=== PATIENT | female | born 1955 | race Caucasian/White ===

== ENCOUNTER 2018-07-04 05:27 | Inpatient (IN) | payer OTHER, SELFPAY ==
[2018-07-04] VITALS (9 sets, daily range): BP systolic 105–140; BP diastolic 58–87; PULSE 62–74; RESP 10–19; TEMP 36.6–37; O2SAT 96–100; BMI 26.4
--- NOTE | 2018-07-04 05:52 | ED.ABDPAIN ---
HPI - Abdominal Pain General Chief Complaint: Abdominal Pain Stated Complaint: pain in back and abdomen for 24 hrs Time Seen by Provider: 07/04/18 05:45 Source: patient Mode of arrival: ambulatory Limitations: no limitations History of Present Illness HPI narrative: This is a 63-year-old female comes to the emergency department with complaint of epigastric pain. Patient states it is just right in the middle radiates through to her back. She states that she has had similar symptoms before when she had a gallstone pancreatitis although at that time it was much worse than today. Previous histories pre she has felt nauseated she threw up a couple times today. She has not had fevers but felt a little chilled. She has had some mild constipation but had bowel movements. No urinary symptoms. Patient has not felt short of breath, she denies any pain up into the chest. Patient states she has had her gallbladder removed but denies any other surgeries she takes sertraline daily and accidentally took 2 tablets on Wednesday. Patient has two glasses of wine tonight. States she has a drink most nights. Related Data Home Medications Medication Instructions Recorded Confirmed sertraline [Zoloft] 20 mg PO DAILY 07/04/18 07/04/18 Allergies Allergy/AdvReac Type Severity Reaction Status Date / Time No Known Drug Allergies Allergy Verified 07/04/18 05:46 Review of Systems Review of Systems All systems reviewed & are unremarkable except as noted in HPI and below Constitutional Reports chills and Denies fever(s) Cardiovascular Denies chest pain and Denies dyspnea Respiratory Denies dyspnea Gastrointestinal Gastrointestinal: Reports abdominal pain ( Epigastric), Denies change in bowel habits, Reports constipation, Reports heartburn, Denies diarrhea, Reports nausea and Reports vomiting Genitourinary Denies urinary frequency, Denies dysuria, Denies flank pain and Denies urinary urgency Musculoskeletal Reports back pain [facility] Medical History Gallstone pancreatitis (Acute) Surgical History S/P cholecystectomy (Acute) Family History Father Bladder cancer Mother Lung cancer Social History household members: spouse Smoking Status: Never smoker alcohol intake: current substance use type: does not use Exam Narrative Exam Narrative: GENERAL: Alert and oriented x three, well-nourished, well-appearing female in mild distress. HEENT: Head normocephalic, atraumatic, EOMI, pupils reactive, face symmetric, moist mucous membranes NECK: Supple, full range of motion CARDIOVASCULAR: Regular rate and rhythm without murmurs, rubs or gallops. RESPIRATORY: Breath sounds equal bilaterally, no wheezes rales or rhonchi. ABDOMEN: Soft, Mild epigastric tenderness. No other tenderness appreciated. No bruit or pulsatile mass. Normoactive bowel sounds all 4 quadrants. No guarding or rebound, rigidity, no mass : No CVA tenderness EXTREMITIES: Normal range of motion, no clubbing or edema. Neurovascularly intact NEUROLOGICAL: Cranial nerves II through XII grossly intact. Moving all extremities SKIN: Warm, dry, no petechiae, no rashes or lesions. Initial Vital Signs Initial Vital Signs: Vital Signs Temperature 97.8 F 07/04/18 05:40 Pulse Rate 74 07/04/18 05:40 Respiratory Rate 14 07/04/18 05:40 Blood Pressure 140/87 07/04/18 05:40 Pulse Oximetry 97 07/04/18 05:40 Course Orders Ordered: ED Orders 07/05/18 04:39 Complete Blood Count AUTO DIFF Routine Comprehensive Metabolic Panel Routine Lipase Routine Enoxaparin Sodium (Lovenox) 40 mg SUBCUT DAILY [facility] Last Admin: 07/05/18 09:14 Dose: 40 mg Hydromorphone HCl (Dilaudid) 0.5 mg IV Q4HRWA PRN PRN Reason: Pain, Moderate (4-6) Last Admin: 07/04/18 17:50 Dose: 0.5 mg Lactated Ringer's (Lactated Ringers) 1,000 mls @ 150 mls/hr IV CONT ALE Last Admin: 07/05/18 05:12 Dose: 150 mls/hr Infusion: 07/05/18 05:12 Dose: 150 mls/hr Admin: 07/04/18 22:49 Dose: 150 mls/hr Infusion: 07/04/18 22:49 Dose: 150 mls/hr Admin: 07/04/18 16:17 Dose: 150 mls/hr Ondansetron HCl (Zofran) 4 mg IV Q8HR PRN PRN Reason: Nausea And Vomiting Last Admin: 07/04/18 17:59 Dose: 4 mg Discontinued Medications Hydromorphone HCl (Dilaudid) 0.5 mg IV NOW ONE Stop: 07/04/18 09:10 Last Admin: 07/04/18 09:11 Dose: 0.5 mg Hydromorphone HCl (Dilaudid) 0.5 mg IV Q4HRWA ALE Sodium Chloride (Normal Saline 0.9%) 1,000 mls @ 1,000 mls/hr IV BOLUS ONE Stop: 07/04/18 06:50 Last Infusion: 07/04/18 07:40 Dose: 0 mls/hr Admin: 07/04/18 06:34 Dose: 1,000 mls/hr Sodium Chloride (Normal Saline 0.9%) 1,000 mls @ 1,000 mls/hr IV BOLUS ONE Stop: 07/04/18 11:37 Last Infusion: 07/04/18 12:39 Dose: 0 mls/hr Admin: 07/04/18 10:51 Dose: 1,000 mls/hr Ketorolac Tromethamine (Toradol) 30 mg IV NOW ONE Stop: 07/04/18 05:52 Last Admin: 07/04/18 06:33 Dose: 30 mg Pantoprazole Sodium (Protonix) 40 mg IV NOW ONE Stop: 07/04/18 05:52 Last Admin: 07/04/18 06:34 Dose: 40 mg Vital Signs - 8 hr 07/05/18 04:45 07/05/18 07:58 07/05/18 08:08 Temperature 98.8 F 97.5 F L Pulse Rate 66 65 Respiratory Rate 20 20 Blood Pressure 124/73 119/70 Pulse Oximetry 96 96 96 MDM - Abdominal Pain Lab Data Result diagrams: 07/05/18 04:39 07/05/18 04:39 Lab Results 07/04/18 07/04/18 07/04/18 Range/Units 06:21 06:25 06:25 WBC 8.9 (4.5-11.0) X10^3/uL RBC 4.32 (4.0-5.2) X10^6/uL Hgb 13.5 (12.0-16.0) g/dL Hct 39.7 (36-46) % MCV 91.8 (80-100) fL MCH 31.3 (26-34) PG MCHC 34.1 (30-36) % RDW 13.5 (11.6-14.8) % Plt Count 241 (150-400) X10^3/uL Neut % (Auto) 87.7 H (50-75) % Lymph % (Auto) 6.5 L (25-40) % [place] % (Auto) 5.2 (3-14) % Eos % (Auto) 0.1 L (2-4) % Baso % (Auto) 0.5 (0-2) % Neut # (Auto) 7800 H (2161-0125) /uL Sodium 143 (137-145) mmol/L Potassium 4.2 (3.4-5.1) mmol/L Chloride 105 (98-107) mmol/L Carbon Dioxide 26 (22-32) mmol/L BUN 14 (7-17) mg/dL Creatinine 0.60 (0.52-1.04) mg/dL Estimated GFR > 60.0 (>60) mL/min BUN/Creatinine Ratio 23.3 H (6-22) Glucose 144 H (80-110) mg/dL Calcium 10.1 (8.4-10.2) mg/dL Total Bilirubin 1.4 H (0.2-1.3) mg/dL AST 1066 H (14-36) IU/L ALT 991 H (9-52) IU/L Alkaline Phosphatase 217 H (38-126) U/L Total Creatine Kinase 30 (30-135) U/L CK-MB (CK-2) TNP CK-MB (CK-2) Rel Index TNP Troponin I < 0.012 (0.01-0.034) ng/mL Total Protein 7.5 (6.3-8.2) g/dL Albumin 4.7 (3.5-5.0) g/dL Globulin 2.8 (1.7-4.1) g/dL Albumin/Globulin Ratio 1.7 (1.0-2.8) Amylase 4949 H (30-110) U/L Lipase 44473 H (23-300) U/L Urine RBC (0-5/HPF) Urine WBC (0-5/HPF) Urine Bacteria (None) Ur Culture Indicated? Micro UA Comment Nasal Screen MRSA (PCR) (Negative) 07/04/18 07/04/1818 Range/Units 07:28 Unknown 04:39 WBC 5.8 (4.5-11.0) X10^3/uL RBC 3.66 L (4.0-5.2) X10^6/uL Hgb 11.5 L (12.0-16.0) g/dL Hct 34.1 L (36-46) % MCV 92.9 (80-100) fL MCH 31.4 (26-34) PG MCHC 33.8 (30-36) % RDW 13.3 (11.6-14.8) % Plt Count 180 (150-400) X10^3/uL Neut % (Auto) 63.7 D (50-75) % Lymph % (Auto) 26.4 (25-40) % [place] % (Auto) 7.5 (3-14) % Eos % (Auto) 2.0 (2-4) % Baso % (Auto) 0.4 (0-2) % Neut # (Auto) 3700 (5445-4605) /uL Sodium (137-145) mmol/L Potassium (3.4-5.1) mmol/L Chloride (98-107) mmol/L Carbon Dioxide (22-32) mmol/L BUN (7-17) mg/dL Creatinine (0.52-1.04) mg/dL Estimated GFR (>60) mL/min BUN/Creatinine Ratio (6-22) Glucose (80-110) mg/dL Calcium (8.4-10.2) mg/dL Total Bilirubin (0.2-1.3) mg/dL AST (14-36) IU/L ALT (9-52) IU/L Alkaline Phosphatase (38-126) U/L Total Creatine Kinase (30-135) U/L CK-MB (CK-2) CK-MB (CK-2) Rel Index Troponin I (0.01-0.034) ng/mL Total Protein (6.3-8.2) g/dL Albumin (3.5-5.0) g/dL Globulin (1.7-4.1) g/dL Albumin/Globulin Ratio (1.0-2.8) Amylase (30-110) U/L Lipase (23-300) U/L Urine RBC 5-10/hpf H (0-5/HPF) Urine WBC None seen (0-5/HPF) Urine Bacteria None seen (None) Ur Culture Indicated? Cult not indicated Micro UA Comment Not Reportable Nasal Screen MRSA (PCR) Negative for mrsa (Negative) 07/05/18 Range/Units 04:39 WBC (4.5-11.0) X10^3/uL RBC (4.0-5.2) X10^6/uL Hgb (12.0-16.0) g/dL Hct (36-46) % MCV (80-100) fL MCH (26-34) PG MCHC (30-36) % RDW (11.6-14.8) % Plt Count (150-400) X10^3/uL Neut % (Auto) (50-75) % Lymph % (Auto) (25-40) % [place] % (Auto) (3-14) % Eos % (Auto) (2-4) % Baso % (Auto) (0-2) % Neut # (Auto) (7771-6375) /uL Sodium 143 (137-145) mmol/L Potassium 4.0 (3.4-5.1) mmol/L Chloride 108 H (98-107) mmol/L Carbon Dioxide 26 (22-32) mmol/L BUN 11 (7-17) mg/dL Creatinine 0.60 (0.52-1.04) mg/dL Estimated GFR > 60.0 (>60) mL/min BUN/Creatinine Ratio 18.3 (6-22) Glucose 79 L (80-110) mg/dL Calcium 8.8 (8.4-10.2) mg/dL Total Bilirubin 0.7 (0.2-1.3) mg/dL AST 327 H (14-36) IU/L ALT 580 H (9-52) IU/L Alkaline Phosphatase 164 H (38-126) U/L Total Creatine Kinase (30-135) U/L CK-MB (CK-2) CK-MB (CK-2) Rel Index Troponin I (0.01-0.034) ng/mL Total Protein 5.9 L (6.3-8.2) g/dL Albumin 3.8 (3.5-5.0) g/dL Globulin 2.1 (1.7-4.1) g/dL Albumin/Globulin Ratio 1.8 (1.0-2.8) Amylase (30-110) U/L Lipase 6098 H D (23-300) U/L Urine RBC (0-5/HPF) Urine WBC (0-5/HPF) Urine Bacteria (None) Ur Culture Indicated? Micro UA Comment Nasal Screen MRSA (PCR) (Negative) Point of care testing: Urine Dip Bedside Urine Glucose Negative Bedside Urine Bilirubin - Negative Bedside Urine Ketone - Negative Urine Specific [place] 1.025 Bedside Urine Occult Blood +++ Bedside Urine pH 5.5 Bedside Urine Protein - Negative Bedside Urine Urobilinogen - Negative Bedside Urine Nitrite - Negative Bedside Urine Leukocytes - Negative Esterase ECG Data Attestation: I personally reviewed and interpreted this ECG as follows: Prior ECG tracings: not available for review Interpretation: sinus rhythm, rate of 65, pr of 140, qrs of 89, qtc of 432. Nonspecifci changes. MDM Narrative Medical decision making narrative: Lab work is pending, EKG is negative. Patient pain controlled. Patient signed out to Dr. Whittington for final disposition. Discharge Plan Departure Patient Disposition: Admitted As Inpatient Clinical Impression: Acute epigastric pain Discharge Date/Time: 07/04/18 14:05 Interventions: ED Discharge Assessment Last Done: 07/04/18 14:04 Admit Date/Time: 07/04/18 13:48 Admit Provider: Munira Marin
--- NOTE | 2018-07-04 05:55 | ED_ITS ---
HPI - Abdominal Pain General Chief Complaint: Abdominal Pain Stated Complaint: pain in back and abdomen for 24 hrs Time Seen by Provider: 07/04/18 05:45 Source: patient Mode of arrival: ambulatory Limitations: no limitations History of Present Illness HPI narrative: This is a 63-year-old female comes to the emergency department with complaint of epigastric pain. Patient states it is just right in the middle radiates through to her back. She states that she has had similar symptoms before when she had a gallstone pancreatitis although at that time it was much worse than today. Previous histories pre she has felt nauseated she threw up a couple times today. She has not had fevers but felt a little chilled. She has had some mild constipation but had bowel movements. No urinary symptoms. Patient has not felt short of breath, she denies any pain up into the chest. Patient states she has had her gallbladder removed but denies any other surgeries she takes sertraline daily and accidentally took 2 tablets on Wednesday. Patient has two glasses of wine tonight. States she has a drink most nights. Related Data Home Medications Medication Instructions Recorded Confirmed sertraline [Zoloft] 20 mg PO DAILY 07/04/18 07/04/18 Allergies Allergy/AdvReac Type Severity Reaction Status Date / Time No Known Drug Allergies Allergy Verified 07/04/18 05:46 Review of Systems Review of Systems All systems reviewed & are unremarkable except as noted in HPI and below Constitutional Reports chills and Denies fever(s) Cardiovascular Denies chest pain and Denies dyspnea Respiratory Denies dyspnea Gastrointestinal Gastrointestinal: Reports abdominal pain ( Epigastric), Denies change in bowel habits, Reports constipation, Reports heartburn, Denies diarrhea, Reports nausea and Reports vomiting Genitourinary Denies urinary frequency, Denies dysuria, Denies flank pain and Denies urinary urgency Musculoskeletal Reports back pain [facility] Medical History Gallstone pancreatitis (Acute) Surgical History S/P cholecystectomy (Acute) Family History Father Bladder cancer Mother Lung cancer Social History household members: spouse Smoking Status: Never smoker alcohol intake: current substance use type: does not use Exam Narrative Exam Narrative: GENERAL: Alert and oriented x three, well-nourished, well- appearing female in mild distress. HEENT: Head normocephalic, atraumatic, EOMI, pupils reactive, face symmetric, moist mucous membranes NECK: Supple, full range of motion CARDIOVASCULAR: Regular rate and rhythm without murmurs, rubs or gallops. RESPIRATORY: Breath sounds equal bilaterally, no wheezes rales or rhonchi. ABDOMEN: Soft, Mild epigastric tenderness. No other tenderness appreciated. No bruit or pulsatile mass. Normoactive bowel sounds all 4 quadrants. No guarding or rebound, rigidity, no mass : No CVA tenderness EXTREMITIES: Normal range of motion, no clubbing or edema. Neurovascularly intact NEUROLOGICAL: Cranial nerves II through XII grossly intact. Moving all extremities SKIN: Warm, dry, no petechiae, no rashes or lesions. Initial Vital Signs Initial Vital Signs: Vital Signs Temperature 97.8 F 07/04/18 05:40 Pulse Rate 74 07/04/18 05:40 Respiratory Rate 14 07/04/18 05:40 Blood Pressure 140/87 07/04/18 05:40 Pulse Oximetry 97 07/04/18 05:40 Course Orders Ordered: ED Orders 07/05/18 04:39 Complete Blood Count AUTO DIFF Routine Comprehensive Metabolic Panel Routine Lipase Routine Enoxaparin Sodium (Lovenox) 40 mg SUBCUT DAILY [facility] Last Admin: 07/05/18 09:14 Dose: 40 mg Hydromorphone HCl (Dilaudid) 0.5 mg IV Q4HRWA PRN PRN Reason: Pain, Moderate (4-6) Last Admin: 07/04/18 17:50 Dose: 0.5 mg Lactated Ringer's (Lactated Ringers) 1,000 mls @ 150 mls/hr IV CONT ALE Last Admin: 07/05/18 05:12 Dose: 150 mls/hr Infusion: 07/05/18 05:12 Dose: 150 mls/hr Admin: 07/04/18 22:49 Dose: 150 mls/hr Infusion: 07/04/18 22:49 Dose: 150 mls/hr Admin: 07/04/18 16:17 Dose: 150 mls/hr Ondansetron HCl (Zofran) 4 mg IV Q8HR PRN PRN Reason: Nausea And Vomiting Last Admin: 07/04/18 17:59 Dose: 4 mg Discontinued Medications Hydromorphone HCl (Dilaudid) 0.5 mg IV NOW ONE Stop: 07/04/18 09:10 Last Admin: 07/04/18 09:11 Dose: 0.5 mg Hydromorphone HCl (Dilaudid) 0.5 mg IV Q4HRWA ALE Sodium Chloride (Normal Saline 0.9%) 1,000 mls @ 1,000 mls/hr IV BOLUS ONE Stop: 07/04/18 06:50 Last Infusion: 07/04/18 07:40 Dose: 0 mls/hr Admin: 07/04/18 06:34 Dose: 1,000 mls/hr Sodium Chloride (Normal Saline 0.9%) 1,000 mls @ 1,000 mls/hr IV BOLUS ONE Stop: 07/04/18 11:37 Last Infusion: 07/04/18 12:39 Dose: 0 mls/hr Admin: 07/04/18 10:51 Dose: 1,000 mls/hr Ketorolac Tromethamine (Toradol) 30 mg IV NOW ONE Stop: 07/04/18 05:52 Last Admin: 07/04/18 06:33 Dose: 30 mg Pantoprazole Sodium (Protonix) 40 mg IV NOW ONE Stop: 07/04/18 05:52 Last Admin: 07/04/18 06:34 Dose: 40 mg Vital Signs - 8 hr 07/05/18 04:45 07/05/18 07:58 07/05/18 08:08 Temperature 98.8 F 97.5 F L Pulse Rate 66 65 Respiratory Rate 20 20 Blood Pressure 124/73 119/70 Pulse Oximetry 96 96 96 MDM - Abdominal Pain Lab Data Result diagrams: 07/05/18 04:39 07/05/18 04:39 Lab Results 07/04/18 07/04/18 07/04/18 Range/Units 06:21 06:25 06:25 WBC 8.9 (4.5-11.0) X10^3/uL RBC 4.32 (4.0-5.2) X10^6/uL Hgb 13.5 (12.0-16.0) g/dL Hct 39.7 (36-46) % MCV 91.8 (80-100) fL MCH 31.3 (26-34) PG MCHC 34.1 (30-36) % RDW 13.5 (11.6-14.8) % Plt Count 241 (150-400) X10^3/uL Neut % (Auto) 87.7 H (50-75) % Lymph % (Auto) 6.5 L (25-40) % [place] % (Auto) 5.2 (3-14) % Eos % (Auto) 0.1 L (2-4) % Baso % (Auto) 0.5 (0-2) % Neut # (Auto) 7800 H (2921-5549) /uL Sodium 143 (137-145) mmol/L Potassium 4.2 (3.4-5.1) mmol/L Chloride 105 (98-107) mmol/L Carbon Dioxide 26 (22-32) mmol/L BUN 14 (7-17) mg/dL Creatinine 0.60 (0.52-1.04) mg/dL Estimated GFR > 60.0 (>60) mL/min BUN/Creatinine Ratio 23.3 H (6-22) Glucose 144 H (80-110) mg/dL Calcium 10.1 (8.4-10.2) mg/dL Total Bilirubin 1.4 H (0.2-1.3) mg/dL AST 1066 H (14-36) IU/L ALT 991 H (9-52) IU/L Alkaline Phosphatase 217 H (38-126) U/L Total Creatine Kinase 30 (30-135) U/L CK-MB (CK-2) TNP CK-MB (CK-2) Rel Index TNP Troponin I < 0.012 (0.01-0.034) ng/mL Total Protein 7.5 (6.3-8.2) g/dL Albumin 4.7 (3.5-5.0) g/dL Globulin 2.8 (1.7-4.1) g/dL Albumin/Globulin Ratio 1.7 (1.0-2.8) Amylase 4949 H (30-110) U/L Lipase 68040 H (23-300) U/L Urine RBC (0-5/HPF) Urine WBC (0-5/HPF) Urine Bacteria (None) Ur Culture Indicated? Micro UA Comment Nasal Screen MRSA (PCR) (Negative) 07/04/18 07/04/1818 Range/Units 07:28 Unknown 04:39 WBC 5.8 (4.5-11.0) X10^3/uL RBC 3.66 L (4.0-5.2) X10^6/uL Hgb 11.5 L (12.0-16.0) g/dL Hct 34.1 L (36-46) % MCV 92.9 (80-100) fL MCH 31.4 (26-34) PG MCHC 33.8 (30-36) % RDW 13.3 (11.6-14.8) % Plt Count 180 (150-400) X10^3/uL Neut % (Auto) 63.7 D (50-75) % Lymph % (Auto) 26.4 (25-40) % [place] % (Auto) 7.5 (3-14) % Eos % (Auto) 2.0 (2-4) % Baso % (Auto) 0.4 (0-2) % Neut # (Auto) 3700 (6933-6383) /uL Sodium (137-145) mmol/L Potassium (3.4-5.1) mmol/L Chloride (98-107) mmol/L Carbon Dioxide (22-32) mmol/L BUN (7-17) mg/dL Creatinine (0.52-1.04) mg/dL Estimated GFR (>60) mL/min BUN/Creatinine Ratio (6-22) Glucose (80-110) mg/dL Calcium (8.4-10.2) mg/dL Total Bilirubin (0.2-1.3) mg/dL AST (14-36) IU/L ALT (9-52) IU/L Alkaline Phosphatase (38-126) U/L Total Creatine Kinase (30-135) U/L CK-MB (CK-2) CK-MB (CK-2) Rel Index Troponin I (0.01-0.034) ng/mL Total Protein (6.3-8.2) g/dL Albumin (3.5-5.0) g/dL Globulin (1.7-4.1) g/dL Albumin/Globulin Ratio (1.0-2.8) Amylase (30-110) U/L Lipase (23-300) U/L Urine RBC 5-10/hpf H (0-5/HPF) Urine WBC None seen (0-5/HPF) Urine Bacteria None seen (None) Ur Culture Indicated? Cult not indicated Micro UA Comment Not Reportable Nasal Screen MRSA (PCR) Negative for mrsa (Negative) 07/05/18 Range/Units 04:39 WBC (4.5-11.0) X10^3/uL RBC (4.0-5.2) X10^6/uL Hgb (12.0-16.0) g/dL Hct (36-46) % MCV (80-100) fL MCH (26-34) PG MCHC (30-36) % RDW (11.6-14.8) % Plt Count (150-400) X10^3/uL Neut % (Auto) (50-75) % Lymph % (Auto) (25-40) % [place] % (Auto) (3-14) % Eos % (Auto) (2-4) % Baso % (Auto) (0-2) % Neut # (Auto) (6975-8080) /uL Sodium 143 (137-145) mmol/L Potassium 4.0 (3.4-5.1) mmol/L Chloride 108 H (98-107) mmol/L Carbon Dioxide 26 (22-32) mmol/L BUN 11 (7-17) mg/dL Creatinine 0.60 (0.52-1.04) mg/dL Estimated GFR > 60.0 (>60) mL/min BUN/Creatinine Ratio 18.3 (6-22) Glucose 79 L (80-110) mg/dL Calcium 8.8 (8.4-10.2) mg/dL Total Bilirubin 0.7 (0.2-1.3) mg/dL AST 327 H (14-36) IU/L ALT 580 H (9-52) IU/L Alkaline Phosphatase 164 H (38-126) U/L Total Creatine Kinase (30-135) U/L CK-MB (CK-2) CK-MB (CK-2) Rel Index Troponin I (0.01-0.034) ng/mL Total Protein 5.9 L (6.3-8.2) g/dL Albumin 3.8 (3.5-5.0) g/dL Globulin 2.1 (1.7-4.1) g/dL Albumin/Globulin Ratio 1.8 (1.0-2.8) Amylase (30-110) U/L Lipase 6098 H D (23-300) U/L Urine RBC (0-5/HPF) Urine WBC (0-5/HPF) Urine Bacteria (None) Ur Culture Indicated? Micro UA Comment Nasal Screen MRSA (PCR) (Negative) Point of care testing: Urine Dip Bedside Urine Glucose Negative Bedside Urine Bilirubin - Negative Bedside Urine Ketone - Negative Urine Specific [place] 1.025 Bedside Urine Occult Blood +++ Bedside Urine pH 5.5 Bedside Urine Protein - Negative Bedside Urine Urobilinogen - Negative Bedside Urine Nitrite - Negative Bedside Urine Leukocytes - Negative Esterase ECG Data Attestation: I personally reviewed and interpreted this ECG as follows: Prior ECG tracings: not available for review Interpretation: sinus rhythm, rate of 65, pr of 140, qrs of 89, qtc of 432. Nonspecifci changes. MDM Narrative Medical decision making narrative: Lab work is pending, EKG is negative. Patient pain controlled. Patient signed out to Dr. Whittington for final disposition. Discharge Plan Departure Patient Disposition: Admitted As Inpatient Clinical Impression: Acute epigastric pain Discharge Date/Time: 07/04/18 14:05 Interventions: ED Discharge Assessment Last Done: 07/04/18 14:04 Admit Date/Time: 07/04/18 13:48 Admit Provider: Munira Marin
[2018-07-04] MEDS: KETOROLAC 60 MG/2 ML VIAL 30 MG IV (06:33)
[2018-07-04] MEDS: SODIUM CHLORIDE 0.9% 1,000 ML 1000 ML IV ×2 (06:34→10:51)
[2018-07-04] MEDS: PANTOPRAZOLE 40 MG VIAL IV (06:34)
[2018-07-04 06:55] LABS: Add Manual Diff / Slide Review NO; Basophils Percent Auto 0.5 % (0-2); Eosinophils Percent Auto 0.1 % (2-4); Hematocrit 39.7 % (36-46); Hemoglobin 13.5 g/dL (12.0-16.0); Lymphocytes Percent Auto 6.5 % (25-40); Mean Corpuscular HGB Conc 34.1 % (30-36); Mean Corpuscular Hemoglobin 31.3 PG (26-34); Mean Corpuscular Volume 91.8 fL (80-100); Monocytes Percent Auto 5.2 % (3-14); Neutrophils Absolute Auto 7800 /uL (3000-5900); Neutrophils Percent Auto 87.7 % (50-75); Platelet Count 241 X10^3/uL (150-400); Red Blood Cell Count 4.32 X10^6/uL (4.0-5.2); Red Cell Distribution Width 13.5 % (11.6-14.8); White Blood Cell Count 8.9 X10^3/uL (4.5-11.0)
[2018-07-04 07:04] LABS: Alanine Aminotransferase 991 IU/L (9-52); Albumin 4.7 g/dL (3.5-5.0); Albumin Globulin Ratio 1.7 (1.0-2.8); Alkaline Phosphatase 217 U/L (38-126); BUN Creatinine Ratio 23.3 (6-22); Bilirubin Total 1.4 mg/dL (0.2-1.3); Blood Urea Nitrogen 14 mg/dL (7-17); Calcium 10.1 mg/dL (8.4-10.2); Carbon Dioxide 26 mmol/L (22-32); Creatine Kinase 30 U/L (30-135); Estimated Glomerular Filt Rate > 60.0 mL/min (>60); Globulin 2.8 g/dL (1.7-4.1); Glucose 144 mg/dL (80-110); HEMOLYSIS < 15 (0-50); Total Protein 7.5 g/dL (6.3-8.2)
--- NOTE | 2018-07-04 07:11 | DI.US.S_ITS ---
PROCEDURE: US ABDOMEN COMPLETE INDICATIONS: EPIGASTRIC PAIN; ABNORMAL LFTS TECHNIQUE: Real-time scanning was performed of the abdominal and retroperitoneal organs, with image documentation. COMPARISON: None. FINDINGS: Liver: Liver is normal in size and homogeneous in echotexture. 2.3 x 1.6 x 2.2 cm simple cyst in the anterior right hepatic lobe. Gallbladder: Gallbladder is surgically absent. Biliary ducts: Intrahepatic bile ducts are non-dilated. Extrahepatic bile duct caliber measures 6.3 mm. Normal is 6-7 mm or less in diameter, or 10 mm or less post-cholecystectomy. Pancreas: Visualized portions of the pancreas are sonographically normal. Spleen: Spleen is normal in size and homogeneous in echotexture. Kidneys: Kidneys are normal in size and echotexture. Right kidney measures 11.3 cm long; left kidney measures 10.3 cm long. No hydronephrosis or nephrolithiasis. No solid masses. Aorta: Visualized aorta is normal in caliber at less than 3 cm. Iliacs: Proximal common iliac arteries are normal in caliber at less than 2.5 cm. IVC: Intrahepatic inferior vena cava is patent. Miscellaneous: No free abdominal fluid. IMPRESSION: 1. A 2.3 x 1.6 x 2.2 cm simple cyst in the right hepatic lobe. 2. No ultrasound finding to explain epigastric pain. 3. Cholecystectomy. Dictated by: Lissette Garnica M.D. on 07/04/2018 at 8:07 Approved by: Lissette Garnica M.D. on 07/04/2018 at 8:09
[2018-07-04 07:13] LABS: Chloride 105 mmol/L (98-107); Potassium 4.2 mmol/L (3.4-5.1); Sodium 143 mmol/L (137-145)
[2018-07-04 07:15] LABS: Troponin I < 0.012 ng/mL (0.01-0.034)
[2018-07-04 07:19] LABS: Aspartate Aminotransferase 1066 IU/L (14-36)
[2018-07-04 07:44] LABS: Bacteria Urine None Seen; WBC Urine None Seen (0-5/HPF)
[2018-07-04 07:50] LABS: Culture Indicated Urine Cult Not Indicated; RBC Urine 5-10/HPF (0-5/HPF)
[2018-07-04 07:55] LABS: Lipase 68879 U/L (23-300)
--- NOTE | 2018-07-04 08:37 | DI.CT.S_ITS ---
PROCEDURE: CT ABDOMEN PELVIS W CON INDICATIONS: abdominal pain TECHNIQUE: After the administration of intravenous contrast, 5 mm thick sections acquired from the diaphragm to the symphysis. 5 mm coronal and sagittal reformats were acquired. For radiation dose reduction, the following was used: automated exposure control, adjustment of mA and/or kV according to patient size. COMPARISON: None. FINDINGS: Image quality: Excellent. ABDOMEN: Lung bases: Lung bases are clear. Heart size is normal. Solid organs: Liver is normal in size. Well-circumscribed 1.9 cm round hypodensity is seen involving lateral periphery of right hepatic lobe and measures 21 Hounsfield units in density. Gallbladder is surgically absent. Biliary system is non dilated. Pancreas enhances normally. Focal 2 x 1.2 cm calcification near tail of pancreas is seen, which may be related to patient's prior history of pancreatitis. No significant peripancreatic fat stranding or fluid is noted on the current study. Spleen is normal in size and enhancement. No adrenal nodules. Kidneys demonstrate normal size and enhancement, without hydronephrosis. Peritoneum and bowel: Bowel loops demonstrate normal wall thickness and caliber. No free fluid or air. Appendix is visualized and is within normal limits. Nodes and vessels: No retroperitoneal or mesenteric adenopathy by size criteria. Aorta and inferior vena cava are normal in size. Miscellaneous: No ventral hernias. PELVIS: Genitourinary: Bladder wall thickness is normal. Miscellaneous: No inguinal hernias or adenopathy. Uterus and bilateral adnexa shows no gross abnormality. Bones: No suspicious bony lesions. No vertebral body compression fractures. IMPRESSION: 1. Focal 2 x 1.2 cm calcification involving tail of pancreas, which may be related to patient's known history of pancreatitis. No discrete pancreatic lesion is noted on the current study. No peripancreatic fat stranding or fluid collection. 2. Gallbladder is surgically absent. 1.9 cm round hypodensity involving lateral periphery of right hepatic lobe inferior aspect, and may represent benign process such as hepatic cyst. 3. No bowel obstruction. Normal appendix. No free fluid or free air. 4. No renal stone hydronephrosis. Dictated by: Moises Cheung M.D. on 07/04/2018 at 9:00 Approved by: Moises Cheung M.D. on 07/04/2018 at 9:07
[2018-07-04] MEDS: HYDROMORPHONE 1 MG INJ 0.5 MG IV ×2 (09:11→17:50)
--- NOTE | 2018-07-04 09:48 | ED.ABDPAIN ---
HPI - Abdominal Pain General Chief Complaint: Abdominal Pain Stated Complaint: pain in back and abdomen for 24 hrs Time Seen by Provider: 07/04/18 05:45 Source: patient Mode of arrival: ambulatory Limitations: no limitations History of Present Illness HPI narrative: Patient complains of epigastric abdominal pain that started several days ago. She states that initially, and she felt as though she was having indigestion and was bloated. However, after eating a meal yesterday morning, she began to have quite a bit of pain in her epigastric area and began vomiting. Patient states the pain has not let up and she has continued to be nauseated. She states she has a history of gallstone pancreatitis and cholecystectomy about 4 years ago. She states that other than a brief episode of pancreatitis about a month later, she has not had any problems until now. Patient has no history of any liver issues that she knows of. She states she does not drink alcohol, other than the occasional glass of wine, and that she does not really take Tylenol. She does not have any known history of hepatitis exposure. She states the only exotic international travel and she has done was to live in [place] for a couple of years as a child. However, she was never sick with any thing affecting her liver and, as far she knows. Patient states that she is otherwise healthy. She has not had any sick contacts. No fevers. Patient denies any dysuria. No other complaints at this time. Severity scale (1-10): 7 Quality: stabbing Radiation: epigastric Migration to: no migration Relieving factors: nothing Exacerbating factors: eating Related Data Home Medications Medication Instructions Recorded Confirmed sertraline [Zoloft] 20 mg PO DAILY 07/04/18 07/04/18 Allergies Allergy/AdvReac Type Severity Reaction Status Date / Time No Known Drug Allergies Allergy Verified 07/04/18 05:46 Review of Systems Review of Systems All systems reviewed & are unremarkable except as noted in HPI and below Constitutional Denies chills, Denies fever(s), Denies lethargy and Denies weakness Eyes Denies change in vision, Denies eye discharge, Denies irritation and Denies loss of vision ENT Ears, Nose, Mouth, and Throat: Denies change in voice, Denies neck pain and Denies sore throat Cardiovascular Denies chest pain, Denies irregular heart rhythm, Denies lightheadedness, Denies palpitations, Denies dyspnea, Denies dyspnea on exertion and Denies orthopnea Respiratory Denies cough, Denies dyspnea, Denies dyspnea on exertion and Denies wheezing Gastrointestinal Gastrointestinal: Reports abdominal pain, Denies change in bowel habits, Denies diarrhea, Reports nausea and Reports vomiting Genitourinary Denies hematuria, Denies flank pain, Denies urinary incontinence and Denies urinary urgency Musculoskeletal Denies neck pain Integumentary/Breasts Denies pruritus, Denies erythema, Denies rash and Denies wounds Neurologic Denies confusion, Denies loss of vision and Denies weakness Psychiatric Denies anxiety, Denies confusion, Denies depression, Denies homicidal ideation and Denies suicidal ideation Endocrine Denies palpitations Hematologic/Lymphatic Denies easy bruising Allergic/Immunologic Denies wheezing [facility] Medical History Gallstone pancreatitis (Acute) Surgical History S/P cholecystectomy (Acute) Family History Father Bladder cancer Mother Lung cancer Social History household members: spouse Smoking Status: Never smoker alcohol intake: current substance use type: does not use Exam Initial Vital Signs Initial Vital Signs: Vital Signs Temperature 97.8 F 07/04/18 05:40 Pulse Rate 74 07/04/18 05:40 Respiratory Rate 14 07/04/18 05:40 Blood Pressure 140/87 07/04/18 05:40 Pulse Oximetry 97 07/04/18 05:40 Const General: cooperative and well developed Nutritional Appearance: well nourished Orientation: alert, awake, oriented x3 and not confused [facility] Head: normocephalic and atraumatic Ears: external ears normal and TM's normal bilaterally Nose: external nose normal and No nasal discharge Face and sinus: sinuses nontender, face symmetric, no sinus tenderness and No dry mucous membranes Mouth: oral mucosae normal and moist mucous membranes Teeth and gingiva: dentition normal Throat: tonsils normal and uvula midline Eyes General: appearance normal, both eyes and all related structures Eyelids: eyelids normal Conjunctivae: conjunctivae normal Sclera: sclerae normal Pupils: PERRL EOM: EOM intact bilaterally Neck Neck: normal visual inspection, trachea midline, No lymphadenopathy, No midline deformity and No JVD Lymphatic: No lymphedema Chest Chest: normal inspection of the chest Resp Effort & Inspection: normal respiratory effort, able to speak in complete sentences, no respiratory distress and no use of accessory muscles Auscultation: clear to auscultation bilaterally, no rales, no rhonchi and no wheezes Cardio Rate: regular rate Rhythm: regular rhythm Heart Sounds: no click, no gallops, no murmurs and no rubs Pulses: normal peripheral pulses GI Inspection: non-distended Palpation: soft, no hepatosplenomegaly, No guarding, No pulsatile mass and tender ( Moderate, epigastric area.) Auscultation: normal bowel sounds Back/Spine/Pelvis Back: No CVA tenderness Cervical Spine: cervical ROM normal and No pain with cervical ROM Thoracic/Lumbar Spine: thoracic and lumbar spine normal to inspection Skin General: no rashes or lesions noted, No jaundice and No petechiae Neuro General: alert, oriented x3, gait normal and no focal motor deficits Speech: speech normal Extrem General: full ROM, no clubbing, cyanosis or edema, no pedal edema and no calf tenderness Psych Appearance: well kempt Mental Status: mental status grossly normal Attitude: cooperative Thought Content: normal and suicidality Judgment: judgment good Course Course Narrative: Patient was worked up for her symptoms, and found to have elevated AST and ALT, as well as a lipase of 68,000. I ordered an ultrasound, which was unremarkable for gallbladder or pancreatic pathology. CT scan of the abdomen and pelvis was also unremarkable. I spoke with Dr. Marin, who is on-call as the hospitalist, and she stated she was concerned the patient may need an ERCP, and would prefer that the patient has case be discussed with [facility]. Because the patient was a [facility] patient, we did ask to discuss the case with [facility] before considering transfer this patient to any other facility. After 2 hr, I was finally able to speak with a [facility] physician, who stated he would run the case by his GI specialist. However, after another hour, he called back and stated he had not been able to reach his GI specialist. At this point however he did state that the patient was cleared to be admitted or transferred to any other facility that we deemed necessary. I spoke with Dr. Bennett vinson of GI at [facility], and he stated that at this point in time, he would not emergently do an ERCP on this patient. The patient stated that was preferable to let her pancreatitis calm down, and stated that she could even have an ERCP done as an outpatient after her admission. He did recommend an MRCP which we did perform and was found the patient had choledocholithiasis with no current obstruction but evidence of a recently passed stone. At this point I spoke with Dr. Marin again who did agree to admit the patient to her service. Orders Ordered: ED Orders 07/06/18 05:00 Complete Blood Count AUTO DIFF Routine Lipase DAILY Enoxaparin Sodium (Lovenox) 40 mg SUBCUT DAILY [facility] Last Admin: 07/05/18 09:14 Dose: 40 mg Hydromorphone HCl (Dilaudid) 0.5 mg IV Q4HRWA PRN PRN Reason: Pain, Moderate (4-6) Last Admin: 07/04/18 17:50 Dose: 0.5 mg Dextrose/Lactated Ringer's (Dextrose 5%-Lactated Ringers) 1,000 mls @ 125 mls/hr IV CONT [facility] Last Admin: 07/05/18 18:12 Dose: 125 mls/hr Ondansetron HCl (Zofran) 4 mg IV Q8HR PRN PRN Reason: Nausea And Vomiting Last Admin: 07/04/18 17:59 Dose: 4 mg Pantoprazole Sodium (Protonix) 40 mg PO 0700 [facility] Discontinued Medications Hydromorphone HCl (Dilaudid) 0.5 mg IV NOW ONE Stop: 07/04/18 09:10 Last Admin: 07/04/18 09:11 Dose: 0.5 mg Hydromorphone HCl (Dilaudid) 0.5 mg IV Q4HRWA [facility] Sodium Chloride (Normal Saline 0.9%) 1,000 mls @ 1,000 mls/hr IV BOLUS ONE Stop: 07/04/18 06:50 Last Infusion: 07/04/18 07:40 Dose: 0 mls/hr Admin: 07/04/18 06:34 Dose: 1,000 mls/hr Sodium Chloride (Normal Saline 0.9%) 1,000 mls @ 1,000 mls/hr IV BOLUS ONE Stop: 07/04/18 11:37 Last Infusion: 07/04/18 12:39 Dose: 0 mls/hr Admin: 07/04/18 10:51 Dose: 1,000 mls/hr Lactated Ringer's (Lactated Ringers) 1,000 mls @ 150 mls/hr IV CONT ALE Last Infusion: 07/05/18 18:17 Dose: 0 mls/hr Admin: 07/05/18 11:39 Dose: 150 mls/hr Infusion: 07/05/18 11:39 Dose: 150 mls/hr Admin: 07/05/18 05:12 Dose: 150 mls/hr Infusion: 07/05/18 05:12 Dose: 150 mls/hr Admin: 07/04/18 22:49 Dose: 150 mls/hr Infusion: 07/04/18 22:49 Dose: 150 mls/hr Admin: 07/04/18 16:17 Dose: 150 mls/hr Lactated Ringer's (Lactated Ringers) 1,000 mls @ 100 mls/hr IV CONT ALE Ketorolac Tromethamine (Toradol) 30 mg IV NOW ONE Stop: 07/04/18 05:52 Last Admin: 07/04/18 06:33 Dose: 30 mg Pantoprazole Sodium (Protonix) 40 mg IV NOW ONE Stop: 07/04/18 05:52 Last Admin: 07/04/18 06:34 Dose: 40 mg Vital Signs - 8 hr 07/05/18 16:00 Temperature 97.2 F L Pulse Rate 60 Respiratory Rate 20 Blood Pressure 125/70 Pulse Oximetry 98 MDM - Abdominal Pain Medical Records Attestation: I reviewed the patient's medical records. Lab Data Attestation: I reviewed the patient's lab results. Result diagrams: 07/05/18 04:39 07/05/18 04:39 Lab Results 07/04/18 07/04/18 07/04/18 Range/Units 06:21 06:25 06:25 WBC 8.9 (4.5-11.0) X10^3/uL RBC 4.32 (4.0-5.2) X10^6/uL Hgb 13.5 (12.0-16.0) g/dL Hct 39.7 (36-46) % MCV 91.8 (80-100) fL MCH 31.3 (26-34) PG MCHC 34.1 (30-36) % RDW 13.5 (11.6-14.8) % Plt Count 241 (150-400) X10^3/uL Neut % (Auto) 87.7 H (50-75) % Lymph % (Auto) 6.5 L (25-40) % Desha % (Auto) 5.2 (3-14) % Eos % (Auto) 0.1 L (2-4) % Baso % (Auto) 0.5 (0-2) % Neut # (Auto) 7800 H (3035-3187) /uL Sodium 143 (137-145) mmol/L Potassium 4.2 (3.4-5.1) mmol/L Chloride 105 (98-107) mmol/L Carbon Dioxide 26 (22-32) mmol/L BUN 14 (7-17) mg/dL Creatinine 0.60 (0.52-1.04) mg/dL Estimated GFR > 60.0 (>60) mL/min BUN/Creatinine Ratio 23.3 H (6-22) Glucose 144 H (80-110) mg/dL Calcium 10.1 (8.4-10.2) mg/dL Total Bilirubin 1.4 H (0.2-1.3) mg/dL AST 1066 H (14-36) IU/L ALT 991 H (9-52) IU/L Alkaline Phosphatase 217 H (38-126) U/L Total Creatine Kinase 30 (30-135) U/L CK-MB (CK-2) TNP CK-MB (CK-2) Rel Index TNP Troponin I < 0.012 (0.01-0.034) ng/mL Total Protein 7.5 (6.3-8.2) g/dL Albumin 4.7 (3.5-5.0) g/dL Globulin 2.8 (1.7-4.1) g/dL Albumin/Globulin Ratio 1.7 (1.0-2.8) Amylase 4949 H (30-110) U/L Lipase 67500 H (23-300) U/L Urine RBC (0-5/HPF) Urine WBC (0-5/HPF) Urine Bacteria (None) Ur Culture Indicated? Micro UA Comment Nasal Screen MRSA (PCR) (Negative) 07/04/18 07/04/18 07/05/18 Range/Units 07:28 Unknown 04:39 WBC 5.8 (4.5-11.0) X10^3/uL RBC 3.66 L (4.0-5.2) X10^6/uL Hgb 11.5 L (12.0-16.0) g/dL Hct 34.1 L (36-46) % MCV 92.9 (80-100) fL MCH 31.4 (26-34) PG MCHC 33.8 (30-36) % RDW 13.3 (11.6-14.8) % Plt Count 180 (150-400) X10^3/uL Neut % (Auto) 63.7 D (50-75) % Lymph % (Auto) 26.4 (25-40) % Desha % (Auto) 7.5 (3-14) % Eos % (Auto) 2.0 (2-4) % Baso % (Auto) 0.4 (0-2) % Neut # (Auto) 3700 (8740-4896) /uL Sodium (137-145) mmol/L Potassium (3.4-5.1) mmol/L Chloride (98-107) mmol/L Carbon Dioxide (22-32) mmol/L BUN (7-17) mg/dL Creatinine (0.52-1.04) mg/dL Estimated GFR (>60) mL/min BUN/Creatinine Ratio (6-22) Glucose (80-110) mg/dL Calcium (8.4-10.2) mg/dL Total Bilirubin (0.2-1.3) mg/dL AST (14-36) IU/L ALT (9-52) IU/L Alkaline Phosphatase (38-126) U/L Total Creatine Kinase (30-135) U/L CK-MB (CK-2) CK-MB (CK-2) Rel Index Troponin I (0.01-0.034) ng/mL Total Protein (6.3-8.2) g/dL Albumin (3.5-5.0) g/dL Globulin (1.7-4.1) g/dL Albumin/Globulin Ratio (1.0-2.8) Amylase (30-110) U/L Lipase (23-300) U/L Urine RBC 5-10/hpf H (0-5/HPF) Urine WBC None seen (0-5/HPF) Urine Bacteria None seen (None) Ur Culture Indicated? Cult not indicated Micro UA Comment Not Reportable Nasal Screen MRSA (PCR) Negative for mrsa (Negative) 07/05/18 Range/Units 04:39 WBC (4.5-11.0) X10^3/uL RBC (4.0-5.2) X10^6/uL Hgb (12.0-16.0) g/dL Hct (36-46) % MCV (80-100) fL MCH (26-34) PG MCHC (30-36) % RDW (11.6-14.8) % Plt Count (150-400) X10^3/uL Neut % (Auto) (50-75) % Lymph % (Auto) (25-40) % Desha % (Auto) (3-14) % Eos % (Auto) (2-4) % Baso % (Auto) (0-2) % Neut # (Auto) (3404-4158) /uL Sodium 143 (137-145) mmol/L Potassium 4.0 (3.4-5.1) mmol/L Chloride 108 H (98-107) mmol/L Carbon Dioxide 26 (22-32) mmol/L BUN 11 (7-17) mg/dL Creatinine 0.60 (0.52-1.04) mg/dL Estimated GFR > 60.0 (>60) mL/min BUN/Creatinine Ratio 18.3 (6-22) Glucose 79 L (80-110) mg/dL Calcium 8.8 (8.4-10.2) mg/dL Total Bilirubin 0.7 (0.2-1.3) mg/dL AST 327 H (14-36) IU/L ALT 580 H (9-52) IU/L Alkaline Phosphatase 164 H (38-126) U/L Total Creatine Kinase (30-135) U/L CK-MB (CK-2) CK-MB (CK-2) Rel Index Troponin I (0.01-0.034) ng/mL Total Protein 5.9 L (6.3-8.2) g/dL Albumin 3.8 (3.5-5.0) g/dL Globulin 2.1 (1.7-4.1) g/dL Albumin/Globulin Ratio 1.8 (1.0-2.8) Amylase (30-110) U/L Lipase 6098 H D (23-300) U/L Urine RBC (0-5/HPF) Urine WBC (0-5/HPF) Urine Bacteria (None) Ur Culture Indicated? Micro UA Comment Nasal Screen MRSA (PCR) (Negative) Point of care testing: Urine Dip Bedside Urine Glucose Negative Bedside Urine Bilirubin - Negative Bedside Urine Ketone - Negative Urine Specific [place] 1.025 Bedside Urine Occult Blood +++ Bedside Urine pH 5.5 Bedside Urine Protein - Negative Bedside Urine Urobilinogen - Negative Bedside Urine Nitrite - Negative Bedside Urine Leukocytes - Negative Esterase Imaging Data US - abdomen: Radiologist's impression: PROCEDURE: US ABDOMEN COMPLETE INDICATIONS: EPIGASTRIC PAIN; ABNORMAL LFTS TECHNIQUE: Real-time scanning was performed of the abdominal and retroperitoneal organs, with image documentation. COMPARISON: None. FINDINGS: Liver: Liver is normal in size and homogeneous in echotexture. 2.3 x 1.6 x 2.2 cm simple cyst in the anterior right hepatic lobe. Gallbladder: Gallbladder is surgically absent. Biliary ducts: Intrahepatic bile ducts are non-dilated. Extrahepatic bile duct caliber measures 6.3 mm. Normal is 6-7 mm or less in diameter, or 10 mm or less post-cholecystectomy. Pancreas: Visualized portions of the pancreas are sonographically normal. Spleen: Spleen is normal in size and homogeneous in echotexture. Kidneys: Kidneys are normal in size and echotexture. Right kidney measures 11.3 cm long; left kidney measures 10.3 cm long. No hydronephrosis or nephrolithiasis. No solid masses. Aorta: Visualized aorta is normal in caliber at less than 3 cm. Iliacs: Proximal common iliac arteries are normal in caliber at less than 2.5 cm. IVC: Intrahepatic inferior vena cava is patent. Miscellaneous: No free abdominal fluid. IMPRESSION: 1. A 2.3 x 1.6 x 2.2 cm simple cyst in the right hepatic lobe. 2. No ultrasound finding to explain epigastric pain. 3. Cholecystectomy. Dictated by: Lissette Garnica M.D. on 07/04/2018 at 8:07 Approved by: Lissette Garnica M.D. on 07/04/2018 at 8:09 CT scan - abdomen: Radiologist's impression: PROCEDURE: CT ABDOMEN PELVIS W CON INDICATIONS: abdominal pain TECHNIQUE: After the administration of intravenous contrast, 5 mm thick sections acquired from the diaphragm to the symphysis. 5 mm coronal and sagittal reformats were acquired. For radiation dose reduction, the following was used: automated exposure control, adjustment of mA and/or kV according to patient size. COMPARISON: None. FINDINGS: Image quality: Excellent. ABDOMEN: Lung bases: Lung bases are clear. Heart size is normal. Solid organs: Liver is normal in size. Well-circumscribed 1.9 cm round hypodensity is seen involving lateral periphery of right hepatic lobe and measures 21 Hounsfield units in density. Gallbladder is surgically absent. Biliary system is non dilated. Pancreas enhances normally. Focal 2 x 1.2 cm calcification near tail of pancreas is seen, which may be related to patient's prior history of pancreatitis. No significant peripancreatic fat stranding or fluid is noted on the current study. Spleen is normal in size and enhancement. No adrenal nodules. Kidneys demonstrate normal size and enhancement, without hydronephrosis. Peritoneum and bowel: Bowel loops demonstrate normal wall thickness and caliber. No free fluid or air. Appendix is visualized and is within normal limits. Nodes and vessels: No retroperitoneal or mesenteric adenopathy by size criteria. Aorta and inferior vena cava are normal in size. Miscellaneous: No ventral hernias. PELVIS: Genitourinary: Bladder wall thickness is normal. Miscellaneous: No inguinal hernias or adenopathy. Uterus and bilateral adnexa shows no gross abnormality. Bones: No suspicious bony lesions. No vertebral body compression fractures. IMPRESSION: 1. Focal 2 x 1.2 cm calcification involving tail of pancreas, which may be related to patient's known history of pancreatitis. No discrete pancreatic lesion is noted on the current study. No peripancreatic fat stranding or fluid collection. 2. Gallbladder is surgically absent. 1.9 cm round hypodensity involving lateral periphery of right hepatic lobe inferior aspect, and may represent benign process such as hepatic cyst. 3. No bowel obstruction. Normal appendix. No free fluid or free air. 4. No renal stone hydronephrosis. Dictated by: Moises Cheung M.D. on 07/04/2018 at 9:00 Approved by: Moises Cheung M.D. on 07/04/2018 at 9:07 MRI - abdomen: Radiologist's impression: PROCEDURE: MR ABDOMEN WO CON INDICATIONS: Severely elevated lipase and LFT's, eval for stone in duct TECHNIQUE: Coronal HASTE through the abdomen, axial 2-D FLASH in- and [id number], and breath-hold T2 FSE with fat saturation through the biliary system and pancreas. Oblique coronal and axial thin-slice HASTE, radial thick-slab HASTE centered on the extrahepatic bile ducts. COMPARISON: [facility], US, US ABDOMEN COMPLETE, 07/04/2018, 7:43. [facility], CT, CT ABDOMEN PELVIS W CON, 07/04/2018, 8:04. FINDINGS: Image quality: Excellent. Pancreas and biliary system: The gallbladder is surgically absent. There is mild intrahepatic and extrahepatic biliary ductal dilatation. The common bile duct measures up to approximately 8 mm. There is at least one filling defect within the common bile duct consistent with a common duct stone measuring up to approximately 4 mm approximately 20 mm from the ampulla with possible additional smaller filling defects more distally. No discrete obstructing stone visualized in the region of the ampulla. The pancreatic duct is normal in caliber. There is mild peripancreatic edema compatible with pancreatitis. No discrete peripancreatic fluid collections to suggest a pseudocyst. No evidence of pancreatic divisum. Other solid organs: There is a cyst within the right hepatic lobe measuring up to 1.9 cm. Spleen is normal in size. No adrenal nodules. Kidneys demonstrate no hydronephrosis. There are bilateral parapelvic renal cysts. Nodes and vessels: No retroperitoneal or mesenteric adenopathy by size criteria. Aorta and inferior vena cava are normal in size. Bowel and peritoneum: Visualized bowel loops are normal in caliber. No free fluid. Lung bases: No basal pleural effusions. Heart size is normal. Bones and soft tissues: No ventral hernias. Bone marrow is of normal overall signal. IMPRESSION: 1. Choledocholithiasis with mild biliary ductal dilatation. Although no discrete obstructing stone is visualized at the ampulla, the findings may reflect sequelae of a recently passed stone. 2. Peripancreatic edema compatible with pancreatitis. Given presence of choledocholithiasis, findings likely reflect gallstone pancreatitis. No evidence of a pseudocyst. Dictated by: Papo Murry M.D. on 07/04/2018 at 14:46 Approved by: Papo Murry M.D. on 07/04/2018 at 14:55 Discharge Plan Departure Patient Disposition: Admitted As Inpatient Clinical Impression: Acute epigastric pain Discharge Date/Time: 07/04/18 14:05 Interventions: ED Discharge Assessment Last Done: 07/04/18 14:04 Admit Date/Time: 07/04/18 13:48 Admit Provider: Munira Marin
--- NOTE | 2018-07-04 09:52 | ED_ITS ---
HPI - Abdominal Pain General Chief Complaint: Abdominal Pain Stated Complaint: pain in back and abdomen for 24 hrs Time Seen by Provider: 07/04/18 05:45 Source: patient Mode of arrival: ambulatory Limitations: no limitations History of Present Illness HPI narrative: Patient complains of epigastric abdominal pain that started several days ago. She states that initially, and she felt as though she was having indigestion and was bloated. However, after eating a meal yesterday morning, she began to have quite a bit of pain in her epigastric area and began vomiting. Patient states the pain has not let up and she has continued to be nauseated. She states she has a history of gallstone pancreatitis and cholecystectomy about 4 years ago. She states that other than a brief episode of pancreatitis about a month later, she has not had any problems until now. Patient has no history of any liver issues that she knows of. She states she does not drink alcohol, other than the occasional glass of wine, and that she does not really take Tylenol. She does not have any known history of hepatitis exposure. She states the only exotic international travel and she has done was to live in [place] for a couple of years as a child. However, she was never sick with any thing affecting her liver and, as far she knows. Patient states that she is otherwise healthy. She has not had any sick contacts. No fevers. Patient denies any dysuria. No other complaints at this time. Severity scale (1-10): 7 Quality: stabbing Radiation: epigastric Migration to: no migration Relieving factors: nothing Exacerbating factors: eating Related Data Home Medications Medication Instructions Recorded Confirmed sertraline [Zoloft] 20 mg PO DAILY 07/04/18 07/04/18 Allergies Allergy/AdvReac Type Severity Reaction Status Date / Time No Known Drug Allergies Allergy Verified 07/04/18 05:46 Review of Systems Review of Systems All systems reviewed & are unremarkable except as noted in HPI and below Constitutional Denies chills, Denies fever(s), Denies lethargy and Denies weakness Eyes Denies change in vision, Denies eye discharge, Denies irritation and Denies loss of vision ENT Ears, Nose, Mouth, and Throat: Denies change in voice, Denies neck pain and Denies sore throat Cardiovascular Denies chest pain, Denies irregular heart rhythm, Denies lightheadedness, Denies palpitations, Denies dyspnea, Denies dyspnea on exertion and Denies orthopnea Respiratory Denies cough, Denies dyspnea, Denies dyspnea on exertion and Denies wheezing Gastrointestinal Gastrointestinal: Reports abdominal pain, Denies change in bowel habits, Denies diarrhea, Reports nausea and Reports vomiting Genitourinary Denies hematuria, Denies flank pain, Denies urinary incontinence and Denies urinary urgency Musculoskeletal Denies neck pain Integumentary/Breasts Denies pruritus, Denies erythema, Denies rash and Denies wounds Neurologic Denies confusion, Denies loss of vision and Denies weakness Psychiatric Denies anxiety, Denies confusion, Denies depression, Denies homicidal ideation and Denies suicidal ideation Endocrine Denies palpitations Hematologic/Lymphatic Denies easy bruising Allergic/Immunologic Denies wheezing [facility] Medical History Gallstone pancreatitis (Acute) Surgical History S/P cholecystectomy (Acute) Family History Father Bladder cancer Mother Lung cancer Social History household members: spouse Smoking Status: Never smoker alcohol intake: current substance use type: does not use Exam Initial Vital Signs Initial Vital Signs: Vital Signs Temperature 97.8 F 07/04/18 05:40 Pulse Rate 74 07/04/18 05:40 Respiratory Rate 14 07/04/18 05:40 Blood Pressure 140/87 07/04/18 05:40 Pulse Oximetry 97 07/04/18 05:40 Const General: cooperative and well developed Nutritional Appearance: well nourished Orientation: alert, awake, oriented x3 and not confused [facility] Head: normocephalic and atraumatic Ears: external ears normal and TM's normal bilaterally Nose: external nose normal and No nasal discharge Face and sinus: sinuses nontender, face symmetric, no sinus tenderness and No dry mucous membranes Mouth: oral mucosae normal and moist mucous membranes Teeth and gingiva: dentition normal Throat: tonsils normal and uvula midline Eyes General: appearance normal, both eyes and all related structures Eyelids: eyelids normal Conjunctivae: conjunctivae normal Sclera: sclerae normal Pupils: PERRL EOM: EOM intact bilaterally Neck Neck: normal visual inspection, trachea midline, No lymphadenopathy, No midline deformity and No JVD Lymphatic: No lymphedema Chest Chest: normal inspection of the chest Resp Effort & Inspection: normal respiratory effort, able to speak in complete sentences, no respiratory distress and no use of accessory muscles Auscultation: clear to auscultation bilaterally, no rales, no rhonchi and no wheezes Cardio Rate: regular rate Rhythm: regular rhythm Heart Sounds: no click, no gallops, no murmurs and no rubs Pulses: normal peripheral pulses GI Inspection: non-distended Palpation: soft, no hepatosplenomegaly, No guarding, No pulsatile mass and tender ( Moderate, epigastric area.) Auscultation: normal bowel sounds Back/Spine/Pelvis Back: No CVA tenderness Cervical Spine: cervical ROM normal and No pain with cervical ROM Thoracic/Lumbar Spine: thoracic and lumbar spine normal to inspection Skin General: no rashes or lesions noted, No jaundice and No petechiae Neuro General: alert, oriented x3, gait normal and no focal motor deficits Speech: speech normal Extrem General: full ROM, no clubbing, cyanosis or edema, no pedal edema and no calf tenderness Psych Appearance: well kempt Mental Status: mental status grossly normal Attitude: cooperative Thought Content: normal and suicidality Judgment: judgment good Course Course Narrative: Patient was worked up for her symptoms, and found to have elevated AST and ALT, as well as a lipase of 68,000. I ordered an ultrasound, which was unremarkable for gallbladder or pancreatic pathology. CT scan of the abdomen and pelvis was also unremarkable. I spoke with Dr. Marin, who is on- call as the hospitalist, and she stated she was concerned the patient may need an ERCP, and would prefer that the patient has case be discussed with [facility]. Because the patient was a [facility] patient, we did ask to discuss the case with [facility] before considering transfer this patient to any other facility. After 2 hr, I was finally able to speak with a [facility] physician, who stated he would run the case by his GI specialist. However, after another hour, he called back and stated he had not been able to reach his GI specialist. At this point however he did state that the patient was cleared to be admitted or transferred to any other facility that we deemed necessary. I spoke with Dr. Bennett vinson of GI at [facility], and he stated that at this point in time, he would not emergently do an ERCP on this patient. The patient stated that was preferable to let her pancreatitis calm down, and stated that she could even have an ERCP done as an outpatient after her admission. He did recommend an MRCP which we did perform and was found the patient had choledocholithiasis with no current obstruction but evidence of a recently passed stone. At this point I spoke with Dr. Marin again who did agree to admit the patient to her service. Orders Ordered: ED Orders 07/06/18 05:00 Complete Blood Count AUTO DIFF Routine Lipase DAILY Enoxaparin Sodium (Lovenox) 40 mg SUBCUT DAILY [facility] Last Admin: 07/05/18 09:14 Dose: 40 mg Hydromorphone HCl (Dilaudid) 0.5 mg IV Q4HRWA PRN PRN Reason: Pain, Moderate (4-6) Last Admin: 07/04/18 17:50 Dose: 0.5 mg Dextrose/Lactated Ringer's (Dextrose 5%-Lactated Ringers) 1,000 mls @ 125 mls/ hr IV CONT [facility] Last Admin: 07/05/18 18:12 Dose: 125 mls/hr Ondansetron HCl (Zofran) 4 mg IV Q8HR PRN PRN Reason: Nausea And Vomiting Last Admin: 07/04/18 17:59 Dose: 4 mg Pantoprazole Sodium (Protonix) 40 mg PO 0700 [facility] Discontinued Medications Hydromorphone HCl (Dilaudid) 0.5 mg IV NOW ONE Stop: 07/04/18 09:10 Last Admin: 07/04/18 09:11 Dose: 0.5 mg Hydromorphone HCl (Dilaudid) 0.5 mg IV Q4HRWA [facility] Sodium Chloride (Normal Saline 0.9%) 1,000 mls @ 1,000 mls/hr IV BOLUS ONE Stop: 07/04/18 06:50 Last Infusion: 07/04/18 07:40 Dose: 0 mls/hr Admin: 07/04/18 06:34 Dose: 1,000 mls/hr Sodium Chloride (Normal Saline 0.9%) 1,000 mls @ 1,000 mls/hr IV BOLUS ONE Stop: 07/04/18 11:37 Last Infusion: 07/04/18 12:39 Dose: 0 mls/hr Admin: 07/04/18 10:51 Dose: 1,000 mls/hr Lactated Ringer's (Lactated Ringers) 1,000 mls @ 150 mls/hr IV CONT ALE Last Infusion: 07/05/18 18:17 Dose: 0 mls/hr Admin: 07/05/18 11:39 Dose: 150 mls/hr Infusion: 07/05/18 11:39 Dose: 150 mls/hr Admin: 07/05/18 05:12 Dose: 150 mls/hr Infusion: 07/05/18 05:12 Dose: 150 mls/hr Admin: 07/04/18 22:49 Dose: 150 mls/hr Infusion: 07/04/18 22:49 Dose: 150 mls/hr Admin: 07/04/18 16:17 Dose: 150 mls/hr Lactated Ringer's (Lactated Ringers) 1,000 mls @ 100 mls/hr IV CONT ALE Ketorolac Tromethamine (Toradol) 30 mg IV NOW ONE Stop: 07/04/18 05:52 Last Admin: 07/04/18 06:33 Dose: 30 mg Pantoprazole Sodium (Protonix) 40 mg IV NOW ONE Stop: 07/04/18 05:52 Last Admin: 07/04/18 06:34 Dose: 40 mg Vital Signs - 8 hr 07/05/18 16:00 Temperature 97.2 F L Pulse Rate 60 Respiratory Rate 20 Blood Pressure 125/70 Pulse Oximetry 98 MDM - Abdominal Pain Medical Records Attestation: I reviewed the patient's medical records. Lab Data Attestation: I reviewed the patient's lab results. Result diagrams: 07/05/18 04:39 07/05/18 04:39 Lab Results 07/04/18 07/04/18 07/04/18 Range/Units 06:21 06:25 06:25 WBC 8.9 (4.5-11.0) X10^3/uL RBC 4.32 (4.0-5.2) X10^6/uL Hgb 13.5 (12.0-16.0) g/dL Hct 39.7 (36-46) % MCV 91.8 (80-100) fL MCH 31.3 (26-34) PG MCHC 34.1 (30-36) % RDW 13.5 (11.6-14.8) % Plt Count 241 (150-400) X10^3/uL Neut % (Auto) 87.7 H (50-75) % Lymph % (Auto) 6.5 L (25-40) % [place] % (Auto) 5.2 (3-14) % Eos % (Auto) 0.1 L (2-4) % Baso % (Auto) 0.5 (0-2) % Neut # (Auto) 7800 H (9386-7306) /uL Sodium 143 (137-145) mmol/L Potassium 4.2 (3.4-5.1) mmol/L Chloride 105 (98-107) mmol/L Carbon Dioxide 26 (22-32) mmol/L BUN 14 (7-17) mg/dL Creatinine 0.60 (0.52-1.04) mg/dL Estimated GFR > 60.0 (>60) mL/min BUN/Creatinine Ratio 23.3 H (6-22) Glucose 144 H (80-110) mg/dL Calcium 10.1 (8.4-10.2) mg/dL Total Bilirubin 1.4 H (0.2-1.3) mg/dL AST 1066 H (14-36) IU/L ALT 991 H (9-52) IU/L Alkaline Phosphatase 217 H (38-126) U/L Total Creatine Kinase 30 (30-135) U/L CK-MB (CK-2) TNP CK-MB (CK-2) Rel Index TNP Troponin I < 0.012 (0.01-0.034) ng/mL Total Protein 7.5 (6.3-8.2) g/dL Albumin 4.7 (3.5-5.0) g/dL Globulin 2.8 (1.7-4.1) g/dL Albumin/Globulin Ratio 1.7 (1.0-2.8) Amylase 4949 H (30-110) U/L Lipase 01929 H (23-300) U/L Urine RBC (0-5/HPF) Urine WBC (0-5/HPF) Urine Bacteria (None) Ur Culture Indicated? Micro UA Comment Nasal Screen MRSA (PCR) (Negative) 07/04/18 07/04/18 07/05/18 Range/Units 07:28 Unknown 04:39 WBC 5.8 (4.5-11.0) X10^3/uL RBC 3.66 L (4.0-5.2) X10^6/uL Hgb 11.5 L (12.0-16.0) g/dL Hct 34.1 L (36-46) % MCV 92.9 (80-100) fL MCH 31.4 (26-34) PG MCHC 33.8 (30-36) % RDW 13.3 (11.6-14.8) % Plt Count 180 (150-400) X10^3/uL Neut % (Auto) 63.7 D (50-75) % Lymph % (Auto) 26.4 (25-40) % [place] % (Auto) 7.5 (3-14) % Eos % (Auto) 2.0 (2-4) % Baso % (Auto) 0.4 (0-2) % Neut # (Auto) 3700 (4295-3653) /uL Sodium (137-145) mmol/L Potassium (3.4-5.1) mmol/L Chloride (98-107) mmol/L Carbon Dioxide (22-32) mmol/L BUN (7-17) mg/dL Creatinine (0.52-1.04) mg/dL Estimated GFR (>60) mL/min BUN/Creatinine Ratio (6-22) Glucose (80-110) mg/dL Calcium (8.4-10.2) mg/dL Total Bilirubin (0.2-1.3) mg/dL AST (14-36) IU/L ALT (9-52) IU/L Alkaline Phosphatase (38-126) U/L Total Creatine Kinase (30-135) U/L CK-MB (CK-2) CK-MB (CK-2) Rel Index Troponin I (0.01-0.034) ng/mL Total Protein (6.3-8.2) g/dL Albumin (3.5-5.0) g/dL Globulin (1.7-4.1) g/dL Albumin/Globulin Ratio (1.0-2.8) Amylase (30-110) U/L Lipase (23-300) U/L Urine RBC 5-10/hpf H (0-5/HPF) Urine WBC None seen (0-5/HPF) Urine Bacteria None seen (None) Ur Culture Indicated? Cult not indicated Micro UA Comment Not Reportable Nasal Screen MRSA (PCR) Negative for mrsa (Negative) 07/05/18 Range/Units 04:39 WBC (4.5-11.0) X10^3/uL RBC (4.0-5.2) X10^6/uL Hgb (12.0-16.0) g/dL Hct (36-46) % MCV (80-100) fL MCH (26-34) PG MCHC (30-36) % RDW (11.6-14.8) % Plt Count (150-400) X10^3/uL Neut % (Auto) (50-75) % Lymph % (Auto) (25-40) % [place] % (Auto) (3-14) % Eos % (Auto) (2-4) % Baso % (Auto) (0-2) % Neut # (Auto) (6404-0440) /uL Sodium 143 (137-145) mmol/L Potassium 4.0 (3.4-5.1) mmol/L Chloride 108 H (98-107) mmol/L Carbon Dioxide 26 (22-32) mmol/L BUN 11 (7-17) mg/dL Creatinine 0.60 (0.52-1.04) mg/dL Estimated GFR > 60.0 (>60) mL/min BUN/Creatinine Ratio 18.3 (6-22) Glucose 79 L (80-110) mg/dL Calcium 8.8 (8.4-10.2) mg/dL Total Bilirubin 0.7 (0.2-1.3) mg/dL AST 327 H (14-36) IU/L ALT 580 H (9-52) IU/L Alkaline Phosphatase 164 H (38-126) U/L Total Creatine Kinase (30-135) U/L CK-MB (CK-2) CK-MB (CK-2) Rel Index Troponin I (0.01-0.034) ng/mL Total Protein 5.9 L (6.3-8.2) g/dL Albumin 3.8 (3.5-5.0) g/dL Globulin 2.1 (1.7-4.1) g/dL Albumin/Globulin Ratio 1.8 (1.0-2.8) Amylase (30-110) U/L Lipase 6098 H D (23-300) U/L Urine RBC (0-5/HPF) Urine WBC (0-5/HPF) Urine Bacteria (None) Ur Culture Indicated? Micro UA Comment Nasal Screen MRSA (PCR) (Negative) Point of care testing: Urine Dip Bedside Urine Glucose Negative Bedside Urine Bilirubin - Negative Bedside Urine Ketone - Negative Urine Specific [place] 1.025 Bedside Urine Occult Blood +++ Bedside Urine pH 5.5 Bedside Urine Protein - Negative Bedside Urine Urobilinogen - Negative Bedside Urine Nitrite - Negative Bedside Urine Leukocytes - Negative Esterase Imaging Data US - abdomen: Radiologist's impression: PROCEDURE: US ABDOMEN COMPLETE INDICATIONS: EPIGASTRIC PAIN; ABNORMAL LFTS TECHNIQUE: Real-time scanning was performed of the abdominal and retroperitoneal organs, with image documentation. COMPARISON: None. FINDINGS: Liver: Liver is normal in size and homogeneous in echotexture. 2.3 x 1.6 x 2.2 cm simple cyst in the anterior right hepatic lobe. Gallbladder: Gallbladder is surgically absent. Biliary ducts: Intrahepatic bile ducts are non-dilated. Extrahepatic bile duct caliber measures 6.3 mm. Normal is 6-7 mm or less in diameter, or 10 mm or less post-cholecystectomy. Pancreas: Visualized portions of the pancreas are sonographically normal. Spleen: Spleen is normal in size and homogeneous in echotexture. Kidneys: Kidneys are normal in size and echotexture. Right kidney measures 11.3 cm long; left kidney measures 10.3 cm long. No hydronephrosis or nephrolithiasis. No solid masses. Aorta: Visualized aorta is normal in caliber at less than 3 cm. Iliacs: Proximal common iliac arteries are normal in caliber at less than 2.5 cm. IVC: Intrahepatic inferior vena cava is patent. Miscellaneous: No free abdominal fluid. IMPRESSION: 1. A 2.3 x 1.6 x 2.2 cm simple cyst in the right hepatic lobe. 2. No ultrasound finding to explain epigastric pain. 3. Cholecystectomy. Dictated by: Lissette Garnica M.D. on 07/04/2018 at 8:07 Approved by: Lissette Garnica M.D. on 07/04/2018 at 8:09 CT scan - abdomen: Radiologist's impression: PROCEDURE: CT ABDOMEN PELVIS W CON INDICATIONS: abdominal pain TECHNIQUE: After the administration of intravenous contrast, 5 mm thick sections acquired from the diaphragm to the symphysis. 5 mm coronal and sagittal reformats were acquired. For radiation dose reduction, the following was used: automated exposure control, adjustment of mA and/or kV according to patient size. COMPARISON: None. FINDINGS: Image quality: Excellent. ABDOMEN: Lung bases: Lung bases are clear. Heart size is normal. Solid organs: Liver is normal in size. Well-circumscribed 1.9 cm round hypodensity is seen involving lateral periphery of right hepatic lobe and measures 21 Hounsfield units in density. Gallbladder is surgically absent. Biliary system is non dilated. Pancreas enhances normally. Focal 2 x 1.2 cm calcification near tail of pancreas is seen , which may be related to patient's prior history of pancreatitis. No significant peripancreatic fat stranding or fluid is noted on the current study. Spleen is normal in size and enhancement. No adrenal nodules. Kidneys demonstrate normal size and enhancement, without hydronephrosis. Peritoneum and bowel: Bowel loops demonstrate normal wall thickness and caliber. No free fluid or air. Appendix is visualized and is within normal limits. Nodes and vessels: No retroperitoneal or mesenteric adenopathy by size criteria. Aorta and inferior vena cava are normal in size. Miscellaneous: No ventral hernias. PELVIS: Genitourinary: Bladder wall thickness is normal. Miscellaneous: No inguinal hernias or adenopathy. Uterus and bilateral adnexa shows no gross abnormality. Bones: No suspicious bony lesions. No vertebral body compression fractures. IMPRESSION: 1. Focal 2 x 1.2 cm calcification involving tail of pancreas, which may be related to patient's known history of pancreatitis. No discrete pancreatic lesion is noted on the current study. No peripancreatic fat stranding or fluid collection. 2. Gallbladder is surgically absent. 1.9 cm round hypodensity involving lateral periphery of right hepatic lobe inferior aspect, and may represent benign process such as hepatic cyst. 3. No bowel obstruction. Normal appendix. No free fluid or free air. 4. No renal stone hydronephrosis. Dictated by: Moises Cheung M.D. on 07/04/2018 at 9:00 Approved by: Moises Cheung M.D. on 07/04/2018 at 9:07 MRI - abdomen: Radiologist's impression: PROCEDURE: MR ABDOMEN WO CON INDICATIONS: Severely elevated lipase and LFT's, eval for stone in duct TECHNIQUE: Coronal HASTE through the abdomen, axial 2-D FLASH in- and [id number], and breath-hold T2 FSE with fat saturation through the biliary system and pancreas. Oblique coronal and axial thin-slice HASTE, radial thick-slab HASTE centered on the extrahepatic bile ducts. COMPARISON: [facility], US, US ABDOMEN COMPLETE, 07/04/2018, 7:43. [facility], CT, CT ABDOMEN PELVIS W CON, 07/04/2018, 8:04. FINDINGS: Image quality: Excellent. Pancreas and biliary system: The gallbladder is surgically absent. There is mild intrahepatic and extrahepatic biliary ductal dilatation. The common bile duct measures up to approximately 8 mm. There is at least one filling defect within the common bile duct consistent with a common duct stone measuring up to approximately 4 mm approximately 20 mm from the ampulla with possible additional smaller filling defects more distally. No discrete obstructing stone visualized in the region of the ampulla. The pancreatic duct is normal in caliber. There is mild peripancreatic edema compatible with pancreatitis. No discrete peripancreatic fluid collections to suggest a pseudocyst. No evidence of pancreatic divisum. Other solid organs: There is a cyst within the right hepatic lobe measuring up to 1.9 cm. Spleen is normal in size. No adrenal nodules. Kidneys demonstrate no hydronephrosis. There are bilateral parapelvic renal cysts. Nodes and vessels: No retroperitoneal or mesenteric adenopathy by size criteria. Aorta and inferior vena cava are normal in size. Bowel and peritoneum: Visualized bowel loops are normal in caliber. No free fluid. Lung bases: No basal pleural effusions. Heart size is normal. Bones and soft tissues: No ventral hernias. Bone marrow is of normal overall signal. IMPRESSION: 1. Choledocholithiasis with mild biliary ductal dilatation. Although no discrete obstructing stone is visualized at the ampulla, the findings may reflect sequelae of a recently passed stone. 2. Peripancreatic edema compatible with pancreatitis. Given presence of choledocholithiasis, findings likely reflect gallstone pancreatitis. No evidence of a pseudocyst. Dictated by: Papo Murry M.D. on 07/04/2018 at 14:46 Approved by: Papo Murry M.D. on 07/04/2018 at 14:55 Discharge Plan Departure Patient Disposition: Admitted As Inpatient Clinical Impression: Acute epigastric pain Discharge Date/Time: 07/04/18 14:05 Interventions: ED Discharge Assessment Last Done: 07/04/18 14:04 Admit Date/Time: 07/04/18 13:48 Admit Provider: Munira Marin
[2018-07-04 11:37] LABS: Amylase 4949 U/L (30-110)
--- NOTE | 2018-07-04 12:12 | DI.MRI.S_ITS ---
PROCEDURE: MR ABDOMEN WO CON INDICATIONS: Severely elevated lipase and LFT's, eval for stone in duct TECHNIQUE: Coronal HASTE through the abdomen, axial 2-D FLASH in- and [id number], and breath-hold T2 FSE with fat saturation through the biliary system and pancreas. Oblique coronal and axial thin-slice HASTE, radial thick-slab HASTE centered on the extrahepatic bile ducts. COMPARISON: [facility], US, US ABDOMEN COMPLETE, 07/04/2018, 7:43. [facility], CT, CT ABDOMEN PELVIS W CON, 07/04/2018, 8:04. FINDINGS: Image quality: Excellent. Pancreas and biliary system: The gallbladder is surgically absent. There is mild intrahepatic and extrahepatic biliary ductal dilatation. The common bile duct measures up to approximately 8 mm. There is at least one filling defect within the common bile duct consistent with a common duct stone measuring up to approximately 4 mm approximately 20 mm from the ampulla with possible additional smaller filling defects more distally. No discrete obstructing stone visualized in the region of the ampulla. The pancreatic duct is normal in caliber. There is mild peripancreatic edema compatible with pancreatitis. No discrete peripancreatic fluid collections to suggest a pseudocyst. No evidence of pancreatic divisum. Other solid organs: There is a cyst within the right hepatic lobe measuring up to 1.9 cm. Spleen is normal in size. No adrenal nodules. Kidneys demonstrate no hydronephrosis. There are bilateral parapelvic renal cysts. Nodes and vessels: No retroperitoneal or mesenteric adenopathy by size criteria. Aorta and inferior vena cava are normal in size. Bowel and peritoneum: Visualized bowel loops are normal in caliber. No free fluid. Lung bases: No basal pleural effusions. Heart size is normal. Bones and soft tissues: No ventral hernias. Bone marrow is of normal overall signal. IMPRESSION: 1. Choledocholithiasis with mild biliary ductal dilatation. Although no discrete obstructing stone is visualized at the ampulla, the findings may reflect sequelae of a recently passed stone. 2. Peripancreatic edema compatible with pancreatitis. Given presence of choledocholithiasis, findings likely reflect gallstone pancreatitis. No evidence of a pseudocyst. Dictated by: Papo Murry M.D. on 07/04/2018 at 14:46 Approved by: Papo Murry M.D. on 07/04/2018 at 14:55
--- NOTE | 2018-07-04 16:00 | P.HP_ITS ---
History of Present Illness Date Patient Seen: 07/04/18 Chief complaint: pain in back and abdomen for 24 hrs Narrative: Patient is a 63-year-old female previously healthy who presents with midepigastric pain. Patient reports she has had a cholecystectomy 4 years ago for gallstone pancreatitis. Sometime afterwards she had another episode of pancreatitis that quickly resolved. She was well until last Wednesday when she developed epigastric pain. She had some nausea and thought she had indigestion. Yesterday the pain became quite severe. She described it as 8/10 radiating to her back. She had associated nausea with 3 episodes of vomiting. She had no hematemesis melena. Red blood per rectum. She denies any fever. As the pain was fairly intense she presented to the emergency department for evaluation. In the emergency department her lipase was over 68,000. An abdominal ultrasound was obtained which was negative. An MRCP was obtained which revealed evidence of cholelithiasis. There was no ductal dilatation but it was suggestive of a possible passed gallstone. Patient reports the hydromorphone given in the ER did help her pain. She reports being thirsty. She denies any shortness of breath or chest pain. All other review of systems is negative. Patient History Medical History Gallstone pancreatitis (Acute) Surgical History S/P cholecystectomy (Acute) Family & Social History Social History: household members spouse Prior Living Arrangements House Safety & Behavioral: Feels Safe in Current Yes Environment Suicidal Ideation Description None Tobacco & Substance use: Smoking Status Never smoker alcohol intake current alcohol intake frequency 0-2 drinks per day Substance Use Type does not use Meds Home Medications Medication Instructions Recorded Confirmed Type sertraline [Zoloft] 20 mg PO DAILY 07/04/18 07/04/18 History Allergies Allergy/AdvReac Type Severity Reaction Status Date / Time No Known Drug Allergies Allergy Verified 07/04/18 05:46 Review of Systems Review of Systems All systems reviewed & are unremarkable except as noted in HPI and below Exam Vital Signs (past 8 hours): - 07/04/18 09:00 07/04/18 10:04 07/04/18 13:35 Temperature Pulse Rate 69 67 65 Respiratory Rate 10 L 14 15 Blood Pressure Blood Pressure [Right Arm] 125/87 116/66 124/79 Pulse Oximetry 100 97 99 07/04/18 14:17 07/04/18 15:19 Temperature 98.1 F 98.6 F Pulse Rate 65 62 Respiratory Rate 16 19 Blood Pressure 119/72 116/69 Blood Pressure [Right Arm] Pulse Oximetry 96 97 Oxygen Delivery Method Room Air Oxygen Flow Rate 0 Narrative Exam Narrative: Pleasant female in no acute distress HEENT: Normocephalic atraumatic, oropharynx is clear, extraocular muscles are intact neck is supple Lungs: Clear to auscultation Cardiac exam: Regular rate and rhythm normal S1 and S2 with a 2/6 systolic ejection murmur Abdomen: Soft mildly tender in the epigastric and right upper quadrant area no rebound tend no board-like rigidity no palpable mass Extremities, no edema Neuro exam: Nonfocal Objective Labs Result Diagrams: 07/04/18 06:25 07/04/18 06:25 Labs: Laboratory Results - last 24 hr 07/04/18 07/04/18 07/04/18 06:21 06:25 06:25 WBC 8.9 RBC 4.32 Hgb 13.5 Hct 39.7 MCV 91.8 MCH 31.3 MCHC 34.1 RDW 13.5 Plt Count 241 Neut % (Auto) 87.7 H Lymph % (Auto) 6.[address] [place] % (Auto) 5.2 Eos % (Auto) 0.1 L Baso % (Auto) 0.5 Neut # (Auto) 7800 H Sodium 143 Potassium 4.2 Chloride 105 Carbon Dioxide 26 BUN 14 Creatinine 0.60 Estimated GFR > 60.0 BUN/Creatinine Ratio 23.3 H Glucose 144 H Calcium 10.1 Total Bilirubin 1.4 H AST 1066 H ALT 991 H Alkaline Phosphatase 217 H Total Creatine Kinase 30 CK-MB (CK-2) TNP CK-MB (CK-2) Rel Index TNP Troponin I < 0.012 Total Protein 7.5 Albumin 4.7 Globulin 2.8 Albumin/Globulin Ratio 1.7 Amylase 4949 H Lipase 55077 H Urine RBC Urine WBC Urine Bacteria Ur Culture Indicated? Micro UA Comment 07/04/18 07:28 WBC RBC Hgb Hct MCV MCH MCHC RDW Plt Count Neut % (Auto) Lymph % (Auto) [place] % (Auto) Eos % (Auto) Baso % (Auto) Neut # (Auto) Sodium Potassium Chloride Carbon Dioxide BUN Creatinine Estimated GFR BUN/Creatinine Ratio Glucose Calcium Total Bilirubin AST ALT Alkaline Phosphatase Total Creatine Kinase CK-MB (CK-2) CK-MB (CK-2) Rel Index Troponin I Total Protein Albumin Globulin Albumin/Globulin Ratio Amylase Lipase Urine RBC 5-10/hpf H Urine WBC None seen Urine Bacteria None seen Ur Culture Indicated? Cult not indicated Micro UA Comment Not Reportable Assessment & Plan (1) Cholelithiasis: Problem details: Will treat the patient for acute pancreatitis at this time. Expect she may benefit from an ERCP as an outpatient once her pancreatitis has resolved Current visit: Yes Status: Acute (2) Acute gallstone pancreatitis: Problem details: Will start her on IV hydration, antiemetics, and pain medication. Will repeat labs in the morning. Advance diet as she tolerates. Current visit: Yes Status: Acute Plan: Assessment/Plan Narrative: Patient will be placed on DVT prophylaxis. She is a full code
[2018-07-04] MEDS: LACTATED RINGERS 1,000 ML 150 ML IV ×2 (16:17→22:49)
[2018-07-04] MEDS: ONDANSETRON 4 MG/2 ML INJ IV (17:59)
[2018-07-05] VITALS (7 sets, daily range): BP systolic 117–154; BP diastolic 63–84; PULSE 60–68; RESP 17–21; TEMP 36.2–37.2; O2SAT 95–99
[2018-07-05] MEDS: LACTATED RINGERS 1,000 ML 150 ML IV ×2 (05:12→11:39)
[2018-07-05 05:36] LABS: Add Manual Diff / Slide Review NO; Basophils Percent Auto 0.4 % (0-2); Hematocrit 34.1 % (36-46); Hemoglobin 11.5 g/dL (12.0-16.0); Lymphocytes Percent Auto 26.4 % (25-40); Mean Corpuscular HGB Conc 33.8 % (30-36); Mean Corpuscular Hemoglobin 31.4 PG (26-34); Mean Corpuscular Volume 92.9 fL (80-100); Monocytes Percent Auto 7.5 % (3-14); Neutrophils Absolute Auto 3700 /uL (3000-5900); Neutrophils Percent Auto 63.7 % (50-75); Platelet Count 180 X10^3/uL (150-400); Red Blood Cell Count 3.66 X10^6/uL (4.0-5.2); Red Cell Distribution Width 13.3 % (11.6-14.8); White Blood Cell Count 5.8 X10^3/uL (4.5-11.0)
[2018-07-05 05:43] LABS: Alanine Aminotransferase 580 IU/L (9-52); Albumin 3.8 g/dL (3.5-5.0); Albumin Globulin Ratio 1.8 (1.0-2.8); Alkaline Phosphatase 164 U/L (38-126); Aspartate Aminotransferase 327 IU/L (14-36); BUN Creatinine Ratio 18.3 (6-22); Bilirubin Total 0.7 mg/dL (0.2-1.3); Blood Urea Nitrogen 11 mg/dL (7-17); Calcium 8.8 mg/dL (8.4-10.2); Carbon Dioxide 26 mmol/L (22-32); Chloride 108 mmol/L (98-107); Estimated Glomerular Filt Rate > 60.0 mL/min (>60); Globulin 2.1 g/dL (1.7-4.1); Glucose 79 mg/dL (80-110); HEMOLYSIS < 15 (0-50); Sodium 143 mmol/L (137-145); Total Protein 5.9 g/dL (6.3-8.2)
[2018-07-05 06:09] LABS: Lipase 6098 U/L (23-300)
--- NOTE | 2018-07-05 06:20 | PC.NURSE ---
Patient slept throughout the night without nausea, vomitting, or abdominal pain. IV fluids LR at 150ml/hr, NPO, VSS. Lipase 6098 this am.
--- NOTE | 2018-07-05 08:36 | CM.DANOTE ---
DCP: Case received, EMR reviewed and met with patient. Introduced self and role. DCP template completed with information currently available. Patient is a 63 year old female who admitted yesterday afternoon to the care of the hospitalist team. PCP: Patient has been going to [facility], no provider in area as of yet. Payer: confirmed: [facility]. Patient came to hospital with midepigastric pain. Patient carries diagnosis of Pancreatitis. Patient alert and oriented, pleasant. Recently moved to this area, and are planning on building a home on their property. Lives with her spouse. P: DCP to continue to follow. Should be able to go home when stable. Cece Godinez RN/[employer]
[2018-07-05] MEDS: ENOXAPARIN 40 MG/0.4 ML SYRINGE SUBCUT (09:14)
--- NOTE | 2018-07-05 10:50 | PM.PN.1 ---
Subjective Date Patient Seen: 07/05/18 Interval history: Patient reports she feels significantly improved today. She is hungry and would like to try to eat. No further nausea or emesis. She does have some minimal right upper quadrant pain. She would like to be discharged home as soon as possible. We agreed to advance her diet to clear, low fat lunch, and low fat dinner. If she tolerates this without an exacerbation of pain anticipate discharge home today or tomorrow Exam Vital Signs (past 8 hours): - 07/05/18 04:45 07/05/18 07:58 07/05/18 08:08 Temperature 98.8 F 97.5 F L Pulse Rate 66 65 Respiratory Rate 20 20 Blood Pressure 124/73 119/70 Pulse Oximetry 96 96 96 Oxygen Delivery Method Room Air Oxygen Flow Rate 0 Narrative Exam Narrative: Pleasant female in No Acute Distress Lungs: clear to auscultation CV: RRR nl Sl S2 ABd: soft/ mildly tender in right upper quadrant, no rebound tenderness, no rigidity, no palpable masses Ext: no edema Objective Labs Result Diagrams: 07/05/18 04:39 07/05/18 04:39 Labs: Laboratory Results - last 24 hr 07/04/18 07/04/18 07/05/18 06:21 Unknown 04:39 WBC 5.8 RBC 3.66 L Hgb 11.5 L Hct 34.1 L MCV 92.9 MCH 31.4 MCHC 33.8 RDW 13.3 Plt Count 180 Neut % (Auto) 63.7 D Lymph % (Auto) 26.4 [place] % (Auto) 7.5 Eos % (Auto) 2.0 Baso % (Auto) 0.4 Neut # (Auto) 3700 Sodium Potassium Chloride Carbon Dioxide BUN Creatinine Estimated GFR BUN/Creatinine Ratio Glucose Calcium Total Bilirubin AST ALT Alkaline Phosphatase Total Protein Albumin Globulin Albumin/Globulin Ratio Amylase 4949 H Lipase Nasal Screen MRSA (PCR) Negative for mrsa 07/05/18 04:39 WBC RBC Hgb Hct MCV MCH MCHC RDW Plt Count Neut % (Auto) Lymph % (Auto) [place] % (Auto) Eos % (Auto) Baso % (Auto) Neut # (Auto) Sodium 143 Potassium 4.0 Chloride 108 H Carbon Dioxide 26 BUN 11 Creatinine 0.60 Estimated GFR > 60.0 BUN/Creatinine Ratio 18.3 Glucose 79 L Calcium 8.8 Total Bilirubin 0.7 AST 327 H ALT 580 H Alkaline Phosphatase 164 H Total Protein 5.9 L Albumin 3.8 Globulin 2.1 Albumin/Globulin Ratio 1.8 Amylase Lipase 6098 H D Nasal Screen MRSA (PCR) Assessment & Plan (1) Acute gallstone pancreatitis: Problem details: Will start her on IV hydration, antiemetics, and pain medication. Will repeat labs in the morning. Advance diet as she tolerates. Her lipase dropped from 68,000 to 6,000 today. If she tolerates eating, will discharge later today or tomorrow Current visit: Yes Status: Acute (2) Cholelithiasis: Problem details: Will treat the patient for acute pancreatitis at this time. Expect she may benefit from an ERCP as an outpatient once her pancreatitis has resolved Current visit: Yes Status: Acute
[2018-07-05] MEDS: DEXTROSE 5%-LACTATED RINGERS 1,000 ML 125 ML IV (18:12)
[2018-07-05] MEDS: HYDROMORPHONE 1 MG INJ 0.5 MG IV (20:51)
[2018-07-05] MEDS: ONDANSETRON 4 MG/2 ML INJ IV (20:51)
--- NOTE | 2018-07-05 21:40 | PC.NURSE ---
tamara poe pt reported feeling a sour stomach after eating pudding and applesauce. Pt also reports feeling some pain in back similar to pain she had on admission. Changed pt back to clear liquid diet. Called Dr. Marin to report findings. New orders received. Medicated once with dilaudid and zofran.
[2018-07-06] VITALS (11 sets, daily range): BP systolic 97–134; BP diastolic 58–88; PULSE 59–71; RESP 16–20; TEMP 35.9–37.2; O2SAT 95–99
[2018-07-06] MEDS: DEXTROSE 5%-LACTATED RINGERS 1,000 ML 125 ML IV ×2 (02:31→11:27)
[2018-07-06 05:48] LABS: Add Manual Diff / Slide Review NO; Basophils Percent Auto 0.5 % (0-2); Hematocrit 33.1 % (36-46); Hemoglobin 11.3 g/dL (12.0-16.0); Lymphocytes Percent Auto 30.5 % (25-40); Mean Corpuscular HGB Conc 34.1 % (30-36); Mean Corpuscular Hemoglobin 31.6 PG (26-34); Mean Corpuscular Volume 92.6 fL (80-100); Monocytes Percent Auto 8.6 % (3-14); Neutrophils Absolute Auto 3100 /uL (3000-5900); Neutrophils Percent Auto 58.4 % (50-75); Platelet Count 190 X10^3/uL (150-400); Red Blood Cell Count 3.57 X10^6/uL (4.0-5.2); Red Cell Distribution Width 13.4 % (11.6-14.8); White Blood Cell Count 5.3 X10^3/uL (4.5-11.0)
[2018-07-06 06:23] LABS: Lipase 5157 U/L (23-300)
[2018-07-06] MEDS: PANTOPRAZOLE 40 MG PACKET PO (07:55)
--- NOTE | 2018-07-06 08:59 | P.PN_ITS ---
Subjective Date Patient Seen: 07/06/18 Time Patient Seen: 08:53 Interval history: Follow up on Acute Gall stone pancreatitis Patient is doing better. Able to tolerate CLD at this time. LIpase levels decreasing. No overnight events. Exam Vital Signs (past 8 hours): - 07/06/18 01:00 07/06/18 05:00 07/06/18 08:00 Temperature 96.7 F L 98.2 F Pulse Rate 62 60 Respiratory Rate 16 18 Blood Pressure 134/77 114/74 Pulse Oximetry 97 95 96 Oxygen Delivery Method Room Air Oxygen Flow Rate 0 Narrative Exam Narrative: Gen: NAD, AAOxs HEENT: PERRLA bl Neck: Supple CV: RRR, no murmurs Resp: CTA BL, no wheezing GI: +tender to palpation in epigastric and LUQ region. +BS, no organomegally MSK: Normal ROM Skin: No lesions. Objective Labs Result Diagrams: 07/06/18 05:08 07/05/18 04:39 Labs: Laboratory Results - last 24 hr 07/06/18 07/06/18 05:08 05:08 WBC 5.3 RBC 3.57 L Hgb 11.3 L Hct 33.1 L MCV 92.6 MCH 31.6 MCHC 34.1 RDW 13.4 Plt Count 190 Neut % (Auto) 58.4 Lymph % (Auto) 30.5 [place] % (Auto) 8.6 Eos % (Auto) 2.0 Baso % (Auto) 0.5 Neut # (Auto) 3100 Lipase 5157 H Assessment & Plan Plan: Assessment/Plan Narrative: 1. Acute gallstone pancreatitis - Tolerating CLD well, continue to advance - Lipase down to 5100 today. Will stop trending - Possible DC tomorrow morning if continues to improve 2. Cholelithiasis - Abd MRI revealed Choledocholithiasis with mild biliary ductal dilatation. Although no discrete obstructing stone is visualized at the ampulla, the findings may reflect sequelae of a recently passed stone. - Will need ERCP on OP basis
--- NOTE | 2018-07-06 13:45 | PC.NURSE ---
PT TOLERATED ADVANCEMENT OF DIET TO FULL LIQUIDS AND WILL HAVE GENERAL DIET THIS PM FOR DINNER, SHE DENIES ANY N/V AND GI UPSET- VOIDING ADEQUATE AMOUNTS AND ABLE TO TAKE HER OWN ZOLOFT RX
--- NOTE | 2018-07-06 21:30 | PC.NURSE ---
1800 - Pt able to eat all of her evening meal. Reports feeling full, however denies nausea and pain. Asking about possibility of discharge. Call placed to Dr. Reese, who request pt to stay one more night for monitoring. Pt notified and agreeable. 9130 - Pt resting in bed. Pt denies pain, denies nausea. Tea provided. Denies further need. Call light in reach.
[2018-07-07 05:08] LABS: Add Manual Diff / Slide Review NO; Basophils Percent Auto 0.6 % (0-2); Eosinophils Percent Auto 4.1 % (2-4); Hematocrit 34.4 % (36-46); Hemoglobin 11.8 g/dL (12.0-16.0); Lymphocytes Percent Auto 32.3 % (25-40); Mean Corpuscular HGB Conc 34.2 % (30-36); Mean Corpuscular Hemoglobin 31.4 PG (26-34); Mean Corpuscular Volume 91.7 fL (80-100); Monocytes Percent Auto 9.2 % (3-14); Neutrophils Absolute Auto 2800 /uL (3000-5900); Neutrophils Percent Auto 53.8 % (50-75); Platelet Count 193 X10^3/uL (150-400); Red Blood Cell Count 3.75 X10^6/uL (4.0-5.2); Red Cell Distribution Width 13.1 % (11.6-14.8); White Blood Cell Count 5.3 X10^3/uL (4.5-11.0)
[2018-07-07 05:12] LABS: BUN Creatinine Ratio 8.3 (6-22); Blood Urea Nitrogen 5 mg/dL (7-17); Calcium 9.3 mg/dL (8.4-10.2); Carbon Dioxide 30 mmol/L (22-32); Chloride 107 mmol/L (98-107); Estimated Glomerular Filt Rate > 60.0 mL/min (>60); Glucose 100 mg/dL (80-110); HEMOLYSIS < 15 (0-50); Potassium 3.9 mmol/L (3.4-5.1); Sodium 146 mmol/L (137-145)
[2018-07-07 05:56] LABS: Lipase 2848 U/L (23-300)
[2018-07-07 06:00] VITALS: BP 125/78; PULSE 63; RESP 16; TEMP 36; O2SAT 96
[2018-07-07] MEDS: PANTOPRAZOLE 40 MG PACKET PO (06:51)
[2018-07-07 07:00] VITALS: O2SAT 98
--- NOTE | 2018-07-07 07:35 | PC.NURSE ---
Addendum entered by Misty Shepard R.N. 07/07/18 08:28: Pt wheeled out @ 0848 Original Note: AM shift& d/c Pt denies nausea or pain this AM. Dr Campos into see Pt @ 7560, and d/c orders written. Pt and spouse pleased with this, and changing into own clothing. IV removed. Paperwork completed with all questions and concerns addressed.
--- NOTE | 2018-07-07 07:38 | PM.DS.1 ---
History of Present Illness Date Patient Seen: 07/07/18 Time Patient Seen: 07:40 Chief complaint: pain in back and abdomen for 24 hrs Narrative: 63-year-old female previously healthy who presents with midepigastric pain. Patient reports she has had a cholecystectomy 4 years ago for gallstone pancreatitis. Sometime afterwards she had another episode of pancreatitis that quickly resolved. She was well until last Wednesday when she developed epigastric pain. She had some nausea and thought she had indigestion. Yesterday the pain became quite severe. She described it as 8/10 radiating to her back. She had associated nausea with 3 episodes of vomiting. She had no hematemesis melena. Red blood per rectum. She denies any fever. As the pain was fairly intense she presented to the emergency department for evaluation. Patient reports the hydromorphone given in the ER did help her pain. She reports being thirsty. She denies any shortness of breath or chest pain. All other review of systems is negative. Discharge Providers Date of admission: 07/04/18 13:48 Discharge provider: Sonja Reese MD Discharge Date: 07/07/18 Summary Hospital Course: In the emergency department patient's lipase was found to be over 68,000. An abdominal ultrasound was obtained which showed A 2.3 x 1.6 x 2.2 cm simple cyst in the right hepatic lobe, No ultrasound finding to explain epigastric pain, and Cholecystectomy. An MRCP was obtained which revealed evidence of cholelithiasis. There was no ductal dilatation but it was suggestive of a possible passed gallstone. Patient was admitted for management of gallstone pancreatitis. Once in ICU patient was initially NPO status, and gradually went to CLD. By evening of 07/06, patient was able to tolerate PO diet. Her lipase went from 00177->6100->2800. She continued to clinically improve and was stable for discharge 07/07/18. She was told to follow up with GI on outpatient basis for possibility of ERCP, as there was evidence of gall stones on MRCP. Exam Vital Signs (past 8 hours): - 07/06/18 23:51 07/07/18 06:00 Temperature 97.5 F L 96.8 F L Pulse Rate 59 L 63 Respiratory Rate 16 16 Blood Pressure 103/59 L 125/78 Pulse Oximetry 99 96 Oxygen Delivery Method Room Air Oxygen Flow Rate 0 Narrative Exam Narrative: Gen: NAD, AAOx3 HEENT: PERRLA bl, EOMI bl. Moist mucous membranes Neck: Supple, no LAD or JVD CV: RRR, no murmurs or gallops Resp: CTA BL, no wheezing or crackles GI: tenderness to palpation in epigastric and LUQ region now resolved. +BS, no organomegally MSK: Normal ROM Skin: No lesions or bruising Neuro: NFD, CN II-XII intact Psych: Appropriate mood, eager to go home Objective Labs Result Diagrams: 07/07/18 04:39 07/07/18 04:39 Labs: Laboratory Results - last 24 hr 07/07/18 07/07/18 04:39 04:39 WBC 5.3 RBC 3.75 L Hgb 11.8 L Hct 34.4 L MCV 91.7 MCH 31.4 MCHC 34.2 RDW 13.1 Plt Count 193 Neut % (Auto) 53.8 Lymph % (Auto) 32.3 [place] % (Auto) 9.2 Eos % (Auto) 4.1 H Baso % (Auto) 0.6 Neut # (Auto) 2800 L Sodium 146 H Potassium 3.9 Chloride 107 Carbon Dioxide 30 BUN 5 L Creatinine 0.60 Estimated GFR > 60.0 BUN/Creatinine Ratio 8.3 Glucose 100 Calcium 9.3 Lipase 2848 H Discharge Plan Discharge Plan Discharge Problem: Acute epigastric pain Patient Disposition: Home Discharge Med Rec/Prescriptions Prescriptions: Continue sertraline [Zoloft] 20 mg/mL Concentrate 20 mg PO DAILY RF: 0 Follow up/Referrals: Luis Shetty MD [Non-Staff] - 2 Weeks (patient needs ERCP due to stones found on MRCP) Provider Discharge Instructions Diet: Diet as Tolerated Visit Report/Discharge Packet Instructions: Endoscopic Retrograde Cholangiopancreatography Discharge Data Attending Provider: Munira Marin Admit Date/Time: 07/04/18 13:48
[2018-07-07 07:55] VITALS: BP 128/73; PULSE 61; RESP 21; TEMP 36.6; O2SAT 97
== END 2018-07-07 08:36 | disposition home or self-care (01) | DRG 439 ==
LOC: ED 07:36 → AC 13:51 → ICU 14:03
PROVIDERS: Emergency Medicine; Internal Medicine; Admitting Provider Internal Medicine; Emergency Provider Emergency Medicine; Visit Provider Internal Medicine
DX: K85.10 Biliary acute pancreatitis without necrosis or infection (principal); K91.86 Retained cholelithiasis following cholecystectomy
CPT/HCPCS: 36415; 36591; 74177; 74181; 76700; 80048; 80053; 81003; 81015; 82150; 82550; 83690; 84484; 85025; 87797; 93005; 96361; 96374; 96375; 99285; C9113; J1170; J1650; J1885; J2405; J7121; Q9967

== ENCOUNTER → 2019-04-25 10:00 | Outpatient (CLI) | payer MEDICARE, OTHER, SELFPAY ==
[2018-07-04 14:04] VITALS: BMI 26.4
--- NOTE | 2019-04-25 | DI.RAD.S_ITS ---
PROCEDURE: XR SHOULDER LT MIN 2V INDICATIONS: CHRONIC L SHOULDER PAIN TECHNIQUE: 3 views of the shoulder were acquired. COMPARISON: None. FINDINGS: Bones: No fractures or dislocations. No suspicious bony lesions. Visualized ribs appear intact. Left shoulder joint degeneration Soft tissues: Calcific tendinitis IMPRESSION: Left shoulder joint degeneration. Calcific tendinitis. Dictated by: Noel Albright M.D. on 04/25/2019 at 13:57 Approved by: Noel Albright M.D. on 04/25/2019 at 13:58
== END ==
PROVIDERS: Visit Provider Internal Medicine
DX: M25.512 Pain in left shoulder (principal); M19.012 Primary osteoarthritis, left shoulder; M75.32 Calcific tendinitis of left shoulder; G89.29 Other chronic pain
CPT/HCPCS: 73030

== ENCOUNTER 2019-07-04 10:07 | Emergency (ER) | payer MEDICARE, OTHER, SELFPAY ==
[2018-07-04 14:04] VITALS: BMI 26.4
[2019-07-04 10:15] VITALS: BP 115/80; PULSE 69; RESP 16; TEMP 36.1; O2SAT 98; BMI 26.5
--- NOTE | 2019-07-04 10:39 | ED_ITS ---
HPI - Syncope General Chief Complaint: Syncope Stated Complaint: fainted, fell on face Time Seen by Provider: 07/04/19 10:16 Source: patient and family Limitations: no limitations History of Present Illness HPI narrative: Patient is a 64-year-old female who presents after syncopal episode. She says last evening she participated in a sleep study test. This morning she came home to the shower she felt a little lightheaded in the shower. He stepped out of the shower and fell quickly to the floor. She does not think she lost consciousness for long she did hit her head. No nausea or vomiting. No weakness numbness or tingling or blurry vision. She denies any chest pain or heart palpitations. She did not yet eat breakfast this morning off MD complaint: felt faint Prodromal symptoms: lightheaded Treatments prior to arrival: none Related Data Home Medications Medication Instructions Recorded Confirmed fluoxetine 40 mg capsule 40 mg PO DAILY 05/25/19 07/04/19 omeprazole 20 mg capsule,delayed 20 mg PO DAILY 05/25/19 07/04/19 release Probiotic 1 cap PO DAILY 07/04/19 07/04/19 amoxicillin-pot clavulanate 1 tab PO BIDX7 07/04/19 07/04/19 [Augmentin] multivitamin 1 tab PO DAILY 07/04/19 07/04/19 Allergies Allergy/AdvReac Type Severity Reaction Status Date / Time No Known Drug Allergies Allergy Verified 05/25/19 09:44 Review of Systems Review of Systems ROS Unobtainable: All systems reviewed & are unremarkable except as noted in HPI and below Constitutional Constitutional: Denies chills, Denies fever(s), Denies lethargy and Denies weakness Eyes Eyes: Denies change in vision, Denies eye discharge, Denies irritation and Denies loss of vision ENT Ears, Nose, Mouth, and Throat: Denies change in voice, Denies neck pain and Denies sore throat Cardiovascular Cardiovascular: Reports as per HPI, Denies chest pain, Reports syncope, Denies rapid heart rate, Denies irregular heart rhythm, Reports lightheadedness and Denies orthopnea Gastrointestinal Gastrointestinal: Denies abdominal pain, Denies change in bowel habits, Denies diarrhea, Denies nausea and Denies vomiting Genitourinary Genitourinary: Denies hematuria, Denies flank pain, Denies urinary incontinence and Denies urinary urgency Musculoskeletal Musculoskeletal: Denies neck pain Integumentary/Breasts Skin/Breast: Denies pruritus, Denies erythema, Denies rash and Denies wounds Neurologic Neurologic: Denies confusion, Reports syncope, Denies loss of vision and Denies weakness Psychiatric Psychiatric: Denies anxiety, Denies confusion, Denies depression, Denies homicidal ideation and Denies suicidal ideation Patient History Medical History Gallstone pancreatitis (Acute) Surgical History S/P cholecystectomy (Acute) Family History Father Bladder cancer Mother Lung cancer Social History household members: spouse Smoking Status: Never smoker alcohol intake: current substance use type: does not use alcohol intake frequency: 0-2 drinks per day Substance Use Type: does not use Exam Initial Vital Signs Initial Vital Signs: Vital Signs Temperature 97.0 F L 07/04/19 10:15 Pulse Rate 69 07/04/19 10:15 Respiratory Rate 16 07/04/19 10:15 Blood Pressure 115/80 07/04/19 10:15 Pulse Oximetry 98 07/04/19 10:15 GENERAL: Well-appearing, well-nourished and in no acute distress. HEENT: Head atraumatic,EOMI, pupils reactive, face symmetric, moist mucous membranes CARDIOVASCULAR: Regular rate and rhythm without murmurs, rubs or gallops. RESPIRATORY: Breath sounds equal bilaterally, no wheezes rales or rhonchi. ABDOMEN: Soft, nontender. Normoactive bowel sounds all 4 quadrants. No guarding or rebound. EXTREMITIES: Normal range of motion, no clubbing or edema. Neurovascularly intact NEUROLOGICAL: Alert and oriented x4.Normal gait and speech. Cranial nerves II through XII grossly intact. Activities Officer strength equal bilaterally lower leg extremity strength equal SKIN: Warm, dry, no laceration, no petechiae, no rashes or lesions. Scores NIH Stroke Scale Level of Conciousness: Alert, keenly responsive Ask month/age: Answers both questions correctly. Open/close eyes, close hand: Performs both tasks correctly Best gaze horizontal: Normal Visual suero: No visual loss Facial palsy: Normal symetrical movement Left arm drift: No drift for full 10 sec Right arm drift: No drift for full 10 sec Left leg drift: No drift for full 10 sec Right leg drift: No drift for full 10 sec Limb ataxia: Absent Sensory on face/arms/legs: Normal, no sensory loss Best language: No aphasia, normal Dysarthria: Normal Extinction or inattention: No abnormality Total NIH Stroke scale score: 0 Course Orders Ordered: ED Orders 07/04/19 10:38 EKG-12 Lead Stat 07/04/19 10:46 CT head/brain wo con Stat 07/04/19 10:50 Complete Blood Count AUTO DIFF Stat Comprehensive Metabolic Panel Stat Troponin I Stat Discontinued Medications Sodium Chloride (Normal Saline 0.9%) 1,000 mls @ 1,000 mls/hr IV CONT ALE Last Infusion: 07/04/19 12:00 Dose: 0 mls/hr Documented by: Admin: 07/04/19 11:13 Dose: 1,000 mls/hr Documented by: BRIAN Vital Signs Vital signs: Vital Signs - 8 hr 07/04/19 10:15 07/04/19 11:00 07/04/19 11:30 Temperature 97.0 F L Pulse Rate 69 62 62 Respiratory Rate 16 14 15 Blood Pressure 115/80 Blood Pressure [Right Arm] 111/63 107/64 Pulse Oximetry 98 98 98 MDM - Syncope Lab Data Attestation: I reviewed the patient's lab results. Result diagrams: 07/04/19 10:50 07/04/19 10:50 Labs: Lab Results 07/04/19 07/04/19 Range/Units 10:50 10:50 WBC 6.3 (4.5-11.0) X10^3/uL RBC 4.30 (4.0-5.2) X10^6/uL Hgb 13.5 (12.0-16.0) g/dL Hct 38.6 (36-46) % MCV 89.9 (80-100) fL MCH 31.3 (26-34) PG MCHC 34.8 (30-36) % RDW 13.6 (11.6-14.8) % Plt Count 310 (150-400) X10^3/uL Neut % (Auto) 63.5 (50-75) % Lymph % (Auto) 26.1 (25-40) % [place] % (Auto) 7.4 (3-14) % Eos % (Auto) 2.2 (2-4) % Baso % (Auto) 0.8 (0-2) % Neut # (Auto) 4000 (9072-4167) /uL Lymph # (Auto) 1600 (2099-8705) /uL [place] # (Auto) 500 (0-900) /uL Eos # (Auto) 100 (0-450) /uL Baso # (Auto) 100 (0-100) /uL Sodium 142 (137-145) mmol/L Potassium 4.3 (3.4-5.1) mmol/L Chloride 105 (98-107) mmol/L Carbon Dioxide 29 (22-32) mmol/L BUN 14 (7-17) mg/dL Creatinine 0.70 (0.52-1.04) mg/dL Estimated GFR > 60.0 (>60) mL/min BUN/Creatinine Ratio 20.0 (6-22) Glucose 96 (80-110) mg/dL Calcium 9.5 (8.4-10.2) mg/dL Total Bilirubin 0.6 (0.2-1.3) mg/dL AST 33 (14-36) IU/L ALT 35 H (<35) IU/L Alkaline Phosphatase 74 (38-126) U/L Troponin I < 0.012 (0.01-0.034) ng/mL Total Protein 7.4 (6.3-8.2) g/dL Albumin 4.6 (3.5-5.0) g/dL Globulin 2.8 (1.7-4.1) g/dL Albumin/Globulin Ratio 1.6 (1.0-2.8) Imaging Data CT scan - head: Radiologist's impression: PROCEDURE: CT HEAD/BRAIN WO CON INDICATIONS: fall onto face TECHNIQUE: Noncontrast 4.5 mm thick angled axial sections acquired from the foramen magnum to the vertex, with coronal and sagittal reformats. For radiation dose reduction, the following was used: automated exposure control, adjustment of mA and/or kV according to patient size. COMPARISON: None. FINDINGS: Image quality: Excellent. CSF spaces: Basal cisterns are patent. No extra-axial fluid collections. Vent ricles are normal in size and shape. Brain: No midline shift. No intracranial masses or hemorrhage. Zavala-white matter interface is normal. Skull and face: Calvarium and visualized facial bones are intact, without suspicious lesions. Sinuses: Visualized sinuses and mastoids are clear. IMPRESSION: Negative for acute stroke, hemorrhage, or mass. No evidence of significant intr acranial sequelae of acute trauma. Dictated by: Josh Oates M.D. on 07/04/2019 at 10:57 ECG Data Attestation: I personally reviewed and interpreted this ECG as follows: Prior ECG tracings: not available for review Interpretation: Normal sinus rhythm rate 65 p.r. interval 140 QRS [address] elevations or depressions or T-wave inversions no priors to compare MDM Narrative Medical decision making narrative: The patient has no focal deficits head CT negative. Likely syncopal episode after combination of no sleep, decreased oral intake. Seems the reaction she overall is feeling better. Discharge Plan Departure Patient Disposition: Home Clinical Impression: Vasovagal syncope Discharge Date/Time: 07/04/19 12:02 Instructions: Fainting Activity Restrictions/Additional Instructions: *You have been diagnosed with vasovagal syncope *What to do: Passing out today is likely combination of factors including dehydration not eating and not sleeping. Your overall workup today is negative. *Continue to take medications as directed *Follow up with your primary care provider in 2-3 days *Return to ER if you should have recurrent episodes, chest pain or palpitations dizziness weakness lightheadedness or any new, worsening or concerning symptoms Prescriptions: No Action multivitamin Tablet 1 tab PO DAILY RF: 0 amoxicillin-pot clavulanate [Augmentin] 875-125 mg Tablet 1 tab PO BIDX7 RF: 0 Probiotic 1 cap PO DAILY RF: 0 fluoxetine 40 mg capsule 40 mg PO DAILY RF: 0 omeprazole 20 mg capsule,delayed release(DR/EC) 20 mg PO DAILY RF: 0 Referrals: Luis Scanlon MD [Primary Care Provider] -
--- NOTE | 2019-07-04 10:46 | DI.CT.S_ITS ---
PROCEDURE: CT HEAD/BRAIN WO CON INDICATIONS: fall onto face TECHNIQUE: Noncontrast 4.5 mm thick angled axial sections acquired from the foramen magnum to the vertex, with coronal and sagittal reformats. For radiation dose reduction, the following was used: automated exposure control, adjustment of mA and/or kV according to patient size. COMPARISON: None. FINDINGS: Image quality: Excellent. CSF spaces: Basal cisterns are patent. No extra-axial fluid collections. Ventricles are normal in size and shape. Brain: No midline shift. No intracranial masses or hemorrhage. Zavala-white matter interface is normal. Skull and face: Calvarium and visualized facial bones are intact, without suspicious lesions. Sinuses: Visualized sinuses and mastoids are clear. IMPRESSION: Negative for acute stroke, hemorrhage, or mass. No evidence of significant intracranial sequelae of acute trauma. Dictated by: Josh Oates M.D. on 07/04/2019 at 10:57 Approved by: Josh Oates M.D. on 07/04/2019 at 10:58
[2019-07-04 11:00] VITALS: BP 111/63; PULSE 62; RESP 14; O2SAT 98
--- NOTE | 2019-07-04 11:00 | PC.NURSE ---
s/p sleep study, pt states, removing glue from her hair, hot shower, after luna, walking in her bedroom, felt dizzy and passed out, hitting face on the door, denies neck or back pain. pt was treated for sinusitis on antibiotic for 7 days with diarrhea. now pt alert and oriented, cooperative with care, skin pale, warm dry . moving all ext. neuro fast exam negative. spouse at bs.
[2019-07-04 11:03] LABS: Add Manual Diff / Slide Review NO; Basophils Absolute Auto 100 /uL (0-100); Basophils Percent Auto 0.8 % (0-2); Eosinophils Absolute Auto 100 /uL (0-450); Eosinophils Percent Auto 2.2 % (2-4); Hematocrit 38.6 % (36-46); Hemoglobin 13.5 g/dL (12.0-16.0); Lymphocytes Absolute Auto 1600 /uL (1100-4500); Lymphocytes Percent Auto 26.1 % (25-40); Mean Corpuscular HGB Conc 34.8 % (30-36); Mean Corpuscular Hemoglobin 31.3 PG (26-34); Mean Corpuscular Volume 89.9 fL (80-100); Monocytes Absolute Auto 500 /uL (0-900); Monocytes Percent Auto 7.4 % (3-14); Neutrophils Absolute Auto 4000 /uL (1500-7000); Neutrophils Percent Auto 63.5 % (50-75); Platelet Count 310 X10^3/uL (150-400); Red Cell Distribution Width 13.6 % (11.6-14.8); White Blood Cell Count 6.3 X10^3/uL (4.5-11.0)
[2019-07-04] MEDS: SODIUM CHLORIDE 0.9% 1,000 ML 1000 ML IV (11:13)
[2019-07-04 11:15] LABS: Alanine Aminotransferase 35 IU/L (<35); Albumin 4.6 g/dL (3.5-5.0); Albumin Globulin Ratio 1.6 (1.0-2.8); Alkaline Phosphatase 74 U/L (38-126); Aspartate Aminotransferase 33 IU/L (14-36); Bilirubin Total 0.6 mg/dL (0.2-1.3); Blood Urea Nitrogen 14 mg/dL (7-17); Calcium 9.5 mg/dL (8.4-10.2); Carbon Dioxide 29 mmol/L (22-32); Chloride 105 mmol/L (98-107); Estimated Glomerular Filt Rate > 60.0 mL/min (>60); Globulin 2.8 g/dL (1.7-4.1); Glucose 96 mg/dL (80-110); HEMOLYSIS < 15 (0-50); Potassium 4.3 mmol/L (3.4-5.1); Sodium 142 mmol/L (137-145); Total Protein 7.4 g/dL (6.3-8.2)
[2019-07-04 11:27] LABS: Troponin I < 0.012 ng/mL (0.01-0.034)
[2019-07-04 11:30] VITALS: BP 107/64; PULSE 62; RESP 15; O2SAT 98
== END 2019-07-04 12:02 | disposition home or self-care (01) ==
PROVIDERS: Emergency Provider Emergency Medicine; PCP Internal Medicine
DX: R55 Syncope and collapse (principal); S09.90XA Unspecified injury of head, initial encounter; W19.XXXA Unspecified fall, initial encounter
CPT/HCPCS: 36415; 70450; 80053; 84484; 85025; 93005; 99283; 99285; Q9967

== ENCOUNTER → 2019-08-17 09:00 | Outpatient (CLI) | payer MEDICARE, OTHER, SELFPAY ==
[2018-07-04 14:04] VITALS: BMI 26.4
--- NOTE | 2019-08-17 | DI.MRI.S_ITS ---
PROCEDURE: MR SHOULDER LT WO CON INDICATIONS: Pain in left shoulder TECHNIQUE: Noncontrast oblique coronal T2 fast spin echo with fat saturation, oblique sagittal T1 spin echo and T2 fast spin echo with fat saturation, axial T1 spin echo and T2 fast spin echo with fat saturation through the shoulder. COMPARISON: None. FINDINGS: Image quality: Excellent. Rotator cuff: The there is full-thickness rupture involving the mid to posterior fibers of the distal supraspinatus at its insertion on humeral head with 1.2 cm medial retraction of torn tendon fibers and a fluid filled gap measures up to 1.4 cm in AP dimension. Tendinosis and low-grade articular bursal surface partial-thickness involving anterior fibers of distal supraspinatus and distal infraspinatus is seen. Distal subscapularis tendinosis and low-grade intrasubstance partial thickness tear is noted. Sagittal images demonstrate mild to moderate supraspinatus muscle atrophy. Bones and bursae: No bone marrow contusions or fractures. Moderate acromioclavicular joint and glenohumeral joint osteoarthritic changes are seen. Small amount of subacromial-subdeltoid and glenohumeral joint fluid is seen, no gross intra-articular loose body. Capsule and soft tissues: In the absence of intra-articular contrast, there is subtle signal abnormality and contour irregularity involving the inferior labrum at 5 to 6:00 position concerning for inferior labral tear. The glenohumeral ligaments appear intact. Tendinosis and partial-thickness tear involving proximal intra-articular portion of long head biceps tendon is seen. The rotator interval appears normal, without fibrosis. The coracohumeral ligament is normal in thickness. IMPRESSION: 1. Full-thickness rupture involving the mid to posterior fibers of distal supraspinatus at its insertion on humeral head with 1.2 cm medial retraction of torn tendon fibers and a fluid filled gap measures 1.4 cm in AP dimension. Tendinosis and low to moderate grade articular and bursal surface partial-thickness tear involving rest of the distal supraspinatus tendon and infraspinatus tendon. Distal subscapularis tendinosis and low-grade intrasubstance partial-thickness tear. Mild to moderate supraspinatus muscle atrophy. 2. Moderate acromioclavicular joint and glenohumeral joint osteoarthritis. No fracture or dislocation. 3. Finding is concerning for inferior labral tear at 5 to 6:00 position. Tendinosis and low-grade partial-thickness tear involving possible intra-articular portion of long head biceps. Dictated by: Moises Cheung M.D. on 08/17/2019 at 12:10 Approved by: Moises Cheung M.D. on 08/17/2019 at 12:27
== END ==
PROVIDERS: PCP Internal Medicine; Visit Provider Orthopaedic Surgery
DX: M25.512 Pain in left shoulder (principal); M19.012 Primary osteoarthritis, left shoulder; M75.122 Complete rotator cuff tear or rupture of left shoulder, not specified as traumatic
CPT/HCPCS: 73221

== ENCOUNTER → 2019-10-16 09:11 | Outpatient (CLI) | payer MEDICARE, OTHER, SELFPAY ==
[2018-07-04 14:04] VITALS: BMI 26.4
[2019-10-16 10:00] LABS: Alanine Aminotransferase 21 IU/L (<35); Albumin 4.6 g/dL (3.5-5.0); Albumin Globulin Ratio 1.5 (1.0-2.8); Alkaline Phosphatase 63 U/L (38-126); Aspartate Aminotransferase 24 IU/L (14-36); Bilirubin Total 0.4 mg/dL (0.2-1.3); Blood Urea Nitrogen 15 mg/dL (7-17); Calcium 9.6 mg/dL (8.4-10.2); Carbon Dioxide 28 mmol/L (22-32); Chloride 106 mmol/L (98-107); Estimated Glomerular Filt Rate > 60.0 mL/min (>60); Glucose 91 mg/dL (80-110); HEMOLYSIS < 15 (0-50); Potassium 4.5 mmol/L (3.4-5.1); Sodium 140 mmol/L (137-145); Total Protein 7.6 g/dL (6.3-8.2)
[2019-10-16 10:42] LABS: TSH w/ Reflex to FT4 3.84 uIU/mL (0.47-4.68)
== END ==
PROVIDERS: PCP Internal Medicine; Referring Provider Internal Medicine; Visit Provider Internal Medicine
DX: R53.83 Other fatigue (principal); R55 Syncope and collapse
CPT/HCPCS: 36415; 80053; 84443

== ENCOUNTER 2019-10-26 08:15 | Outpatient (RCR) | payer MEDICARE, OTHER, SELFPAY ==
[2018-07-04 14:04] VITALS: BMI 26.4
--- NOTE | 2019-06-19 15:37 | PT.OIE ---
Current Diagnoses Pain in left shoulder (06/19/19) Impingement syndrome of left shoulder (06/19/19) Past Medical History (Last Reviewed 05/25/19 @ 10:32 by Girish Gabriel MD) Gallstone pancreatitis (Acute) Past Surgical History (Last Reviewed 05/25/19 @ 10:32 by Girish Gabriel MD) S/P cholecystectomy (Acute) Visit Care Team Role Provider Type Luis Scanlon MD Primary Care Provider Physician Specialty: Wound Care Address: [address] [place] [address], [id number] Email: [email or web address] Pilo Anthony MD Attending Provider Physician Specialty: Orthopedic Surgery Address: [address] [place] [address], [id number] Email: [email or web address] [facility] Initial Evaluation PT-OP-A Visit Information Start: 06/19/19 10:12 Freq: Status: Active Protocol: Document 06/19/19 10:30 AMB (Rec: 06/19/19 13:41 AMB [email or web address]) Out-Patient Physical Therapy Visit Information Visit Information Visit Type Initial Evaluation Visit Start Time 10:30 Visit Stop Time 11:15 Total Visit Minutes 45 Visit Number 1 PT-OP-B Current Condition Start: 06/19/19 10:12 Freq: Status: Active Protocol: Document 06/19/19 10:30 AMB (Rec: 06/19/19 13:41 AMB [email or web address]) Current Condition History of Current Condition Onset Date 1 year ago Current Complaints L shoulder pain with end range movement History of Current Condition Radha describes left arm pain that at times can radiate down from her shoulder down her arm. Worst with reaching and sleeping. Denies specific incident that started the pain. Did try a cortisone shot but did not feel that it helped much. She does have some history of neck stiffness, and describes numbnes intermittently, especially if she sleeps on that side. Treatment Goals Patient/Caregiver Goals Reduce pain in the arm so she can sleep on it and reach with it Prior Functional Status Baseline Function- ADL's Independent Baseline Function- Mobility Independent Current Functional Impairments (Reported) Functional Limitations- ADL's Difficulty sleeping on left side, difficulty reaching Personal Factors Other Personal Factors That May Effect Recent of her father may Therapy/Recovery necessitate traveling PT-OP-C Subjective Start: 06/19/19 10:12 Freq: Status: Active Protocol: Document 06/19/19 10:30 AMB (Rec: 06/19/19 13:41 AMB [email or web address]) OP-PT Subjective Patient Comments Patient Reported Progress Same Patient Questionnaires Quick Dash- Upper Extremity Quick Dash UE Score 25 Quick Dash UE Impairment 20 to 39% Impaired (Score 20- 39) PT-OP-J Posture/Palpation/Skin Start: 06/19/19 10:12 Freq: Status: Active Protocol: Document 06/19/19 10:30 AMB (Rec: 06/19/19 13:41 AMB [email or web address]) Posture Evaluation Comments Posture Comments no winging bilaterally, slightly forward head Palpation Assessment Location One Palpation Location L shoulder Palpation Details Tenderness equal R and L at biceps tendons, more tenderness L>R at supraspinatus insertion PT-OP-K Range of Motion Start: 06/19/19 10:12 Freq: Status: Active Protocol: Document 06/19/19 10:30 AMB (Rec: 06/19/19 13:41 AMB [email or web address]) Shoulder Goniometric Range of Motion Shoulder Left Passive Flexion 150 Abduction 115 Right Active Testing Position Sitting Flexion 165 Abduction 70 External Rotation at 0 degrees Abduction 80 Left Active Testing Position Sitting Flexion 150 Abduction 135 External Rotation at 0 degrees Abduction 75 Shoulder ROM Limitations Comments pain with abduction, especially with passive when not allowed to compensate PT-OP-L Special Tests Start: 06/19/19 10:12 Freq: Status: Active Protocol: Document 06/19/19 10:30 AMB (Rec: 06/19/19 13:41 AMB [email or web address]) Special Tests Shoulder Special Tests Lift-Off Rotator Cuff Test Results positive for pain Watt [place] Impingement Test Results negative Neer Impingement Test Results positive Drop Arm Rotator Cuff Test Results negative PT-OP-M Strength Start: 06/19/19 10:12 Freq: Status: Active Protocol: Document 06/19/19 10:30 AMB (Rec: 06/19/19 13:41 AMB [email or web address]) Shoulder Strength Shoulder Manual Muscle Testing Right Flexion 5 Normal Extension 5 Normal Abduction (C5) 4+ Good+ External Rotation 4+ Good+ Internal Rotation 4+ Good+ Left Flexion 4 Good Extension 4+ Good+ Abduction (C5) 4 Good External Rotation 4 Good Internal Rotation 4+ Good+ PT-OP-Q Treatments Start: 06/19/19 10:12 Freq: Status: Active Protocol: Document 06/19/19 10:30 AMB (Rec: 06/19/19 15:37 AMB [email or web address]) Therapeutic Exercises Standing Exercises 2 Standing Exercise Name towel slide into flexion Reps/Minutes 20x2 Comments standing at wall 1 Standing Exercise Name isometrics: abduction Reps/Minutes 5x5 PT-OP-T Assessment and Plan Start: 06/19/19 10:12 Freq: Status: Active Protocol: Document 06/19/19 10:30 AMB (Rec: 06/19/19 15:37 AMB [email or web address]) Physical Therapy Assessment Rehab Potential Rehabilitation Potential Good Evaluation Complexity Number of Personal Factors/Comorbidities 1-2 Number of Body Systems Impaired 4 or More Clinical Presentation at Evaluation Stable Impairments Impairments Activity Tolerance,Functional Activities,Pain,ROM,Strength Goals Two Impairment pain Short Term Goal (STG) Radha will reach above shoulder height to put dishes away in a tall cabinet without an increase in shoulder pain. STG Duration 4 weeks Care Home Goal (LTG) Radha will sleep on her left side with pillow props without waking due to pain. LTG Duration 8 weeks One Impairment ROM Short Term Goal (STG) Radha will increase her passive shoulder abduction to 140 degrees. STG Duration 4 weeks Care Home Goal (LTG) Radha will increase her active shoulder ROM to 160 degrees into flexion and abduction. LTG Duration 8 weeks Assessment Summary Assessment Radha attends physical therapy with a 1 year history of insidious onset left shoulder pain, worst at end range. Positive for rotator cuff weakness and impingement. The pain has been staying the same, and she does have weakness and significantly reduced passive range into abduction. She will benefit from manual therapy and strengthening to improve her range and decrease her impingement symptoms. Physical Therapy Plan Frequency and Duration Frequency of Treatment 2x/Week Duration of Treatment 8 weeks Plan of Care Start Date 06/19/19 Plan of Care End Date 08/14/19 Therapeutic Interventions Therapeutic Interventions Home Exercise Program,Joint Mobilizations,Manual Therapy, Neuromuscular Re-education, Taping,Therapeutic Activities, Therapeutic Exercises Modalities Cold Pack/Ice Massage,Electric Stimulation,Hot Packs, Ultrasound Next Visit Focus/Plan Next Note Type Treatment Note Next Visit Plan Reassess HEP, progress as tolerated, joint mobilization to improve abduction
--- NOTE | 2019-06-22 11:47 | PT.OTN ---
Current Diagnoses Pain in left shoulder (06/21/19) Impingement syndrome of left shoulder (06/21/19) Physical Therapy Treatment Note PT-OP-A Visit Information Start: 06/19/19 10:12 Freq: Status: Active Protocol: Document 06/21/19 09:00 AMB (Rec: 06/22/19 11:47 AMB [email or web address]) Out-Patient Physical Therapy Visit Information Visit Information Visit Type Treatment Note Visit Start Time 09:00 Visit Stop Time 09:15 Total Visit Minutes 45 Visit Number 2 PT-OP-B Current Condition Start: 06/19/19 10:12 Freq: Status: Active Protocol: Document 06/19/19 10:30 AMB (Rec: 06/19/19 13:41 AMB [email or web address]) Current Condition History of Current Condition Onset Date 1 year ago Current Complaints L shoulder pain with end range movement History of Current Condition Radha describes left arm pain that at times can radiate down from her shoulder down her arm. Worst with reaching and sleeping. Denies specific incident that started the pain. Did try a cortisone shot but did not feel that it helped much. She does have some history of neck stiffness, and describes numbnes intermittently, especially if she sleeps on that side. Treatment Goals Patient/Caregiver Goals Reduce pain in the arm so she can sleep on it and reach with it Prior Functional Status Baseline Function- ADL's Independent Baseline Function- Mobility Independent Current Functional Impairments (Reported) Functional Limitations- ADL's Difficulty sleeping on left side, difficulty reaching Personal Factors Other Personal Factors That May Effect Recent of her father may Therapy/Recovery necessitate traveling PT-OP-C Subjective Start: 06/19/19 10:12 Freq: Status: Active Protocol: Document 06/21/19 09:00 AMB (Rec: 06/22/19 11:47 AMB [email or web address]) OP-PT Subjective Patient Comments Patient Comments Pt reports she is doing about the same. PT-OP-J Posture/Palpation/Skin Start: 06/19/19 10:12 Freq: Status: Active Protocol: Document 06/19/19 10:30 AMB (Rec: 06/19/19 13:41 AMB [email or web address]) Posture Evaluation Comments Posture Comments no winging bilaterally, slightly forward head Palpation Assessment Location One Palpation Location L shoulder Palpation Details Tenderness equal R and L at biceps tendons, more tenderness L>R at supraspinatus insertion PT-OP-K Range of Motion Start: 06/19/19 10:12 Freq: Status: Active Protocol: Document 06/19/19 10:30 AMB (Rec: 06/19/19 13:41 AMB [email or web address]) Shoulder Goniometric Range of Motion Shoulder Left Passive Flexion 150 Abduction 115 Right Active Testing Position Sitting Flexion 165 Abduction 70 External Rotation at 0 degrees Abduction 80 Left Active Testing Position Sitting Flexion 150 Abduction 135 External Rotation at 0 degrees Abduction 75 Shoulder ROM Limitations Comments pain with abduction, especially with passive when not allowed to compensate PT-OP-L Special Tests Start: 06/19/19 10:12 Freq: Status: Active Protocol: Document 06/19/19 10:30 AMB (Rec: 06/19/19 13:41 AMB [email or web address]) Special Tests Shoulder Special Tests Lift-Off Rotator Cuff Test Results positive for pain Watt Eugene Impingement Test Results negative Neer Impingement Test Results positive Drop Arm Rotator Cuff Test Results negative PT-OP-M Strength Start: 06/19/19 10:12 Freq: Status: Active Protocol: Document 06/19/19 10:30 AMB (Rec: 06/19/19 13:41 AMB [email or web address]) Shoulder Strength Shoulder Manual Muscle Testing Right Flexion 5 Normal Extension 5 Normal Abduction (C5) 4+ Good+ External Rotation 4+ Good+ Internal Rotation 4+ Good+ Left Flexion 4 Good Extension 4+ Good+ Abduction (C5) 4 Good External Rotation 4 Good Internal Rotation 4+ Good+ PT-OP-Q Treatments Start: 06/19/19 10:12 Freq: Status: Active Protocol: Document 06/21/19 09:00 AMB (Rec: 06/22/19 11:47 AMB [email or web address]) Therapeutic Exercises Sitting Exercises 1 Sitting Exercise Name pulleys Reps/Minutes 3' ea Comments flexion and scaption Standing Exercises 4 Standing Exercise Name t band ER/ IR Resistance #2 Reps/Minutes 2x10 3 Standing Exercise Name t band rows Resistance #3 Reps/Minutes 2x10 2 Standing Exercise Name towel slide into flexion Reps/Minutes 20x2 Comments standing at wall Manual Therapy Treatment Soft Tissue Mobilization 1 Body Location lateral and anterior shoulder Mobilization Type Myofascial Release Intensity/Depth Moderate Body Position Supine Joint Mobilizations 1 Joint GH joint Direction AP and inferior Grade III Body Position Supine PT-OP-T Assessment and Plan Start: 06/19/19 10:12 Freq: Status: Active Protocol: Document 06/21/19 09:00 AMB (Rec: 06/22/19 11:47 AMB [email or web address]) Physical Therapy Assessment Assessment Summary Assessment Radha tolerated strengthening well, does have pain at end range, but tolerated joint mobs into the edge of pain. Physical Therapy Plan Next Visit Focus/Plan Next Note Type Treatment Note Next Visit Plan Reassess HEP, progress as tolerated, joint mobilization to improve abduction
--- NOTE | 2019-06-28 16:03 | PT.OTN ---
Current Diagnoses Pain in left shoulder (06/28/19) Impingement syndrome of left shoulder (06/28/19) Physical Therapy Treatment Note PT-OP-A Visit Information Start: 06/19/19 10:12 Freq: Status: Active Protocol: Document 06/28/19 11:15 AMB (Rec: 06/28/19 13:06 AMB [email or web address]) Out-Patient Physical Therapy Visit Information Visit Information Visit Type Treatment Note Visit Start Time 11:15 Visit Stop Time 12:00 Total Visit Minutes 45 Visit Number 3 PT-OP-B Current Condition Start: 06/19/19 10:12 Freq: Status: Active Protocol: Document 06/19/19 10:30 AMB (Rec: 06/19/19 13:41 AMB [email or web address]) Current Condition History of Current Condition Onset Date 1 year ago Current Complaints L shoulder pain with end range movement History of Current Condition Radha describes left arm pain that at times can radiate down from her shoulder down her arm. Worst with reaching and sleeping. Denies specific incident that started the pain. Did try a cortisone shot but did not feel that it helped much. She does have some history of neck stiffness, and describes numbnes intermittently, especially if she sleeps on that side. Treatment Goals Patient/Caregiver Goals Reduce pain in the arm so she can sleep on it and reach with it Prior Functional Status Baseline Function- ADL's Independent Baseline Function- Mobility Independent Current Functional Impairments (Reported) Functional Limitations- ADL's Difficulty sleeping on left side, difficulty reaching Personal Factors Other Personal Factors That May Effect Recent of her father may Therapy/Recovery necessitate traveling PT-OP-C Subjective Start: 06/19/19 10:12 Freq: Status: Active Protocol: Document 06/28/19 11:15 AMB (Rec: 06/28/19 13:06 AMB [email or web address]) OP-PT Subjective Patient Comments Patient Comments Pt has been sick with a sinus infection so hasn't been doing her exercises as much as she should. Patient Reported Progress Same PT-OP-J Posture/Palpation/Skin Start: 06/19/19 10:12 Freq: Status: Active Protocol: Document 06/19/19 10:30 AMB (Rec: 06/19/19 13:41 AMB [email or web address]) Posture Evaluation Comments Posture Comments no winging bilaterally, slightly forward head Palpation Assessment Location One Palpation Location L shoulder Palpation Details Tenderness equal R and L at biceps tendons, more tenderness L>R at supraspinatus insertion PT-OP-K Range of Motion Start: 06/19/19 10:12 Freq: Status: Active Protocol: Document 06/19/19 10:30 AMB (Rec: 06/19/19 13:41 AMB [email or web address]) Shoulder Goniometric Range of Motion Shoulder Left Passive Flexion 150 Abduction 115 Right Active Testing Position Sitting Flexion 165 Abduction 70 External Rotation at 0 degrees Abduction 80 Left Active Testing Position Sitting Flexion 150 Abduction 135 External Rotation at 0 degrees Abduction 75 Shoulder ROM Limitations Comments pain with abduction, especially with passive when not allowed to compensate PT-OP-L Special Tests Start: 06/19/19 10:12 Freq: Status: Active Protocol: Document 06/19/19 10:30 AMB (Rec: 06/19/19 13:41 AMB [email or web address]) Special Tests Shoulder Special Tests Lift-Off Rotator Cuff Test Results positive for pain Watt Eugene Impingement Test Results negative Neer Impingement Test Results positive Drop Arm Rotator Cuff Test Results negative PT-OP-M Strength Start: 06/19/19 10:12 Freq: Status: Active Protocol: Document 06/19/19 10:30 AMB (Rec: 06/19/19 13:41 AMB [email or web address]) Shoulder Strength Shoulder Manual Muscle Testing Right Flexion 5 Normal Extension 5 Normal Abduction (C5) 4+ Good+ External Rotation 4+ Good+ Internal Rotation 4+ Good+ Left Flexion 4 Good Extension 4+ Good+ Abduction (C5) 4 Good External Rotation 4 Good Internal Rotation 4+ Good+ PT-OP-Q Treatments Start: 06/19/19 10:12 Freq: Status: Active Protocol: Document 06/28/19 11:15 AMB (Rec: 06/28/19 16:03 AMB [email or web address]) Cardio Equipment Upper Body Ergometer (UBE) Duration (Minutes) 6 RPM 60 Other fwd/bkwd Therapeutic Exercises Prone Exercises 1 Prone Exercise Name I, Y, T Resistance AROM only Reps/Minutes 2x10 Sitting Exercises 1 Sitting Exercise Name pulleys Reps/Minutes 3' ea Comments flexion and scaption Standing Exercises 4 Standing Exercise Name t band ER/ IR Resistance #2 Reps/Minutes 2x10 3 Standing Exercise Name t band rows Resistance #3 Reps/Minutes 2x10 Manual Therapy Treatment Soft Tissue Mobilization 1 Body Location lateral and anterior shoulder Mobilization Type Myofascial Release Intensity/Depth Moderate Body Position Supine Joint Mobilizations 1 Joint GH joint Direction AP and inferior Grade III Body Position Supine PT-OP-T Assessment and Plan Start: 06/19/19 10:12 Freq: Status: Active Protocol: Document 06/28/19 11:15 AMB (Rec: 06/28/19 16:03 AMB [email or web address]) Physical Therapy Assessment Assessment Summary Assessment Radha continues to have pain with sleeping and end range abduction and external rotation, did well with I,Y,T Physical Therapy Plan Next Visit Focus/Plan Next Note Type Treatment Note Next Visit Plan Reassess HEP, progress as tolerated, joint mobilization to improve abduction
--- NOTE | 2019-07-06 13:26 | PT.OTN ---
Current Diagnoses Pain in left shoulder (07/06/19) Impingement syndrome of left shoulder (07/06/19) Physical Therapy Treatment Note PT-OP-A Visit Information Start: 06/19/19 10:12 Freq: Status: Active Protocol: Document 07/06/19 07:30 AMB (Rec: 07/06/19 08:15 AMB [id number]) Out-Patient Physical Therapy Visit Information Visit Information Visit Type Treatment Note Visit Start Time 07:30 Visit Stop Time 08:15 Total Visit Minutes 45 Visit Number 4 PT-OP-B Current Condition Start: 06/19/19 10:12 Freq: Status: Active Protocol: Document 06/19/19 10:30 AMB (Rec: 06/19/19 13:41 AMB [email or web address]) Current Condition History of Current Condition Onset Date 1 year ago Current Complaints L shoulder pain with end range movement History of Current Condition Radha describes left arm pain that at times can radiate down from her shoulder down her arm. Worst with reaching and sleeping. Denies specific incident that started the pain. Did try a cortisone shot but did not feel that it helped much. She does have some history of neck stiffness, and describes numbnes intermittently, especially if she sleeps on that side. Treatment Goals Patient/Caregiver Goals Reduce pain in the arm so she can sleep on it and reach with it Prior Functional Status Baseline Function- ADL's Independent Baseline Function- Mobility Independent Current Functional Impairments (Reported) Functional Limitations- ADL's Difficulty sleeping on left side, difficulty reaching Personal Factors Other Personal Factors That May Effect Recent of her father may Therapy/Recovery necessitate traveling PT-OP-C Subjective Start: 06/19/19 10:12 Freq: Status: Active Protocol: Document 07/06/19 07:30 AMB (Rec: 07/06/19 13:26 AMB [email or web address]) OP-PT Subjective Patient Comments Patient Comments Pt is noticing a bit more overall fatigue in the shoulder with her exercises, she did not like the I, Y,T but is doing the band exercises. PT-OP-J Posture/Palpation/Skin Start: 06/19/19 10:12 Freq: Status: Active Protocol: Document 06/19/19 10:30 AMB (Rec: 06/19/19 13:41 AMB [email or web address]) Posture Evaluation Comments Posture Comments no winging bilaterally, slightly forward head Palpation Assessment Location One Palpation Location L shoulder Palpation Details Tenderness equal R and L at biceps tendons, more tenderness L>R at supraspinatus insertion PT-OP-K Range of Motion Start: 06/19/19 10:12 Freq: Status: Active Protocol: Document 06/19/19 10:30 AMB (Rec: 06/19/19 13:41 AMB [email or web address]) Shoulder Goniometric Range of Motion Shoulder Left Passive Flexion 150 Abduction 115 Right Active Testing Position Sitting Flexion 165 Abduction 70 External Rotation at 0 degrees Abduction 80 Left Active Testing Position Sitting Flexion 150 Abduction 135 External Rotation at 0 degrees Abduction 75 Shoulder ROM Limitations Comments pain with abduction, especially with passive when not allowed to compensate PT-OP-L Special Tests Start: 06/19/19 10:12 Freq: Status: Active Protocol: Document 06/19/19 10:30 AMB (Rec: 06/19/19 13:41 AMB [email or web address]) Special Tests Shoulder Special Tests Lift-Off Rotator Cuff Test Results positive for pain Watt [place] Impingement Test Results negative Neer Impingement Test Results positive Drop Arm Rotator Cuff Test Results negative PT-OP-M Strength Start: 06/19/19 10:12 Freq: Status: Active Protocol: Document 06/19/19 10:30 AMB (Rec: 06/19/19 13:41 AMB [email or web address]) Shoulder Strength Shoulder Manual Muscle Testing Right Flexion 5 Normal Extension 5 Normal Abduction (C5) 4+ Good+ External Rotation 4+ Good+ Internal Rotation 4+ Good+ Left Flexion 4 Good Extension 4+ Good+ Abduction (C5) 4 Good External Rotation 4 Good Internal Rotation 4+ Good+ PT-OP-Q Treatments Start: 06/19/19 10:12 Freq: Status: Active Protocol: Document 07/06/19 07:30 AMB (Rec: 07/06/19 13:26 AMB [email or web address]) Therapeutic Exercises Sitting Exercises 1 Sitting Exercise Name pulleys Reps/Minutes 3' ea Comments flexion and scaption Standing Exercises 5 Standing Exercise Name t band shoulder extension Reps/Minutes 2x15 4 Standing Exercise Name t band ER/ IR Resistance #2 Reps/Minutes 2x10 3 Standing Exercise Name t band rows Resistance #3 Reps/Minutes 2x10 1 Standing Exercise Name D2 flexion Resistance #3 t band Reps/Minutes 2x10 Manual Therapy Treatment Soft Tissue Mobilization 1 Body Location lateral and anterior shoulder Mobilization Type Myofascial Release Intensity/Depth Moderate Body Position Supine Joint Mobilizations 1 Joint GH joint Direction AP and inferior Grade III Body Position Supine PT-OP-T Assessment and Plan Start: 06/19/19 10:12 Freq: Status: Active Protocol: Document 07/06/19 07:30 AMB (Rec: 07/06/19 13:26 AMB [email or web address]) Physical Therapy Assessment Assessment Summary Assessment Radha did well with band exercises, but above shoulder height was more challenging. Physical Therapy Plan Next Visit Focus/Plan Next Note Type Treatment Note Next Visit Plan Progress HEP, joint mobilization to improve abduction
--- NOTE | 2019-07-11 08:13 | PT.OTN ---
Current Diagnoses Pain in left shoulder (07/11/19) Impingement syndrome of left shoulder (07/11/19) Physical Therapy Treatment Note PT-OP-A Visit Information Start: 06/19/19 10:12 Freq: Status: Active Protocol: Document 07/11/19 07:30 AMB (Rec: 07/11/19 08:13 AMB [id number]) Out-Patient Physical Therapy Visit Information Visit Information Visit Type Treatment Note Visit Start Time 07:30 Visit Stop Time 08:15 Total Visit Minutes 45 Visit Number 5 PT-OP-B Current Condition Start: 06/19/19 10:12 Freq: Status: Active Protocol: Document 06/19/19 10:30 AMB (Rec: 06/19/19 13:41 AMB [email or web address]) Current Condition History of Current Condition Onset Date 1 year ago Current Complaints L shoulder pain with end range movement History of Current Condition Radha describes left arm pain that at times can radiate down from her shoulder down her arm. Worst with reaching and sleeping. Denies specific incident that started the pain. Did try a cortisone shot but did not feel that it helped much. She does have some history of neck stiffness, and describes numbnes intermittently, especially if she sleeps on that side. Treatment Goals Patient/Caregiver Goals Reduce pain in the arm so she can sleep on it and reach with it Prior Functional Status Baseline Function- ADL's Independent Baseline Function- Mobility Independent Current Functional Impairments (Reported) Functional Limitations- ADL's Difficulty sleeping on left side, difficulty reaching Personal Factors Other Personal Factors That May Effect Recent of her father may Therapy/Recovery necessitate traveling PT-OP-C Subjective Start: 06/19/19 10:12 Freq: Status: Active Protocol: Document 07/11/19 07:30 AMB (Rec: 07/11/19 08:13 AMB [id number]) OP-PT Subjective Patient Comments Patient Comments Pt is feeling better this week . Can still feel the shoulder with sleep, but not as much throughout the day. PT-OP-J Posture/Palpation/Skin Start: 06/19/19 10:12 Freq: Status: Active Protocol: Document 06/19/19 10:30 AMB (Rec: 06/19/19 13:41 AMB [email or web address]) Posture Evaluation Comments Posture Comments no winging bilaterally, slightly forward head Palpation Assessment Location One Palpation Location L shoulder Palpation Details Tenderness equal R and L at biceps tendons, more tenderness L>R at supraspinatus insertion PT-OP-K Range of Motion Start: 06/19/19 10:12 Freq: Status: Active Protocol: Document 06/19/19 10:30 AMB (Rec: 06/19/19 13:41 AMB [email or web address]) Shoulder Goniometric Range of Motion Shoulder Left Passive Flexion 150 Abduction 115 Right Active Testing Position Sitting Flexion 165 Abduction 70 External Rotation at 0 degrees Abduction 80 Left Active Testing Position Sitting Flexion 150 Abduction 135 External Rotation at 0 degrees Abduction 75 Shoulder ROM Limitations Comments pain with abduction, especially with passive when not allowed to compensate PT-OP-L Special Tests Start: 06/19/19 10:12 Freq: Status: Active Protocol: Document 06/19/19 10:30 AMB (Rec: 06/19/19 13:41 AMB [email or web address]) Special Tests Shoulder Special Tests Lift-Off Rotator Cuff Test Results positive for pain Watt [place] Impingement Test Results negative Neer Impingement Test Results positive Drop Arm Rotator Cuff Test Results negative PT-OP-M Strength Start: 06/19/19 10:12 Freq: Status: Active Protocol: Document 06/19/19 10:30 AMB (Rec: 06/19/19 13:41 AMB [email or web address]) Shoulder Strength Shoulder Manual Muscle Testing Right Flexion 5 Normal Extension 5 Normal Abduction (C5) 4+ Good+ External Rotation 4+ Good+ Internal Rotation 4+ Good+ Left Flexion 4 Good Extension 4+ Good+ Abduction (C5) 4 Good External Rotation 4 Good Internal Rotation 4+ Good+ PT-OP-Q Treatments Start: 06/19/19 10:12 Freq: Status: Active Protocol: Document 07/11/19 07:30 AMB (Rec: 07/11/19 08:13 AMB [id number]) Cardio Equipment Upper Body Ergometer (UBE) Duration (Minutes) 6 RPM 60 Other fwd/bkwd Therapeutic Exercises Supine Exercises 2 Supine Exercise Name supine punch ABCs Resistance 5# Reps/Minutes 2 min 1 Supine Exercise Name horizontal abduction Resistance AROM Reps/Minutes 10 Standing Exercises 5 Standing Exercise Name t band shoulder extension Reps/Minutes 2x15 4 Standing Exercise Name t band ER/ IR Resistance #2 Reps/Minutes 2x10 3 Standing Exercise Name t band rows Resistance #3 Reps/Minutes 2x10 2 Standing Exercise Name abduction Reps/Minutes #2 band 2x8 1 Standing Exercise Name D2 flexion Resistance #3 t band Reps/Minutes 2x10 Manual Therapy Treatment Soft Tissue Mobilization 1 Body Location lateral and anterior shoulder Mobilization Type Myofascial Release Intensity/Depth Moderate Body Position Supine Joint Mobilizations 1 Joint GH joint Direction AP and inferior Grade III Body Position Supine PT-OP-T Assessment and Plan Start: 06/19/19 10:12 Freq: Status: Active Protocol: Document 07/11/19 07:30 AMB (Rec: 07/11/19 08:13 AMB [id number]) Physical Therapy Assessment Assessment Summary Assessment Radha continues to be most limited with shoulder abduction. Physical Therapy Plan Next Visit Focus/Plan Next Note Type Treatment Note Next Visit Plan Progress HEP, joint mobilization to improve abduction
--- NOTE | 2019-07-17 13:45 | PT.OTN ---
Current Diagnoses Pain in left shoulder (07/17/19) Impingement syndrome of left shoulder (07/17/19) Physical Therapy Treatment Note PT-OP-A Visit Information Start: 06/19/19 10:12 Freq: Status: Active Protocol: Document 07/17/19 10:30 AMB (Rec: 07/17/19 11:19 AMB [id number]) Out-Patient Physical Therapy Visit Information Visit Information Visit Type Treatment Note Visit Start Time 10:30 Visit Stop Time 11:15 Total Visit Minutes 45 Visit Number 6 PT-OP-B Current Condition Start: 06/19/19 10:12 Freq: Status: Active Protocol: Document 06/19/19 10:30 AMB (Rec: 06/19/19 13:41 AMB [email or web address]) Current Condition History of Current Condition Onset Date 1 year ago Current Complaints L shoulder pain with end range movement History of Current Condition Radha describes left arm pain that at times can radiate down from her shoulder down her arm. Worst with reaching and sleeping. Denies specific incident that started the pain. Did try a cortisone shot but did not feel that it helped much. She does have some history of neck stiffness, and describes numbnes intermittently, especially if she sleeps on that side. Treatment Goals Patient/Caregiver Goals Reduce pain in the arm so she can sleep on it and reach with it Prior Functional Status Baseline Function- ADL's Independent Baseline Function- Mobility Independent Current Functional Impairments (Reported) Functional Limitations- ADL's Difficulty sleeping on left side, difficulty reaching Personal Factors Other Personal Factors That May Effect Recent of her father may Therapy/Recovery necessitate traveling PT-OP-C Subjective Start: 06/19/19 10:12 Freq: Status: Active Protocol: Document 07/17/19 10:30 AMB (Rec: 07/18/19 09:35 AMB [email or web address]) OP-PT Subjective Patient Comments Patient Comments Pt states that sleeping on the shoulder continues to bother her. Her exercises are going well and not increasing her pain. PT-OP-J Posture/Palpation/Skin Start: 06/19/19 10:12 Freq: Status: Active Protocol: Document 06/19/19 10:30 AMB (Rec: 06/19/19 13:41 AMB [email or web address]) Posture Evaluation Comments Posture Comments no winging bilaterally, slightly forward head Palpation Assessment Location One Palpation Location L shoulder Palpation Details Tenderness equal R and L at biceps tendons, more tenderness L>R at supraspinatus insertion PT-OP-K Range of Motion Start: 06/19/19 10:12 Freq: Status: Active Protocol: Document 06/19/19 10:30 AMB (Rec: 06/19/19 13:41 AMB [email or web address]) Shoulder Goniometric Range of Motion Shoulder Left Passive Flexion 150 Abduction 115 Right Active Testing Position Sitting Flexion 165 Abduction 70 External Rotation at 0 degrees Abduction 80 Left Active Testing Position Sitting Flexion 150 Abduction 135 External Rotation at 0 degrees Abduction 75 Shoulder ROM Limitations Comments pain with abduction, especially with passive when not allowed to compensate PT-OP-L Special Tests Start: 06/19/19 10:12 Freq: Status: Active Protocol: Document 06/19/19 10:30 AMB (Rec: 06/19/19 13:41 AMB [email or web address]) Special Tests Shoulder Special Tests Lift-Off Rotator Cuff Test Results positive for pain Watt [place] Impingement Test Results negative Neer Impingement Test Results positive Drop Arm Rotator Cuff Test Results negative PT-OP-M Strength Start: 06/19/19 10:12 Freq: Status: Active Protocol: Document 06/19/19 10:30 AMB (Rec: 06/19/19 13:41 AMB [email or web address]) Shoulder Strength Shoulder Manual Muscle Testing Right Flexion 5 Normal Extension 5 Normal Abduction (C5) 4+ Good+ External Rotation 4+ Good+ Internal Rotation 4+ Good+ Left Flexion 4 Good Extension 4+ Good+ Abduction (C5) 4 Good External Rotation 4 Good Internal Rotation 4+ Good+ PT-OP-Q Treatments Start: 06/19/19 10:12 Freq: Status: Active Protocol: Document 07/17/19 10:30 AMB (Rec: 07/18/19 09:35 AMB [email or web address]) Therapeutic Exercises Supine Exercises 2 Supine Exercise Name supine punch ABCs Resistance 5# Reps/Minutes 2 min Sitting Exercises 1 Sitting Exercise Name pulleys Reps/Minutes 3' ea Comments flexion and scaption Standing Exercises 5 Standing Exercise Name t band shoulder extension Reps/Minutes 2x15 4 Standing Exercise Name t band ER/ IR Resistance #2 Reps/Minutes 2x10 3 Standing Exercise Name t band rows Resistance #3 Reps/Minutes 2x10 2 Standing Exercise Name abduction Reps/Minutes #2 band 2x10 Comments partial range 1 Standing Exercise Name D2 flexion Resistance #3 t band Reps/Minutes 2x10 Manual Therapy Treatment Soft Tissue Mobilization 1 Body Location lateral and anterior shoulder Mobilization Type Myofascial Release Intensity/Depth Moderate Body Position Supine Joint Mobilizations 1 Joint GH joint Direction AP and inferior Grade III Body Position Supine PT-OP-T Assessment and Plan Start: 06/19/19 10:12 Freq: Status: Active Protocol: Document 07/17/19 10:30 AMB (Rec: 07/18/19 09:35 AMB [email or web address]) Physical Therapy Assessment Assessment Summary Assessment Re-measure AROM next visit. After manual therapy Radha does tolerate more abduction and internal rotation, but this is still limited. Physical Therapy Plan Next Visit Focus/Plan Next Note Type Treatment Note Next Visit Plan Progress HEP, joint mobilization to improve abduction
--- NOTE | 2019-07-19 16:07 | PT.OTN ---
Current Diagnoses Pain in left shoulder (07/19/19) Impingement syndrome of left shoulder (07/19/19) Physical Therapy Treatment Note PT-OP-A Visit Information Start: 06/19/19 10:12 Freq: Status: Active Protocol: Document 07/19/19 09:00 AMB (Rec: 07/19/19 09:54 AMB [id number]) Out-Patient Physical Therapy Visit Information Visit Information Visit Type Treatment Note Visit Start Time 09:00 Visit Stop Time 09:45 Total Visit Minutes 45 Visit Number 7 PT-OP-B Current Condition Start: 06/19/19 10:12 Freq: Status: Active Protocol: Document 06/19/19 10:30 AMB (Rec: 06/19/19 13:41 AMB [email or web address]) Current Condition History of Current Condition Onset Date 1 year ago Current Complaints L shoulder pain with end range movement History of Current Condition Radha describes left arm pain that at times can radiate down from her shoulder down her arm. Worst with reaching and sleeping. Denies specific incident that started the pain. Did try a cortisone shot but did not feel that it helped much. She does have some history of neck stiffness, and describes numbnes intermittently, especially if she sleeps on that side. Treatment Goals Patient/Caregiver Goals Reduce pain in the arm so she can sleep on it and reach with it Prior Functional Status Baseline Function- ADL's Independent Baseline Function- Mobility Independent Current Functional Impairments (Reported) Functional Limitations- ADL's Difficulty sleeping on left side, difficulty reaching Personal Factors Other Personal Factors That May Effect Recent of her father may Therapy/Recovery necessitate traveling PT-OP-C Subjective Start: 06/19/19 10:12 Freq: Status: Active Protocol: Document 07/19/19 09:00 AMB (Rec: 07/19/19 09:54 AMB [id number]) OP-PT Subjective Patient Comments Patient Comments Pt really tried to stay off her shoulder last night and she still woke up with a sore shoulder. [place] fine after last apppointment. PT-OP-J Posture/Palpation/Skin Start: 06/19/19 10:12 Freq: Status: Active Protocol: Document 06/19/19 10:30 AMB (Rec: 06/19/19 13:41 AMB [email or web address]) Posture Evaluation Comments Posture Comments no winging bilaterally, slightly forward head Palpation Assessment Location One Palpation Location L shoulder Palpation Details Tenderness equal R and L at biceps tendons, more tenderness L>R at supraspinatus insertion PT-OP-K Range of Motion Start: 06/19/19 10:12 Freq: Status: Active Protocol: Document 07/19/19 09:00 AMB (Rec: 07/19/19 16:04 AMB [email or web address]) Shoulder Goniometric Range of Motion Shoulder Left Passive Flexion 155 Abduction 115 PT-OP-L Special Tests Start: 06/19/19 10:12 Freq: Status: Active Protocol: Document 06/19/19 10:30 AMB (Rec: 06/19/19 13:41 AMB [email or web address]) Special Tests Shoulder Special Tests Lift-Off Rotator Cuff Test Results positive for pain Watt [place] Impingement Test Results negative Neer Impingement Test Results positive Drop Arm Rotator Cuff Test Results negative PT-OP-M Strength Start: 06/19/19 10:12 Freq: Status: Active Protocol: Document 06/19/19 10:30 AMB (Rec: 06/19/19 13:41 AMB [email or web address]) Shoulder Strength Shoulder Manual Muscle Testing Right Flexion 5 Normal Extension 5 Normal Abduction (C5) 4+ Good+ External Rotation 4+ Good+ Internal Rotation 4+ Good+ Left Flexion 4 Good Extension 4+ Good+ Abduction (C5) 4 Good External Rotation 4 Good Internal Rotation 4+ Good+ PT-OP-Q Treatments Start: 06/19/19 10:12 Freq: Status: Active Protocol: Document 07/19/19 09:00 AMB (Rec: 07/19/19 09:54 AMB [id number]) Therapeutic Exercises Sitting Exercises 1 Sitting Exercise Name pulleys Reps/Minutes 3' ea Comments flexion and scaption Standing Exercises 5 Standing Exercise Name t band shoulder extension Reps/Minutes 2x15 4 Standing Exercise Name t band ER/ IR Resistance #2 Reps/Minutes 2x10 3 Standing Exercise Name t band rows Resistance #3 Reps/Minutes 2x10 2 Standing Exercise Name abduction Reps/Minutes #2 band 2x10 Comments partial range 1 Standing Exercise Name D2 flexion Resistance #3 t band Reps/Minutes 2x10 Manual Therapy Treatment Soft Tissue Mobilization 1 Body Location lateral and anterior shoulder Mobilization Type Myofascial Release Intensity/Depth Moderate Body Position Supine Joint Mobilizations 1 Joint GH joint Direction AP and inferior Grade III Body Position Supine PT-OP-T Assessment and Plan Start: 06/19/19 10:12 Freq: Status: Active Protocol: Document 07/19/19 09:00 AMB (Rec: 07/19/19 16:07 AMB [email or web address]) Physical Therapy Assessment Goals Two Impairment pain Short Term Goal (STG) Radha will reach above shoulder height to put dishes away in a tall cabinet without an increase in shoulder pain. STG Duration MET Home Hospice Rn Goal (LTG) Radha will sleep on her left side with pillow props without waking due to pain.-- NOT YET MET LTG Duration 8 weeks One Impairment ROM Short Term Goal (STG) Radha will increase her passive shoulder abduction to 140 degrees. STG Duration 4 weeks Home Hospice Rn Goal (LTG) Radha will increase her active shoulder ROM to 160 degrees into flexion and abduction. LTG Duration 8 weeks Assessment Summary Assessment Radha has improved her range of motion slightly, but continues to be significantly limited in abduction. Her main concern continues to be pain with sleeping on the shoulder, and this has also not improved. She is going to be seeing her orthopedist next week, so we will wait to see what the plan is with that and then discuss further treatment with PT. Overall her stretches and strengthening should help over time but, so far progress has been limited. Physical Therapy Plan Next Visit Focus/Plan Next Visit Plan Follow up on ortho visit.
--- NOTE | 2019-09-18 08:47 | PT.OTN ---
Current Diagnoses Pain in left shoulder (09/18/19) Calcific tendinitis of left shoulder (09/18/19) Impingement syndrome of left shoulder (09/18/19) Physical Therapy Treatment Note PT-OP-A Visit Information Start: 06/19/19 10:12 Freq: Status: Active Protocol: Document 09/18/19 07:28 AMB (Rec: 09/18/19 08:09 AMB [id number]) Out-Patient Physical Therapy Visit Information Visit Information Visit Type Treatment Note Visit Start Time 07:30 Visit Stop Time 08:15 Total Visit Minutes 45 Visit Number 8 PT-OP-B Current Condition Start: 06/19/19 10:12 Freq: Status: Active Protocol: Document 06/19/19 10:30 AMB (Rec: 06/19/19 13:41 AMB [email or web address]) Current Condition History of Current Condition Onset Date 1 year ago Current Complaints L shoulder pain with end range movement History of Current Condition Radha describes left arm pain that at times can radiate down from her shoulder down her arm. Worst with reaching and sleeping. Denies specific incident that started the pain. Did try a cortisone shot but did not feel that it helped much. She does have some history of neck stiffness, and describes numbnes intermittently, especially if she sleeps on that side. Treatment Goals Patient/Caregiver Goals Reduce pain in the arm so she can sleep on it and reach with it Prior Functional Status Baseline Function- ADL's Independent Baseline Function- Mobility Independent Current Functional Impairments (Reported) Functional Limitations- ADL's Difficulty sleeping on left side, difficulty reaching Personal Factors Other Personal Factors That May Effect Recent of her father may Therapy/Recovery necessitate traveling PT-OP-C Subjective Start: 06/19/19 10:12 Freq: Status: Active Protocol: Document 09/18/19 08:15 AMB (Rec: 09/18/19 08:46 AMB [id number]) OP-PT Subjective Patient Comments Patient Comments Radha returns after being on hold and getting MRI which showed tear at supraspinatus and tendinosis at infraspinatus, subscap and biceps. She had another shot, and thinks overall her sx are better, with 1/10 pain current, 5/10 pain at worst when she sleeps on the L side. PT-OP-J Posture/Palpation/Skin Start: 06/19/19 10:12 Freq: Status: Active Protocol: Document 06/19/19 10:30 AMB (Rec: 06/19/19 13:41 AMB [email or web address]) Posture Evaluation Comments Posture Comments no winging bilaterally, slightly forward head Palpation Assessment Location One Palpation Location L shoulder Palpation Details Tenderness equal R and L at biceps tendons, more tenderness L>R at supraspinatus insertion PT-OP-K Range of Motion Start: 06/19/19 10:12 Freq: Status: Active Protocol: Document 09/18/19 07:28 AMB (Rec: 09/18/19 08:09 AMB [id number]) Shoulder Goniometric Range of Motion Shoulder Left Passive Flexion 145 Abduction 125 Left Active Flexion 140 Abduction 155 PT-OP-L Special Tests Start: 06/19/19 10:12 Freq: Status: Active Protocol: Document 06/19/19 10:30 AMB (Rec: 06/19/19 13:41 AMB [email or web address]) Special Tests Shoulder Special Tests Lift-Off Rotator Cuff Test Results positive for pain Watt Eugene Impingement Test Results negative Neer Impingement Test Results positive Drop Arm Rotator Cuff Test Results negative PT-OP-M Strength Start: 06/19/19 10:12 Freq: Status: Active Protocol: Document 06/19/19 10:30 AMB (Rec: 06/19/19 13:41 AMB [email or web address]) Shoulder Strength Shoulder Manual Muscle Testing Right Flexion 5 Normal Extension 5 Normal Abduction (C5) 4+ Good+ External Rotation 4+ Good+ Internal Rotation 4+ Good+ Left Flexion 4 Good Extension 4+ Good+ Abduction (C5) 4 Good External Rotation 4 Good Internal Rotation 4+ Good+ PT-OP-Q Treatments Start: 06/19/19 10:12 Freq: Status: Active Protocol: Document 09/18/19 08:15 AMB (Rec: 09/18/19 08:46 AMB [id number]) Therapeutic Exercises Standing Exercises 4 Standing Exercise Name t band ER/ IR Resistance #2 Reps/Minutes 2x10 3 Standing Exercise Name t band rows Resistance #3 Reps/Minutes 2x10 1 Standing Exercise Name D2 flexion Resistance #1 t band Reps/Minutes 2x10 Comments t neede cues for form Other Exercises 1 Other Exercise Name quadruped shoulder scaption Reps/Minutes 2x10 Comments tried extension and flexion as well, but did not tolerate as well Manual Therapy Treatment Joint Mobilizations 1 Joint GH joint Direction AP and inferior Grade III Body Position Supine PT-OP-T Assessment and Plan Start: 06/19/19 10:12 Freq: Status: Active Protocol: Document 09/18/19 08:15 AMB (Rec: 09/18/19 08:46 AMB [id number]) Physical Therapy Assessment Goals Two Impairment pain Short Term Goal (STG) Radha will reach above shoulder height to put dishes away in a tall cabinet without an increase in shoulder pain. STG Duration MET Nursing Home Goal (LTG) Radha will sleep on her left side with pillow props without waking due to pain.-- NOT YET MET LTG Duration 8 weeks One Impairment ROM Short Term Goal (STG) Radha will increase her passive shoulder abduction to 140 degrees. STG Duration 4 weeks Nursing Home Goal (LTG) Radha will increase her active shoulder ROM to 160 degrees into flexion and abduction. LTG Duration 8 weeks Assessment Summary Assessment Radha's abduction ROM has improved, but she continues to be limited. She continues to have pain with sleeping on the L shoulder. She was able to tolerate scaption in quadruped today. Physical Therapy Plan Frequency and Duration Frequency of Treatment 2x/Week Duration of Treatment 8 weeks Plan of Care Start Date 09/18/19 Plan of Care End Date 11/13/19 Therapeutic Interventions Therapeutic Interventions Home Exercise Program,Joint Mobilizations,Manual Therapy, Neuromuscular Re-education, Taping,Therapeutic Activities, Therapeutic Exercises Modalities Cold Pack/Ice Massage,Electric Stimulation,Hot Packs, Ultrasound Next Visit Focus/Plan Next Note Type Treatment Note Next Visit Plan Continue to educate on form with strengthening. Address scapular strengthening.
--- NOTE | 2019-09-18 08:50 | PT.OPPOC ---
Physical, Occupational & Speech Therapy At [facility] Current Diagnoses Pain in left shoulder (09/18/19) Calcific tendinitis of left shoulder (09/18/19) Impingement syndrome of left shoulder (09/18/19) Visit Care Team Role Provider Type Luis Scanlon MD Primary Care Provider Physician Specialty: Wound Care Address: [address] [place] [address], [id number] Email: [email or web address] Anthony MD Attending Provider Physician Specialty: Orthopedic Surgery Address: [address] [place] [address], [id number] Email: [email or web address] Plan Of Care PT-OP-T Assessment and Plan Start: 06/19/19 10:12 Freq: Status: Active Protocol: Document 09/18/19 08:15 AMB (Rec: 09/18/19 08:46 AMB [id number]) Physical Therapy Assessment Goals Two Impairment pain Short Term Goal (STG) Radha will reach above shoulder height to put dishes away in a tall cabinet without an increase in shoulder pain. STG Duration MET Stem Shaper Goal (LTG) Radha will sleep on her left side with pillow props without waking due to pain.-- NOT YET MET LTG Duration 8 weeks One Impairment ROM Short Term Goal (STG) Radha will increase her passive shoulder abduction to 140 degrees. STG Duration 4 weeks Stem Shaper Goal (LTG) aRdha will increase her active shoulder ROM to 160 degrees into flexion and abduction. LTG Duration 8 weeks Assessment Summary Assessment Radha's abduction ROM has improved, but she continues to be limited. She continues to have pain with sleeping on the L shoulder. She was able to tolerate scaption in quadruped today. She returns from a 2 month break. In that time her ROM has improved somewhat, and she has kept up with her HEP although could be more consistent. She will benefit from continued stabilization training and manual therapy to improve her ROM. Physical Therapy Plan Frequency and Duration Frequency of Treatment 2x/Week Duration of Treatment 8 weeks Plan of Care Start Date 09/18/19 Plan of Care End Date 11/13/19 Therapeutic Interventions Therapeutic Interventions Home Exercise Program,Joint Mobilizations,Manual Therapy, Neuromuscular Re-education, Taping,Therapeutic Activities, Therapeutic Exercises Modalities Cold Pack/Ice Massage,Electric Stimulation,Hot Packs, Ultrasound Next Visit Focus/Plan Next Note Type Treatment Note Next Visit Plan Continue to educate on form with strengthening. Address scapular strengthening. Plan of Care Dates Plan of Care Start Date 09/18/19 Plan of Care End Date 11/13/19 Electronically Signed by: Tatyana Danielson, PT 09/18/19 0850 Please Sign and Return: I have reviewed this Plan of Care and certify that the skilled therapy services above are required to meet the patient?s needs. Physician Signature Date Printed Name and Credentials Clinical Instructor Signature Printed Name and Credentials
--- NOTE | 2019-09-20 16:00 | PT.OTN ---
Current Diagnoses Pain in left shoulder (09/20/19) Calcific tendinitis of left shoulder (09/20/19) Impingement syndrome of left shoulder (09/20/19) Physical Therapy Treatment Note PT-OP-A Visit Information Start: 06/19/19 10:12 Freq: Status: Active Protocol: Document 09/20/19 14:41 EG (Rec: 09/20/19 14:52 EG [email or web address]) Out-Patient Physical Therapy Visit Information Visit Information Visit Type Treatment Note Visit Start Time 08:15 Visit Stop Time 09:00 Total Visit Minutes 45 Visit Number 9 PT-OP-B Current Condition Start: 06/19/19 10:12 Freq: Status: Active Protocol: Document 06/19/19 10:30 AMB (Rec: 06/19/19 13:41 AMB [email or web address]) Current Condition History of Current Condition Onset Date 1 year ago Current Complaints L shoulder pain with end range movement History of Current Condition Radha describes left arm pain that at times can radiate down from her shoulder down her arm. Worst with reaching and sleeping. Denies specific incident that started the pain. Did try a cortisone shot but did not feel that it helped much. She does have some history of neck stiffness, and describes numbnes intermittently, especially if she sleeps on that side. Treatment Goals Patient/Caregiver Goals Reduce pain in the arm so she can sleep on it and reach with it Prior Functional Status Baseline Function- ADL's Independent Baseline Function- Mobility Independent Current Functional Impairments (Reported) Functional Limitations- ADL's Difficulty sleeping on left side, difficulty reaching Personal Factors Other Personal Factors That May Effect Recent of her father may Therapy/Recovery necessitate traveling PT-OP-C Subjective Start: 06/19/19 10:12 Freq: Status: Active Protocol: Document 09/20/19 14:41 EG (Rec: 09/20/19 14:52 EG [email or web address]) OP-PT Subjective Patient Comments Patient Comments Patient reported that she was feeling okay and she thinks that she has a little cold. Her shoulder hurts her the most when she is sleeping but has started to take an Aleve for this and the cold. She hasn't been exercising as much as she should and is going to start getting in to a better routine. PT-OP-J Posture/Palpation/Skin Start: 06/19/19 10:12 Freq: Status: Active Protocol: Document 06/19/19 10:30 AMB (Rec: 06/19/19 13:41 AMB [email or web address]) Posture Evaluation Comments Posture Comments no winging bilaterally, slightly forward head Palpation Assessment Location One Palpation Location L shoulder Palpation Details Tenderness equal R and L at biceps tendons, more tenderness L>R at supraspinatus insertion PT-OP-K Range of Motion Start: 06/19/19 10:12 Freq: Status: Active Protocol: Document 09/18/19 07:28 AMB (Rec: 09/18/19 08:09 AMB [id number]) Shoulder Goniometric Range of Motion Shoulder Left Passive Flexion 145 Abduction 125 Left Active Flexion 140 Abduction 155 PT-OP-L Special Tests Start: 06/19/19 10:12 Freq: Status: Active Protocol: Document 06/19/19 10:30 AMB (Rec: 06/19/19 13:41 AMB [email or web address]) Special Tests Shoulder Special Tests Lift-Off Rotator Cuff Test Results positive for pain Watt Eugene Impingement Test Results negative Neer Impingement Test Results positive Drop Arm Rotator Cuff Test Results negative PT-OP-M Strength Start: 06/19/19 10:12 Freq: Status: Active Protocol: Document 06/19/19 10:30 AMB (Rec: 06/19/19 13:41 AMB [email or web address]) Shoulder Strength Shoulder Manual Muscle Testing Right Flexion 5 Normal Extension 5 Normal Abduction (C5) 4+ Good+ External Rotation 4+ Good+ Internal Rotation 4+ Good+ Left Flexion 4 Good Extension 4+ Good+ Abduction (C5) 4 Good External Rotation 4 Good Internal Rotation 4+ Good+ PT-OP-Q Treatments Start: 06/19/19 10:12 Freq: Status: Active Protocol: Document 09/20/19 14:41 EG (Rec: 09/20/19 14:52 EG [email or web address]) Cardio Equipment Upper Body Ergometer (UBE) Duration (Minutes) 4 Other 2 min fwd, 2 min bkwd Therapeutic Exercises Prone Exercises 1 Prone Exercise Name Quadraped opposite shoulder taps and y's Reps/Minutes 10x each Comments cue to spread fingers with weight shift and keep back straight Sidelying Exercises Open Books Sidelying Exercise Name Open Books Side bilateral Reps/Minutes 10x each side Comments opening to the L was more bothersome for pt Sitting Exercises Lat Pulldown Sitting Exercise Name Lat Pulldown Machine Side bilateral Resistance setting 2 Equipment Used Total Body Machine Reps/Minutes 2x10 Comments superset with rows - cue to pull shoulders down and engage Lats 1 Sitting Exercise Name Rows Side bilateral Resistance setting 2 Equipment Used Total Body Machine Reps/Minutes 2x10 Comments superset with lat pulldown Standing Exercises Standing biceps curls Standing Exercise Name Biceps Curls, supinated Side bilateral Resistance 4#, 5# Equipment Used dumbbells Reps/Minutes 2x10 Comments superset with scaption Standing Scaption Standing Exercise Name Scaption Side bilateral Resistance 2# Equipment Used dumbbell weights Reps/Minutes 2x10 Comments superset with biceps curls 5 Standing Exercise Name t band shoulder extension Resistance L2 Reps/Minutes 2x10 4 Standing Exercise Name t band ER/ IR Resistance #3 Reps/Minutes 2x10 PT-OP-T Assessment and Plan Start: 06/19/19 10:12 Freq: Status: Active Protocol: Document 09/20/19 14:41 EG (Rec: 09/20/19 14:52 EG [email or web address]) Physical Therapy Assessment Assessment Summary Assessment Patient did not have any shoulder pain during therapeutic exercises today that were focused on rotator cuff and scapular strengthening. Continue with this to help stabilize shoulder during overhead movements to prevent increased pain from rotator cuff tear. Patient should also continue AROM exercises with weight. Education on sleeping position is warranted to help decrease pain when sleeping. Physical Therapy Plan Next Visit Focus/Plan Next Visit Plan Assess how muscle soreness was after last visit. Continue with rotator cuff and scapular stabilizer strengthening. Possibly try plank pose bearing weight through bilateral UE. AROM rolling weighted ball up the wall. Practice throwing chest toss to PT with both arms using light weighted ball - progress as tolerated ITatyana, MARIIT, supervised all treatment performed by, and agreed with the plan of care, as performed by Annie Simental, SPT.
--- NOTE | 2019-10-02 09:05 | PT.OTN ---
Current Diagnoses Pain in left shoulder (10/02/19) Calcific tendinitis of left shoulder (10/02/19) Impingement syndrome of left shoulder (10/02/19) Physical Therapy Treatment Note PT-OP-A Visit Information Start: 06/19/19 10:12 Freq: Status: Active Protocol: Document 10/02/19 08:22 SP (Rec: 10/02/19 09:23 SP [id number]) Out-Patient Physical Therapy Visit Information Visit Information Visit Type Treatment Note Visit Start Time 08:22 Visit Stop Time 09:05 Total Visit Minutes 43 Visit Number 10 Number of FLOORS BUFFER Visits 1 PT-OP-B Current Condition Start: 06/19/19 10:12 Freq: Status: Active Protocol: Document 06/19/19 10:30 AMB (Rec: 06/19/19 13:41 AMB [email or web address]) Current Condition History of Current Condition Onset Date 1 year ago Current Complaints L shoulder pain with end range movement History of Current Condition Radha describes left arm pain that at times can radiate down from her shoulder down her arm. Worst with reaching and sleeping. Denies specific incident that started the pain. Did try a cortisone shot but did not feel that it helped much. She does have some history of neck stiffness, and describes numbnes intermittently, especially if she sleeps on that side. Treatment Goals Patient/Caregiver Goals Reduce pain in the arm so she can sleep on it and reach with it Prior Functional Status Baseline Function- ADL's Independent Baseline Function- Mobility Independent Current Functional Impairments (Reported) Functional Limitations- ADL's Difficulty sleeping on left side, difficulty reaching Personal Factors Other Personal Factors That May Effect Recent of her father may Therapy/Recovery necessitate traveling PT-OP-C Subjective Start: 06/19/19 10:12 Freq: Status: Active Protocol: Document 10/02/19 08:22 SP (Rec: 10/02/19 09:23 SP [id number]) OP-PT Subjective Patient Comments Patient Comments Pt reported little sore, compliant with HEP 1-2 x daily . Pt stated sees her orthopedist on Th. PT-OP-J Posture/Palpation/Skin Start: 06/19/19 10:12 Freq: Status: Active Protocol: Document 06/19/19 10:30 AMB (Rec: 06/19/19 13:41 AMB [email or web address]) Posture Evaluation Comments Posture Comments no winging bilaterally, slightly forward head Palpation Assessment Location One Palpation Location L shoulder Palpation Details Tenderness equal R and L at biceps tendons, more tenderness L>R at supraspinatus insertion PT-OP-K Range of Motion Start: 06/19/19 10:12 Freq: Status: Active Protocol: Document 09/18/19 07:28 AMB (Rec: 09/18/19 08:09 AMB [id number]) Shoulder Goniometric Range of Motion Shoulder Left Passive Flexion 145 Abduction 125 Left Active Flexion 140 Abduction 155 PT-OP-L Special Tests Start: 06/19/19 10:12 Freq: Status: Active Protocol: Document 06/19/19 10:30 AMB (Rec: 06/19/19 13:41 AMB [email or web address]) Special Tests Shoulder Special Tests Lift-Off Rotator Cuff Test Results positive for pain Watt Eugene Impingement Test Results negative Neer Impingement Test Results positive Drop Arm Rotator Cuff Test Results negative PT-OP-M Strength Start: 06/19/19 10:12 Freq: Status: Active Protocol: Document 06/19/19 10:30 AMB (Rec: 06/19/19 13:41 AMB [email or web address]) Shoulder Strength Shoulder Manual Muscle Testing Right Flexion 5 Normal Extension 5 Normal Abduction (C5) 4+ Good+ External Rotation 4+ Good+ Internal Rotation 4+ Good+ Left Flexion 4 Good Extension 4+ Good+ Abduction (C5) 4 Good External Rotation 4 Good Internal Rotation 4+ Good+ PT-OP-Q Treatments Start: 06/19/19 10:12 Freq: Status: Active Protocol: Document 10/02/19 08:22 SP (Rec: 10/02/19 09:23 SP [id number]) Cardio Equipment Upper Body Ergometer (UBE) Duration (Minutes) 6 Other 3 min fwd, 3 min bkwd Therapeutic Exercises Supine Exercises 2 Supine Exercise Name FF Side bilateral Equipment Used 3# DB Reps/Minutes x10, 5 sec hold Comments cued slow pace Sidelying Exercises shld abd Side bilateral Resistance 3# DB Reps/Minutes x10, 1 sec hold Comments cued slow pacing assist ROM Sitting Exercises Lat Pulldown Sitting Exercise Name Lat Pulldown Machine Side bilateral Resistance setting 3 Equipment Used Total Body Machine Reps/Minutes [id number] Comments superset with rows - cue to pull shoulders down and engage Lats 1 Sitting Exercise Name Rows Side bilateral Resistance setting 3 Equipment Used Total Body Machine Reps/Minutes [id number] Comments superset with lat pulldown Standing Exercises 4 Standing Exercise Name t band ER/ IR Resistance #3 Reps/Minutes 2x10 Comments cued scap stab 2 Standing Exercise Name FF, ABD at wall Resistance TB #1 Equipment Used wall Reps/Minutes x10 Comments no ball at home trial PT-OP-T Assessment and Plan Start: 06/19/19 10:12 Freq: Status: Active Protocol: Document 10/02/19 08:22 SP (Rec: 10/02/19 09:23 SP [id number]) Physical Therapy Assessment Goals Two Impairment pain Short Term Goal (STG) Radha will reach above shoulder height to put dishes away in a tall cabinet without an increase in shoulder pain. STG Duration MET Outdoor Guide Goal (LTG) Radha will sleep on her left side with pillow props without waking due to pain.-- NOT YET MET LTG Duration 8 weeks One Impairment ROM Short Term Goal (STG) Radha will increase her passive shoulder abduction to 140 degrees. STG Duration 4 weeks Outdoor Guide Goal (LTG) Radha will increase her active shoulder ROM to 160 degrees into flexion and abduction. LTG Duration 8 weeks Assessment Summary Assessment Tx focused on gym HEP and shld IR/ER TB with ability to increase reisistance and reps today with no adverse affects. Added supine FF and ABD DB to assist ROM wiht 3# due to has at home with positive feedback. Educated row and pull down using total gym application with hand out for recall. Physical Therapy Plan Frequency and Duration Frequency of Treatment 2x/Week Duration of Treatment 8 weeks Plan of Care Start Date 09/18/19 Plan of Care End Date 11/13/19 Therapeutic Interventions Therapeutic Interventions Home Exercise Program,Joint Mobilizations,Manual Therapy, Neuromuscular Re-education, Taping,Therapeutic Activities, Therapeutic Exercises Modalities Cold Pack/Ice Massage,Electric Stimulation,Hot Packs, Ultrasound Next Visit Focus/Plan Next Visit Plan Assess how muscle soreness was after last visit. Continue with rotator cuff and scapular stabilizer strengthening. Possibly try plank pose bearing weight through bilateral UE. AROM rolling weighted ball up the wall. Practice throwing chest toss to PT with both arms using light weighted ball - progress as tolerated
--- NOTE | 2019-10-04 09:00 | PT.OTN ---
Current Diagnoses Pain in left shoulder (10/04/19) Calcific tendinitis of left shoulder (10/04/19) Impingement syndrome of left shoulder (10/04/19) Physical Therapy Treatment Note PT-OP-A Visit Information Start: 06/19/19 10:12 Freq: Status: Active Protocol: Document 10/04/19 08:20 SP (Rec: 10/04/19 09:01 SP [id number]) Out-Patient Physical Therapy Visit Information Visit Information Visit Type Treatment Note Visit Start Time 08:20 Visit Stop Time 09:00 Total Visit Minutes 40 Visit Number 11 Number of FACILITY ENGINEER Visits 2 PT-OP-B Current Condition Start: 06/19/19 10:12 Freq: Status: Active Protocol: Document 06/19/19 10:30 AMB (Rec: 06/19/19 13:41 AMB [email or web address]) Current Condition History of Current Condition Onset Date 1 year ago Current Complaints L shoulder pain with end range movement History of Current Condition Radha describes left arm pain that at times can radiate down from her shoulder down her arm. Worst with reaching and sleeping. Denies specific incident that started the pain. Did try a cortisone shot but did not feel that it helped much. She does have some history of neck stiffness, and describes numbnes intermittently, especially if she sleeps on that side. Treatment Goals Patient/Caregiver Goals Reduce pain in the arm so she can sleep on it and reach with it Prior Functional Status Baseline Function- ADL's Independent Baseline Function- Mobility Independent Current Functional Impairments (Reported) Functional Limitations- ADL's Difficulty sleeping on left side, difficulty reaching Personal Factors Other Personal Factors That May Effect Recent of her father may Therapy/Recovery necessitate traveling PT-OP-C Subjective Start: 06/19/19 10:12 Freq: Status: Active Protocol: Document 10/04/19 08:20 SP (Rec: 10/04/19 09:01 SP [id number]) OP-PT Subjective Patient Comments Patient Comments Pt reported didn't get to her exercises yesterday, had to help sick cat. Reported soreness over deltoid area of L shld pre PT. PT-OP-J Posture/Palpation/Skin Start: 06/19/19 10:12 Freq: Status: Active Protocol: Document 06/19/19 10:30 AMB (Rec: 06/19/19 13:41 AMB [email or web address]) Posture Evaluation Comments Posture Comments no winging bilaterally, slightly forward head Palpation Assessment Location One Palpation Location L shoulder Palpation Details Tenderness equal R and L at biceps tendons, more tenderness L>R at supraspinatus insertion PT-OP-K Range of Motion Start: 06/19/19 10:12 Freq: Status: Active Protocol: Document 09/18/19 07:28 AMB (Rec: 09/18/19 08:09 AMB [id number]) Shoulder Goniometric Range of Motion Shoulder Left Passive Flexion 145 Abduction 125 Left Active Flexion 140 Abduction 155 PT-OP-L Special Tests Start: 06/19/19 10:12 Freq: Status: Active Protocol: Document 06/19/19 10:30 AMB (Rec: 06/19/19 13:41 AMB [email or web address]) Special Tests Shoulder Special Tests Lift-Off Rotator Cuff Test Results positive for pain Watt Eugene Impingement Test Results negative Neer Impingement Test Results positive Drop Arm Rotator Cuff Test Results negative PT-OP-M Strength Start: 06/19/19 10:12 Freq: Status: Active Protocol: Document 06/19/19 10:30 AMB (Rec: 06/19/19 13:41 AMB [email or web address]) Shoulder Strength Shoulder Manual Muscle Testing Right Flexion 5 Normal Extension 5 Normal Abduction (C5) 4+ Good+ External Rotation 4+ Good+ Internal Rotation 4+ Good+ Left Flexion 4 Good Extension 4+ Good+ Abduction (C5) 4 Good External Rotation 4 Good Internal Rotation 4+ Good+ PT-OP-Q Treatments Start: 06/19/19 10:12 Freq: Status: Active Protocol: Document 10/04/19 08:20 SP (Rec: 10/04/19 09:01 SP [id number]) Cardio Equipment Upper Body Ergometer (UBE) Duration (Minutes) 6 RPM 100 Seat Position 10 Height 2.5 Other 3 min fwd, 3 min bkwd Therapeutic Exercises Supine Exercises 2 Supine Exercise Name FF Side bilateral Equipment Used 3# DB 2x10, TB #1 x10 Reps/Minutes 2 sec hold end feel Comments good pacing Sidelying Exercises shld abd Side bilateral Resistance 3# DB Reps/Minutes 2x10, 1 sec hold Comments cued slow pacing assist ROM Standing Exercises chest toss wt ball Standing Exercise Name Bilateral 4.5#, Unilateral 2.5 # Side bilateral Resistance wt ball # Reps/Minutes 2x5 each UE Comments cued eccentric catch B and follow through unilateral Standing Scaption Standing Exercise Name Scaption Side bilateral Resistance 3# scaption Equipment Used dumbbell weights Reps/Minutes 2x10 Comments superset with biceps curls (8# , slow pacing with scap stab bicep 4 Standing Exercise Name t band ER/ IR Resistance #3 Reps/Minutes 2x10 Comments Good scap stab 2 Standing Exercise Name FF, ABD at wall Side bilateral Resistance TB #1 Equipment Used wall Reps/Minutes x10 Comments cued scap retraction PT-OP-T Assessment and Plan Start: 06/19/19 10:12 Freq: Status: Active Protocol: Document 10/04/19 08:20 SP (Rec: 10/04/19 09:01 SP [id number]) Physical Therapy Assessment Goals Two Impairment pain Short Term Goal (STG) Radha will reach above shoulder height to put dishes away in a tall cabinet without an increase in shoulder pain. STG Duration MET Group Home Goal (LTG) Radha will sleep on her left side with pillow props without waking due to pain.-- NOT YET MET LTG Duration 8 weeks One Impairment ROM Short Term Goal (STG) Radha will increase her passive shoulder abduction to 140 degrees. STG Duration 4 weeks Group Home Goal (LTG) Radha will increase her active shoulder ROM to 160 degrees into flexion and abduction. LTG Duration 8 weeks Assessment Summary Assessment Tx focused on HEP review and added Tb FF at wall and supine to progress strengthening, as well as bilateral and unilateral wt ball toss. No adverse affects to tx, good workout. Physical Therapy Plan Frequency and Duration Frequency of Treatment 2x/Week Duration of Treatment 8 weeks Plan of Care Start Date 09/18/19 Plan of Care End Date 11/13/19 Therapeutic Interventions Therapeutic Interventions Home Exercise Program,Joint Mobilizations,Manual Therapy, Neuromuscular Re-education, Taping,Therapeutic Activities, Therapeutic Exercises Modalities Cold Pack/Ice Massage,Electric Stimulation,Hot Packs, Ultrasound Next Visit Focus/Plan Next Visit Plan Assess response to added Tb and wt DB supien, TB wall FF, ABD and wt ball toss B and unilateral last tx. Continue PT POC: PRogress RTC strengthening. Possibly try plank pose bearing weight through bilateral UE. - progress as tolerated
--- NOTE | 2019-10-09 09:00 | PT.OTN ---
Current Diagnoses Pain in left shoulder (10/09/19) Calcific tendinitis of left shoulder (10/09/19) Impingement syndrome of left shoulder (10/09/19) Physical Therapy Treatment Note PT-OP-A Visit Information Start: 06/19/19 10:12 Freq: Status: Active Protocol: Document 10/09/19 08:17 SP (Rec: 10/09/19 09:05 SP [id number]) Out-Patient Physical Therapy Visit Information Visit Information Visit Type Treatment Note Visit Start Time 08:17 Visit Stop Time 09:00 Total Visit Minutes 43 Visit Number 12 Number of [employer] SUPERVISOR Visits 3 PT-OP-B Current Condition Start: 06/19/19 10:12 Freq: Status: Active Protocol: Document 06/19/19 10:30 AMB (Rec: 06/19/19 13:41 AMB [email or web address]) Current Condition History of Current Condition Onset Date 1 year ago Current Complaints L shoulder pain with end range movement History of Current Condition Radha describes left arm pain that at times can radiate down from her shoulder down her arm. Worst with reaching and sleeping. Denies specific incident that started the pain. Did try a cortisone shot but did not feel that it helped much. She does have some history of neck stiffness, and describes numbnes intermittently, especially if she sleeps on that side. Treatment Goals Patient/Caregiver Goals Reduce pain in the arm so she can sleep on it and reach with it Prior Functional Status Baseline Function- ADL's Independent Baseline Function- Mobility Independent Current Functional Impairments (Reported) Functional Limitations- ADL's Difficulty sleeping on left side, difficulty reaching Personal Factors Other Personal Factors That May Effect Recent of her father may Therapy/Recovery necessitate traveling PT-OP-C Subjective Start: 06/19/19 10:12 Freq: Status: Active Protocol: Document 10/09/19 08:17 SP (Rec: 10/09/19 09:05 SP [id number]) OP-PT Subjective Patient Comments Patient Comments Pt reported no pain just still when finds sleeps on L shld. No concerns or changes since last tx. PT-OP-J Posture/Palpation/Skin Start: 06/19/19 10:12 Freq: Status: Active Protocol: Document 06/19/19 10:30 AMB (Rec: 06/19/19 13:41 AMB [email or web address]) Posture Evaluation Comments Posture Comments no winging bilaterally, slightly forward head Palpation Assessment Location One Palpation Location L shoulder Palpation Details Tenderness equal R and L at biceps tendons, more tenderness L>R at supraspinatus insertion PT-OP-K Range of Motion Start: 06/19/19 10:12 Freq: Status: Active Protocol: Document 09/18/19 07:28 AMB (Rec: 09/18/19 08:09 AMB [id number]) Shoulder Goniometric Range of Motion Shoulder Left Passive Flexion 145 Abduction 125 Left Active Flexion 140 Abduction 155 PT-OP-L Special Tests Start: 06/19/19 10:12 Freq: Status: Active Protocol: Document 06/19/19 10:30 AMB (Rec: 06/19/19 13:41 AMB [email or web address]) Special Tests Shoulder Special Tests Lift-Off Rotator Cuff Test Results positive for pain Watt Eugene Impingement Test Results negative Neer Impingement Test Results positive Drop Arm Rotator Cuff Test Results negative PT-OP-M Strength Start: 06/19/19 10:12 Freq: Status: Active Protocol: Document 06/19/19 10:30 AMB (Rec: 06/19/19 13:41 AMB [email or web address]) Shoulder Strength Shoulder Manual Muscle Testing Right Flexion 5 Normal Extension 5 Normal Abduction (C5) 4+ Good+ External Rotation 4+ Good+ Internal Rotation 4+ Good+ Left Flexion 4 Good Extension 4+ Good+ Abduction (C5) 4 Good External Rotation 4 Good Internal Rotation 4+ Good+ PT-OP-Q Treatments Start: 06/19/19 10:12 Freq: Status: Active Protocol: Document 10/09/19 08:17 SP (Rec: 10/09/19 09:05 SP [id number]) Cardio Equipment Upper Body Ergometer (UBE) Duration (Minutes) 8 RPM 100 Seat Position 10 Height 2.5 Other 4/4 min each direction Therapeutic Exercises Supine Exercises PROM Supine Exercise Name FF, ABD, ABD 80-90*w/ER Sitting Exercises Lat Pulldown Sitting Exercise Name Lat Pulldown Machine Side bilateral Resistance setting 3 Equipment Used Total Body Machine Reps/Minutes [id number] Comments superset with rows - cue to pull shoulders down and engage Lats 1 Sitting Exercise Name Rows Side bilateral Resistance setting 3 Equipment Used Total Body Machine Reps/Minutes [id number] Comments superset with lat pulldown Standing Exercises D1 ext Side bilateral Equipment Used L 2 Reps/Minutes 3x10 D2 flexion Equipment Used mirror for self feedback scap stab Reps/Minutes #3 x10, TB #1 2x10 Comments cued scap stab Standing Scaption Standing Exercise Name Scaption Side bilateral Resistance 3# scaption Equipment Used dumbbell weights Reps/Minutes 2x10 Comments superset with biceps curls (8# , slow pacing with scap stab bicep Other Exercises 1/2 knee AAROM Shld flexion Other Exercise Name (eccentric) retro facing Resistance TB #2 Reps/Minutes 2x10 Comments cued slow pacing, arm near Lateral head for progress ROM form Manual Therapy Treatment Joint Mobilizations 1 Joint GH joint Direction AP and inferior Grade II Body Position Supine PT-OP-T Assessment and Plan Start: 06/19/19 10:12 Freq: Status: Active Protocol: Document 10/09/19 08:17 SP (Rec: 10/09/19 09:05 SP [id number]) Physical Therapy Assessment Goals Two Impairment pain Short Term Goal (STG) Radha will reach above shoulder height to put dishes away in a tall cabinet without an increase in shoulder pain. STG Duration MET Donor Services Manager Goal (LTG) Radha will sleep on her left side with pillow props without waking due to pain.-- NOT YET MET LTG Duration 8 weeks One Impairment ROM Short Term Goal (STG) Radha will increase her passive shoulder abduction to 140 degrees. STG Duration 4 weeks Donor Services Manager Goal (LTG) Radha will increase her active shoulder ROM to 160 degrees into flexion and abduction. LTG Duration 8 weeks Assessment Summary Assessment Tx focused on HEP review and added PNF TB and eccentric shld flexion to facilitation shld extensors for slow controlled movement to assist AAROM with positive feedback results. Physical Therapy Plan Frequency and Duration Frequency of Treatment 2x/Week Duration of Treatment 8 weeks Plan of Care Start Date 09/18/19 Plan of Care End Date 11/13/19 Therapeutic Interventions Therapeutic Interventions Home Exercise Program,Joint Mobilizations,Manual Therapy, Neuromuscular Re-education, Taping,Therapeutic Activities, Therapeutic Exercises Modalities Cold Pack/Ice Massage,Electric Stimulation,Hot Packs, Ultrasound Next Visit Focus/Plan Next Visit Plan Assess response to added see assessment section. Continue PT POC: PRogress RTC strengthening. Possibly try plank pose bearing weight through bilateral UE. - progress as tolerated
--- NOTE | 2019-10-12 14:25 | PT.OTN ---
Current Diagnoses Pain in left shoulder (10/12/19) Calcific tendinitis of left shoulder (10/12/19) Impingement syndrome of left shoulder (10/12/19) Physical Therapy Treatment Note PT-OP-A Visit Information Start: 06/19/19 10:12 Freq: Status: Active Protocol: Document 10/12/19 08:15 EG (Rec: 10/12/19 12:38 EG [email or web address]) Out-Patient Physical Therapy Visit Information Visit Information Visit Type Treatment Note Visit Start Time 08:15 Visit Stop Time 08:58 Total Visit Minutes 43 Visit Number 13 Number of [employer] ASSEMBLER Visits 0 PT-OP-B Current Condition Start: 06/19/19 10:12 Freq: Status: Active Protocol: Document 06/19/19 10:30 AMB (Rec: 06/19/19 13:41 AMB [email or web address]) Current Condition History of Current Condition Onset Date 1 year ago Current Complaints L shoulder pain with end range movement History of Current Condition Radha describes left arm pain that at times can radiate down from her shoulder down her arm. Worst with reaching and sleeping. Denies specific incident that started the pain. Did try a cortisone shot but did not feel that it helped much. She does have some history of neck stiffness, and describes numbnes intermittently, especially if she sleeps on that side. Treatment Goals Patient/Caregiver Goals Reduce pain in the arm so she can sleep on it and reach with it Prior Functional Status Baseline Function- ADL's Independent Baseline Function- Mobility Independent Current Functional Impairments (Reported) Functional Limitations- ADL's Difficulty sleeping on left side, difficulty reaching Personal Factors Other Personal Factors That May Effect Recent of her father may Therapy/Recovery necessitate traveling PT-OP-C Subjective Start: 06/19/19 10:12 Freq: Status: Active Protocol: Document 10/12/19 08:15 EG (Rec: 10/12/19 12:38 EG [email or web address]) OP-PT Subjective Patient Comments Patient Comments Patient reported that she was not able to do her exercises as much the past few days because she had a few doctor appointments. Patient reported that she is going on a trip this weekend and will do her exercises then. Her shoulder has been feeling okay. PT-OP-J Posture/Palpation/Skin Start: 06/19/19 10:12 Freq: Status: Active Protocol: Document 06/19/19 10:30 AMB (Rec: 06/19/19 13:41 AMB [email or web address]) Posture Evaluation Comments Posture Comments no winging bilaterally, slightly forward head Palpation Assessment Location One Palpation Location L shoulder Palpation Details Tenderness equal R and L at biceps tendons, more tenderness L>R at supraspinatus insertion PT-OP-K Range of Motion Start: 06/19/19 10:12 Freq: Status: Active Protocol: Document 09/18/19 07:28 AMB (Rec: 09/18/19 08:09 AMB [id number]) Shoulder Goniometric Range of Motion Shoulder Left Passive Flexion 145 Abduction 125 Left Active Flexion 140 Abduction 155 PT-OP-L Special Tests Start: 06/19/19 10:12 Freq: Status: Active Protocol: Document 06/19/19 10:30 AMB (Rec: 06/19/19 13:41 AMB [email or web address]) Special Tests Shoulder Special Tests Lift-Off Rotator Cuff Test Results positive for pain Watt Eugene Impingement Test Results negative Neer Impingement Test Results positive Drop Arm Rotator Cuff Test Results negative PT-OP-M Strength Start: 06/19/19 10:12 Freq: Status: Active Protocol: Document 06/19/19 10:30 AMB (Rec: 06/19/19 13:41 AMB [email or web address]) Shoulder Strength Shoulder Manual Muscle Testing Right Flexion 5 Normal Extension 5 Normal Abduction (C5) 4+ Good+ External Rotation 4+ Good+ Internal Rotation 4+ Good+ Left Flexion 4 Good Extension 4+ Good+ Abduction (C5) 4 Good External Rotation 4 Good Internal Rotation 4+ Good+ PT-OP-Q Treatments Start: 06/19/19 10:12 Freq: Status: Active Protocol: Document 10/12/19 08:15 EG (Rec: 10/12/19 12:38 EG [email or web address]) Cardio Equipment Upper Body Ergometer (UBE) Duration (Minutes) 8 RPM 60 Seat Position 10 Height 2.5 Other 4/4 min each direction Gym Equipment Cable Column (Body Solid) Lat Pulldown Details Lat Pulldown Resistance 3, 4 Reps/Time 12x at L3; 2x10 at level 4 Rows Details Seated Row Resistance 3, 4 Reps/Time 12x at L3; 2x10 at level 4 Therapeutic Exercises Supine Exercises 1 Supine Exercise Name Foam Roller Chest stretch/ shoulder abd/add/b flexion Side bilateral Reps/Minutes 10x each way Comments hold pec stretch for 1 min Standing Exercises 5 Standing Exercise Name ER with shoulder abduction Side bilateral Resistance L1 Equipment Used TB Reps/Minutes 2x10 Comments tactile cue to decrease upper trap contraction and keep elbows steady 3 Standing Exercise Name TB lat pulldown/shoulder extensions Side bilateral Resistance L2 Equipment Used TB Reps/Minutes 2x10 Manual Therapy Treatment Joint Mobilizations 1 Joint GH joint Direction AP and inferior Grade II Body Position Supine Manual Techniques PROM shoulder Type Shoulder PROM Body Location GHJ Body Position Supine Comments move in to flexion/abduction PT-OP-T Assessment and Plan Start: 06/19/19 10:12 Freq: Status: Active Protocol: Document 10/12/19 08:15 EG (Rec: 10/12/19 12:38 EG [email or web address]) Physical Therapy Assessment Assessment Summary Assessment Patient tolerated increase shoulder stabilizer strengthening today with increased resistance in both the rows and lat pulldowns. Able to increase challenge of shoulder ER with abduction as well with no increase in symptoms. Patient will benefit from increased perturbation training to work on stabilization when doing complex tasks at home. Physical Therapy Plan Frequency and Duration Frequency of Treatment 2x/Week Duration of Treatment 8 weeks Plan of Care Start Date 09/18/19 Plan of Care End Date 11/13/19 Next Visit Focus/Plan Next Note Type Treatment Note Next Visit Plan Assess HEP at home and how sleeping is going. Begin weight bearing on shoulder such as plank with arm movement. Perturbations while supine Tatyana Castellon DPT, supervised all treatment performed by, and agreed with the plan of care, as performed by Annie Simental, [email or web address].
--- NOTE | 2019-10-16 12:18 | PT.OTN ---
Current Diagnoses Pain in left shoulder (10/16/19) Calcific tendinitis of left shoulder (10/16/19) Impingement syndrome of left shoulder (10/16/19) Physical Therapy Treatment Note PT-OP-A Visit Information Start: 06/19/19 10:12 Freq: Status: Active Protocol: Document 10/16/19 08:25 EG (Rec: 10/16/19 10:24 EG [email or web address]) Out-Patient Physical Therapy Visit Information Visit Information Visit Type Treatment Note Visit Start Time 08:25 Visit Stop Time 09:05 Total Visit Minutes 40 Visit Number 14 Number of BAG SEALER Visits 0 PT-OP-B Current Condition Start: 06/19/19 10:12 Freq: Status: Active Protocol: Document 06/19/19 10:30 AMB (Rec: 06/19/19 13:41 AMB [email or web address]) Current Condition History of Current Condition Onset Date 1 year ago Current Complaints L shoulder pain with end range movement History of Current Condition Radha describes left arm pain that at times can radiate down from her shoulder down her arm. Worst with reaching and sleeping. Denies specific incident that started the pain. Did try a cortisone shot but did not feel that it helped much. She does have some history of neck stiffness, and describes numbnes intermittently, especially if she sleeps on that side. Treatment Goals Patient/Caregiver Goals Reduce pain in the arm so she can sleep on it and reach with it Prior Functional Status Baseline Function- ADL's Independent Baseline Function- Mobility Independent Current Functional Impairments (Reported) Functional Limitations- ADL's Difficulty sleeping on left side, difficulty reaching Personal Factors Other Personal Factors That May Effect Recent of her father may Therapy/Recovery necessitate traveling PT-OP-C Subjective Start: 06/19/19 10:12 Freq: Status: Active Protocol: Document 10/16/19 08:25 EG (Rec: 10/16/19 08:28 EG [id number]) OP-PT Subjective Patient Comments Patient Comments Patient reported that her shoulder was feeling fine but she did feel the shoulder a little more due to sleeping on it and having to worry about sleping with a pulse oximeter last night. She also got woken up frequently by her cats. She rated pain as a 1-2/10. Overall, she is feeling okay and that her ROM has definately increased. She was able to perform HEP while on her trip this weekend. Patient Reported Progress Improving PT-OP-J Posture/Palpation/Skin Start: 06/19/19 10:12 Freq: Status: Active Protocol: Document 06/19/19 10:30 AMB (Rec: 06/19/19 13:41 AMB [email or web address]) Posture Evaluation Comments Posture Comments no winging bilaterally, slightly forward head Palpation Assessment Location One Palpation Location L shoulder Palpation Details Tenderness equal R and L at biceps tendons, more tenderness L>R at supraspinatus insertion PT-OP-K Range of Motion Start: 06/19/19 10:12 Freq: Status: Active Protocol: Document 09/18/19 07:28 AMB (Rec: 09/18/19 08:09 AMB [id number]) Shoulder Goniometric Range of Motion Shoulder Left Passive Flexion 145 Abduction 125 Left Active Flexion 140 Abduction 155 PT-OP-L Special Tests Start: 06/19/19 10:12 Freq: Status: Active Protocol: Document 06/19/19 10:30 AMB (Rec: 06/19/19 13:41 AMB [email or web address]) Special Tests Shoulder Special Tests Lift-Off Rotator Cuff Test Results positive for pain Watt Eugene Impingement Test Results negative Neer Impingement Test Results positive Drop Arm Rotator Cuff Test Results negative PT-OP-M Strength Start: 06/19/19 10:12 Freq: Status: Active Protocol: Document 06/19/19 10:30 AMB (Rec: 06/19/19 13:41 AMB [email or web address]) Shoulder Strength Shoulder Manual Muscle Testing Right Flexion 5 Normal Extension 5 Normal Abduction (C5) 4+ Good+ External Rotation 4+ Good+ Internal Rotation 4+ Good+ Left Flexion 4 Good Extension 4+ Good+ Abduction (C5) 4 Good External Rotation 4 Good Internal Rotation 4+ Good+ PT-OP-Q Treatments Start: 06/19/19 10:12 Freq: Status: Active Protocol: Document 10/16/19 08:25 EG (Rec: 10/16/19 10:51 EG [email or web address]) Gym Equipment Cable Column (Body Solid) Pullies Details Pullies Reps/Time 2 min each F/abd Therapeutic Exercises Supine Exercises Perturbations supine Supine Exercise Name Perturbations L shoulder flexed towards ceiling while supine Side left Reps/Minutes 2 min 1 Supine Exercise Name Foam Roller Chest stretch/ shoulder abd/b flexion Side bilateral Reps/Minutes 10x each way Comments hold pec stretch for 1 min Standing Exercises D1 ext Standing Exercise Name D1 ext Side bilateral Equipment Used L 2 Reps/Minutes 15x Comments Reviewed for HEP D2 flexion Standing Exercise Name D2 Flexion Side bilateral Resistance L2 Equipment Used TB Reps/Minutes 15x Comments cued scap stab 5 Standing Exercise Name ER with shoulder abduction Side bilateral Resistance L1 Equipment Used TB Reps/Minutes 10x Comments increased sensation of pain on L proximal posterior humerus 4 Standing Exercise Name ER Side bilateral Resistance L3 Equipment Used TB Reps/Minutes 15x Comments no pain 3 Standing Exercise Name TB lat pulldown/shoulder extensions Side bilateral Resistance L2 Equipment Used TB Reps/Minutes 15x Other Exercises Forearm plank Other Exercise Name Forearm plank/arm plank on knees Side bilateral Reps/Minutes 30 sec each Comments no pain in shoulder 1/2 knee AAROM Shld flexion Other Exercise Name (eccentric) facing away from band Side bilateral Resistance TB #2 Equipment Used yoga mat for knee support Reps/Minutes 15x Comments cues abdominal engagement 1 Other Exercise Name shoulder taps on hands and knees Side bilateral Equipment Used Use of hand holds for wrists Reps/Minutes 2x5 each side Comments cue wrist under shoulder Manual Therapy Treatment Joint Mobilizations 1 Joint GH joint Direction AP and inferior Grade II Body Position Supine Manual Techniques PROM shoulder Type Shoulder PROM Body Location GHJ Body Position Supine Comments move in to flexion/abduction PT-OP-T Assessment and Plan Start: 06/19/19 10:12 Freq: Status: Active Protocol: Document 10/16/19 08:25 EG (Rec: 10/16/19 10:51 EG [email or web address]) Physical Therapy Assessment Assessment Summary Assessment Patient did well with therapy treatment today. She was a little more sensitive with abduction and ER with the band today. Review of HEP was done to make sure patient is performing this with correct form. Patient has 3 more appointments to continue to work on strengthening/HEP education and then discharge will be considered. Physical Therapy Plan Next Visit Focus/Plan Next Note Type Treatment Note Next Visit Plan Continue to work on strengthening and shoulder stabilization. Continue perturbations with weight - possible ball throws. Tatyana Castellon DPT, supervised all treatment performed by, and agreed with the plan of care, as performed by Annie Simental, SPT.
--- NOTE | 2019-10-19 09:57 | PT.OTN ---
Current Diagnoses Pain in left shoulder (10/19/19) Calcific tendinitis of left shoulder (10/19/19) Impingement syndrome of left shoulder (10/19/19) Physical Therapy Treatment Note PT-OP-A Visit Information Start: 06/19/19 10:12 Freq: Status: Active Protocol: Document 10/19/19 08:20 EG (Rec: 10/19/19 09:08 EG [id number]) Out-Patient Physical Therapy Visit Information Visit Information Visit Type Treatment Note Visit Start Time 08:20 Visit Stop Time 09:00 Total Visit Minutes 40 Visit Number 15 Number of PROGRAM EVALUATION CONSULTANT Visits 0 PT-OP-B Current Condition Start: 06/19/19 10:12 Freq: Status: Active Protocol: Document 06/19/19 10:30 AMB (Rec: 06/19/19 13:41 AMB [email or web address]) Current Condition History of Current Condition Onset Date 1 year ago Current Complaints L shoulder pain with end range movement History of Current Condition Radha describes left arm pain that at times can radiate down from her shoulder down her arm. Worst with reaching and sleeping. Denies specific incident that started the pain. Did try a cortisone shot but did not feel that it helped much. She does have some history of neck stiffness, and describes numbnes intermittently, especially if she sleeps on that side. Treatment Goals Patient/Caregiver Goals Reduce pain in the arm so she can sleep on it and reach with it Prior Functional Status Baseline Function- ADL's Independent Baseline Function- Mobility Independent Current Functional Impairments (Reported) Functional Limitations- ADL's Difficulty sleeping on left side, difficulty reaching Personal Factors Other Personal Factors That May Effect Recent of her father may Therapy/Recovery necessitate traveling PT-OP-C Subjective Start: 06/19/19 10:12 Freq: Status: Active Protocol: Document 10/19/19 08:20 EG (Rec: 10/19/19 09:08 EG [id number]) OP-PT Subjective Patient Comments Patient Comments Patient reported that she was sore after last session and today she is feeling a little more sore after sleeping last night. She has been painting and it doesn't seem to bother her shoulder because she paints with her other shoulder . Patient Reported Progress Improving PT-OP-J Posture/Palpation/Skin Start: 06/19/19 10:12 Freq: Status: Active Protocol: Document 06/19/19 10:30 AMB (Rec: 06/19/19 13:41 AMB [email or web address]) Posture Evaluation Comments Posture Comments no winging bilaterally, slightly forward head Palpation Assessment Location One Palpation Location L shoulder Palpation Details Tenderness equal R and L at biceps tendons, more tenderness L>R at supraspinatus insertion PT-OP-K Range of Motion Start: 06/19/19 10:12 Freq: Status: Active Protocol: Document 09/18/19 07:28 AMB (Rec: 09/18/19 08:09 AMB [id number]) Shoulder Goniometric Range of Motion Shoulder Left Passive Flexion 145 Abduction 125 Left Active Flexion 140 Abduction 155 PT-OP-L Special Tests Start: 06/19/19 10:12 Freq: Status: Active Protocol: Document 06/19/19 10:30 AMB (Rec: 06/19/19 13:41 AMB [email or web address]) Special Tests Shoulder Special Tests Lift-Off Rotator Cuff Test Results positive for pain Watt Eugene Impingement Test Results negative Neer Impingement Test Results positive Drop Arm Rotator Cuff Test Results negative PT-OP-M Strength Start: 06/19/19 10:12 Freq: Status: Active Protocol: Document 06/19/19 10:30 AMB (Rec: 06/19/19 13:41 AMB [email or web address]) Shoulder Strength Shoulder Manual Muscle Testing Right Flexion 5 Normal Extension 5 Normal Abduction (C5) 4+ Good+ External Rotation 4+ Good+ Internal Rotation 4+ Good+ Left Flexion 4 Good Extension 4+ Good+ Abduction (C5) 4 Good External Rotation 4 Good Internal Rotation 4+ Good+ PT-OP-Q Treatments Start: 06/19/19 10:12 Freq: Status: Active Protocol: Document 10/19/19 08:20 EG (Rec: 10/19/19 09:08 EG [id number]) Cardio Equipment Upper Body Ergometer (UBE) Duration (Minutes) 6 RPM 60 Seat Position 11 Height 2.5 Other 3/3 min each direction Gym Equipment Therapeutic Ball I, Y, T Exercise Details I, Y, T Ball Size/Color 65 inch/red Body Position Prone Reps/Duration 2x8 Comments No pain felt during exercise Therapeutic Exercises Supine Exercises 1 Supine Exercise Name Foam Roller Chest stretch/ shoulder abd/serratus punches Side bilateral Reps/Minutes 10x each way, 1 min pec stretch Prone Exercises 1 Prone Exercise Name Forearm and Plank on hands on knees Reps/Minutes 45 second hold each position Standing Exercises 4 Standing Exercise Name bilateral ER Side bilateral Resistance L2 Equipment Used TB Reps/Minutes [id number] Comments increased tension outside of arm 2 Standing Exercise Name Clockwise movement on wall with TB Resistance L2 Equipment Used TB Reps/Minutes 2x5 each side Manual Therapy Treatment Joint Mobilizations 1 Joint GH joint Direction AP and inferior Grade II Body Position Supine Manual Techniques PROM shoulder Type Shoulder PROM Body Location GHJ Body Position Supine Comments move in to flexion/abduction, EROM ER had increased tension PT-OP-T Assessment and Plan Start: 06/19/19 10:12 Freq: Status: Active Protocol: Document 10/19/19 08:20 EG (Rec: 10/19/19 09:08 EG [id number]) Physical Therapy Assessment Assessment Summary Assessment Patient was a little more irritable today with some exercises but was able to do the I,Y, and T with no increase in pain. She was able to place weight through bilateral UE with no increase in pain. Patient is progressing well with these stabilization and strengthening exercises and will be given updated exercises to do at home next session to practice before coming for possible discharge. Physical Therapy Plan Frequency and Duration Frequency of Treatment 2x/Week Duration of Treatment 8 weeks Plan of Care Start Date 09/18/19 Plan of Care End Date 11/13/19 Next Visit Focus/Plan Next Note Type Treatment Note Next Visit Plan Give new HEP exercises to do at home. - IYT on ball, clockwise movement on wall with TB, planks Tatyana Castellon DPT, supervised all treatment performed by, and agreed with the plan of care, as performed by Annie Simental, GUANAKO.
--- NOTE | 2019-10-23 09:45 | PT.OTN ---
Current Diagnoses Pain in left shoulder (10/23/19) Calcific tendinitis of left shoulder (10/23/19) Impingement syndrome of left shoulder (10/23/19) Physical Therapy Treatment Note PT-OP-A Visit Information Start: 06/19/19 10:12 Freq: Status: Active Protocol: Document 10/23/19 08:16 EG (Rec: 10/23/19 09:19 EG [id number]) Out-Patient Physical Therapy Visit Information Visit Information Visit Type Treatment Note Visit Start Time 08:16 Visit Stop Time 09:00 Total Visit Minutes 44 Visit Number 16 Number of HEAVY LIFT RIGGER Visits 0 PT-OP-B Current Condition Start: 06/19/19 10:12 Freq: Status: Active Protocol: Document 06/19/19 10:30 AMB (Rec: 06/19/19 13:41 AMB [email or web address]) Current Condition History of Current Condition Onset Date 1 year ago Current Complaints L shoulder pain with end range movement History of Current Condition Radha describes left arm pain that at times can radiate down from her shoulder down her arm. Worst with reaching and sleeping. Denies specific incident that started the pain. Did try a cortisone shot but did not feel that it helped much. She does have some history of neck stiffness, and describes numbnes intermittently, especially if she sleeps on that side. Treatment Goals Patient/Caregiver Goals Reduce pain in the arm so she can sleep on it and reach with it Prior Functional Status Baseline Function- ADL's Independent Baseline Function- Mobility Independent Current Functional Impairments (Reported) Functional Limitations- ADL's Difficulty sleeping on left side, difficulty reaching Personal Factors Other Personal Factors That May Effect Recent of her father may Therapy/Recovery necessitate traveling PT-OP-C Subjective Start: 06/19/19 10:12 Freq: Status: Active Protocol: Document 10/23/19 08:16 EG (Rec: 10/23/19 09:19 EG [id number]) OP-PT Subjective Patient Comments Patient Comments Patient feels like her shoulder is about the same. She still feels a little sore after doing some exercises and sleeping on it but nothing to complain about. Patient Reported Progress Same PT-OP-J Posture/Palpation/Skin Start: 06/19/19 10:12 Freq: Status: Active Protocol: Document 06/19/19 10:30 AMB (Rec: 06/19/19 13:41 AMB [email or web address]) Posture Evaluation Comments Posture Comments no winging bilaterally, slightly forward head Palpation Assessment Location One Palpation Location L shoulder Palpation Details Tenderness equal R and L at biceps tendons, more tenderness L>R at supraspinatus insertion PT-OP-K Range of Motion Start: 06/19/19 10:12 Freq: Status: Active Protocol: Document 09/18/19 07:28 AMB (Rec: 09/18/19 08:09 AMB [id number]) Shoulder Goniometric Range of Motion Shoulder Left Passive Flexion 145 Abduction 125 Left Active Flexion 140 Abduction 155 PT-OP-L Special Tests Start: 06/19/19 10:12 Freq: Status: Active Protocol: Document 06/19/19 10:30 AMB (Rec: 06/19/19 13:41 AMB [email or web address]) Special Tests Shoulder Special Tests Lift-Off Rotator Cuff Test Results positive for pain Watt Eugene Impingement Test Results negative Neer Impingement Test Results positive Drop Arm Rotator Cuff Test Results negative PT-OP-M Strength Start: 06/19/19 10:12 Freq: Status: Active Protocol: Document 06/19/19 10:30 AMB (Rec: 06/19/19 13:41 AMB [email or web address]) Shoulder Strength Shoulder Manual Muscle Testing Right Flexion 5 Normal Extension 5 Normal Abduction (C5) 4+ Good+ External Rotation 4+ Good+ Internal Rotation 4+ Good+ Left Flexion 4 Good Extension 4+ Good+ Abduction (C5) 4 Good External Rotation 4 Good Internal Rotation 4+ Good+ PT-OP-Q Treatments Start: 06/19/19 10:12 Freq: Status: Active Protocol: Document 10/23/19 08:16 EG (Rec: 10/23/19 09:19 EG [id number]) Cardio Equipment Upper Body Ergometer (UBE) Duration (Minutes) 6 RPM 60 Seat Position 11 Height 2.5 Other 3/3 min each direction Gym Equipment Therapeutic Ball I, Y, T Exercise Details I, Y, T Ball Size/Color 65 inch/red Body Position Prone Reps/Duration 10x each way Comments No pain felt during exercise given as HEP Therapeutic Exercises Supine Exercises Thoracic Mobilization with Foam Roll Supine Exercise Name Thoracic mobilization with foam roll Reps/Minutes 1 minute Comments HEP 1 Supine Exercise Name Foam Roller Chest stretch/ shoulder abd Side bilateral Reps/Minutes 10x each way, 1 min pec stretch Prone Exercises Plank with push plus Prone Exercise Name Plank with elbows extended with serratus push Reps/Minutes 10x Comments given as HEP 1 Prone Exercise Name Forearm plank on both arms and side forearm plank - on knees Reps/Minutes 30 sec hold side plank; 45 sec hold on bilateral forearms Standing Exercises Standing biceps curls Standing Exercise Name Standing Biceps Curl with TB Side bilateral Resistance Level 3 TB Equipment Used TB Reps/Minutes 12x each 5 Standing Exercise Name IR Side bilateral Resistance L3 Equipment Used TB Reps/Minutes 15x each 4 Standing Exercise Name ER Side bilateral Resistance L3 Equipment Used TB Reps/Minutes 15x Comments no pain - increased resistance 2 Standing Exercise Name Clockwise movement on wall with TB Resistance L2 Equipment Used TB Reps/Minutes 5x each side PT-OP-T Assessment and Plan Start: 06/19/19 10:12 Freq: Status: Active Protocol: Document 10/23/19 08:16 EG (Rec: 10/23/19 09:19 EG [id number]) Physical Therapy Assessment Assessment Summary Assessment Today's treatment focused on HEP training and practicing correct form with these exercises. Plan to discharge patient next appointment due to 75% improvement of shoulder . Important for patient to have home exercise routine to continue to work on strengthening and stabilization of the shoulder. Physical Therapy Plan Frequency and Duration Frequency of Treatment 2x/Week Duration of Treatment 8 weeks Plan of Care Start Date 09/18/19 Plan of Care End Date 11/13/19 Next Visit Focus/Plan Next Note Type Discharge Summary Next Visit Plan Answer any questions on HEP. Reassess ROM and strength. J mobilizations. ITatyana DPT, supervised all treatment performed by, and agreed with the plan of care, as performed by Annie Simental, GUANAKO.
--- NOTE | 2019-10-26 14:13 | PT.OTN ---
Current Diagnoses Pain in left shoulder (10/26/19) Calcific tendinitis of left shoulder (10/26/19) Impingement syndrome of left shoulder (10/26/19) Physical Therapy Treatment Note PT-OP-A Visit Information Start: 06/19/19 10:12 Freq: Status: Active Protocol: Document 10/26/19 08:17 EG (Rec: 10/26/19 09:01 EG [id number]) Out-Patient Physical Therapy Visit Information Visit Information Visit Type Discharge Summary Visit Start Time 08:17 Visit Stop Time 09:00 Total Visit Minutes 43 Visit Number 17 Number of HYDRAULIC SPINNER Visits 0 PT-OP-B Current Condition Start: 06/19/19 10:12 Freq: Status: Active Protocol: Document 06/19/19 10:30 AMB (Rec: 06/19/19 13:41 AMB [email or web address]) Current Condition History of Current Condition Onset Date 1 year ago Current Complaints L shoulder pain with end range movement History of Current Condition Radha describes left arm pain that at times can radiate down from her shoulder down her arm. Worst with reaching and sleeping. Denies specific incident that started the pain. Did try a cortisone shot but did not feel that it helped much. She does have some history of neck stiffness, and describes numbnes intermittently, especially if she sleeps on that side. Treatment Goals Patient/Caregiver Goals Reduce pain in the arm so she can sleep on it and reach with it Prior Functional Status Baseline Function- ADL's Independent Baseline Function- Mobility Independent Current Functional Impairments (Reported) Functional Limitations- ADL's Difficulty sleeping on left side, difficulty reaching Personal Factors Other Personal Factors That May Effect Recent of her father may Therapy/Recovery necessitate traveling PT-OP-C Subjective Start: 06/19/19 10:12 Freq: Status: Active Protocol: Document 10/26/19 08:17 EG (Rec: 10/26/19 09:01 EG [id number]) OP-PT Subjective Patient Comments Patient Comments Patient reports that she is feeling okay. She is sore after she sleeps on her shoulder. She tried the exercises over the weekend and feels good about them. She still needs to blow up the ball to do her I,Y,T. Overall, she feels about the same. The other arm seems to feel sore after she does her exercises but she thinks it's just because she is using it more. Patient Reported Progress Same PT-OP-J Posture/Palpation/Skin Start: 06/19/19 10:12 Freq: Status: Active Protocol: Document 06/19/19 10:30 AMB (Rec: 06/19/19 13:41 AMB [email or web address]) Posture Evaluation Comments Posture Comments no winging bilaterally, slightly forward head Palpation Assessment Location One Palpation Location L shoulder Palpation Details Tenderness equal R and L at biceps tendons, more tenderness L>R at supraspinatus insertion PT-OP-K Range of Motion Start: 06/19/19 10:12 Freq: Status: Active Protocol: Document 10/26/19 08:17 EG (Rec: 10/26/19 09:01 EG [id number]) Shoulder Goniometric Range of Motion Shoulder Right Active Testing Position Supine Flexion 170 Abduction 175 Left Active Testing Position Supine Flexion 155 Abduction 157 PT-OP-L Special Tests Start: 06/19/19 10:12 Freq: Status: Active Protocol: Document 06/19/19 10:30 AMB (Rec: 06/19/19 13:41 AMB [email or web address]) Special Tests Shoulder Special Tests Lift-Off Rotator Cuff Test Results positive for pain Watt Eugene Impingement Test Results negative Neer Impingement Test Results positive Drop Arm Rotator Cuff Test Results negative PT-OP-M Strength Start: 06/19/19 10:12 Freq: Status: Active Protocol: Document 10/26/19 08:17 EG (Rec: 10/26/19 09:01 EG [id number]) Shoulder Strength Shoulder Manual Muscle Testing Right Flexion 5 Normal Extension 5 Normal Abduction (C5) 4+ Good+ External Rotation 4+ Good+ Internal Rotation 4+ Good+ Left Flexion 4+ Good+ Extension 5 Normal Abduction (C5) 4 Good External Rotation 4+ Good+ Internal Rotation 5 Normal Comments Patient still exhibits pain with shoulder abduction PT-OP-Q Treatments Start: 06/19/19 10:12 Freq: Status: Active Protocol: Document 10/26/19 08:17 EG (Rec: 10/26/19 09:01 EG [id number]) Cardio Equipment Upper Body Ergometer (UBE) Duration (Minutes) 6 RPM 60 Seat Position 12 Height 2.5 Other 3/3 min each direction Therapeutic Exercises Supine Exercises Perturbations supine Supine Exercise Name Perturbations L shoulder flexed towards ceiling while supine Side left Reps/Minutes 2 min Manual Therapy Treatment Soft Tissue Mobilization 1 Body Location lateral and anterior shoulder Mobilization Type Myofascial Release Intensity/Depth Moderate Body Position Supine Joint Mobilizations 1 Joint GH joint Direction AP and inferior Grade II Body Position Supine Manual Techniques PROM shoulder Type Shoulder PROM Body Location GHJ Body Position Supine Comments move in to flexion/abduction, Experienced painful arch with abduction PT-OP-T Assessment and Plan Start: 06/19/19 10:12 Freq: Status: Active Protocol: Document 10/26/19 08:17 EG (Rec: 10/26/19 09:01 EG [id number]) Physical Therapy Assessment Goals Two Impairment pain Short Term Goal (STG) Radha will reach above shoulder height to put dishes away in a tall cabinet without an increase in shoulder pain. 10/26/2019: Met STG Duration MET Silver Solution Mixer Goal (LTG) Radha will sleep on her left side with pillow props without waking due to pain.-- NOT YET MET 10/26/2019: Still an issue; do a lot of flipping. Better than it was but still a need to sleep on other side LTG Duration 8 weeks One Impairment ROM Short Term Goal (STG) Radha will increase her passive shoulder abduction to 140 degrees. 10/26/19: MET STG Duration 4 weeks Silver Solution Mixer Goal (LTG) Radha will increase her active shoulder ROM to 160 degrees into flexion and abduction. 10/26/2019: Off by 5 degrees in flexion and 3 degrees in abduction L AROM Flexion: 155 deg R AROM Flexion: 170 L AROM Abduction: 157 R AROM Abduction: 175 LTG Duration 8 weeks Progress Towards Goals Progress Towards Goals Goals Met Progress Comments All goals are met besides less pain with sleeping. Patient reports this is better but she still has discomfort when lying on the L side. Assessment Summary Assessment Patient is now discharging from PT services. She was given HEP to continue with rotator cuff strengthening at home as well as shoulder stabilization exercises. She has progressed while in therapy in her ROM and strength but pain is still a limiting factor in her sleeping duration. Patient has improved about 75% and should continue to improve as she continues with her HEP. Physical Therapy Plan Frequency and Duration Frequency of Treatment 2x/Week Duration of Treatment 8 weeks Plan of Care Start Date 09/18/19 Plan of Care End Date 11/13/19 Discharge Physical Therapy Discharge Reasons Goals Met Discharge Comments Most goals have been met and HEP was given and understood. Tatyana Castellon, DPT, supervised all treatment performed by, and agreed with the plan of care, as performed by Annie Simental, GUANAKO.
--- NOTE | 2019-10-26 14:15 | PT.OPDS ---
Current Diagnoses Pain in left shoulder (10/26/19) Calcific tendinitis of left shoulder (10/26/19) Impingement syndrome of left shoulder (10/26/19) Visit Care Team Role Provider Type Luis Scanlon MD Primary Care Provider Physician Specialty: Wound Care Address: [address] [place] [address], [id number] Email: [email or web address] MD Attending Provider Physician Specialty: Orthopedic Surgery Address: [address] [place] [address], [address] Email: [email or web address] Visit Number Visit Number 17 Discharge Summary PT-OP-B Current Condition Start: 06/19/19 10:12 Freq: Status: Active Protocol: Document 06/19/19 10:30 AMB (Rec: 06/19/19 13:41 AMB [email or web address]) Current Condition History of Current Condition Onset Date 1 year ago Current Complaints L shoulder pain with end range movement History of Current Condition Radha describes left arm pain that at times can radiate down from her shoulder down her arm. Worst with reaching and sleeping. Denies specific incident that started the pain. Did try a cortisone shot but did not feel that it helped much. She does have some history of neck stiffness, and describes numbnes intermittently, especially if she sleeps on that side. Treatment Goals Patient/Caregiver Goals Reduce pain in the arm so she can sleep on it and reach with it Prior Functional Status Baseline Function- ADL's Independent Baseline Function- Mobility Independent Current Functional Impairments (Reported) Functional Limitations- ADL's Difficulty sleeping on left side, difficulty reaching Personal Factors Other Personal Factors That May Effect Recent of her father may Therapy/Recovery necessitate traveling PT-OP-C Subjective Start: 06/19/19 10:12 Freq: Status: Active Protocol: Document 10/26/19 08:17 EG (Rec: 10/26/19 09:01 EG [id number]) OP-PT Subjective Patient Comments Patient Comments Patient reports that she is feeling okay. She is sore after she sleeps on her shoulder. She tried the exercises over the weekend and feels good about them. She still needs to blow up the ball to do her I,Y,T. Overall, she feels about the same. The other arm seems to feel sore after she does her exercises but she thinks it's just because she is using it more. Patient Reported Progress Same PT-OP-J Posture/Palpation/Skin Start: 06/19/19 10:12 Freq: Status: Active Protocol: Document 06/19/19 10:30 AMB (Rec: 06/19/19 13:41 AMB [email or web address]) Posture Evaluation Comments Posture Comments no winging bilaterally, slightly forward head Palpation Assessment Location One Palpation Location L shoulder Palpation Details Tenderness equal R and L at biceps tendons, more tenderness L>R at supraspinatus insertion PT-OP-K Range of Motion Start: 06/19/19 10:12 Freq: Status: Active Protocol: Document 10/26/19 08:17 EG (Rec: 10/26/19 09:01 EG [id number]) Shoulder Goniometric Range of Motion Shoulder Right Active Testing Position Supine Flexion 170 Abduction 175 Left Active Testing Position Supine Flexion 155 Abduction 157 PT-OP-L Special Tests Start: 06/19/19 10:12 Freq: Status: Active Protocol: Document 06/19/19 10:30 AMB (Rec: 06/19/19 13:41 AMB [email or web address]) Special Tests Shoulder Special Tests Lift-Off Rotator Cuff Test Results positive for pain Watt Eugene Impingement Test Results negative Neer Impingement Test Results positive Drop Arm Rotator Cuff Test Results negative PT-OP-M Strength Start: 06/19/19 10:12 Freq: Status: Active Protocol: Document 10/26/19 08:17 EG (Rec: 10/26/19 09:01 EG [id number]) Shoulder Strength Shoulder Manual Muscle Testing Right Flexion 5 Normal Extension 5 Normal Abduction (C5) 4+ Good+ External Rotation 4+ Good+ Internal Rotation 4+ Good+ Left Flexion 4+ Good+ Extension 5 Normal Abduction (C5) 4 Good External Rotation 4+ Good+ Internal Rotation 5 Normal Comments Patient still exhibits pain with shoulder abduction PT-OP-T Assessment and Plan Start: 06/19/19 10:12 Freq: Status: Active Protocol: Document 10/26/19 08:17 EG (Rec: 10/26/19 09:01 EG [id number]) Physical Therapy Assessment Goals Two Impairment pain Short Term Goal (STG) Radha will reach above shoulder height to put dishes away in a tall cabinet without an increase in shoulder pain. 10/26/2019: Met STG Duration MET Laboratory Animal Caretaker Goal (LTG) Radha will sleep on her left side with pillow props without waking due to pain.-- NOT YET MET 10/26/2019: Still an issue; do a lot of flipping. Better than it was but still a need to sleep on other side LTG Duration 8 weeks One Impairment ROM Short Term Goal (STG) Radha will increase her passive shoulder abduction to 140 degrees. 10/26/19: MET STG Duration 4 weeks Laboratory Animal Caretaker Goal (LTG) Radha will increase her active shoulder ROM to 160 degrees into flexion and abduction. 10/26/2019: Off by 5 degrees in flexion and 3 degrees in abduction L AROM Flexion: 155 deg R AROM Flexion: 170 L AROM Abduction: 157 R AROM Abduction: 175 LTG Duration 8 weeks Progress Towards Goals Progress Towards Goals Goals Met Progress Comments All goals are met besides less pain with sleeping. Patient reports this is better but she still has discomfort when lying on the L side. Assessment Summary Assessment Patient is now discharging from PT services. She was given HEP to continue with rotator cuff strengthening at home as well as shoulder stabilization exercises. She has progressed while in therapy in her ROM and strength but pain is still a limiting factor in her sleeping duration. Patient has improved about 75% and should continue to improve as she continues with her HEP. Physical Therapy Plan Frequency and Duration Frequency of Treatment 2x/Week Duration of Treatment 8 weeks Plan of Care Start Date 09/18/19 Plan of Care End Date 11/13/19 Discharge Physical Therapy Discharge Reasons Goals Met Discharge Comments Most goals have been met and HEP was given and understood. Tatyana Castellon, RONEL, supervised all treatment performed by, and agreed with the plan of care, as performed by Annie Simental, GUANAKO.
== END 2019-10-27 08:47 ==
LOC: PHYS 08:15
PROVIDERS: PCP Internal Medicine; Visit Provider Orthopaedic Surgery
DX: M25.512 Pain in left shoulder (principal); M75.42 Impingement syndrome of left shoulder; M75.32 Calcific tendinitis of left shoulder
CPT/HCPCS: 97110; 97140; 97161

== ENCOUNTER → 2020-03-20 10:32 | Outpatient (CLI) | payer MEDICARE, OTHER, SELFPAY ==
[2018-07-04 14:04] VITALS: BMI 26.4
[2020-03-20 11:44] LABS: Add Manual Diff / Slide Review NO; Basophils Absolute Auto 100 /uL (0-100); Basophils Percent Auto 0.9 % (0-2); Eosinophils Absolute Auto 100 /uL (0-450); Eosinophils Percent Auto 1.9 % (2-4); Hematocrit 37.9 % (36-46); Hemoglobin 12.9 g/dL (12.0-16.0); Lymphocytes Absolute Auto 1700 /uL (1100-4500); Lymphocytes Percent Auto 30.4 % (25-40); Mean Corpuscular HGB Conc 34.2 % (30-36); Mean Corpuscular Volume 90.8 fL (80-100); Monocytes Absolute Auto 400 /uL (0-900); Monocytes Percent Auto 7.7 % (3-14); Neutrophils Absolute Auto 3300 /uL (1500-7000); Neutrophils Percent Auto 59.1 % (50-75); Platelet Count 301 X10^3/uL (150-400); Red Blood Cell Count 4.17 X10^6/uL (4.0-5.2); Red Cell Distribution Width 13.8 % (11.6-14.8); White Blood Cell Count 5.6 X10^3/uL (4.5-11.0)
[2020-03-20 11:55] LABS: BUN Creatinine Ratio 24.1 (6-22); Blood Urea Nitrogen 14 mg/dL (7-17); Calcium 10.1 mg/dL (8.4-10.2); Carbon Dioxide 29 mmol/L (22-32); Chloride 105 mmol/L (98-107); Cholesterol 273 mg/dL (140-199); Estimated Glomerular Filt Rate > 60.0 mL/min (>60); Glucose 96 mg/dL (80-110); HDL Cholesterol 86 mg/dL (40-60); HEMOLYSIS < 15 (0-50); LDL Cholesterol Calculated 161 mg/dL (<100); Magnesium 2.3 mg/dL (1.6-2.3); Potassium 4.7 mmol/L (3.4-5.1); Sodium 139 mmol/L (137-145); Triglycerides 132 mg/dL (35-150)
== END ==
PROVIDERS: PCP Student in an Organized Health Care Education/Training Program; Referring Provider Internal Medicine Cardiovascular Disease; Visit Provider Internal Medicine Cardiovascular Disease
DX: Z00.00 Encounter for general adult medical examination without abnormal findings (principal); R55 Syncope and collapse
CPT/HCPCS: 36415; 80048; 80061; 83735; 85025

== ENCOUNTER → 2020-04-17 14:02 | Outpatient (CLI) | payer MEDICARE, OTHER, SELFPAY ==
[2018-07-04 14:04] VITALS: BMI 26.4
== END ==
PROVIDERS: PCP Student in an Organized Health Care Education/Training Program; Referring Provider Student in an Organized Health Care Education/Training Program; Visit Provider Student in an Organized Health Care Education/Training Program
DX: Z13.820 Encounter for screening for osteoporosis (principal); M81.0 Age-related osteoporosis without current pathological fracture; Z78.0 Asymptomatic menopausal state; K92.9 Disease of digestive system, unspecified; Z91.89 Other specified personal risk factors, not elsewhere classified
CPT/HCPCS: 77080

== ENCOUNTER → 2020-04-27 09:03 | Outpatient (CLI) | payer MEDICARE, OTHER, SELFPAY ==
[2018-07-04 14:04] VITALS: BMI 26.4
--- NOTE | 2020-04-27 09:20 | DI.MG.S_ITS ---
Patient Name: REMIGIO BROOKE date: 1955 Sex: F Attending Physician: Mariann Indications: Date: 04/27/2020 09:15 At the request of: JUANCARLOS KRISHNA Procedure: MM screening mammo BI BILATERAL DIGITAL SCREENING MAMMOGRAM 3D/2D WITH CAD: 04/27/2020 CLINICAL: Routine screening. Comparison is made to exams dated: 07/26/2017 mammogram and 07/17/2015 mammogram - [facility]. There are scattered fibroglandular elements in both breasts. Current study was also evaluated with a Computer Aided Detection (CAD) system. No significant masses, calcifications, or other findings are seen in either breast. There has been no significant interval change. IMPRESSION: NEGATIVE There is no mammographic evidence of malignancy. A 1 year screening mammogram is recommended. This exam was interpreted at Station ID: [id number]. NOTE: For mammograms, a report in lay terms will be sent to the patient. Approximately 15% of breast malignancies will not be visualized mammographically. In the management of a palpable breast mass, a negative mammogram must not discourage biopsy of a clinically suspicious lesion. Electronically Signed By: Dina morgan/harmeet:04/29/2020 08:21:18 letter sent: Normal Exam ACR BI-RADS Category 1: Negative [id number]
== END ==
PROVIDERS: PCP Student in an Organized Health Care Education/Training Program; Referring Provider Student in an Organized Health Care Education/Training Program; Visit Provider Student in an Organized Health Care Education/Training Program
DX: Z12.31 Encounter for screening mammogram for malignant neoplasm of breast (principal)
CPT/HCPCS: 77063; 77067

== ENCOUNTER → 2020-06-27 16:15 | Outpatient (CLI) | payer MEDICARE, OTHER, SELFPAY ==
[2018-07-04 14:04] VITALS: BMI 26.4
--- NOTE | 2020-06-27 16:18 | DI.RAD.S_ITS ---
PROCEDURE: XR KNEE LT 3V INDICATIONS: left knee pain TECHNIQUE: 3 views of the knee were acquired. COMPARISON: None. FINDINGS: Bones: No fractures or dislocations. No suspicious bony lesions. Suspect tiny osteophyte at the medial femoral tibial compartment. Soft tissues: No joint effusion. No suspicious soft tissue calcifications. IMPRESSION: Minimal degenerative change appreciated. If clinically indicated consider MRI for further evaluation. Dictated by: Ming Lazo M.D. on 06/27/2020 at 16:53 Approved by: Ming Lazo M.D. on 06/27/2020 at 16:54
== END ==
PROVIDERS: PCP Student in an Organized Health Care Education/Training Program; Referring Provider Student in an Organized Health Care Education/Training Program; Visit Provider Student in an Organized Health Care Education/Training Program
DX: M25.562 Pain in left knee (principal)
CPT/HCPCS: 73562

== ENCOUNTER → 2020-08-12 17:30 | Outpatient (CLI) | payer MEDICARE, OTHER, SELFPAY ==
[2018-07-04 14:04] VITALS: BMI 26.4
--- NOTE | 2020-08-12 17:31 | DI.MRI.S_ITS ---
PROCEDURE: MR KNEE LT WO CON INDICATIONS: Left knee pain TECHNIQUE: Noncontrast sagittal PD fast spin echo and T2 fast spin echo with fat saturation, sagittal 3-D FLASH with fat saturation; coronal T1 spin echo and PD fast spin echo with fat saturation, and axial PD fast spin echo with fat saturation through the knee. COMPARISON: [facility], CR, XR KNEE LT 3V, 06/27/2020, 16:20. FINDINGS: Image quality: Excellent. Menisci: Medial extrusion of the medial meniscus is present. Radial tearing of the posterior horn medial meniscus at the meniscal root ligament insertion site is present. There is linear oblique high T2 signal intensity traversing the medial meniscal body, demonstrating inferior articular surface extension. Truncation of the free edge of the medial meniscal body is present. Lateral meniscus is intact. Cruciate ligaments: The anterior and posterior cruciate ligaments appear intact. Medial structures: The medial collateral ligament appears intact. Visualized portions of the pes anserinus tendons appear normal. No abnormal bursal fluid. Lateral structures: The lateral collateral ligament, long and short heads of the biceps femoris tendon appear intact. The popliteus tendon appears normal. Iliotibial band appears normal. Anterior structures: The quadriceps and patellar tendons appear intact. Patellar alignment is normal. No femoral trochlear dysplasia or ventral trochlear prominence. No edema in the infrapatellar fat pad. Bones and cartilage: No bone marrow contusions or fractures. There is moderate ill-defined T2 signal elevation within the anterior, mid, and posterior aspects of the medial femoral condyle, as well as the anterior, mid, and posterior aspects of the medial tibial plateau. There is mild tricompartmental periarticular osteophyte formation. Moderate to severe articular cartilage loss overlies the weight-bearing aspects of the medial femoral condyle and medial tibial plateau. Mild articular cartilage loss overlies the weight-bearing aspects of the lateral femoral condyle and lateral tibial plateau. Moderate articular cartilage loss overlies the medial patellar facet and patellar apex. Joint space: There is a small knee joint effusion and a trace Kyle's cyst. Normal appearing synovial plicae are incidentally noted. IMPRESSION: 1. Tricompartmental osteoarthritis with associated articular cartilage loss. 2. Knee joint effusion and Kyle's cyst. 3. Multifocal complex tearing of the medial meniscus. 4. Degenerative marrow edema within the medial femoral condyle and medial tibial plateau. Dictated by: Parker Richards M.D. on 08/13/2020 at 8:29 Approved by: Parker Richards M.D. on 08/13/2020 at 8:32
== END ==
PROVIDERS: PCP Student in an Organized Health Care Education/Training Program; Referring Provider Student in an Organized Health Care Education/Training Program; Visit Provider Student in an Organized Health Care Education/Training Program
DX: M25.562 Pain in left knee (principal); S83.232A Complex tear of medial meniscus, current injury, left knee, initial encounter; M71.22 Synovial cyst of popliteal space [Baker], left knee; M25.462 Effusion, left knee; M17.12 Unilateral primary osteoarthritis, left knee
CPT/HCPCS: 73721

== ENCOUNTER → 2020-09-02 08:57 | Outpatient (CLI) | payer MEDICARE, OTHER, SELFPAY ==
[2018-07-04 14:04] VITALS: BMI 26.4
[2020-09-02 11:05] LABS: COVID19 -Nasal RAPID Negative (Negative)
== END ==
PROVIDERS: PCP Student in an Organized Health Care Education/Training Program; Visit Provider Family Medicine Sleep Medicine
DX: Z20.822 Contact with and (suspected) exposure to COVID-19 (principal); Z01.812 Encounter for preprocedural laboratory examination
CPT/HCPCS: 87635; C9803

== ENCOUNTER → 2020-09-12 15:30 | Outpatient (CLI) | payer MEDICARE, OTHER, SELFPAY ==
[2018-07-04 14:04] VITALS: BMI 26.4
[2020-09-12] MEDS: COVID-19 VACC #1, MRNA(MOD) 100 MCG/0.5 ML VIAL IM (15:37)
== END ==
PROVIDERS: PCP Student in an Organized Health Care Education/Training Program; Visit Provider Internal Medicine
DX: Z23 Encounter for immunization (principal)
CPT/HCPCS: 0011A; 91301

== ENCOUNTER → 2020-10-10 15:26 | Outpatient (CLI) | payer MEDICARE, OTHER, SELFPAY ==
[2018-07-04 14:04] VITALS: BMI 26.4
[2020-10-10] MEDS: COVID-19 VACC #2, MRNA(MOD) 100 MCG/0.5 ML VIAL IM (15:34)
== END ==
PROVIDERS: PCP Student in an Organized Health Care Education/Training Program; Visit Provider Internal Medicine
DX: Z23 Encounter for immunization (principal)
CPT/HCPCS: 0012A; 91301

== ENCOUNTER → 2020-12-02 10:01 | Outpatient (CLI) | payer MEDICARE, OTHER, SELFPAY ==
[2018-07-04 14:04] VITALS: BMI 26.4
[2020-12-02 11:41] LABS: COVID19 -Nasal RAPID Negative (Negative)
== END ==
PROVIDERS: PCP Student in an Organized Health Care Education/Training Program; Visit Provider Student in an Organized Health Care Education/Training Program
DX: Z20.822 Contact with and (suspected) exposure to COVID-19 (principal)
CPT/HCPCS: 87635; C9803

== ENCOUNTER 2020-12-04 08:27 | Day surgery (SDC) | payer MEDICARE, OTHER, SELFPAY ==
[2018-07-04 14:04] VITALS: BMI 26.4
--- NOTE | 2020-12-03 19:15 | PM.PREOP ---
Pre-operative Note COVID-19 COVID-19 status: Negative Interval Note History & Physical reviewed/Exam performed by Physician: Yes Changes to H&P: No
--- NOTE | 2020-12-04 07:38 | P.OP_ITS ---
Operative Date/Time/Diagnoses Date of procedure: 12/04/20 Time of procedure: 09:45 Procedure & Clinicians Procedure: Preoperative diagnoses: 1. Right nuclear sclerotic and cortical cataract. 2. Desire for a for elective multifocal lens to improve range of vision. 3. Anxiety 4. History of pancreatitis Postoperative diagnoses: 1. Cataract removed by phacoemulsification with placement of Panoptix multifocal posterior chamber intraocular lens. Procedure: Phacoemulsification with posterior chamber intraocular lens implant Surgeon: Leslie Scanlon MD Complications: None Specimen: None Implant: TFAT00+15.5 Blood loss: None Anesthesia: Retrobulbar with monitored standby Description of procedure: Patient presents with a complaint of decreased vision due to cataract which is affecting activities of daily living distance and near The patient wants surgery to improve vision. She understands the extra risk of operating during the COVID-19 pending make and wishes to proceed. She has tested negative for coated by risks prior to the procedure. The patient was taken to the operating room and given IV sedation. A retrobulbar block consisting of 6 cc of 2% xylocaine without epinephrine mixed half and half with 0.5% Marcaine with 1 cc of hyaluronidase added is placed between the medial and lateral 1/3 of the inferior orbital rim. The eye is manually massaged for 30 sec, prepped using Betadine solution, and draped in the usual sterile fashion. Temporal approach was made, a 1 mm side-port incision was made 90? from the proposed clear corneal incision position. Phenylephrine 1.5% mixed with 1% xylocaine 0.2 cc was placed into the anterior chamber. Viscoat followed by Healon was then placed. A 2.6 mm clear incision with a 2.6 mm blade was placed. A 360 degree capsulorrhexis style capsulotomy was then performed with a cystitome needle on a Healon. Hydrodelineation and hydrodissection were performed. The phacoemulsification unit is introduced, and sculpting notice used to groove the central lens. It is then removed in chopping mode. Epi nucleus is removed with epinuclear mode and irrigation aspiration was used to remove the peripheral cortex. The posterior capsule is polished. The intraocular lens is selected, inspected, power confirmed, and placed in the posterior chamber and carefully centered to the visual center. The wound was stromally hydrated and tested for leaks, there was none and it was left sutureless. Vigamox 0.1 cc was placed into the anterior chamber. Kenalog 0.2 cc was placed in the superior subconjunctival space. A drop of antibiotic and was placed and the eye was patched and shielded. The patient was stable and returned to the recovery room in excellent condition. Dictated by: Leslie Scanlon MD Copy to: [facility] Same procedure as scheduled: Yes
[2020-12-04 08:41] VITALS: BP 113/36; PULSE 76; RESP 12; TEMP 36.7; O2SAT 99; BMI 25.4
[2020-12-04] MEDS: PROPARACAINE 0.5% OPHTH SOL 2 DROPS EYE-OP (08:45)
[2020-12-04] MEDS: CATARACT EYE COMPOUND (10 DROPS/SYRINGE) 3 DROPS EYE-OP (08:50)
[2020-12-04] MEDS: LIDOCAINE 2% 4 ML, BUPIVACAINE 0.5% (PF) 4 ML, HYALURONIDASE 150 UNIT INJ (10:26)
[2020-12-04] MEDS: BALANCED SALT IRRIG SOLN NO.2 500 ML, EPINEPHrine 1 MG IRR (10:27)
[2020-12-04] MEDS: MOXIFLOXACIN INJ 4 MG/0.8 ML VIAL 0.5 MG EYE-OP (10:28)
[2020-12-04] MEDS: PHENYLEPHRINE/LIDOCAINE VIAL (OR) 0.2 ML EYE-OP (10:28)
[2020-12-04] MEDS: TRIAMCINOLONE 50 MG/5 ML VIAL INJ (10:28)
[2020-12-04] MEDS: HYALURONATE SODIUM 10 MG/ML SYRINGE INJ (10:29)
[2020-12-04] MEDS: CHONDROIDTIN/SOD HYALURONATE 1.05 ML SYRINGE INTRAOCULA (10:29)
[2020-12-04] MEDS: ERYTHROMYCIN OPHTH 1 GM OINT 1 APPLIC EYE-LEFT (10:29)
[2020-12-04 10:55] VITALS: BP 130/79; PULSE 71; RESP 16; TEMP 36.2; O2SAT 99
== END 2020-12-04 11:03 | disposition home or self-care (01) ==
LOC: OR 08:29
PROVIDERS: PCP Student in an Organized Health Care Education/Training Program; Referring Provider Ophthalmology; Visit Provider Ophthalmology
PROC: (CPT 66984; principal; 2020-12-04 09:45)
DX: H25.811 Combined forms of age-related cataract, right eye (principal); H40.013 Open angle with borderline findings, low risk, bilateral; H35.373 Puckering of macula, bilateral; H43.813 Vitreous degeneration, bilateral; F41.9 Anxiety disorder, unspecified
CPT/HCPCS: 66984; J0171; J2704; J3301; J3470; V2788

== ENCOUNTER → 2020-12-06 10:00 | Outpatient (CLI) | payer MEDICARE, OTHER, SELFPAY ==
[2020-12-05 08:31] VITALS: BMI 26.4
== END ==
PROVIDERS: PCP Student in an Organized Health Care Education/Training Program; Visit Provider Physician Assistant
DX: R30.9 Painful micturition, unspecified (principal)
CPT/HCPCS: 87077; 87086; 87186

== ENCOUNTER → 2020-12-09 14:59 | Outpatient (CLI) | payer MEDICARE, OTHER, SELFPAY ==
[2020-12-05 08:31] VITALS: BMI 26.4
[2020-12-09 16:05] LABS: COVID19 -Nasal RAPID Negative (Negative)
== END ==
PROVIDERS: PCP Student in an Organized Health Care Education/Training Program; Visit Provider Physician Assistant
DX: Z01.812 Encounter for preprocedural laboratory examination (principal); Z20.822 Contact with and (suspected) exposure to COVID-19
CPT/HCPCS: 87635; C9803

== ENCOUNTER 2020-12-11 06:31 | Day surgery (SDC) | payer MEDICARE, OTHER, SELFPAY ==
[2018-07-04 14:04] VITALS: BMI 26.4
[2020-12-05 08:31] VITALS: BMI 26.4
--- NOTE | 2020-12-09 10:51 | PM.PREOP ---
Pre-operative Note COVID-19 COVID-19 status: Negative Interval Note History & Physical reviewed/Exam performed by Physician: Yes Changes to H&P: No
--- NOTE | 2020-12-09 10:52 | P.OP_ITS ---
Operative Date/Time/Diagnoses Date of procedure: 12/11/20 Time of procedure: 07:45 Procedure & Clinicians Procedure: Preoperative diagnoses: 1. Left nuclear sclerotic and cortical cataract. 2. Anxiety. 3. Desire for a multifocal implant Postoperative diagnoses: 1. Cataract removed by phacoemulsification with placement of posterior chamber intraocular lens. Procedure: Phacoemulsification with multifocal posterior chamber intraocular lens implant Surgeon: Leslie Scanlon MD Complications: None Specimen: None Implant: TFAT00+16.0,Panoptix Blood loss: None Anesthesia: Retrobulbar with monitored standby Description of procedure: Patient presents with a complaint of decreased vision due to cataract which is affecting activities of daily living distance and near. The patient wants surgery to improve vision. She has a significant cataract and capsular dye will be used to improve visibility. She has a multifocal implant in her other eye would like the same in this eye to increase her range of vision. She has tested COVID virus negative prior to the procedure. The patient was taken to the operating room and given IV sedation. A retrobulbar block consisting of 6 cc of 2% xylocaine without epinephrine mixed half and half with 0.5% Marcaine with 1 cc of hyaluronidase added is placed between the medial and lateral 1/3 of the inferior orbital rim. The eye is manually massaged for 30 sec, prepped using Betadine solution, and draped in the usual sterile fashion. Temporal approach was made, a 1 mm side-port incision was made 90? from the proposed clear corneal incision position. Phenylephrine 1.5% mixed with 1% xylocaine 0.2 cc was placed into the anterior chamber. An air bubble was placed followed by Visudyne capsular dye. BSS was used to irrigate out the extra air bubble. Viscoat followed by Healon was then placed. A 2.6 mm clear incision with a 2.6 mm blade was placed. A 360 degree capsulorrhexis style capsulotomy was then performed with a cystitome needle on a Healon greatly aided by the capsular dye. Hydrodelineation and hydrodissection were performed. The phacoemulsification unit is introduced, and sculpting notice used to groove the central lens. It is then removed in chopping mode. Epi nucleus is removed with epinuclear mode and irrigation aspiration was used to remove the peripheral cortex. The posterior capsule is polished. The intraocular lens is selected, inspected, power confirmed, and placed in the posterior chamber and centered to the visual axis. The wound was stromally hydrated and tested for leaks, there was none and it was left sutureless. Vigamox 0.1 cc was placed into the anter ior chamber. Kenalog 0.2 cc was placed in the superior subconjunctival space. A drop of antibiotic and was placed and the eye was patched and shielded. The patient was stable and returned to the recovery room in excellent condition. Dictated by: Leslie Scanlon MD Copy to: [facility] Same procedure as scheduled: Yes
[2020-12-11 07:11] VITALS: BMI 25.1
[2020-12-11] MEDS: PROPARACAINE 0.5% OPHTH SOL 2 DROPS EYE-OP (07:18)
[2020-12-11] MEDS: CATARACT EYE COMPOUND (10 DROPS/SYRINGE) 3 DROPS EYE-OP ×3 (07:19→07:29)
[2020-12-11 07:21] VITALS: BP 114/74; PULSE 62; RESP 16; TEMP 36.4; O2SAT 96
[2020-12-11] MEDS: LIDOCAINE 2% 4 ML, BUPIVACAINE 0.5% (PF) 4 ML, HYALURONIDASE 150 UNIT INJ (08:00)
[2020-12-11] MEDS: ERYTHROMYCIN OPHTH 1 GM OINT 1 APPLIC EYE-LEFT (08:01)
[2020-12-11] MEDS: BALANCED SALT IRRIG SOLN NO.2 500 ML, EPINEPHrine 1 MG IRR (08:03)
[2020-12-11] MEDS: PHENYLEPHRINE/LIDOCAINE VIAL (OR) 0.2 ML EYE-OP (08:03)
[2020-12-11] MEDS: HYALURONATE SODIUM 10 MG/ML SYRINGE INJ (08:08)
[2020-12-11] MEDS: CHONDROIDTIN/SOD HYALURONATE 1.05 ML SYRINGE INTRAOCULA (08:09)
[2020-12-11] MEDS: MOXIFLOXACIN INJ 4 MG/0.8 ML VIAL EYE-OP (08:09)
[2020-12-11] MEDS: TRIAMCINOLONE 50 MG/5 ML VIAL INJ (08:11)
[2020-12-11] MEDS: TRYPAN BLUE 0.5 ML SYRINGE INJ (08:11)
[2020-12-11 08:37] VITALS: BP 118/75; PULSE 61; RESP 14; TEMP 36.9; O2SAT 100
[2020-12-11 08:54] VITALS: BP 119/81; PULSE 67; RESP 16; TEMP 36.1; O2SAT 98
== END 2020-12-11 08:55 | disposition home or self-care (01) ==
PROVIDERS: PCP Student in an Organized Health Care Education/Training Program; Referring Provider Ophthalmology; Visit Provider Ophthalmology
PROC: (CPT 66984; principal; 2020-12-11 07:45)
DX: H25.012 Cortical age-related cataract, left eye (principal); H25.12 Age-related nuclear cataract, left eye; F41.9 Anxiety disorder, unspecified; R12 Heartburn; E78.5 Hyperlipidemia, unspecified
CPT/HCPCS: 66984; J0171; J2250; J2704; J3010; J3301; J3470; V2788

== ENCOUNTER 2021-01-13 05:51 | Emergency (ER) | payer MEDICARE, OTHER, SELFPAY ==
[2020-12-05 08:31] VITALS: BMI 26.4
[2021-01-13] VITALS (7 sets, daily range): BP systolic 94–117; BP diastolic 55–77; PULSE 60–80; RESP 9–17; TEMP 36.9; O2SAT 96–99; BMI 25.4
--- NOTE | 2021-01-13 06:14 | ED_ITS ---
HPI - Abdominal Pain <Jerilyn Hankins DO - Last Filed: 01/14/21 01:37> General Chief Complaint: Abdominal Pain Stated Complaint: Diarrhea, vomiting, abdominal pain Time Seen by Provider: 01/13/21 06:00 Source: patient Mode of arrival: Ambulatory Limitations: no limitations History of Present Illness HPI narrative: Patient is a 65-year-old female history of pancreatitis and cholecystectomy presenting with abdominal pain and multiple episodes of diarrhea ongoing for the last 1-2 days. She says it started last evening as he was quite runny she has had 1-2 episodes of vomiting as well. She feels a little dizzy and lightheaded while walking. She had severe chills last night but denies any sweats is. She has been feeling some burning in her chest as well but denies any chest pain shortness of breaths. No one else is sick. She thought this was her pancreatitis but that she has the diarrhea is MD complaint: abdominal pain Onset (ago): day(s) Pain Consistency: intermittent Location: periumbilical Severity: moderate Quality: cramping and stabbing Related Data Home Medications Medication Instructions Recorded Confirmed fluoxetine 40 mg capsule 40 mg PO DAILY 05/25/19 12/18/20 omeprazole 20 mg capsule,delayed 20 mg PO DAILY 05/25/19 12/18/20 release Probiotic 1 cap PO DAILY 07/04/19 12/18/20 multivitamin 1 tab PO DAILY 07/04/19 12/18/20 rosuvastatin 5 mg tablet 2.5 mg PO DAILY tab 06/27/20 12/18/20 Previous Rx's Medication Instructions Recorded alendronate 70 mg tablet 70 mg PO QWEEK #12 tab 07/29/20 Allergies Allergy/AdvReac Type Severity Reaction Status Date / Time No Known Drug Allergies Allergy Verified 12/18/20 10:21 Review of Systems <DO Chayo Hoover Last Filed: 01/14/21 01:37> Review of Systems ROS Unobtainable: All systems reviewed & are unremarkable except as noted in HPI and below Constitutional Constitutional: Reports as per HPI, Denies fever(s) and Reports night sweats Eyes Eyes: Denies change in vision, Denies eye discharge, Denies irritation and Denies loss of vision ENT Ears, Nose, Mouth, and Throat: Denies change in voice, Denies dizziness, Denies neck pain and Denies sore throat Cardiovascular Cardiovascular: Denies chest pain, Denies irregular heart rhythm, Reports lightheadedness, Denies palpitations, Denies dyspnea, Denies dyspnea on exertion and Denies orthopnea Respiratory Respiratory: Denies cough, Denies dyspnea, Denies dyspnea on exertion and Denies wheezing Gastrointestinal Gastrointestinal: Reports as per HPI, Denies abdominal pain, Denies change in bowel habits, Reports cramping, Reports diarrhea, Reports nausea and Denies vo miting Musculoskeletal Musculoskeletal: Denies back pain and Denies neck pain Integumentary/Breasts Skin/Breast: Denies pruritus, Denies erythema, Denies rash and Denies wounds Neurologic Neurologic: Denies confusion, Denies dizziness and Denies loss of vision Psychiatric Psychiatric: Denies confusion Endocrine Endocrine: Denies palpitations Allergic/Immunologic Allergic/Immunologic: Denies wheezing Patient History <Jerilyn Hankins DO - Last Filed: 01/14/21 01:37> Medical History Acute epigastric pain Acute gallstone pancreatitis Cholelithiasis Gallstone pancreatitis Insomnia due to medical condition Obstructive sleep apnea Snoring Surgical History S/P cholecystectomy Family History Father Bladder cancer Mother Lung cancer Social History household members: spouse Smoking Status: Never smoker alcohol intake: current substance use type: does not use Smoking Status: Never smoker alcohol intake frequency: a few times a week Substance Use Type: does not use Exam <Jerilyn Hankins DO - Last Filed: 01/14/21 01:37> Initial Vital Signs Initial Vital Signs: Vital Signs Temperature 98.5 F 01/13/21 06:02 Pulse Rate 80 01/13/21 06:02 Respiratory Rate 14 01/13/21 06:02 Blood Pressure 117/77 01/13/21 06:02 Pulse Oximetry 96 01/13/21 06:02 GENERAL: Alert pleasant well-appearing 65-year-old female and in no acute distress. HEENT: Head atraumatic,EOMI, pupils reactive, face symmetric, moist mucous membranes CARDIOVASCULAR: Regular rate and rhythm without murmurs, rubs or gallops. RESPIRATORY: Breath sounds equal bilaterally, no wheezes rales or rhonchi. ABDOMEN: Soft, be minimal epigastric and periumbilical pain no guarding no rebound no right upper quadrant pain negative Montano sign : No CVA tenderness EXTREMITIES: Normal range of motion, no clubbing or edema. Neurovascularly intact NEUROLOGICAL: Alert and oriented x4.Normal gait and speech. Cranial nerves II through XII grossly intact. SKIN: Warm, dry, no laceration, no petechiae, no rashes or lesions. <Paula Villa DO - Last Filed: 01/13/21 19:19> Initial Vital Signs Initial Vital Signs: Vital Signs Temperature 98.5 F 01/13/21 06:02 Pulse Rate 80 01/13/21 06:02 Respiratory Rate 14 01/13/21 06:02 Blood Pressure 117/77 01/13/21 06:02 Pulse Oximetry 96 01/13/21 06:02 Course <Jerilyn Hankins DO - Last Filed: 01/14/21 01:37> Orders Ordered: Discontinued Medications Sodium Chloride (Normal Saline 0.9%) 1,000 mls @ 1,000 mls/hr IV CONT ALE Last Infusion: 01/13/21 08:08 Dose: 0 mls/hr Documented by: Admin: 01/13/21 06:24 Dose: 1,000 mls/hr Documented by: DAVID Ondansetron HCl (Ondansetron 4 Mg/2 Ml Inj) 4 mg IV NOW ONE Stop: 01/13/21 06:15 Last Admin: 01/13/21 06:24 Dose: 4 mg Documented by: DAVID Vital Signs Vital signs: Vital Signs - 8 hr 01/13/21 06:02 01/13/21 06:33 01/13/21 07:00 Temperature 98.5 F Pulse Rate 80 65 60 Respiratory Rate 14 17 Blood Pressure 117/77 Pulse Oximetry 96 96 99 01/13/21 07:30 01/13/21 07:48 01/13/21 08:00 Temperature Pulse Rate 64 62 63 Respiratory Rate 12 9 L 15 Blood Pressure 101/59 L 112/55 L 94/55 L Pulse Oximetry 99 98 99 <Paula Villa DO - Last Filed: 01/13/21 19:19> Orders Ordered: Discontinued Medications Sodium Chloride (Normal Saline 0.9%) 1,000 mls @ 1,000 mls/hr IV CONT ALE Last Infusion: 01/13/21 08:08 Dose: 0 mls/hr Documented by: Admin: 01/13/21 06:24 Dose: 1,000 mls/hr Documented by: DAVID Ondansetron HCl (Ondansetron 4 Mg/2 Ml Inj) 4 mg IV NOW ONE Stop: 01/13/21 06:15 Last Admin: 01/13/21 06:24 Dose: 4 mg Documented by: DAVID Vital Signs Vital signs: Vital Signs - 8 hr 01/13/21 06:02 01/13/21 06:33 01/13/21 07:00 Temperature 98.5 F Pulse Rate 80 65 60 Respiratory Rate 14 17 Blood Pressure 117/77 Pulse Oximetry 96 96 99 01/13/21 07:30 01/13/21 07:48 01/13/21 08:00 Temperature Pulse Rate 64 62 63 Respiratory Rate 12 9 L 15 Blood Pressure 101/59 L 112/55 L 94/55 L Pulse Oximetry 99 98 99 MDM - Abdominal Pain <Jerilyn Hankins DO - Last Filed: 01/14/21 01:37> Lab Data Attestation: I reviewed the patient's lab results. Result diagrams: 01/13/21 06:15 01/13/21 06:15 Labs: Lab Results 01/13/21 01/13/21 01/13/21 Range/Units 06:15 06:15 08:00 WBC 11.2 H (4.5-11.0) X10^3/uL RBC 4.22 (4.0-5.2) X10^6/uL Hgb 13.0 (12.0-16.0) g/dL Hct 38.2 (36-46) % MCV 90.6 (80-100) fL MCH 30.8 (26-34) PG MCHC 34.0 (30-36) % RDW 12.8 (11.6-14.8) % Plt Count 240 (150-400) X10^3/uL Neut % (Auto) 82.6 H (50-75) % Lymph % (Auto) 10.5 L (25-40) % Sauk % (Auto) 6.2 (3-14) % Eos % (Auto) 0.5 L (2-4) % Baso % (Auto) 0.2 (0-2) % Neut # (Auto) 9300 H (7093-6786) /uL Lymph # (Auto) 1200 (1394-8842) /uL Sauk # (Auto) 700 (0-900) /uL Eos # (Auto) 100 (0-450) /uL Baso # (Auto) 0 (0-100) /uL Sodium 139 (137-145) mmol/L Potassium 4.2 (3.4-5.1) mmol/L Chloride 106 (98-107) mmol/L Carbon Dioxide 26 (22-32) mmol/L BUN 21 H (7-17) mg/dL Creatinine 0.51 L (0.52-1.04) mg/dL Estimated GFR > 60.0 (>60) mL/min BUN/Creatinine Ratio 41.2 H (6-22) Glucose 118 H (80-110) mg/dL Calcium 9.5 (8.4-10.2) mg/dL Total Bilirubin 0.3 (0.2-1.3) mg/dL AST 31 (14-36) IU/L ALT 37 H (<35) IU/L Alkaline Phosphatase 49 (38-126) U/L Total Creatine Kinase 33 (30-135) U/L CK-MB (CK-2) TNP CK-MB (CK-2) Rel Index TNP Troponin I < 0.012 (0.01-0.034) ng/mL Total Protein 7.1 (6.3-8.2) g/dL Albumin 4.5 (3.5-5.0) g/dL Globulin 2.6 (1.7-4.1) g/dL Albumin/Globulin Ratio 1.7 (1.0-2.8) Lipase 80 (23-300) U/L Urine RBC 1-5/hpf (0-5/HPF) Urine WBC None seen (0-5/HPF) Urine Bacteria None seen (None) Ur Culture Indicated? Cult not indicated Point of care testing: Urine Dip Bedside Urine Glucose Negative Bedside Urine Bilirubin - Negative Bedside Urine Ketone - Negative Urine Specific Hancock 1.015 Bedside Urine Occult Blood ++ Bedside Urine pH 6.5 Bedside Urine Protein - Negative Bedside Urine Urobilinogen - Negative Bedside Urine Nitrite - Negative Bedside Urine Leukocytes - Negative Esterase ECG Data Interpretation: Normal sinus rhythm rate 70 p.r. interval 138 QRS [address] changes MDM Narrative Medical decision making narrative: Blood work pending patient signed out to Dr. Villa for further management <Paula Villa, DO - Last Filed: 01/13/21 19:19> Lab Data Attestation: I reviewed the patient's lab results. Labs: Lab Results 01/13/21 01/13/21 01/13/21 Range/Units 06:15 06:15 08:00 WBC 11.2 H (4.5-11.0) X10^3/uL RBC 4.22 (4.0-5.2) X10^6/uL Hgb 13.0 (12.0-16.0) g/dL Hct 38.2 (36-46) % MCV 90.6 (80-100) fL MCH 30.8 (26-34) PG MCHC 34.0 (30-36) % RDW 12.8 (11.6-14.8) % Plt Count 240 (150-400) X10^3/uL Neut % (Auto) 82.6 H (50-75) % Lymph % (Auto) 10.5 L (25-40) % Sauk % (Auto) 6.2 (3-14) % Eos % (Auto) 0.5 L (2-4) % Baso % (Auto) 0.2 (0-2) % Neut # (Auto) 9300 H (0950-4958) /uL Lymph # (Auto) 1200 (7345-8039) /uL Sauk # (Auto) 700 (0-900) /uL Eos # (Auto) 100 (0-450) /uL Baso # (Auto) 0 (0-100) /uL Sodium 139 (137-145) mmol/L Potassium 4.2 (3.4-5.1) mmol/L Chloride 106 (98-107) mmol/L Carbon Dioxide 26 (22-32) mmol/L BUN 21 H (7-17) mg/dL Creatinine 0.51 L (0.52-1.04) mg/dL Estimated GFR > 60.0 (>60) mL/min BUN/Creatinine Ratio 41.2 H (6-22) Glucose 118 H (80-110) mg/dL Calcium 9.5 (8.4-10.2) mg/dL Total Bilirubin 0.3 (0.2-1.3) mg/dL AST 31 (14-36) IU/L ALT 37 H (<35) IU/L Alkaline Phosphatase 49 (38-126) U/L Total Creatine Kinase 33 (30-135) U/L CK-MB (CK-2) TNP CK-MB (CK-2) Rel Index TNP Troponin I < 0.012 (0.01-0.034) ng/mL Total Protein 7.1 (6.3-8.2) g/dL Albumin 4.5 (3.5-5.0) g/dL Globulin 2.6 (1.7-4.1) g/dL Albumin/Globulin Ratio 1.7 (1.0-2.8) Lipase 80 (23-300) U/L Urine RBC 1-5/hpf (0-5/HPF) Urine WBC None seen (0-5/HPF) Urine Bacteria None seen (None) Ur Culture Indicated? Cult not indicated Point of care testing: Urine Dip Bedside Urine Glucose Negative Bedside Urine Bilirubin - Negative Bedside Urine Ketone - Negative Urine Specific Hancock 1.015 Bedside Urine Occult Blood ++ Bedside Urine pH 6.5 Bedside Urine Protein - Negative Bedside Urine Urobilinogen - Negative Bedside Urine Nitrite - Negative Bedside Urine Leukocytes - Negative Esterase ECG Data Attestation: I personally reviewed and interpreted this ECG as follows: Prior ECG tracings: available for review Interpretation: Sinus rhythm rate of 70 P are 138 QRS of 84 QTC [address] No acute ST changes noted. 07/04/2018 prior EKG available for review that is a normal si nus rhythm and appears similar. [facility] Narrative Medical decision making narrative: This is a 65-year-old female signed out to m yself by Dr. Hankins for diarrhea, vomiting abdominal pain. Patient has a history of pancreatitis as well as cholecystectomy and has had symptoms for 1-2 days. She is also describes some dizziness and lightheadedness as well as chills but no sweats and some chest discomfort with no shortness of breath. Patient thought this was her pancreatitis although her labs do not reflect any elevation in her lipase today. She does have of ALT 237 which is significantly improved from priors. Patient's labs have a show a BUN of 21, no concerning changes to renal function, electrolytes with only slight elevation in her white count 11 with 82% neutrophils. EKG does not show any acute changes comparison to priors. Patient was seen by myself and re-evaluated. Patient's micro shows 1-5 rbc's but no other changes. Here in the department. On repeat evaluation patient has some mild generalized abdominal discomfort slightly worsened at the epigastric region with palpation. She denies any flank pain or back. Discussed with patient between watchful waiting versus further evaluation. Her urine sh ows hematuria but her symptoms do not seem consistent with kidney stone. Discussed with patient she is comfortable with watchful waiting. She deferred prescription for Zofran her antiemetic and we discussed return precautions. Discharge Plan Departure Patient Disposition: Home Clinical Impression: Hematuria, Abdominal pain Instructions: DI for Abdominal Pain-Adult, DI for Hematuria Activity Restrictions/Additional Instructions: Follow up with your physician for recheck in the next 2-3 days unless your symptoms have resolved. Call tomorrow for an appointment. Your labs today do show some hematuria, this should be rechecked in the next week to make sure it is resolved if this is continuing to be present you should discuss with her physician about referral to Urology for cystoscopy and further evaluation. Please return for fevers, persistent vomiting, new or worsening abdominal pain, back or flank pain, black or bloody stools, if you are unable have a bowel movement and or passing gas, lightheadedness or passing out, new or worsening chest pain or shortness of breath or other new or concerning symptoms. Prescriptions: No Action alendronate 70 mg tablet 70 mg PO QWEEK Qty: 12 RF: 3 rosuvastatin 5 mg tablet 2.5 mg PO DAILY RF: 0 multivitamin Tablet 1 tab PO DAILY RF: 0 Probiotic 1 cap PO DAILY RF: 0 fluoxetine 40 mg capsule 40 mg PO DAILY RF: 0 omeprazole 20 mg capsule,delayed release(DR/EC) 20 mg PO DAILY RF: 0 Referrals: Amos Waite MD [Primary Care Provider] -
[2021-01-13 06:20] LABS: Add Manual Diff / Slide Review NO; Basophils Absolute Auto 0 /uL (0-100); Basophils Percent Auto 0.2 % (0-2); Eosinophils Absolute Auto 100 /uL (0-450); Eosinophils Percent Auto 0.5 % (2-4); Hematocrit 38.2 % (36-46); Lymphocytes Absolute Auto 1200 /uL (1100-4500); Lymphocytes Percent Auto 10.5 % (25-40); Mean Corpuscular Hemoglobin 30.8 PG (26-34); Mean Corpuscular Volume 90.6 fL (80-100); Monocytes Absolute Auto 700 /uL (0-900); Monocytes Percent Auto 6.2 % (3-14); Neutrophils Absolute Auto 9300 /uL (1500-7000); Neutrophils Percent Auto 82.6 % (50-75); Platelet Count 240 X10^3/uL (150-400); Red Blood Cell Count 4.22 X10^6/uL (4.0-5.2); Red Cell Distribution Width 12.8 % (11.6-14.8); White Blood Cell Count 11.2 X10^3/uL (4.5-11.0)
[2021-01-13] MEDS: ONDANSETRON 4 MG/2 ML INJ IV (06:24)
[2021-01-13] MEDS: SODIUM CHLORIDE 0.9% 1,000 ML 1000 ML IV (06:24)
[2021-01-13 06:32] LABS: Alanine Aminotransferase 37 IU/L (<35); Albumin 4.5 g/dL (3.5-5.0); Albumin Globulin Ratio 1.7 (1.0-2.8); Alkaline Phosphatase 49 U/L (38-126); Aspartate Aminotransferase 31 IU/L (14-36); BUN Creatinine Ratio 41.2 (6-22); Bilirubin Total 0.3 mg/dL (0.2-1.3); Blood Urea Nitrogen 21 mg/dL (7-17); Calcium 9.5 mg/dL (8.4-10.2); Carbon Dioxide 26 mmol/L (22-32); Chloride 106 mmol/L (98-107); Creatine Kinase 33 U/L (30-135); Estimated Glomerular Filt Rate > 60.0 mL/min (>60); Globulin 2.6 g/dL (1.7-4.1); Glucose 118 mg/dL (80-110); HEMOLYSIS < 15 (0-50); Lipase 80 U/L (23-300); Potassium 4.2 mmol/L (3.4-5.1); Sodium 139 mmol/L (137-145); Total Protein 7.1 g/dL (6.3-8.2)
[2021-01-13 06:44] LABS: Troponin I < 0.012 ng/mL (0.01-0.034)
--- NOTE | 2021-01-13 08:06 | PC.NURSE ---
Patient also reports diarrhea, cold sweats, and dizziness.
[2021-01-13 08:08] LABS: Bacteria Urine None Seen; WBC Urine None Seen (0-5/HPF)
[2021-01-13 08:16] LABS: Culture Indicated Urine Cult Not Indicated; RBC Urine 1-5/HPF (0-5/HPF)
== END 2021-01-13 08:55 | disposition home or self-care (01) ==
PROVIDERS: Emergency Medicine; Emergency Provider Emergency Medicine; PCP Student in an Organized Health Care Education/Training Program
DX: R31.9 Hematuria, unspecified (principal); R10.9 Unspecified abdominal pain; R19.7 Diarrhea, unspecified; R11.0 Nausea
CPT/HCPCS: 36415; 80053; 81003; 81015; 82550; 83690; 84484; 85025; 93005; 96361; 96374; 99284; J2405

== ENCOUNTER → 2021-07-16 08:31 | Outpatient (CLI) | payer MEDICARE, OTHER, SELFPAY ==
[2020-12-05 08:31] VITALS: BMI 26.4
[2021-07-16 10:31] LABS: Cholesterol 181 mg/dL (140-199); HDL Cholesterol 89 mg/dL (40-60); LDL Cholesterol Calculated 77 mg/dL (<100); Triglycerides 74 mg/dL (35-150)
== END ==
PROVIDERS: PCP Student in an Organized Health Care Education/Training Program; Referring Provider Internal Medicine Cardiovascular Disease; Visit Provider Internal Medicine Cardiovascular Disease
DX: E78.5 Hyperlipidemia, unspecified (principal)
CPT/HCPCS: 36415; 80061

== ENCOUNTER → 2022-02-20 09:37 | Outpatient (CLI) | payer MEDICARE, OTHER, SELFPAY ==
[2020-12-05 08:31] VITALS: BMI 26.4
== END ==
PROVIDERS: PCP Student in an Organized Health Care Education/Training Program; Visit Provider Nurse Practitioner Family
DX: R30.0 Dysuria (principal)
CPT/HCPCS: 87077; 87086; 87186

== ENCOUNTER → 2022-06-15 16:38 | Outpatient (CLI) | payer MEDICARE, OTHER, SELFPAY ==
[2020-12-05 08:31] VITALS: BMI 26.4
[2022-06-15 18:09] LABS: BUN Creatinine Ratio 22.4 (6-22); Blood Urea Nitrogen 19 mg/dL (7-17); Calcium 9.8 mg/dL (8.4-10.2); Carbon Dioxide 27 mmol/L (22-32); Chloride 103 mmol/L (98-107); Estimated Glomerular Filt Rate > 60 mL/min (>60); Glucose 100 mg/dL (80-110); HEMOLYSIS < 15 (0-50); Potassium 3.7 mmol/L (3.4-5.1); Sodium 141 mmol/L (137-145)
== END ==
PROVIDERS: PCP Student in an Organized Health Care Education/Training Program; Referring Provider Student in an Organized Health Care Education/Training Program; Visit Provider Student in an Organized Health Care Education/Training Program
DX: M85.80 Other specified disorders of bone density and structure, unspecified site (principal); Z79.899 Other long term (current) drug therapy
CPT/HCPCS: 36415; 80048

== ENCOUNTER → 2022-06-17 14:12 | Outpatient (CLI) | payer MEDICARE, OTHER, SELFPAY ==
[2020-12-05 08:31] VITALS: BMI 26.4
== END ==
PROVIDERS: PCP Student in an Organized Health Care Education/Training Program; Referring Provider Student in an Organized Health Care Education/Training Program; Visit Provider Student in an Organized Health Care Education/Training Program
DX: Z78.0 Asymptomatic menopausal state (principal); M81.0 Age-related osteoporosis without current pathological fracture; Z79.83 Long term (current) use of bisphosphonates
CPT/HCPCS: 77080

== ENCOUNTER → 2022-06-18 14:36 | Outpatient (CLI) | payer MEDICARE, OTHER, SELFPAY ==
[2020-12-05 08:31] VITALS: BMI 26.4
--- NOTE | 2022-06-18 | DI.MG.S_ITS ---
BILATERAL DIGITAL SCREENING MAMMOGRAM 3D/2D WITH CAD: 06/18/2022 CLINICAL: Routine screening. Comparison is made to exams dated: 04/27/2020 mammogram - [facility], 07/26/2017 mammogram, and 07/17/2015 mammogram - [facility]. There are scattered areas of fibroglandular density in both breasts (category b / 25%-50% glandular tissue). Current study was also evaluated with a Computer Aided Detection (CAD) system. No significant masses, calcifications, or other findings are seen in either breast. There has been no significant interval change. IMPRESSION: NEGATIVE There is no mammographic evidence of malignancy. A 1 year screening mammogram is recommended. Based on the Tyrer Cuzick model (a risk assessment model) the patient's lifetime risk is 5.4% and her 10 year risk is 3.0%. According to the ACR, ACS, and NCCN guidelines, an annual breast MRI exam along with mammogram is recommended if the patient's lifetime risk is 20% or greater. This exam was interpreted at Station ID: [id number]. NOTE: For mammograms, a report in lay terms will be sent to the patient. Approximately 15% of breast malignancies will not be visualized mammographically. In the management of a palpable breast mass, a negative mammogram must not discourage biopsy of a clinically suspicious lesion. Electronically Signed By: Ernst Go M.D., jr/harmeet:06/23/2022 09:07:45 letter sent: Normal Exam ACR BI-RADS Category 1: Negative 3341F
== END ==
PROVIDERS: PCP Student in an Organized Health Care Education/Training Program; Referring Provider Student in an Organized Health Care Education/Training Program; Visit Provider Student in an Organized Health Care Education/Training Program
DX: Z12.31 Encounter for screening mammogram for malignant neoplasm of breast (principal)
CPT/HCPCS: 77063; 77067

== ENCOUNTER → 2022-06-30 10:25 | Outpatient (CLI) | payer MEDICARE, OTHER, SELFPAY ==
[2020-12-05 08:31] VITALS: BMI 26.4
== END ==
PROVIDERS: PCP Student in an Organized Health Care Education/Training Program; Visit Provider Physician Assistant Medical
DX: R30.0 Dysuria (principal)
CPT/HCPCS: 87077; 87086; 87186

== ENCOUNTER → 2022-08-11 11:21 | Outpatient (CLI) | payer MEDICARE, OTHER, SELFPAY ==
[2020-12-05 08:31] VITALS: BMI 26.4
[2022-08-11 12:14] LABS: COVID19 -Nasal RAPID Negative (Negative)
== END ==
PROVIDERS: PCP Student in an Organized Health Care Education/Training Program; Visit Provider Surgery
DX: Z20.822 Contact with and (suspected) exposure to COVID-19 (principal); Z01.812 Encounter for preprocedural laboratory examination
CPT/HCPCS: 87635; C9803

== ENCOUNTER 2022-08-12 06:42 | Day surgery (SDC) | payer MEDICARE, OTHER, SELFPAY ==
[2020-12-05 08:31] VITALS: BMI 26.4
[2022-08-12 07:28] VITALS: BP 132/89; PULSE 75; RESP 20; TEMP 36.7; O2SAT 97; BMI 27.3
[2022-08-12] MEDS: LACTATED RINGERS 1,000 ML 150 ML IV (07:35)
--- NOTE | 2022-08-12 07:36 | PM.HP.1 ---
History of Present Illness History of Present Illness Date Patient Seen: 08/12/22 Time Patient Seen: 07:36 Chief complaint: SCREENING COLONOSCOPY W/POSS BX Narrative: colon cancer screening, no family history or current symptoms of concern Patient History Medical History Cholelithiasis Gallstone pancreatitis Insomnia due to medical condition Obstructive sleep apnea Snoring Surgical History S/P cholecystectomy Family & Social History Family History Father Bladder cancer Mother Lung cancer Social History: household members spouse Tobacco & Substance use: Smoking Status Never smoker alcohol intake current alcohol intake frequency a few times a week Substance Use Type does not use Meds Home Medications and Allergies Home Medications Medication Instructions Recorded Confirmed Type multivitamin 1 tab PO DAILY 07/04/19 08/12/22 History rosuvastatin 5 mg tablet 2.5 mg PO DAILY 06/27/20 06/30/22 History fluoxetine 20 mg capsule 20 mg PO DAILY #90 caps 03/01/21 08/12/22 Rx omeprazole 20 mg capsule,delayed 20 mg PO DAILY 08/19/21 08/12/22 History release alendronate 70 mg tablet 70 mg PO QWEEK #12 tabs 06/29/22 08/12/22 Rx Allergies Allergy/AdvReac Type Severity Reaction Status Date / Time No Known Drug Allergies Allergy Verified 08/12/22 07:23 Review of Systems Review of Systems ROS: Yes All systems reviewed with the patient and are negative except as otherwise documented Exam Vital Signs (past 8 hours): - 08/12/22 07:28 Temperature 98.1 F Pulse Rate 75 Respiratory Rate 20 Blood Pressure 132/89 Pulse Oximetry 97 Oxygen Delivery Method Room Air Oxygen Delivery Method Room Air Const General: cooperative and healthy appearing [facility] Head: normocephalic and atraumatic Eyes General: appearance normal, both eyes and all related structures Sclera: sclerae normal Neck Neck: trachea midline Chest Chest: normal inspection of the chest Resp Effort & Inspection: normal respiratory effort and able to speak in complete sentences Cardio Rate: regular rate Rhythm: regular rhythm GI Palpation: soft Skin General: no rashes or lesions noted Neuro General: patient alert and patient awake Extrem General: normal to inspection Psych Appearance: grossly normal Mental Status: mental status grossly normal Affect: normal affect Assessment & Plan Assessment & Plan narrative: colon cancer screening using colonoscopy under MAC COVID-19 COVID-19 status: Negative Time Spent With Patient Time with patient: less than 30 minutes Critical Care time: I spent a total of [] minutes of critical care time on this patient's care today; this time is exclusive of procedural time.
--- NOTE | 2022-08-12 08:04 | PM.OP.COLON ---
Operative Date/Time/Diagnoses Date of procedure: 08/12/22 Time of procedure: 08:04 Pre-op diagnosis: Colon cancer screening Post-op diagnosis: same Procedure & Clinicians Study performed: Colonoscopy with MAC Same procedure as scheduled: Yes Indications: Colon cancer screening Surgeon: Sarah Peterson Procedure Notes Procedure in detail: Preop diagnosis: Colon cancer screening Postop diagnosis: Same Operative procedure: Colonoscopy under MAC Surgeon: Carmen Peterson MD Findings: Scant small diverticula in the descending colon otherwise normal exam Procedure: Patient placed in lateral position. Rectal exam performed showing normal tone no masses. Colonoscope inserted into the rectum and advanced to ileocecal valve with minimal difficulty. Insufflation and extraction of the scope and the above findings including a retroflex in the rectum. Impression: Scant small diverticuli of the descending colon, no polyps Plan: Repeat colonoscopy in 10 years unless otherwise indicated by change in clinical condition Findings: divertiulosis Specimen(s): none sent Complications: none Post-procedure Recommendations: Colonoscopy in 10 years Follow up: as needed Disposition: PACU
[2022-08-12 08:08] VITALS: BP 98/47; PULSE 68; RESP 18; TEMP 36.7; O2SAT 96
[2022-08-12 08:11] VITALS: BP 102/70; PULSE 68; RESP 17; O2SAT 96
[2022-08-12 08:12] VITALS: BP 95/67; PULSE 67; RESP 21; O2SAT 97
[2022-08-12 08:18] VITALS: BP 122/73; PULSE 67; RESP 14; O2SAT 95
[2022-08-12 08:25] VITALS: BP 129/83; PULSE 68; RESP 16; TEMP 36.6; O2SAT 98
== END 2022-08-12 08:26 | disposition home or self-care (01) ==
PROVIDERS: PCP Student in an Organized Health Care Education/Training Program; Referring Provider Surgery; Visit Provider Surgery
PROC: 0DJD8ZZ Inspection of Lower Intestinal Tract, Via Natural or Artificial Opening Endoscopic (ICD-10-PCS; CPT 45378; principal; 2022-08-12 07:45)
DX: Z12.11 Encounter for screening for malignant neoplasm of colon (principal); K57.30 Diverticulosis of large intestine without perforation or abscess without bleeding
CPT/HCPCS: G0121; J2704

== ENCOUNTER → 2022-11-02 15:24 | Outpatient (CLI) | payer MEDICARE, OTHER, SELFPAY ==
[2020-12-05 08:31] VITALS: BMI 26.4
== END ==
PROVIDERS: PCP Student in an Organized Health Care Education/Training Program; Visit Provider Student in an Organized Health Care Education/Training Program
DX: R30.0 Dysuria (principal)
CPT/HCPCS: 87086

== ENCOUNTER → 2022-11-10 07:08 | Outpatient (CLI) | payer MEDICARE, OTHER, SELFPAY ==
[2020-12-05 08:31] VITALS: BMI 26.4
[2022-11-10 07:38] LABS: Appearance Urine UA CLEAR; Bilirubin Urine UA NEGATIVE (NEGATIVE); Color Urine UA YELLOW; Glucose Urine UA NEGATIVE (Negative); Ketones Urine UA NEGATIVE (NEGATIVE); Leukocyte Esterase Urine UA 1+ (NEGATIVE); Nitrite Urine UA NEGATIVE (Negative); Occult Blood Urine UA 2+ (Negative); Protein Urine UA 1+ (Negative); Urobilinogen Urine UA 0.2 E.U./dL (0.2); pH Urine UA 6.5 (4.5-8.0)
[2022-11-10 07:44] LABS: Amorphous Sediment Urine 2+; Bacteria Urine Moderate (10-30); Culture Indicated Urine Specimen Cultured; Mucus Urine 1+ (Negative); RBC Urine 1-5/HPF (0-5/HPF); Squamous Epithelial Cell Urine 1-5 /HPF (0-5/HPF); WBC Urine 10-30/HPF (0-5/HPF)
== END ==
PROVIDERS: PCP Student in an Organized Health Care Education/Training Program; Referring Provider Student in an Organized Health Care Education/Training Program; Visit Provider Student in an Organized Health Care Education/Training Program
DX: R39.9 Unspecified symptoms and signs involving the genitourinary system (principal)
CPT/HCPCS: 81001; 87077; 87086; 87186

== ENCOUNTER → 2022-12-29 11:06 | Outpatient (CLI) | payer MEDICARE, OTHER, SELFPAY ==
[2020-12-05 08:31] VITALS: BMI 26.4
== END ==
PROVIDERS: PCP Student in an Organized Health Care Education/Training Program; Visit Provider Nurse Practitioner Family
DX: R30.0 Dysuria (principal)
CPT/HCPCS: 87086

== ENCOUNTER → 2023-04-08 13:48 | Outpatient (CLI) | payer MEDICARE, OTHER, SELFPAY ==
[2020-12-05 08:31] VITALS: BMI 26.4
--- NOTE | 2023-04-08 13:50 | DI.RAD.S_ITS ---
PROCEDURE: XR SHOULDER RT MIN 2V INDICATIONS: anterior pain x 6 mos, worse over time TECHNIQUE: 3 views of the shoulder were acquired. COMPARISON: [facility], CR, XR SHOULDER LT MIN 2V, 04/25/2019, 10:05. FINDINGS: Bones: No fractures or dislocations. No suspicious bony lesions. Visualized ribs appear intact. Moderate acromioclavicular and mild glenohumeral joint space narrowing with periarticular osteophyte formation. Soft tissues: No suspicious soft tissue calcifications. IMPRESSION: Moderate acromioclavicular mild glenohumeral joint degeneration. If pain persist with conservative management, consider cross-sectional imaging such as CT or MRI. Dictated by: Gopal Carroll [facility] Interpreted: Moises Cheung MD on 04/08/2023 at 14:49 Approved by: Moises Cheung M.D. on 04/08/2023 at 17:39
== END ==
PROVIDERS: PCP Student in an Organized Health Care Education/Training Program; Referring Provider Physician Assistant; Visit Provider Physician Assistant
DX: M19.011 Primary osteoarthritis, right shoulder (principal); M25.511 Pain in right shoulder
CPT/HCPCS: 73030

== ENCOUNTER → 2023-05-31 10:20 | Outpatient (CLI) | payer MEDICARE, OTHER, SELFPAY ==
[2020-12-05 08:31] VITALS: BMI 26.4
[2023-05-31 11:06] LABS: Hematocrit 34.6 % (36-46); Hemoglobin 11.8 g/dL (12.0-16.0); Mean Corpuscular Hemoglobin 27.6 PG (26-34); Mean Corpuscular Volume 81.3 fL (80-100); Platelet Count 251 X10^3/uL (150-400); Red Blood Cell Count 4.26 X10^6/uL (4.0-5.2); Red Cell Distribution Width 16.4 % (11.6-14.8); White Blood Cell Count 4.5 X10^3/uL (4.5-11.0)
[2023-05-31 11:24] LABS: Alanine Aminotransferase 19 IU/L (<35); Albumin 4.4 g/dL (3.5-5.0); Albumin Globulin Ratio 1.6 (1.0-2.8); Alkaline Phosphatase 43 U/L (38-126); Aspartate Aminotransferase 24 IU/L (14-36); BUN Creatinine Ratio 30.4 (6-22); Bilirubin Total 0.3 mg/dL (0.2-1.3); Blood Urea Nitrogen 17 mg/dL (7-17); Calcium 9.7 mg/dL (8.4-10.2); Carbon Dioxide 26 mmol/L (22-32); Chloride 107 mmol/L (98-107); Cholesterol 185 mg/dL (140-199); Estimated Glomerular Filt Rate > 60 mL/min (>60); Globulin 2.8 g/dL (1.7-4.1); Glucose 98 mg/dL (80-110); HDL Cholesterol 95 mg/dL (40-60); HEMOLYSIS < 15 (0-50); LDL Cholesterol Calculated 69 mg/dL (<100); Potassium 4.5 mmol/L (3.4-5.1); Sodium 139 mmol/L (137-145); Total Protein 7.2 g/dL (6.3-8.2); Triglycerides 106 mg/dL (35-150)
[2023-05-31 11:28] LABS: HEMOLYSIS < 15 (0-50); Iron 53 ug/dL (37-170)
[2023-05-31 11:40] LABS: Percent Iron Saturation 11 % (15-50); Total Iron Binding Capacity 478 ug/dL (265-497); Transferrin 377 mg/dL (206-381)
[2023-05-31 11:57] LABS: Ferritin 7 ng/mL (11-264)
[2023-05-31 12:00] LABS: TSH w/ Reflex to FT4 2.77 uIU/mL (0.47-4.68)
== END ==
PROVIDERS: Family Provider Internal Medicine; PCP Internal Medicine; Referring Provider Internal Medicine; Visit Provider Internal Medicine
DX: D50.9 Iron deficiency anemia, unspecified (principal); E78.2 Mixed hyperlipidemia; M81.0 Age-related osteoporosis without current pathological fracture
CPT/HCPCS: 36415; 80053; 80061; 82728; 83540; 83550; 84443; 85027

== ENCOUNTER → 2023-07-19 09:50 | Outpatient (CLI) | payer MEDICARE, OTHER, SELFPAY ==
[2020-12-05 08:31] VITALS: BMI 26.4
[2023-07-19 11:07] LABS: BUN Creatinine Ratio 37.5 (6-22); Blood Urea Nitrogen 21 mg/dL (7-17); Calcium 9.7 mg/dL (8.4-10.2); Carbon Dioxide 29 mmol/L (22-32); Chloride 103 mmol/L (98-107); Estimated Glomerular Filt Rate > 60 mL/min (>60); Glucose 91 mg/dL (80-110); HEMOLYSIS < 15 (0-50); Potassium 4.6 mmol/L (3.4-5.1); Sodium 137 mmol/L (137-145)
== END ==
PROVIDERS: Family Provider Internal Medicine; PCP Internal Medicine; Referring Provider Specialist; Visit Provider Specialist
DX: R31.9 Hematuria, unspecified (principal)
CPT/HCPCS: 36415; 80048

== ENCOUNTER → 2023-07-21 08:10 | Outpatient (CLI) | payer MEDICARE, OTHER, SELFPAY ==
[2020-12-05 08:31] VITALS: BMI 26.4
--- NOTE | 2023-07-21 08:11 | DI.CT.S_ITS ---
PROCEDURE: CT IVP A/P W/WO INDICATIONS: hematuria TECHNIQUE: Optional 5 mm thick noncontrast images acquired from the diaphragm to the symphysis pubis. After the administration of intravenous contrast, 5 mm thick images acquired from the diaphragm to the symphysis pubis after a 10-minute delay. 2 mm thick coronal and sagittal reformats were then performed of the kidneys and ureters. For radiation dose reduction, the following was used: automated exposure control, adjustment of mA and/or kV according to patient size. COMPARISON: [facility], CT, CT ABDOMEN PELVIS W CON, 07/04/2018, 8:04. FINDINGS: Image quality: Excellent. Lung bases: Lung bases are clear. Heart size is normal. Urinary system: Both kidneys are normal in size, without hydronephrosis or nephrolithiasis on pre-contrast images. Small peripelvic cysts bilaterally. No perinephric fat stranding. There is normal bilateral renal enhancement. Renal calyces appear normal in morphology when filled with contrast. Opacified portions of both ureters demonstrate normal caliber. Bladder wall thickness is normal. No calcified bladder stones. Other solid organs: Liver is normal in size and enhancement. Small benign cyst Gallbladder is absent. Biliary system is non dilated. Pancreas enhances normally. Calcification near the tail the pancreas is unchanged since 2018. Spleen is normal in size and enhancement. No adrenal nodules. Peritoneum and bowel: Bowel loops demonstrate normal wall thickness and caliber. A few diverticuli. Normal appendix. No free fluid or air. Nodes and vessels: No retroperitoneal or mesenteric adenopathy by size criteria. Aorta and inferior vena cava are normal in size. Abdominal wall: No ventral hernias. Pelvis: No pathologic free pelvic fluid. Anteverted uterus. No inguinal hernias or adenopathy. Bones: No suspicious bony lesions. No vertebral body compression fractures. IMPRESSION: 1. No kidney stones. No hydronephrosis. 2. No solid renal mass. 3. No upper urinary tract filling defect. Dictated by: Ming Lazo M.D. on 07/21/2023 at 9:48 Approved by: Ming Lazo M.D. on 07/21/2023 at 9:59
== END ==
PROVIDERS: Family Provider Internal Medicine; PCP Internal Medicine; Referring Provider Specialist; Visit Provider Specialist
DX: R31.9 Hematuria, unspecified (principal)
CPT/HCPCS: 74178; Q9967

== ENCOUNTER → 2023-08-18 17:15 | Outpatient (CLI) | payer MEDICARE, OTHER, SELFPAY ==
[2020-12-05 08:31] VITALS: BMI 26.4
--- NOTE | 2023-08-18 | DI.MG.S_ITS ---
BILATERAL DIGITAL SCREENING MAMMOGRAM 3D/2D WITH CAD: 08/18/2023 CLINICAL: Routine screening. Comparison is made to exams dated: 06/18/2022 mammogram, 04/27/2020 mammogram - [facility], and 07/26/2017 mammogram - [facility]. There are scattered areas of fibroglandular density in both breasts (category b / 25%-50% glandular tissue). Current study was also evaluated with a Computer Aided Detection (CAD) system. No significant masses, calcifications, or other findings are seen in either breast. IMPRESSION: NEGATIVE There is no mammographic evidence of malignancy. A 1 year screening mammogram is recommended. Based on the Tyrer Cuzick model (a risk assessment model) the patient's lifetime risk is 5.1% and her 10 year risk is 3.0%. According to the ACR, ACS, and NCCN guidelines, an annual breast MRI exam along with mammogram is recommended if the patient's lifetime risk is 20% or greater. This exam was interpreted at Station ID: [id number]. NOTE: For mammograms, a report in lay terms will be sent to the patient. Approximately 15% of breast malignancies will not be visualized mammographically. In the management of a palpable breast mass, a negative mammogram must not discourage biopsy of a clinically suspicious lesion. Electronically Signed By: Sharon Reynolds M.D., PH.D ruby/harmeet:08/19/2023 14:30:06 letter sent: Normal Exam ACR BI-RADS Category 1: Negative [id number]
== END ==
PROVIDERS: Family Provider Internal Medicine; PCP Internal Medicine; Referring Provider Internal Medicine; Visit Provider Internal Medicine
DX: Z12.31 Encounter for screening mammogram for malignant neoplasm of breast (principal)
CPT/HCPCS: 77063; 77067

== ENCOUNTER → 2023-09-13 10:49 | Outpatient (CLI) | payer MEDICARE, OTHER, SELFPAY ==
[2020-12-05 08:31] VITALS: BMI 26.4
[2023-09-13 11:15] LABS: Hematocrit 39.1 % (36-46); Hemoglobin 13.5 g/dL (12.0-16.0); Mean Corpuscular HGB Conc 34.6 % (30-36); Mean Corpuscular Hemoglobin 31.4 PG (26-34); Mean Corpuscular Volume 90.8 fL (80-100); Platelet Count 262 X10^3/uL (150-400); Red Blood Cell Count 4.31 X10^6/uL (4.0-5.2); Red Cell Distribution Width 14.3 % (11.6-14.8); White Blood Cell Count 6.6 X10^3/uL (4.5-11.0)
[2023-09-13 11:54] LABS: HEMOLYSIS < 15 (0-50); Iron 111 ug/dL (37-170)
[2023-09-13 12:06] LABS: Percent Iron Saturation 31 % (15-50); Total Iron Binding Capacity 363 ug/dL (265-497); Transferrin 326 mg/dL (206-381)
[2023-09-13 12:31] LABS: Ferritin 23 ng/mL (11-264)
== END ==
PROVIDERS: Family Provider Internal Medicine; PCP Internal Medicine; Referring Provider Internal Medicine; Visit Provider Internal Medicine
DX: D50.9 Iron deficiency anemia, unspecified (principal)
CPT/HCPCS: 36415; 82728; 83540; 83550; 85027

== ENCOUNTER 2023-09-15 11:15 | Outpatient (RCR) | payer MEDICARE, OTHER, SELFPAY ==
[2020-12-05 08:31] VITALS: BMI 26.4
--- NOTE | 2023-06-09 10:55 | PT.OIE ---
Current Diagnoses Pain in right shoulder (06/09/23) Impingement syndrome of right shoulder (06/09/23) Other enthesopathies, not elsewhere classified (06/09/23) Abnormal posture (06/09/23) Past Medical History (Last Updated 05/31/23 @ 09:56 by Joce Wu MD) Age-related osteoporosis without current pathological fracture Allergic rhinitis Depression, major, recurrent GERD without esophagitis Iron deficiency anemia Menopausal syndrome Mixed hyperlipidemia Obstructive sleep apnea Postmenopausal atrophic vaginitis Recurrent UTI Snoring Past Surgical History (Last Reviewed 05/31/23 @ 05:59 by oJce Wu MD) S/P cholecystectomy Visit Care Team Role Provider Type Joce Wu MD Family Provider Physician Primary Care Provider Specialty: Internal Medicine Address: [address] [place] [address], [facility] Email: [email or web address] Sara Mendoza PA-C Attending Provider Advanced Hose Handler Referring Provider Specialty: Medical Wound Care Address: [address] [place] [address], [id number] Email: [email or web address] Physical Therapy Initial Evaluation PT-OP-A Visit Information Start: 06/09/23 08:57 Freq: Status: Active Protocol: Document 06/09/23 09:30 SAK (Rec: 06/09/23 10:52 [facility] [id number]) Out-Patient Physical Therapy Visit Information Visit Information Visit Type Initial Evaluation Visit Start Time 09:30 Visit Stop Time 10:20 Total Visit Minutes 50 Visit Number 1 Evaluation Information Evaluation Date 06/09/23 PT-OP-B Current Condition Start: 06/09/23 08:57 Freq: Status: Active Protocol: Document 06/09/23 09:30 SAK (Rec: 06/09/23 10:52 [facility] [id number]) Current Condition History of Current Condition Onset Date 3+ months Current Complaints right shoulder pain History of Current Condition Gradual onset right shoulder pain, no known reason. Bothers her with reaching out to side and overhead and behind her back. Difficulty sleeping due to pain. Occasional pins and needles. History torn rotator cuff 2020 left with injection, min pain at this time. Yesterday 30 min on elliptical plus rowing machine. Doing prior rotator cuff ex: bands, counter stretch. Right handed. Occasional use of ice or heat. Prior Treatments and Tests x-ray Apr 07: moderate AC arthritis, mild GH arthritis Future Testing and Treatments Planned CT or MRI if PT not helpful Treatment Goals Patient/Caregiver Goals regain pain-free use right shoulder PT-OP-C Subjective Start: 06/09/23 08:57 Freq: Status: Active Protocol: Document 06/09/23 09:30 SAK (Rec: 06/09/23 10:52 [facility] [id number]) OP-PT Pain Assessment Location right shoulder Pain Location Details right shoulder (see pain chart ) Intensity 8 Description Aching,Pinching,Tender,With Movement Frequency Frequent Pain Aggravating Factors Position,Activity Pain Alleviating Factors Inactivity Home Pain Medication Use Pain Medications Used No PT-OP-F Manual Assessment Start: 06/09/23 08:57 Freq: Status: Active Protocol: Document 06/09/23 09:30 SAK (Rec: 06/09/23 10:52 [facility] [id number]) Manual Assessments Joint Mobility Assessment Joint Mobility Assessment WNL except right shoulder distraction and right AC sup> inf PT-OP-H Neuro Start: 06/09/23 08:57 Freq: Status: Active Protocol: Document 06/09/23 09:30 SAK (Rec: 06/09/23 10:52 [facility] [id number]) Sensation Evaluation Gross Sensation Gross Sensation Right UE Impaired Sensation Description [employer] [place] PT-OP-J Posture/Palpation/Skin Start: 06/09/23 08:57 Freq: Status: Active Protocol: Document 06/09/23 09:30 SAK (Rec: 06/09/23 10:52 [facility] [id number]) Posture Evaluation Position Sitting Head/C-Spine Posture Forward Head Shoulder Posture (L) Rounded,(R) Rounded,(R) Forward Scapula Posture (R) Protracted Arm Posture (L) Internally Rotated,(R) Internally Rotated Palpation Assessment Location right RC Palpation Location insertion Palpation Findings Tenderness PT-OP-K Range of Motion Start: 06/09/23 08:57 Freq: Status: Active Protocol: Document 06/09/23 09:30 SAK (Rec: 06/09/23 10:52 [facility] [id number]) Cervical Spine Range of Motion Cervical Spine Active Testing Position Sitting Rotation Left 25 Rotation Right 35 Lateral Flexion Left 30 Lateral Flexion Right 35 ROM Limitations Soft Tissue Tightness Shoulder Goniometric Range of Motion Shoulder Right Testing Position Sitting Flexion 155 Extension 15 Abduction 160 External Rotation at 45 degrees 80 Abduction Internal Rotation 65 Left Shoulder ROM WFL Yes Shoulder ROM Limitations Shoulder ROM Limitations Soft Tissue Tightness,Pain Elbow/Forearm Range of Motion Elbow/Forearm dylon Elbow/Forearm ROM WFL Yes PT-OP-L Special Tests Start: 06/09/23 08:57 Freq: Status: Active Protocol: Document 06/09/23 09:30 [facility] (Rec: 06/09/23 10:52 [facility] [id number]) Special Tests Shoulder Special Tests Watt Eugene Impingement Test Results positive Neer Impingement Test Results positive Drop Arm Rotator Cuff Test Results negative PT-OP-M Strength Start: 06/09/23 08:57 Freq: Status: Active Protocol: Document 06/09/23 09:30 SAK (Rec: 06/09/23 10:52 [facility] [id number]) Shoulder Strength Shoulder Manual Muscle Testing Right Flexion 4+ Good+ Extension 5 Normal Abduction (C5) 4+ Good+ Adduction 4+ Good+ External Rotation 4 Good Internal Rotation 4+ Good+ Comments ER limited by pain Left Flexion 5 Normal Extension 5 Normal Abduction (C5) 5 Normal Adduction 5 Normal External Rotation 5 Normal Internal Rotation 5 Normal Horizontal Abduction 5 Normal Horizontal Adduction 5 Normal Elbow/Forearm Strength Elbow and Forearm Manual Muscle Testing dylon Flexion (C6) 5 Normal Extension (C7) 5 Normal PT-OP-Q Treatments Start: 06/09/23 08:57 Freq: Status: Active Protocol: Document 06/09/23 09:30 [facility] (Rec: 06/09/23 10:52 [facility] [id number]) Self-Care/Home Management Treatment Education Patient Education Home Exercise Program,Pain Management,Posture Other Education issued written HO PT-OP-R Modalities Start: 06/09/23 08:57 Freq: Status: Active Protocol: Document 06/09/23 09:30 SAK (Rec: 06/09/23 10:52 [facility] [id number]) Hot Pack/Cold Pack Treatment Cold Pack Location right shoulder Patient Position Hooklying Treatment Duration (minutes) 10 Patient Tolerance Good PT-OP-T Assessment and Plan Start: 06/09/23 08:57 Freq: Status: Active Protocol: Document 06/09/23 09:30 SAK (Rec: 06/09/23 10:52 [facility] [id number]) Physical Therapy Assessment Goals Three Impairment postural impairment Impairment habitual activities and postures impacting right shoulder health Short Term Goal (STG) Patient to be instructed in postural correction activities and exercises STG Duration 06/30/23 Platform Inspector Goal (LTG) Patient will be able to self- identify activities and postioning which contribute to her shoulder dysfunction and demonstrate independent ability to self-correct and will be independent and compliant with HEP. LTG Duration 07/24/23 Two Impairment activity tolerance Impairment Quickdash UE disability index score 27% Short Term Goal (STG) Decrease score to no greater than 17% STG Duration 06/30/23 Platform Inspector Goal (LTG) Decrease Quickdash score to no greater than 10% as measure of improved right shoulder activity tolerance LTG Duration 07/24/23 One Impairment R shoulder pain as high as 8/ 10 Impairment increases with reaching overhead and behind her back. Interrupts her sleep Short Term Goal (STG) Patient to report 50% reduction in pain with all activities STG Duration 06/30/23 [facility] Goal (LTG) Patient to sleep without being woken due to right shoulder pain and will be able to reach overhead and behind her back without pain LTG Duration 07/24/23 Assessment Summary Assessment Patient presents to PT with function-limiting right shoulder pain of gradual onset . THe pain increases with reaching overhead, behind her back and interrupts her sleep. X-ray shows moderate AC joint arthritis and mild GH joint tightness; signs and symptoms consistent with this. Rotator cuff testing negative. Positive impingement signs. Decreased mobility right AC and GH distraction. I feel habitual posture and activities with right UE are highly contributory and patient educated in postural correction with exercises to support this as well as instruction in modification of activities and frequent change in position with postural correction. Patient demonstrated good understanding . We discussed POC and she was in agreement. Physical Therapy Plan Frequency and Duration Frequency of Treatment 2x/Week Duration of treatment (weeks) 6 Plan of Care Start Date 06/09/23 Plan of Care End Date 07/24/23 Therapeutic Interventions Therapeutic Interventions Home Exercise Program,Joint Mobilizations,Manual Therapy, Patient/Caregiver Education, Self-Care/Home Management,Soft Tissue Mobilization,Taping, Therapeutic Activities, Therapeutic Exercises Modalities Cold Pack/Ice Massage,Electric Stimulation,Hot Packs, Infrared Therapy,Iontophoresis ,Ultrasound Next Visit Focus/Plan Next Note Type Treatment Note Next Visit Plan Review HEP, gentle AC and GH joint mobs. Consider modalites and KT tape as indicated.
--- NOTE | 2023-06-09 10:55 | PT.OPPOC ---
Physical, Occupational & Speech Therapy At [facility] Current Diagnoses Pain in right shoulder (06/09/23) Impingement syndrome of right shoulder (06/09/23) Other enthesopathies, not elsewhere classified (06/09/23) Abnormal posture (06/09/23) Visit Care Team Role Provider Type Joce Wu MD Family Provider Physician Primary Care Provider Specialty: Internal Medicine Address: [address] [place] [address], [phone] Email: [email or web address] Sara Mendoza PA-C Attending Provider Advanced Stator Connector Referring Provider Specialty: Medical Wound Care Address: [address] [place] [address], [address] Email: [email or web address] Plan Of Care PT-OP-T Assessment and Plan Start: 06/09/23 08:57 Freq: Status: Active Protocol: Document 06/09/23 09:30 SAK (Rec: 06/09/23 10:52 [facility] [id number]) Physical Therapy Assessment Goals Three Impairment postural impairment Impairment habitual activities and postures impacting right shoulder health Short Term Goal (STG) Patient to be instructed in postural correction activities and exercises STG Duration 06/30/23 Half-Way Goal (LTG) Patient will be able to self- identify activities and postioning which contribute to her shoulder dysfunction and demonstrate independent ability to self-correct and will be independent and compliant with HEP. LTG Duration 07/24/23 Two Impairment activity tolerance Impairment Quickdash UE disability index score 27% Short Term Goal (STG) Decrease score to no greater than 17% STG Duration 06/30/23 Electrical Construction Project Manager Goal (LTG) Decrease Quickdash score to no greater than 10% as measure of improved right shoulder activity tolerance LTG Duration 07/24/23 One Impairment R shoulder pain as high as 8/ 10 Impairment increases with reaching overhead and behind her back. Interrupts her sleep Short Term Goal (STG) Patient to report 50% reduction in pain with all activities STG Duration 06/30/23 Electrical Construction Project Manager Goal (LTG) Patient to sleep without being woken due to right shoulder pain and will be able to reach overhead and behind her back without pain LTG Duration 07/24/23 Assessment Summary Assessment Patient presents to PT with function-limiting right shoulder pain of gradual onset . THe pain increases with reaching overhead, behind her back and interrupts her sleep. X-ray shows moderate AC joint arthritis and mild GH joint tightness; signs and symptoms consistent with this. Rotator cuff testing negative. Positive impingement signs. Decreased mobility right AC and GH distraction. I feel habitual posture and activities with right UE are highly contributory and patient educated in postural correction with exercises to support this as well as instruction in modification of activities and frequent change in position with postural correction. Patient demonstrated good understanding . We discussed POC and she was in agreement. Physical Therapy Plan Frequency and Duration Frequency of Treatment 2x/Week Duration of treatment (weeks) 6 Plan of Care Start Date 06/09/23 Plan of Care End Date 07/24/23 Therapeutic Interventions Therapeutic Interventions Home Exercise Program,Joint Mobilizations,Manual Therapy, Patient/Caregiver Education, Self-Care/Home Management,Soft Tissue Mobilization,Taping, Therapeutic Activities, Therapeutic Exercises Modalities Cold Pack/Ice Massage,Electric Stimulation,Hot Packs, Infrared Therapy,Iontophoresis ,Ultrasound Next Visit Focus/Plan Next Note Type Treatment Note Next Visit Plan Review HEP, gentle AC and GH joint mobs. Consider modalites and KT tape as indicated. Plan of Care Dates Plan of Care Start Date 06/09/23 Plan of Care End Date 07/24/23 Electronically Signed by: Brisa Monsivais, PT 06/09/23 2591 If you are in agreement with this Plan of Care, please return a signed and dated copy. I have reviewed this Plan of Care and certify that the skilled therapy services above are required to meet the patient?s needs. Physician Signature Date Printed Name and Credentials Clinical Instructor Signature Printed Name and Credentials
--- NOTE | 2023-06-15 11:47 | PT.OTN ---
Current Diagnoses Pain in right shoulder (06/15/23) Impingement syndrome of right shoulder (06/15/23) Other enthesopathies, not elsewhere classified (06/15/23) Abnormal posture (06/15/23) Physical Therapy Treatment Note PT-OP-A Visit Information Start: 06/09/23 08:57 Freq: Status: Active Protocol: Document 06/15/23 09:32 SAK (Rec: 06/15/23 10:22 [facility] [id number]) Out-Patient Physical Therapy Visit Information Visit Information Visit Type Treatment Note Visit Start Time 09:32 Visit Stop Time 10:27 Total Visit Minutes 55 Visit Number 2 Evaluation Information Evaluation Date 06/09/23 PT-OP-B Current Condition Start: 06/09/23 08:57 Freq: Status: Active Protocol: Document 06/15/23 09:32 SAK (Rec: 06/15/23 10:22 [facility] [id number]) Current Condition History of Current Condition Onset Date 3+ months Current Complaints right shoulder pain History of Current Condition Gradual onset right shoulder pain, no known reason. Bothers her with reaching out to side and overhead and behind her back. Difficulty sleeping due to pain. Occasional pins and needles. History torn rotator cuff 2020 left with injection, min pain at this time. Yesterday 30 min on elliptical plus rowing machine. Doing prior rotator cuff ex: bands, counter stretch. Right handed. Occasional use of ice or heat. Prior Treatments and Tests x-ray Apr 07: moderate AC arthritis, mild GH arthritis Future Testing and Treatments Planned CT or MRI if PT not helpful Treatment Goals Patient/Caregiver Goals regain pain-free use right shoulder PT-OP-C Subjective Start: 06/09/23 08:57 Freq: Status: Active Protocol: Document 06/15/23 09:32 SAK (Rec: 06/15/23 10:22 [facility]AK [id number]) OP-PT Subjective Patient Comments Patient Comments Pain off and on, inc today after sleeping on her shoulder . Has ordered pulleys PT-OP-F Manual Assessment Start: 06/09/23 08:57 Freq: Status: Active Protocol: Document 06/09/23 09:30 SAK (Rec: 06/09/23 10:52 [facility] [id number]) Manual Assessments Joint Mobility Assessment Joint Mobility Assessment WNL except right shoulder distraction and right AC sup> inf PT-OP-H Neuro Start: 06/09/23 08:57 Freq: Status: Active Protocol: Document 06/09/23 09:30 [facility] (Rec: 06/09/23 10:52 [facility] [id number]) Sensation Evaluation Gross Sensation Gross Sensation Right UE Impaired Sensation Description [employer] [place] PT-OP-J Posture/Palpation/Skin Start: 06/09/23 08:57 Freq: Status: Active Protocol: Document 06/09/23 09:30 [facility] (Rec: 06/09/23 10:52 [facility] [id number]) Posture Evaluation Position Sitting Head/C-Spine Posture Forward Head Shoulder Posture (L) Rounded,(R) Rounded,(R) Forward Scapula Posture (R) Protracted Arm Posture (L) Internally Rotated,(R) Internally Rotated Palpation Assessment Location right RC Palpation Location insertion Palpation Findings Tenderness PT-OP-K Range of Motion Start: 06/09/23 08:57 Freq: Status: Active Protocol: Document 06/09/23 09:30 [facility] (Rec: 06/09/23 10:52 [facility] [id number]) Cervical Spine Range of Motion Cervical Spine Active Testing Position Sitting Rotation Left 25 Rotation Right 35 Lateral Flexion Left 30 Lateral Flexion Right 35 ROM Limitations Soft Tissue Tightness Shoulder Goniometric Range of Motion Shoulder Right Testing Position Sitting Flexion 155 Extension 15 Abduction 160 External Rotation at 45 degrees 80 Abduction Internal Rotation 65 Left Shoulder ROM WFL Yes Shoulder ROM Limitations Shoulder ROM Limitations Soft Tissue Tightness,Pain Elbow/Forearm Range of Motion Elbow/Forearm dylon Elbow/Forearm ROM WFL Yes PT-OP-L Special Tests Start: 06/09/23 08:57 Freq: Status: Active Protocol: Document 06/09/23 09:30 [facility] (Rec: 06/09/23 10:52 [facility] [id number]) Special Tests Shoulder Special Tests Watt Eugene Impingement Test Results positive Neer Impingement Test Results positive Drop Arm Rotator Cuff Test Results negative PT-OP-M Strength Start: 06/09/23 08:57 Freq: Status: Active Protocol: Document 06/09/23 09:30 [facility] (Rec: 06/09/23 10:52 [facility] [id number]) Shoulder Strength Shoulder Manual Muscle Testing Right Flexion 4+ Good+ Extension 5 Normal Abduction (C5) 4+ Good+ Adduction 4+ Good+ External Rotation 4 Good Internal Rotation 4+ Good+ Comments ER limited by pain Left Flexion 5 Normal Extension 5 Normal Abduction (C5) 5 Normal Adduction 5 Normal External Rotation 5 Normal Internal Rotation 5 Normal Horizontal Abduction 5 Normal Horizontal Adduction 5 Normal Elbow/Forearm Strength Elbow and Forearm Manual Muscle Testing dylon Flexion (C6) 5 Normal Extension (C7) 5 Normal PT-OP-Q Treatments Start: 06/09/23 08:57 Freq: Status: Active Protocol: Document 06/15/23 09:32 [facility] (Rec: 06/15/23 10:22 [facility] [id number]) Therapeutic Exercises Supine Exercises IR stretch Supine Exercise Name PROM Equipment Used towel roll Comments stab of GH joint Prone Exercises Y Prone Exercise Name over side of plinth Side right Reps/Minutes 5x Comments manual guidance of scapula I, T Prone Exercise Name over side of plinth Reps/Minutes 10x Comments verbal and tactile cues for scapular stab Sidelying Exercises shoulder ER Comments next session open book Reps/Minutes 5x Comments verbal and tactile cues for rotation throughout c/s and t/ s with UE reacha Sitting Exercises seated cat/cow Reps/Minutes 5x UT and LS stretches Reps/Minutes 2 min shoulder rolls Sitting Exercise Name dylon and unil Reps/Minutes 10x pulleys Sitting Exercise Name flex, scap Reps/Minutes 10x Comments cues for pain-free ROM, some impingments signs Standing Exercises pec stretch Reps/Minutes 2x10 Manual Therapy Treatment Soft Tissue Mobilization right shoulder Body Location biceps, deltoid, UT, rhomboids , scalenes Mobilization Type Myofascial Release,Strumming Intensity/Depth mod Comments hooklying and sidelying Joint Mobilizations GH Direction inf, long axis dist Grade III Body Position Hooklying scapula Direction prot, retra, caud,ceph Grade III Body Position Sidelying Self-Care/Home Management Treatment Education Patient Education Home Exercise Program,Pain Management,Posture PT-OP-R Modalities Start: 06/09/23 08:57 Freq: Status: Active Protocol: Document 06/15/23 09:32 [facility] (Rec: 06/15/23 11:47 [facility] [id number]) Electric Stimulation Electric Stimulation Interferential Current (IFC) Body Location right shoulder Duration (Minutes) 10 Intensity 8 Target/Sweep Sweep Patient Position Hooklying Combined With Heat/Cold Cold Pack PT-OP-T Assessment and Plan Start: 06/09/23 08:57 Freq: Status: Active Protocol: Document 06/15/23 09:32 [facility] (Rec: 06/15/23 10:22 [facility] [id number]) Physical Therapy Assessment Goals Three Impairment postural impairment Impairment habitual activities and postures impacting right shoulder health Short Term Goal (STG) Patient to be instructed in postural correction activities and exercises STG Duration 06/30/23 Linux Network Administrator Goal (LTG) Patient will be able to self- identify activities and postioning which contribute to her shoulder dysfunction and demonstrate independent ability to self-correct and will be independent and compliant with HEP. LTG Duration 07/24/23 Two Impairment activity tolerance Impairment Quickdash UE disability index score 27% Short Term Goal (STG) Decrease score to no greater than 17% STG Duration 06/30/23 Linux Network Administrator Goal (LTG) Decrease Quickdash score to no greater than 10% as measure of improved right shoulder activity tolerance LTG Duration 07/24/23 One Impairment R shoulder pain as high as 8/ 10 Impairment increases with reaching overhead and behind her back. Interrupts her sleep Short Term Goal (STG) Patient to report 50% reduction in pain with all activities STG Duration 06/30/23 Linux Network Administrator Goal (LTG) Patient to sleep without being woken due to right shoulder pain and will be able to reach overhead and behind her back without pain LTG Duration 07/24/23 Assessment Summary Assessment Patient shoulder easily exacerbated with elevation with signs and symptoms of impingement. Good sherita for other ex, all with cues for pain-free ROM, relaxed UT. Decreased soft tissue tightness and pain with manual work. Physical Therapy Plan Frequency and Duration Frequency of Treatment 2x/Week Duration of treatment (weeks) 6 Plan of Care Start Date 06/09/23 Plan of Care End Date 07/24/23 Therapeutic Interventions Therapeutic Interventions Home Exercise Program,Joint Mobilizations,Manual Therapy, Patient/Caregiver Education, Self-Care/Home Management,Soft Tissue Mobilization,Taping, Therapeutic Activities, Therapeutic Exercises Modalities Cold Pack/Ice Massage,Electric Stimulation,Hot Packs, Infrared Therapy,Iontophoresis ,Ultrasound Next Visit Focus/Plan Next Note Type Treatment Note Next Visit Plan Gentle AC mobs, cont GH mobs, progress ther ex as tolerated. Consider KT tape.
--- NOTE | 2023-06-17 11:42 | PT.OTN ---
Current Diagnoses Pain in right shoulder (06/17/23) Impingement syndrome of right shoulder (06/17/23) Other enthesopathies, not elsewhere classified (06/17/23) Abnormal posture (06/17/23) Physical Therapy Treatment Note PT-OP-A Visit Information Start: 06/09/23 08:57 Freq: Status: Active Protocol: Document 06/17/23 09:46 SAK (Rec: 06/17/23 10:29 [facility] [id number]) Out-Patient Physical Therapy Visit Information Visit Information Visit Type Treatment Note Visit Start Time 09:45 Visit Stop Time 10:40 Total Visit Minutes 55 Visit Number 3 Evaluation Information Evaluation Date 06/09/23 PT-OP-B Current Condition Start: 06/09/23 08:57 Freq: Status: Active Protocol: Document 06/17/23 09:46 SAK (Rec: 06/17/23 10:29 [facility] [id number]) Current Condition History of Current Condition Onset Date 3+ months Current Complaints right shoulder pain History of Current Condition Gradual onset right shoulder pain, no known reason. Bothers her with reaching out to side and overhead and behind her back. Difficulty sleeping due to pain. Occasional pins and needles. History torn rotator cuff 2020 left with injection, min pain at this time. Yesterday 30 min on elliptical plus rowing machine. Doing prior rotator cuff ex: bands, counter stretch. Right handed. Occasional use of ice or heat. Prior Treatments and Tests x-ray Apr 07: moderate AC arthritis, mild GH arthritis Future Testing and Treatments Planned CT or MRI if PT not helpful Treatment Goals Patient/Caregiver Goals regain pain-free use right shoulder PT-OP-C Subjective Start: 06/09/23 08:57 Freq: Status: Active Protocol: Document 06/17/23 09:46 SAK (Rec: 06/17/23 10:29 [facility] [id number]) OP-PT Subjective Patient Comments Patient Comments Has used pulleys. Was sore after last session, but not inc pain. Liked IFES and ice. PT-OP-F Manual Assessment Start: 06/09/23 08:57 Freq: Status: Active Protocol: Document 06/09/23 09:30 SAK (Rec: 06/09/23 10:52 SAK [id number]) Manual Assessments Joint Mobility Assessment Joint Mobility Assessment WNL except right shoulder distraction and right AC sup> inf PT-OP-H Neuro Start: 06/09/23 08:57 Freq: Status: Active Protocol: Document 06/09/23 09:30 SAK (Rec: 06/09/23 10:52 [facility] [id number]) Sensation Evaluation Gross Sensation Gross Sensation Right UE Impaired Sensation Description [place] PT-OP-J Posture/Palpation/Skin Start: 06/09/23 08:57 Freq: Status: Active Protocol: Document 06/09/23 09:30 SAK (Rec: 06/09/23 10:52 [facility] [id number]) Posture Evaluation Position Sitting Head/C-Spine Posture Forward Head Shoulder Posture (L) Rounded,(R) Rounded,(R) Forward Scapula Posture (R) Protracted Arm Posture (L) Internally Rotated,(R) Internally Rotated Palpation Assessment Location right RC Palpation Location insertion Palpation Findings Tenderness PT-OP-K Range of Motion Start: 06/09/23 08:57 Freq: Status: Active Protocol: Document 06/09/23 09:30 SAK (Rec: 06/09/23 10:52 [facility] [id number]) Cervical Spine Range of Motion Cervical Spine Active Testing Position Sitting Rotation Left 25 Rotation Right 35 Lateral Flexion Left 30 Lateral Flexion Right 35 ROM Limitations Soft Tissue Tightness Shoulder Goniometric Range of Motion Shoulder Right Testing Position Sitting Flexion 155 Extension 15 Abduction 160 External Rotation at 45 degrees 80 Abduction Internal Rotation 65 Left Shoulder ROM WFL Yes Shoulder ROM Limitations Shoulder ROM Limitations Soft Tissue Tightness,Pain Elbow/Forearm Range of Motion Elbow/Forearm dylon Elbow/Forearm ROM WFL Yes PT-OP-L Special Tests Start: 06/09/23 08:57 Freq: Status: Active Protocol: Document 06/09/23 09:30 [facility] (Rec: 06/09/23 10:52 [facility] [id number]) Special Tests Shoulder Special Tests Watt [place] Impingement Test Results positive Neer Impingement Test Results positive Drop Arm Rotator Cuff Test Results negative PT-OP-M Strength Start: 06/09/23 08:57 Freq: Status: Active Protocol: Document 06/09/23 09:30 SAK (Rec: 06/09/23 10:52 [facility] [id number]) Shoulder Strength Shoulder Manual Muscle Testing Right Flexion 4+ Good+ Extension 5 Normal Abduction (C5) 4+ Good+ Adduction 4+ Good+ External Rotation 4 Good Internal Rotation 4+ Good+ Comments ER limited by pain Left Flexion 5 Normal Extension 5 Normal Abduction (C5) 5 Normal Adduction 5 Normal External Rotation 5 Normal Internal Rotation 5 Normal Horizontal Abduction 5 Normal Horizontal Adduction 5 Normal Elbow/Forearm Strength Elbow and Forearm Manual Muscle Testing dylon Flexion (C6) 5 Normal Extension (C7) 5 Normal PT-OP-Q Treatments Start: 06/09/23 08:57 Freq: Status: Active Protocol: Document 06/17/23 09:46 [facility] (Rec: 06/17/23 10:29 [facility] [id number]) Therapeutic Exercises Supine Exercises shoulder flex Equipment Used foam roll Reps/Minutes 10x pec stretch Equipment Used foam roll Reps/Minutes 2x30 Comments pillows under UE serratus punch Equipment Used foam roller Reps/Minutes 10x2 Comments 2nd set with 1 lb dylon IR stretch Supine Exercise Name PROM Equipment Used towel roll Comments stab of GH joint Prone Exercises Y Prone Exercise Name over side of plinth Side right Reps/Minutes 5x Comments manual guidance of scapula I, T Prone Exercise Name over side of plinth Reps/Minutes 10x Comments verbal and tactile cues for scapular stab Sidelying Exercises shoulder ab Comments next session shoulder ER Resistance 1# Reps/Minutes 10x2 open book Reps/Minutes 5x Comments verbal and tactile cues for rotation throughout c/s and t/ s with UE reacha Sitting Exercises shoulder rolls Sitting Exercise Name dylon and unil Reps/Minutes 10x pulleys Sitting Exercise Name flex, scap Reps/Minutes 10x Comments improved ROM Other Exercises cat/cow Reps/Minutes 5x Manual Therapy Treatment Soft Tissue Mobilization right shoulder Body Location biceps, deltoid, UT, rhomboids , scalenes Mobilization Type Myofascial Release,Strumming Intensity/Depth mod Comments hooklying and sidelying Joint Mobilizations GH Direction inf, long axis dist Grade III Body Position Hooklying scapula Direction prot, retra, caud,ceph Grade III Body Position Sidelying Self-Care/Home Management Treatment Education Other Education updated HEP; added serratus punch and sidelying ER PT-OP-R Modalities Start: 06/09/23 08:57 Freq: Status: Active Protocol: Document 06/17/23 11:41 [facility] (Rec: 06/17/23 11:42 [facility] [id number]) Electric Stimulation Electric Stimulation Interferential Current (IFC) Body Location right shoulder Duration (Minutes) 9 Intensity 8 Target/Sweep Sweep Patient Position Hooklying Combined With Heat/Cold Cold Pack Iontophoresis Treatment right RC insertion Medication Amount (mL) (ml) 1.0 Medication Dosage 4mg/ml Treatment Duration (minutes) 3 PT-OP-T Assessment and Plan Start: 06/09/23 08:57 Freq: Status: Active Protocol: Document 06/17/23 09:46 SILVER (Rec: 06/17/23 10:29 [facility] [id number]) Physical Therapy Assessment Goals Three Impairment postural impairment Impairment habitual activities and postures impacting right shoulder health Short Term Goal (STG) Patient to be instructed in postural correction activities and exercises STG Duration 06/30/23 Halfway Goal (LTG) Patient will be able to self- identify activities and postioning which contribute to her shoulder dysfunction and demonstrate independent ability to self-correct and will be independent and compliant with HEP. LTG Duration 07/24/23 Two Impairment activity tolerance Impairment Quickdash UE disability index score 27% Short Term Goal (STG) Decrease score to no greater than 17% STG Duration 06/30/23 [place] Goal (LTG) Decrease Quickdash score to no greater than 10% as measure of improved right shoulder activity tolerance LTG Duration 07/24/23 One Impairment R shoulder pain as high as 8/ 10 Impairment increases with reaching overhead and behind her back. Interrupts her sleep Short Term Goal (STG) Patient to report 50% reduction in pain with all activities STG Duration 06/30/23 Halfway Goal (LTG) Patient to sleep without being woken due to right shoulder pain and will be able to reach overhead and behind her back without pain LTG Duration 07/24/23 Assessment Summary Assessment Improved ROM with elevation using pulleys today without impingement signs, though some impingement in supine shld flex. Trial iontophoresis today right shoulder. Physical Therapy Plan Frequency and Duration Frequency of Treatment 2x/Week Duration of treatment (weeks) 6 Plan of Care Start Date 06/09/23 Plan of Care End Date 07/24/23
--- NOTE | 2023-06-21 13:36 | PT.OTN ---
Current Diagnoses Pain in right shoulder (06/21/23) Impingement syndrome of right shoulder (06/21/23) Other enthesopathies, not elsewhere classified (06/21/23) Abnormal posture (06/21/23) Physical Therapy Treatment Note PT-OP-A Visit Information Start: 06/09/23 08:57 Freq: Status: Active Protocol: Document 06/21/23 11:58 NM (Rec: 06/21/23 12:14 NM [id number]) Out-Patient Physical Therapy Visit Information Visit Information Visit Type Treatment Note Visit Start Time 10:30 Visit Stop Time 11:17 Total Visit Minutes 47 Visit Number 4 Evaluation Information Evaluation Date 06/09/23 PT-OP-B Current Condition Start: 06/09/23 08:57 Freq: Status: Active Protocol: Document 06/21/23 11:58 NM (Rec: 06/21/23 12:14 NM [id number]) Current Condition History of Current Condition Onset Date 3+ months Current Complaints right shoulder pain History of Current Condition Gradual onset right shoulder pain, no known reason. Bothers her with reaching out to side and overhead and behind her back. Difficulty sleeping due to pain. Occasional pins and needles. History torn rotator cuff 2020 left with injection, min pain at this time. Yesterday 30 min on elliptical plus rowing machine. Doing prior rotator cuff ex: bands, counter stretch. Right handed. Occasional use of ice or heat. Prior Treatments and Tests x-ray Apr 07: moderate AC arthritis, mild GH arthritis Future Testing and Treatments Planned CT or MRI if PT not helpful Treatment Goals Patient/Caregiver Goals regain pain-free use right shoulder PT-OP-C Subjective Start: 06/09/23 08:57 Freq: Status: Active Protocol: Document 06/21/23 11:58 NM (Rec: 06/21/23 12:14 NM [id number]) OP-PT Subjective Patient Comments Patient Comments Pt reports she is doing well today. She has been compliant with her HEP and is using the pulleys at home. Her R shoulder is a little sore, but no pain today. PT-OP-F Manual Assessment Start: 06/09/23 08:57 Freq: Status: Active Protocol: Document 06/09/23 09:30 SAK (Rec: 06/09/23 10:52 SAK [id number]) Manual Assessments Joint Mobility Assessment Joint Mobility Assessment WNL except right shoulder distraction and right AC sup> inf PT-OP-H Neuro Start: 06/09/23 08:57 Freq: Status: Active Protocol: Document 06/09/23 09:30 [facility] (Rec: 06/09/23 10:52 [facility] [id number]) Sensation Evaluation Gross Sensation Gross Sensation Right UE Impaired Sensation Description [place] PT-OP-J Posture/Palpation/Skin Start: 06/09/23 08:57 Freq: Status: Active Protocol: Document 06/09/23 09:30 [facility] (Rec: 06/09/23 10:52 [facility] [id number]) Posture Evaluation Position Sitting Head/C-Spine Posture Forward Head Shoulder Posture (L) Rounded,(R) Rounded,(R) Forward Scapula Posture (R) Protracted Arm Posture (L) Internally Rotated,(R) Internally Rotated Palpation Assessment Location right RC Palpation Location insertion Palpation Findings Tenderness PT-OP-K Range of Motion Start: 06/09/23 08:57 Freq: Status: Active Protocol: Document 06/09/23 09:30 [facility] (Rec: 06/09/23 10:52 [facility] [id number]) Cervical Spine Range of Motion Cervical Spine Active Testing Position Sitting Rotation Left 25 Rotation Right 35 Lateral Flexion Left 30 Lateral Flexion Right 35 ROM Limitations Soft Tissue Tightness Shoulder Goniometric Range of Motion Shoulder Right Testing Position Sitting Flexion 155 Extension 15 Abduction 160 External Rotation at 45 degrees 80 Abduction Internal Rotation 65 Left Shoulder ROM WFL Yes Shoulder ROM Limitations Shoulder ROM Limitations Soft Tissue Tightness,Pain Elbow/Forearm Range of Motion Elbow/Forearm dylon Elbow/Forearm ROM WFL Yes PT-OP-L Special Tests Start: 06/09/23 08:57 Freq: Status: Active Protocol: Document 06/09/23 09:30 [facility] (Rec: 06/09/23 10:52 [facility] [id number]) Special Tests Shoulder Special Tests Watt [place] Impingement Test Results positive Neer Impingement Test Results positive Drop Arm Rotator Cuff Test Results negative PT-OP-M Strength Start: 06/09/23 08:57 Freq: Status: Active Protocol: Document 06/09/23 09:30 [facility] (Rec: 06/09/23 10:52 [facility] [id number]) Shoulder Strength Shoulder Manual Muscle Testing Right Flexion 4+ Good+ Extension 5 Normal Abduction (C5) 4+ Good+ Adduction 4+ Good+ External Rotation 4 Good Internal Rotation 4+ Good+ Comments ER limited by pain Left Flexion 5 Normal Extension 5 Normal Abduction (C5) 5 Normal Adduction 5 Normal External Rotation 5 Normal Internal Rotation 5 Normal Horizontal Abduction 5 Normal Horizontal Adduction 5 Normal Elbow/Forearm Strength Elbow and Forearm Manual Muscle Testing dylon Flexion (C6) 5 Normal Extension (C7) 5 Normal PT-OP-Q Treatments Start: 06/09/23 08:57 Freq: Status: Active Protocol: Document 06/21/23 11:58 NM (Rec: 06/21/23 12:14 NM [id number]) Therapeutic Exercises Supine Exercises shoulder flex Equipment Used foam roll Reps/Minutes 10x pec stretch Equipment Used foam roll Reps/Minutes 2x30 Comments Less ROM RUE than LUE; PT supporting R arm, L flat on table serratus punch Side bilateral Resistance 1# Reps/Minutes 10x2 Comments Initial cues for correct form; back flat on table Prone Exercises Y Prone Exercise Name over side of plinth Side right Reps/Minutes 2x10 Comments manual glide of scapula, cues for decrease upper trap compensation I, T Prone Exercise Name over side of plinth Side right Reps/Minutes 2x10 Comments verbal and tactile cues for scapular stab; second set with 1# db Sidelying Exercises sleeper stretch Side right Reps/Minutes 2x30 Comments tolerated well within pain free range shoulder ab Sidelying Exercise Name AROM Side right Reps/Minutes 10x2 Comments attempted 1# db, but unable d/ t GH pain shoulder ER Side right Resistance 1# Equipment Used towel roll under elbow Reps/Minutes 10x2 Sitting Exercises pulleys Sitting Exercise Name flex, scap Reps/Minutes 15x Comments improved ROM Standing Exercises rows Resistance blue tband Reps/Minutes 2x10 Comments cues for scap retraction, decrease upper trap involvement Manual Therapy Treatment Joint Mobilizations GH Direction inf, long axis dist Grade III Body Position Hooklying scapula Direction prot, retra, caud,ceph Grade III Body Position Sidelying PT-OP-R Modalities Start: 06/09/23 08:57 Freq: Status: Active Protocol: Document 06/17/23 11:41 SAK (Rec: 06/17/23 11:42 SAK [id number]) Electric Stimulation Electric Stimulation Interferential Current (IFC) Body Location right shoulder Duration (Minutes) 9 Intensity 8 Target/Sweep Sweep Patient Position Hooklying Combined With Heat/Cold Cold Pack Iontophoresis Treatment right RC insertion Medication Amount (mL) (ml) 1.0 Medication Dosage 4mg/ml Treatment Duration (minutes) 3 PT-OP-T Assessment and Plan Start: 06/09/23 08:57 Freq: Status: Active Protocol: Document 06/21/23 11:58 NM (Rec: 06/21/23 12:14 NM [id number]) Physical Therapy Assessment Rehab Potential Rehabilitation Potential Good Assessment Summary Assessment Pt tolerated treatment well with no increases in pain overall except during sidelying abduction. ROM improved throughout session with fewer cues needed for form or to prevent upper trap overactivation during elevation exercises. Tolerated additional strengthening and scap stabilization exercises well. Pt would benefit from continued skilled PT to address impairments in ROM, strength, and activity tolerance. Physical Therapy Plan Frequency and Duration Frequency of Treatment 2x/Week Duration of treatment (weeks) 6 Plan of Care Start Date 06/09/23 Plan of Care End Date 07/24/23 Therapeutic Interventions Therapeutic Interventions Home Exercise Program,Joint Mobilizations,Manual Therapy, Patient/Caregiver Education, Self-Care/Home Management,Soft Tissue Mobilization,Taping, Therapeutic Activities, Therapeutic Exercises Modalities Cold Pack/Ice Massage,Electric Stimulation,Hot Packs, Infrared Therapy,Iontophoresis ,Ultrasound Next Visit Focus/Plan Next Note Type Treatment Note Next Visit Plan Cont GH mob, progress exercises, continue ROM
--- NOTE | 2023-06-23 14:47 | PT.OTN ---
Current Diagnoses Pain in right shoulder (06/23/23) Impingement syndrome of right shoulder (06/23/23) Other enthesopathies, not elsewhere classified (06/23/23) Abnormal posture (06/23/23) Physical Therapy Treatment Note PT-OP-A Visit Information Start: 06/09/23 08:57 Freq: Status: Active Protocol: Document 06/23/23 08:44 SAK (Rec: 06/23/23 09:31 [facility] [id number]) Out-Patient Physical Therapy Visit Information Visit Information Visit Type Treatment Note Visit Start Time 08:44 Visit Stop Time 09:43 Total Visit Minutes 59 Visit Number 5 Evaluation Information Evaluation Date 06/09/23 PT-OP-B Current Condition Start: 06/09/23 08:57 Freq: Status: Active Protocol: Document 06/23/23 08:44 SAK (Rec: 06/23/23 09:31 [facility] [id number]) Current Condition History of Current Condition Onset Date 3+ months Current Complaints right shoulder pain History of Current Condition Gradual onset right shoulder pain, no known reason. Bothers her with reaching out to side and overhead and behind her back. Difficulty sleeping due to pain. Occasional pins and needles. History torn rotator cuff 2020 left with injection, min pain at this time. Yesterday 30 min on elliptical plus rowing machine. Doing prior rotator cuff ex: bands, counter stretch. Right handed. Occasional use of ice or heat. Prior Treatments and Tests x-ray Apr 07: moderate AC arthritis, mild GH arthritis Future Testing and Treatments Planned CT or MRI if PT not helpful Treatment Goals Patient/Caregiver Goals regain pain-free use right shoulder PT-OP-C Subjective Start: 06/09/23 08:57 Freq: Status: Active Protocol: Document 06/23/23 08:44 SAK (Rec: 06/23/23 09:31 [facility] [id number]) OP-PT Subjective Patient Comments Patient Comments Had to take Tylenol due to 1 Tylenol due to 1 vaccine in each arm. Overall feels improving. Patient Reported Progress Improving PT-OP-F Manual Assessment Start: 06/09/23 08:57 Freq: Status: Active Protocol: Document 06/09/23 09:30 SAK (Rec: 06/09/23 10:52 SAK [id number]) Manual Assessments Joint Mobility Assessment Joint Mobility Assessment WNL except right shoulder distraction and right AC sup> inf PT-OP-H Neuro Start: 06/09/23 08:57 Freq: Status: Active Protocol: Document 06/09/23 09:30 [facility] (Rec: 06/09/23 10:52 [facility] [id number]) Sensation Evaluation Gross Sensation Gross Sensation Right UE Impaired Sensation Description [place] PT-OP-J Posture/Palpation/Skin Start: 06/09/23 08:57 Freq: Status: Active Protocol: Document 06/09/23 09:30 [facility] (Rec: 06/09/23 10:52 [facility] [id number]) Posture Evaluation Position Sitting Head/C-Spine Posture Forward Head Shoulder Posture (L) Rounded,(R) Rounded,(R) Forward Scapula Posture (R) Protracted Arm Posture (L) Internally Rotated,(R) Internally Rotated Palpation Assessment Location right RC Palpation Location insertion Palpation Findings Tenderness PT-OP-K Range of Motion Start: 06/09/23 08:57 Freq: Status: Active Protocol: Document 06/09/23 09:30 [facility] (Rec: 06/09/23 10:52 [facility] [id number]) Cervical Spine Range of Motion Cervical Spine Active Testing Position Sitting Rotation Left 25 Rotation Right 35 Lateral Flexion Left 30 Lateral Flexion Right 35 ROM Limitations Soft Tissue Tightness Shoulder Goniometric Range of Motion Shoulder Right Testing Position Sitting Flexion 155 Extension 15 Abduction 160 External Rotation at 45 degrees 80 Abduction Internal Rotation 65 Left Shoulder ROM WFL Yes Shoulder ROM Limitations Shoulder ROM Limitations Soft Tissue Tightness,Pain Elbow/Forearm Range of Motion Elbow/Forearm dylon Elbow/Forearm ROM WFL Yes PT-OP-L Special Tests Start: 06/09/23 08:57 Freq: Status: Active Protocol: Document 06/09/23 09:30 [facility] (Rec: 06/09/23 10:52 [facility] [id number]) Special Tests Shoulder Special Tests Watt [place] Impingement Test Results positive Neer Impingement Test Results positive Drop Arm Rotator Cuff Test Results negative PT-OP-M Strength Start: 06/09/23 08:57 Freq: Status: Active Protocol: Document 06/09/23 09:30 SAK (Rec: 06/09/23 10:52 [facility] [id number]) Shoulder Strength Shoulder Manual Muscle Testing Right Flexion 4+ Good+ Extension 5 Normal Abduction (C5) 4+ Good+ Adduction 4+ Good+ External Rotation 4 Good Internal Rotation 4+ Good+ Comments ER limited by pain Left Flexion 5 Normal Extension 5 Normal Abduction (C5) 5 Normal Adduction 5 Normal External Rotation 5 Normal Internal Rotation 5 Normal Horizontal Abduction 5 Normal Horizontal Adduction 5 Normal Elbow/Forearm Strength Elbow and Forearm Manual Muscle Testing dylon Flexion (C6) 5 Normal Extension (C7) 5 Normal PT-OP-Q Treatments Start: 06/09/23 08:57 Freq: Status: Active Protocol: Document 06/23/23 08:44 [facility] (Rec: 06/23/23 09:31 [facility] [id number]) Therapeutic Exercises Prone Exercises Y Prone Exercise Name over side of plinth Side right Reps/Minutes 2x10 Comments manual glide of scapula, cues for decrease upper trap compensation I, T Prone Exercise Name over side of plinth Side right Reps/Minutes 2x10 Comments verbal and tactile cues for scapular stab; second set with 1# db Sidelying Exercises sleeper stretch Side right Reps/Minutes 2x30 Comments tolerated well within pain free range shoulder ab Sidelying Exercise Name AROM Side right Resistance 0 Reps/Minutes 10x2 shoulder ER Side right Resistance 1# Equipment Used towel roll under elbow Reps/Minutes 10x2 Sitting Exercises scaption Reps/Minutes 10x Comments cues for elbow unlocked, painfree ROM shoulder flex Reps/Minutes 10x Comments cues for elbow unlocked, painfree ROM shoulder ER Resistance L1 TB Reps/Minutes 10x Comments cues for pain-free intensity pulleys Sitting Exercise Name flex, scap Reps/Minutes 15x Comments improved ROM Manual Therapy Treatment Soft Tissue Mobilization right shoulder Body Location biceps, deltoid, UT, rhomboids , scalenes Mobilization Type Cross-Friction,Myofascial Release,Strumming Intensity/Depth mod Comments hooklying and sidelying Joint Mobilizations GH Direction inf, long axis dist Grade III Body Position Hooklying scapula Direction prot, retra, caud,ceph Grade III Body Position Sidelying Self-Care/Home Management Treatment Education Patient Education Posture PT-OP-R Modalities Start: 06/09/23 08:57 Freq: Status: Active Protocol: Document 06/23/23 08:44 [facility] (Rec: 06/23/23 09:31 [facility] [id number]) Iontophoresis Treatment right RC insertion Medication Amount (mL) (ml) 1.0 Medication Dosage 4mg/ml Treatment Duration (minutes) 3 PT-OP-T Assessment and Plan Start: 06/09/23 08:57 Freq: Status: Active Protocol: Document 06/23/23 08:44 SILVER (Rec: 06/23/23 09:31 SAK [id number]) Physical Therapy Assessment Goals Three Impairment postural impairment Impairment habitual activities and postures impacting right shoulder health Short Term Goal (STG) Patient to be instructed in postural correction activities and exercises STG Duration 06/30/23 Incident Response Engineer Goal (LTG) Patient will be able to self- identify activities and postioning which contribute to her shoulder dysfunction and demonstrate independent ability to self-correct and will be independent and compliant with HEP. LTG Duration 07/24/23 Two Impairment activity tolerance Impairment Quickdash UE disability index score 27% Short Term Goal (STG) Decrease score to no greater than 17% STG Duration 06/30/23 Incident Response Engineer Goal (LTG) Decrease Quickdash score to no greater than 10% as measure of improved right shoulder activity tolerance LTG Duration 07/24/23 One Impairment R shoulder pain as high as 8/ 10 Impairment increases with reaching overhead and behind her back. Interrupts her sleep Short Term Goal (STG) Patient to report 50% reduction in pain with all activities STG Duration 06/30/23 Incident Response Engineer Goal (LTG) Patient to sleep without being woken due to right shoulder pain and will be able to reach overhead and behind her back without pain LTG Duration 07/24/23 Assessment Summary Assessment Continues to progress with dec pain and improving exercise sherita, though poor sherita for long lever shoulder movement against gravity Physical Therapy Plan Frequency and Duration Frequency of Treatment 2x/Week Duration of treatment (weeks) 6 Plan of Care Start Date 06/09/23 Plan of Care End Date 07/24/23 Therapeutic Interventions Therapeutic Interventions Home Exercise Program,Joint Mobilizations,Manual Therapy, Patient/Caregiver Education, Self-Care/Home Management,Soft Tissue Mobilization,Taping, Therapeutic Activities, Therapeutic Exercises Modalities Cold Pack/Ice Massage,Electric Stimulation,Hot Packs, Infrared Therapy,Iontophoresis ,Ultrasound Next Visit Focus/Plan Next Note Type Treatment Note Next Visit Plan supine theraband ex for shoulder strengthening and stab on foam roller
--- NOTE | 2023-06-28 12:09 | PT.OTN ---
Current Diagnoses Pain in right shoulder (06/28/23) Impingement syndrome of right shoulder (06/28/23) Other enthesopathies, not elsewhere classified (06/28/23) Abnormal posture (06/28/23) Physical Therapy Treatment Note PT-OP-A Visit Information Start: 06/09/23 08:57 Freq: Status: Active Protocol: Document 06/28/23 11:16 SAK (Rec: 06/28/23 12:08 [facility] [id number]) Out-Patient Physical Therapy Visit Information Visit Information Visit Type Treatment Note Visit Start Time 11:16 Visit Stop Time 12:12 Total Visit Minutes 56 Visit Number 6 PT-OP-B Current Condition Start: 06/09/23 08:57 Freq: Status: Active Protocol: Document 06/28/23 11:16 SAK (Rec: 06/28/23 12:08 [facility] [id number]) Current Condition History of Current Condition Onset Date 3+ months Current Complaints right shoulder pain History of Current Condition Gradual onset right shoulder pain, no known reason. Bothers her with reaching out to side and overhead and behind her back. Difficulty sleeping due to pain. Occasional pins and needles. History torn rotator cuff 2020 left with injection, min pain at this time. Yesterday 30 min on elliptical plus rowing machine. Doing prior rotator cuff ex: bands, counter stretch. Right handed. Occasional use of ice or heat. Prior Treatments and Tests x-ray Apr 07: moderate AC arthritis, mild GH arthritis Future Testing and Treatments Planned CT or MRI if PT not helpful PT-OP-C Subjective Start: 06/09/23 08:57 Freq: Status: Active Protocol: Document 06/28/23 11:16 SAK (Rec: 06/28/23 12:08 [facility] [id number]) OP-PT Subjective Patient Comments Patient Comments sore today after cleaning out refrigerator, lots of reaching . Still painful to sleep on her shoulder PT-OP-F Manual Assessment Start: 06/09/23 08:57 Freq: Status: Active Protocol: Document 06/09/23 09:30 SAK (Rec: 06/09/23 10:52 SAK [id number]) Manual Assessments Joint Mobility Assessment Joint Mobility Assessment WNL except right shoulder distraction and right AC sup> inf PT-OP-H Neuro Start: 06/09/23 08:57 Freq: Status: Active Protocol: Document 06/09/23 09:30 SAK (Rec: 06/09/23 10:52 [facility] [id number]) Sensation Evaluation Gross Sensation Gross Sensation Right UE Impaired Sensation Description [place] PT-OP-J Posture/Palpation/Skin Start: 06/09/23 08:57 Freq: Status: Active Protocol: Document 06/09/23 09:30 [facility] (Rec: 06/09/23 10:52 [facility] [id number]) Posture Evaluation Position Sitting Head/C-Spine Posture Forward Head Shoulder Posture (L) Rounded,(R) Rounded,(R) Forward Scapula Posture (R) Protracted Arm Posture (L) Internally Rotated,(R) Internally Rotated Palpation Assessment Location right RC Palpation Location insertion Palpation Findings Tenderness PT-OP-K Range of Motion Start: 06/09/23 08:57 Freq: Status: Active Protocol: Document 06/09/23 09:30 [facility] (Rec: 06/09/23 10:52 [facility] [id number]) Cervical Spine Range of Motion Cervical Spine Active Testing Position Sitting Rotation Left 25 Rotation Right 35 Lateral Flexion Left 30 Lateral Flexion Right 35 ROM Limitations Soft Tissue Tightness Shoulder Goniometric Range of Motion Shoulder Right Testing Position Sitting Flexion 155 Extension 15 Abduction 160 External Rotation at 45 degrees 80 Abduction Internal Rotation 65 Left Shoulder ROM WFL Yes Shoulder ROM Limitations Shoulder ROM Limitations Soft Tissue Tightness,Pain Elbow/Forearm Range of Motion Elbow/Forearm dylon Elbow/Forearm ROM WFL Yes PT-OP-L Special Tests Start: 06/09/23 08:57 Freq: Status: Active Protocol: Document 06/09/23 09:30 [facility] (Rec: 06/09/23 10:52 [facility] [id number]) Special Tests Shoulder Special Tests Watt [place] Impingement Test Results positive Neer Impingement Test Results positive Drop Arm Rotator Cuff Test Results negative PT-OP-M Strength Start: 06/09/23 08:57 Freq: Status: Active Protocol: Document 06/09/23 09:30 [facility] (Rec: 06/09/23 10:52 [facility] [id number]) Shoulder Strength Shoulder Manual Muscle Testing Right Flexion 4+ Good+ Extension 5 Normal Abduction (C5) 4+ Good+ Adduction 4+ Good+ External Rotation 4 Good Internal Rotation 4+ Good+ Comments ER limited by pain Left Flexion 5 Normal Extension 5 Normal Abduction (C5) 5 Normal Adduction 5 Normal External Rotation 5 Normal Internal Rotation 5 Normal Horizontal Abduction 5 Normal Horizontal Adduction 5 Normal Elbow/Forearm Strength Elbow and Forearm Manual Muscle Testing dylon Flexion (C6) 5 Normal Extension (C7) 5 Normal PT-OP-Q Treatments Start: 06/09/23 08:57 Freq: Status: Active Protocol: Document 06/28/23 11:16 [facility] (Rec: 06/28/23 12:08 [facility] [id number]) Therapeutic Exercises Supine Exercises posterior capsule stretch Side bilateral Reps/Minutes 2x10 shoulder ER/IR Equipment Used towel roll Reps/Minutes 10x2 Comments cues for painfree ROM hor ab Resistance L1 TB Reps/Minutes 10x shoulder flex Supine Exercise Name Y Resistance L1 TB Reps/Minutes 10x IR stretch Supine Exercise Name AAROM > AROM Equipment Used towel roll Comments stab of GH joint Manual Therapy Treatment Soft Tissue Mobilization right shoulder Body Location biceps, deltoid, UT, rhomboids , scalenes Mobilization Type Cross-Friction,Myofascial Release,Strumming Intensity/Depth mod Comments hooklying and sidelying Joint Mobilizations GH Direction inf, long axis dist Grade III Body Position Hooklying scapula Direction prot, retra, caud,ceph Grade III Body Position Sidelying PT-OP-R Modalities Start: 06/09/23 08:57 Freq: Status: Active Protocol: Document 06/28/23 11:16 [facility] (Rec: 06/28/23 12:08 [facility] [id number]) Electric Stimulation Electric Stimulation Interferential Current (IFC) Body Location right shoulder Duration (Minutes) 10 Intensity 10 Target/Sweep Sweep Patient Position Hooklying Combined With Heat/Cold Cold Pack Infrared Treatment Treatment GH Duration (Minutes) 6 Body Position Sitting Continuous/Pulsed cont Program or Protocal chronic muscle tendon pain Iontophoresis Treatment right RC insertion Medication Amount (mL) (ml) 1.0 Medication Dosage 4mg/ml Treatment Duration (minutes) 3 PT-OP-T Assessment and Plan Start: 06/09/23 08:57 Freq: Status: Active Protocol: Document 06/28/23 11:16 [facility] (Rec: 06/28/23 12:08 [facility] [id number]) Physical Therapy Assessment Goals Three Impairment postural impairment Impairment habitual activities and postures impacting right shoulder health Short Term Goal (STG) Patient to be instructed in postural correction activities and exercises STG Duration 06/30/23 Neuro Intensivist Physician Goal (LTG) Patient will be able to self- identify activities and postioning which contribute to her shoulder dysfunction and demonstrate independent ability to self-correct and will be independent and compliant with HEP. LTG Duration 07/24/23 Two Impairment activity tolerance Impairment Quickdash UE disability index score 27% Short Term Goal (STG) Decrease score to no greater than 17% STG Duration 06/30/23 Neuro Intensivist Physician Goal (LTG) Decrease Quickdash score to no greater than 10% as measure of improved right shoulder activity tolerance LTG Duration 07/24/23 One Impairment R shoulder pain as high as 8/ 10 Impairment increases with reaching overhead and behind her back. Interrupts her sleep Short Term Goal (STG) Patient to report 50% reduction in pain with all activities STG Duration 06/30/23 Residential Goal (LTG) Patient to sleep without being woken due to right shoulder pain and will be able to reach overhead and behind her back without pain LTG Duration 07/24/23 Assessment Summary Assessment Patient reported dec pain end of session. Reviewed need to identify habitual postures or movements contributing to her pain. DIscussed bed and chair positioning for optimal shoulder health. Physical Therapy Plan Frequency and Duration Frequency of Treatment 2x/Week Duration of treatment (weeks) 6 Plan of Care Start Date 06/09/23 Plan of Care End Date 07/24/23 Therapeutic Interventions Therapeutic Interventions Home Exercise Program,Joint Mobilizations,Manual Therapy, Patient/Caregiver Education, Self-Care/Home Management,Soft Tissue Mobilization,Taping, Therapeutic Activities, Therapeutic Exercises Modalities Cold Pack/Ice Massage,Electric Stimulation,Hot Packs, Infrared Therapy,Iontophoresis ,Ultrasound Next Visit Focus/Plan Next Note Type Treatment Note Next Visit Plan Evaluate response to last session. Consider KT tape.
--- NOTE | 2023-07-02 09:00 | PT.OTN ---
Current Diagnoses Pain in right shoulder (07/02/23) Impingement syndrome of right shoulder (07/02/23) Other enthesopathies, not elsewhere classified (07/02/23) Abnormal posture (07/02/23) Physical Therapy Treatment Note PT-OP-A Visit Information Start: 06/09/23 08:57 Freq: Status: Active Protocol: Document 07/02/23 08:17 SP (Rec: 07/02/23 09:12 SP [id number]) Out-Patient Physical Therapy Visit Information Visit Information Visit Type Treatment Note Visit Start Time 08:17 Visit Stop Time 09:00 Total Visit Minutes 42 Visit Number 7 Number of [employer] HELPER Visits 1 Evaluation Information Evaluation Date 06/09/23 PT-OP-B Current Condition Start: 06/09/23 08:57 Freq: Status: Active Protocol: Document 06/28/23 11:16 SAK (Rec: 06/28/23 12:08 SAK [id number]) Current Condition History of Current Condition Onset Date 3+ months Current Complaints right shoulder pain History of Current Condition Gradual onset right shoulder pain, no known reason. Bothers her with reaching out to side and overhead and behind her back. Difficulty sleeping due to pain. Occasional pins and needles. History torn rotator cuff 2020 left with injection, min pain at this time. Yesterday 30 min on elliptical plus rowing machine. Doing prior rotator cuff ex: bands, counter stretch. Right handed. Occasional use of ice or heat. Prior Treatments and Tests x-ray Apr 07: moderate AC arthritis, mild GH arthritis Future Testing and Treatments Planned CT or MRI if PT not helpful PT-OP-C Subjective Start: 06/09/23 08:57 Freq: Status: Active Protocol: Document 07/02/23 08:17 SP (Rec: 07/02/23 09:12 SP [id number]) OP-PT Subjective Patient Comments Patient Comments Pt reports compliant with HEP, maybe not daily. She also uses her elliptical at home with UE movement and use pulleys. PT-OP-F Manual Assessment Start: 06/09/23 08:57 Freq: Status: Active Protocol: Document 06/09/23 09:30 SAK (Rec: 06/09/23 10:52 SAK [id number]) Manual Assessments Joint Mobility Assessment Joint Mobility Assessment WNL except right shoulder distraction and right AC sup> inf PT-OP-H Neuro Start: 06/09/23 08:57 Freq: Status: Active Protocol: Document 06/09/23 09:30 [facility] (Rec: 06/09/23 10:52 [facility] [id number]) Sensation Evaluation Gross Sensation Gross Sensation Right UE Impaired Sensation Description [place] PT-OP-J Posture/Palpation/Skin Start: 06/09/23 08:57 Freq: Status: Active Protocol: Document 06/09/23 09:30 [facility] (Rec: 06/09/23 10:52 [facility] [id number]) Posture Evaluation Position Sitting Head/C-Spine Posture Forward Head Shoulder Posture (L) Rounded,(R) Rounded,(R) Forward Scapula Posture (R) Protracted Arm Posture (L) Internally Rotated,(R) Internally Rotated Palpation Assessment Location right RC Palpation Location insertion Palpation Findings Tenderness PT-OP-K Range of Motion Start: 06/09/23 08:57 Freq: Status: Active Protocol: Document 06/09/23 09:30 [facility] (Rec: 06/09/23 10:52 [facility] [id number]) Cervical Spine Range of Motion Cervical Spine Active Testing Position Sitting Rotation Left 25 Rotation Right 35 Lateral Flexion Left 30 Lateral Flexion Right 35 ROM Limitations Soft Tissue Tightness Shoulder Goniometric Range of Motion Shoulder Right Testing Position Sitting Flexion 155 Extension 15 Abduction 160 External Rotation at 45 degrees 80 Abduction Internal Rotation 65 Left Shoulder ROM WFL Yes Shoulder ROM Limitations Shoulder ROM Limitations Soft Tissue Tightness,Pain Elbow/Forearm Range of Motion Elbow/Forearm dylon Elbow/Forearm ROM WFL Yes PT-OP-L Special Tests Start: 06/09/23 08:57 Freq: Status: Active Protocol: Document 06/09/23 09:30 [facility] (Rec: 06/09/23 10:52 [facility] [id number]) Special Tests Shoulder Special Tests Watt Eugene Impingement Test Results positive Neer Impingement Test Results positive Drop Arm Rotator Cuff Test Results negative PT-OP-M Strength Start: 06/09/23 08:57 Freq: Status: Active Protocol: Document 06/09/23 09:30 [facility] (Rec: 06/09/23 10:52 [facility] [id number]) Shoulder Strength Shoulder Manual Muscle Testing Right Flexion 4+ Good+ Extension 5 Normal Abduction (C5) 4+ Good+ Adduction 4+ Good+ External Rotation 4 Good Internal Rotation 4+ Good+ Comments ER limited by pain Left Flexion 5 Normal Extension 5 Normal Abduction (C5) 5 Normal Adduction 5 Normal External Rotation 5 Normal Internal Rotation 5 Normal Horizontal Abduction 5 Normal Horizontal Adduction 5 Normal Elbow/Forearm Strength Elbow and Forearm Manual Muscle Testing dylon Flexion (C6) 5 Normal Extension (C7) 5 Normal PT-OP-Q Treatments Start: 06/09/23 08:57 Freq: Status: Active Protocol: Document 07/02/23 08:17 SP (Rec: 07/02/23 09:12 SP [id number]) Therapeutic Exercises Prone Exercises Y Prone Exercise Name over side of plinth Side right Resistance AROM Equipment Used over 65> 55 cm tball, feet on wall/floor Reps/Minutes x15 reps each ball Comments good I, T Prone Exercise Name over side of plinth Side right Resistance #2 DB Equipment Used over 65> 55 cm tball, feet on wall/floor Reps/Minutes x15 each ball Comments verbal and tactile cues for scapular stab; second set with 1# db Sidelying Exercises open book Sidelying Exercise Name HEP reviewed Reps/Minutes 5x Comments verbal and tactile cues for rotation throughout c/s and t/ s with UE reacha Standing Exercises self STMs Standing Exercise Name added to HEP PRN: post scap Side right Reps/Minutes 20 sec Comments good feedback massage, understands gentle pressure lessen tension IR stretch Standing Exercise Name added to HEP Side right Equipment Used towel (across back before up back, gentle) Reps/Minutes 5 SH x2 Comments Improved across opp pelvis and approx L2 range vs mid sacrum pec stretch Standing Exercise Name Discussed various angles not performed today Side bilateral Equipment Used doorway/corner Comments good understanding review Manual Therapy Treatment Soft Tissue Mobilization right shoulder Body Location R biceps, deltoid, UT, rhomboids, LS, scalenes, infrasp, suprasp Mobilization Type Cross-Friction,Myofascial Release,Strumming Intensity/Depth mod Comments hooklying and L sidelying MWM: humeral IR/ ER, small punching motion- ed self and use ball wall Joint Mobilizations GH Joint R Direction inf, posterior Grade II Body Position Hooklying Comments manual and inf glide with cuing self create space in jt with ABD on side scapula Joint R Direction prot, retra, caud,ceph, UR/DR /c abd & HABD Grade II Body Position Sidelying Self-Care/Home Management Treatment Education Patient Education Body Mechanics,Home Exercise Program,Pain Management, Posture Other Education Extra time spent use pillows pillows sidelying under upper ribcage, between knees, BUEs, slight roll back, neutral CS. Good understanding and comfort trial/ assimulation. PT-OP-R Modalities Start: 06/09/23 08:57 Freq: Status: Active Protocol: Document 06/28/23 11:16 SAK (Rec: 06/28/23 12:08 SAK [id number]) Electric Stimulation Electric Stimulation Interferential Current (IFC) Body Location right shoulder Duration (Minutes) 10 Intensity 10 Target/Sweep Sweep Patient Position Hooklying Combined With Heat/Cold Cold Pack Infrared Treatment Treatment GH Duration (Minutes) 6 Body Position Sitting Continuous/Pulsed cont Program or Protocal chronic muscle tendon pain Iontophoresis Treatment right RC insertion Medication Amount (mL) (ml) 1.0 Medication Dosage 4mg/ml Treatment Duration (minutes) 3 PT-OP-T Assessment and Plan Start: 06/09/23 08:57 Freq: Status: Active Protocol: Document 07/02/23 08:17 SP (Rec: 07/02/23 09:12 SP [id number]) Physical Therapy Assessment Goals Three Impairment postural impairment Impairment habitual activities and postures impacting right shoulder health Short Term Goal (STG) Patient to be instructed in postural correction activities and exercises STG Duration 06/30/23 Organic Chemistry Professor Goal (LTG) Patient will be able to self- identify activities and postioning which contribute to her shoulder dysfunction and demonstrate independent ability to self-correct and will be independent and compliant with HEP. LTG Duration 07/24/23 Two Impairment activity tolerance Impairment Quickdash UE disability index score 27% Short Term Goal (STG) Decrease score to no greater than 17% STG Duration 06/30/23 Retirement Goal (LTG) Decrease Quickdash score to no greater than 10% as measure of improved right shoulder activity tolerance LTG Duration 07/24/23 One Impairment R shoulder pain as high as 8/ 10 Impairment increases with reaching overhead and behind her back. Interrupts her sleep Short Term Goal (STG) Patient to report 50% reduction in pain with all activities STG Duration 06/30/23 Retirement Goal (LTG) Patient to sleep without being woken due to right shoulder pain and will be able to reach overhead and behind her back without pain LTG Duration 07/24/23 Assessment Summary Assessment Pt improved ther ex over 55cm tball and increase resistance, cues for cervical alignment, range good scapular form not over lift extension, use LEs onwalll/floor for added core stab today. Improved IR AAROM stretch with towel and ball wall/thumper gun home for self STMs and slow progress support ROM. Physical Therapy Plan Frequency and Duration Frequency of Treatment 2x/Week Duration of treatment (weeks) 6 Plan of Care Start Date 06/09/23 Plan of Care End Date 07/24/23 Therapeutic Interventions Therapeutic Interventions Home Exercise Program,Joint Mobilizations,Manual Therapy, Patient/Caregiver Education, Self-Care/Home Management,Soft Tissue Mobilization,Taping, Therapeutic Activities, Therapeutic Exercises Modalities Cold Pack/Ice Massage,Electric Stimulation,Hot Packs, Infrared Therapy,Iontophoresis ,Ultrasound Next Visit Focus/Plan Next Note Type Treatment Note Next Visit Plan Assess response to self STMs, IR stretch, strengthening over tball. POC: Consider KT tape. shoulder strengthening and stab on foam roller/55cm tball .
--- NOTE | 2023-07-13 10:20 | PT.OTN ---
Current Diagnoses Pain in right shoulder (07/13/23) Impingement syndrome of right shoulder (07/13/23) Other enthesopathies, not elsewhere classified (07/13/23) Abnormal posture (07/13/23) Physical Therapy Treatment Note PT-OP-A Visit Information Start: 06/09/23 08:57 Freq: Status: Active Protocol: Document 07/13/23 09:34 SP (Rec: 07/13/23 10:43 SP [id number]) Out-Patient Physical Therapy Visit Information Visit Information Visit Type Treatment Note Visit Start Time 09:34 Visit Stop Time 10:20 Total Visit Minutes 46 Visit Number 8 Number of ORTHODONTIC LABORATORY TECHNICIAN Visits 2 Evaluation Information Evaluation Date 06/09/23 PT-OP-B Current Condition Start: 06/09/23 08:57 Freq: Status: Active Protocol: Document 06/28/23 11:16 SAK (Rec: 06/28/23 12:08 SAK [id number]) Current Condition History of Current Condition Onset Date 3+ months Current Complaints right shoulder pain History of Current Condition Gradual onset right shoulder pain, no known reason. Bothers her with reaching out to side and overhead and behind her back. Difficulty sleeping due to pain. Occasional pins and needles. History torn rotator cuff 2020 left with injection, min pain at this time. Yesterday 30 min on elliptical plus rowing machine. Doing prior rotator cuff ex: bands, counter stretch. Right handed. Occasional use of ice or heat. Prior Treatments and Tests x-ray Apr 07: moderate AC arthritis, mild GH arthritis Future Testing and Treatments Planned CT or MRI if PT not helpful PT-OP-C Subjective Start: 06/09/23 08:57 Freq: Status: Active Protocol: Document 07/13/23 09:34 SP (Rec: 07/13/23 10:43 SP [id number]) OP-PT Subjective Patient Comments Patient Comments Pt reports using 2# wts with ther ex home. She feels getting more motion and has tried performing TsIsYs over ball with feet on wall but forgot to do IR stretch behind back and limited but better. PT-OP-F Manual Assessment Start: 06/09/23 08:57 Freq: Status: Active Protocol: Document 06/09/23 09:30 SAK (Rec: 06/09/23 10:52 SAK [id number]) Manual Assessments Joint Mobility Assessment Joint Mobility Assessment WNL except right shoulder distraction and right AC sup> inf PT-OP-H Neuro Start: 06/09/23 08:57 Freq: Status: Active Protocol: Document 06/09/23 09:30 [facility] (Rec: 06/09/23 10:52 [facility] [id number]) Sensation Evaluation Gross Sensation Gross Sensation Right UE Impaired Sensation Description [place] [employer] [place] PT-OP-J Posture/Palpation/Skin Start: 06/09/23 08:57 Freq: Status: Active Protocol: Document 06/09/23 09:30 [facility] (Rec: 06/09/23 10:52 [facility] [id number]) Posture Evaluation Position Sitting Head/C-Spine Posture Forward Head Shoulder Posture (L) Rounded,(R) Rounded,(R) Forward Scapula Posture (R) Protracted Arm Posture (L) Internally Rotated,(R) Internally Rotated Palpation Assessment Location right RC Palpation Location insertion Palpation Findings Tenderness PT-OP-K Range of Motion Start: 06/09/23 08:57 Freq: Status: Active Protocol: Document 06/09/23 09:30 [facility] (Rec: 06/09/23 10:52 [facility] [id number]) Cervical Spine Range of Motion Cervical Spine Active Testing Position Sitting Rotation Left 25 Rotation Right 35 Lateral Flexion Left 30 Lateral Flexion Right 35 ROM Limitations Soft Tissue Tightness Shoulder Goniometric Range of Motion Shoulder Right Testing Position Sitting Flexion 155 Extension 15 Abduction 160 External Rotation at 45 degrees 80 Abduction Internal Rotation 65 Left Shoulder ROM WFL Yes Shoulder ROM Limitations Shoulder ROM Limitations Soft Tissue Tightness,Pain Elbow/Forearm Range of Motion Elbow/Forearm dylon Elbow/Forearm ROM WFL Yes PT-OP-L Special Tests Start: 06/09/23 08:57 Freq: Status: Active Protocol: Document 06/09/23 09:30 [facility] (Rec: 06/09/23 10:52 [facility] [id number]) Special Tests Shoulder Special Tests Watt Eugene Impingement Test Results positive Neer Impingement Test Results positive Drop Arm Rotator Cuff Test Results negative PT-OP-M Strength Start: 06/09/23 08:57 Freq: Status: Active Protocol: Document 06/09/23 09:30 [facility] (Rec: 06/09/23 10:52 [facility] [id number]) Shoulder Strength Shoulder Manual Muscle Testing Right Flexion 4+ Good+ Extension 5 Normal Abduction (C5) 4+ Good+ Adduction 4+ Good+ External Rotation 4 Good Internal Rotation 4+ Good+ Comments ER limited by pain Left Flexion 5 Normal Extension 5 Normal Abduction (C5) 5 Normal Adduction 5 Normal External Rotation 5 Normal Internal Rotation 5 Normal Horizontal Abduction 5 Normal Horizontal Adduction 5 Normal Elbow/Forearm Strength Elbow and Forearm Manual Muscle Testing dylon Flexion (C6) 5 Normal Extension (C7) 5 Normal PT-OP-Q Treatments Start: 06/09/23 08:57 Freq: Status: Active Protocol: Document 07/13/23 09:34 SP (Rec: 07/13/23 10:43 SP [id number]) Therapeutic Exercises Sidelying Exercises shoulder ab Sidelying Exercise Name ABD OH on L side- added to HEP Side right Resistance AROM>1#>2# Reps/Minutes 12 reps each Comments cued knees bent and TA fac assist trunk stability shoulder ER Sidelying Exercise Name HEP reviewed Side right Equipment Used towel roll under arm Reps/Minutes 1# x10, 2# x3 >3#DB x10 Comments Good form,little tension over distal deltoid better post manual- Range pnfr open book Sidelying Exercise Name HEP reviewed Resistance AROM>1#>2#> 3# DB Reps/Minutes x12 reps each resistance Comments verbal and tactile cues for rotation throughout c/s and t/ s with UE reacha Standing Exercises FF, ABD, D2 Flexion Standing Exercise Name added to HEP Side right Resistance 2# DB Equipment Used front mirror self posturing Reps/Minutes x10 reps each Comments cued slower pacing ecc, less deltoid tension painfree range IR stretch Standing Exercise Name reviewed HEP Side right Equipment Used towel (across back before up back, gentle) Reps/Minutes 5 breath or 10 SH Comments Improved across opp pelvis and approx L3 Manual Therapy Treatment Soft Tissue Mobilization right shoulder Body Location R biceps, deltoid, rhomboids, infrasp, suprasp Mobilization Type Cross-Friction,Myofascial Release,Strumming Intensity/Depth mod Comments hooklying and L sidelying MWM: humeral IR/ ER, small punching motion PROM- verbal review self and use ball wall and finds helpful. Joint Mobilizations GH Joint R Direction inf, posterior Grade II Body Position Hooklying Comments tactile support assist inf glide with cuing self create space in jt with ABD on side scapula Joint R Direction prot, retra, caud,ceph, UR/DR /c abd & HABD Grade II Body Position Sidelying PT-OP-R Modalities Start: 06/09/23 08:57 Freq: Status: Active Protocol: Document 06/28/23 11:16 SAK (Rec: 06/28/23 12:08 SAK [id number]) Electric Stimulation Electric Stimulation Interferential Current (IFC) Body Location right shoulder Duration (Minutes) 10 Intensity 10 Target/Sweep Sweep Patient Position Hooklying Combined With Heat/Cold Cold Pack Infrared Treatment Treatment GH Duration (Minutes) 6 Body Position Sitting Continuous/Pulsed cont Program or Protocal chronic muscle tendon pain Iontophoresis Treatment right RC insertion Medication Amount (mL) (ml) 1.0 Medication Dosage 4mg/ml Treatment Duration (minutes) 3 PT-OP-T Assessment and Plan Start: 06/09/23 08:57 Freq: Status: Active Protocol: Document 07/13/23 09:34 SP (Rec: 07/13/23 10:43 SP [id number]) Physical Therapy Assessment Goals Three Impairment postural impairment Impairment habitual activities and postures impacting right shoulder health Short Term Goal (STG) Patient to be instructed in postural correction activities and exercises 07/13/23: progressing with scapular corrections during ROM with occasional cuing slower pacing. STG Duration 06/30/23 Environmental Law Professor Goal (LTG) Patient will be able to self- identify activities and postioning which contribute to her shoulder dysfunction and demonstrate independent ability to self-correct and will be independent and compliant with HEP. LTG Duration 07/24/23 Two Impairment activity tolerance Impairment Quickdash UE disability index score 27% Short Term Goal (STG) Decrease score to no greater than 17% STG Duration 06/30/23 Environmental Law Professor Goal (LTG) Decrease Quickdash score to no greater than 10% as measure of improved right shoulder activity tolerance LTG Duration 07/24/23 One Impairment R shoulder pain as high as 8/ 10 Impairment increases with reaching overhead and behind her back. Interrupts her sleep Short Term Goal (STG) Patient to report 50% reduction in pain with all activities STG Duration 06/30/23 Usp Goal (LTG) Patient to sleep without being woken due to right shoulder pain and will be able to reach overhead and behind her back without pain LTG Duration 07/24/23 Assessment Summary Assessment Pt still feels tension over distal deltoid reaching out to side and mid Teres but lessens with manual STMs. Improved scapular corrections during ther ex with cues for slower pacing. She was able to tolerate added increase resistance ther ex on side and standing gravity assist and against gravity to support progress ROM and strengthening . Pt would benefit from continued therapy to progress full ROM against gravity and strengthening. Physical Therapy Plan Frequency and Duration Frequency of Treatment 2x/Week Duration of treatment (weeks) 6 Plan of Care Start Date 06/09/23 Plan of Care End Date 07/24/23 Therapeutic Interventions Therapeutic Interventions Home Exercise Program,Joint Mobilizations,Manual Therapy, Patient/Caregiver Education, Self-Care/Home Management,Soft Tissue Mobilization,Taping, Therapeutic Activities, Therapeutic Exercises Modalities Cold Pack/Ice Massage,Electric Stimulation,Hot Packs, Infrared Therapy,Iontophoresis ,Ultrasound Next Visit Focus/Plan Next Note Type Progress Note Next Visit Plan Discuss progression ROM/ Strength vs DC continue on own , update POC if needed due to PT unavailable pre 07/24 expiration. Recheck ROM measurements progression made (still limited full end range) and HEP. POC: IR stretch, stand FF/ABD/ D2 flexion, strengthening over tball. POC: Consider KT tape. shoulder strengthening
--- NOTE | 2023-07-15 10:11 | PT.OTRE ---
Current Diagnoses Pain in right shoulder (07/15/23) Impingement syndrome of right shoulder (07/15/23) Other enthesopathies, not elsewhere classified (07/15/23) Abnormal posture (07/15/23) Past Medical History (Last Updated 07/06/23 @ 10:10 by Tiff Portillo MD) Age-related osteoporosis without current pathological fracture Allergic rhinitis Anxiety Cataracts, bilateral Chicken pox Depression, major, recurrent Eczema GERD without esophagitis Hematuria History of recurrent UTI (urinary tract infection) Iron deficiency anemia Measles Menopausal syndrome Mixed hyperlipidemia Mumps Obstructive sleep apnea (~2018) Osteopenia Osteoporosis Pancreatitis (~2014) Plantar warts Postmenopausal atrophic vaginitis Postmenopausal atrophic vaginitis Recurrent UTI Shoulder pain Snoring Surgical History (Last Reviewed 07/06/23 @ 10:09 by Tiff Portillo MD) Anesthesia History of meniscectomy of left knee (~2019) S/P cholecystectomy (~2014) Visit Care Team Role Provider Type Joec Wu MD Family Provider Physician Primary Care Provider Specialty: Internal Medicine Address: [address] [place] [address], [facility] Email: [email or web address] Sara Mendoza PA-C Attending Provider Advanced Medical Transcription Radiology Referring Provider Specialty: Medical Wound Care Address: [address] [place] [address], [id number] Email: [email or web address] Physical Therapy Re-Evaluation PT-OP-A Visit Information Start: 06/09/23 08:57 Freq: Status: Active Protocol: Document 07/15/23 09:02 [facility] (Rec: 07/15/23 10:11 [facility] [id number]) Out-Patient Physical Therapy Visit Information Visit Information Visit Type Treatment Note Visit Start Time 09:02 Visit Stop Time 09:53 Total Visit Minutes 51 Visit Number 9 Number of HAIR DESIGNER Visits 0 Evaluation Information Evaluation Date 06/09/23 PT-OP-B Current Condition Start: 06/09/23 08:57 Freq: Status: Active Protocol: Document 07/15/23 09:02 [facility] (Rec: 07/15/23 10:11 [facility] [id number]) Current Condition History of Current Condition Onset Date 3+ months Current Complaints right shoulder pain History of Current Condition Gradual onset right shoulder pain, no known reason. Bothers her with reaching out to side and overhead and behind her back. Difficulty sleeping due to pain. Occasional pins and needles. History torn rotator cuff 2020 left with injection, min pain at this time. Yesterday 30 min on elliptical plus rowing machine. Doing prior rotator cuff ex: bands, counter stretch. Right handed. Occasional use of ice or heat. Prior Treatments and Tests x-ray Apr 07: moderate AC arthritis, mild GH arthritis Future Testing and Treatments Planned CT or MRI if PT not helpful PT-OP-C Subjective Start: 06/09/23 08:57 Freq: Status: Active Protocol: Document 07/15/23 09:02 [facility] (Rec: 07/15/23 10:11 [facility] [id number]) OP-PT Subjective Patient Comments Patient Comments Reports better, using pillow under left side has helped pain some with sleeping. PT-OP-F Manual Assessment Start: 06/09/23 08:57 Freq: Status: Active Protocol: Document 06/09/23 09:30 [facility] (Rec: 06/09/23 10:52 [facility] [id number]) Manual Assessments Joint Mobility Assessment Joint Mobility Assessment WNL except right shoulder distraction and right AC sup> inf PT-OP-H Neuro Start: 06/09/23 08:57 Freq: Status: Active Protocol: Document 06/09/23 09:30 [facility] (Rec: 06/09/23 10:52 [facility] [id number]) Sensation Evaluation Gross Sensation Gross Sensation Right UE Impaired Sensation Description [place] PT-OP-J Posture/Palpation/Skin Start: 06/09/23 08:57 Freq: Status: Active Protocol: Document 06/09/23 09:30 [facility] (Rec: 06/09/23 10:52 [facility] [id number]) Posture Evaluation Position Sitting Head/C-Spine Posture Forward Head Shoulder Posture (L) Rounded,(R) Rounded,(R) Forward Scapula Posture (R) Protracted Arm Posture (L) Internally Rotated,(R) Internally Rotated Palpation Assessment Location right RC Palpation Location insertion Palpation Findings Tenderness PT-OP-K Range of Motion Start: 06/09/23 08:57 Freq: Status: Active Protocol: Document 06/09/23 09:30 [facility] (Rec: 06/09/23 10:52 [facility] [id number]) Cervical Spine Range of Motion Cervical Spine Active Testing Position Sitting Rotation Left 25 Rotation Right 35 Lateral Flexion Left 30 Lateral Flexion Right 35 ROM Limitations Soft Tissue Tightness Shoulder Goniometric Range of Motion Shoulder Measured in Degrees Right Testing Position Sitting Flexion 155 Extension 15 Abduction 160 External Rotation at 45 degrees 80 Abduction Internal Rotation 65 Left Shoulder ROM WFL Yes Shoulder ROM Limitations Shoulder ROM Limitations Soft Tissue Tightness,Pain Elbow/Forearm Range of Motion Elbow/Forearm Measured in Degrees dylon Elbow/Forearm ROM WFL Yes PT-OP-L Special Tests Start: 06/09/23 08:57 Freq: Status: Active Protocol: Document 06/09/23 09:30 [facility] (Rec: 06/09/23 10:52 [facility] [id number]) Special Tests Shoulder Special Tests Watt [place] Impingement Test Results positive Neer Impingement Test Results positive Drop Arm Rotator Cuff Test Results negative PT-OP-M Strength Start: 06/09/23 08:57 Freq: Status: Active Protocol: Document 06/09/23 09:30 [facility] (Rec: 06/09/23 10:52 [facility] [id number]) Shoulder Strength Shoulder Manual Muscle Testing Right Flexion 4+ Good+ Extension 5 Normal Abduction (C5) 4+ Good+ Adduction 4+ Good+ External Rotation 4 Good Internal Rotation 4+ Good+ Comments ER limited by pain Left Flexion 5 Normal Extension 5 Normal Abduction (C5) 5 Normal Adduction 5 Normal External Rotation 5 Normal Internal Rotation 5 Normal Horizontal Abduction 5 Normal Horizontal Adduction 5 Normal Elbow/Forearm Strength Elbow and Forearm Manual Muscle Testing dylon Flexion (C6) 5 Normal Extension (C7) 5 Normal PT-OP-Q Treatments Start: 06/09/23 08:57 Freq: Status: Active Protocol: Document 07/15/23 09:02 [facility] (Rec: 07/15/23 10:11 [facility] [id number]) Gym Equipment Therapeutic Ball I, Y, T Exercise Details I, , T Ball Size/Color 65 inch/red Body Position Prone Reps/Duration 10x each way Comments No pain felt during exercise given as HEP Therapeutic Exercises Supine Exercises posterior capsule stretch Side bilateral Reps/Minutes 2x10 hor ab Resistance L1 TB Reps/Minutes 10x shoulder flex Supine Exercise Name Y Resistance L1 TB Reps/Minutes 10x serratus punch Side bilateral Resistance 1# Reps/Minutes 10x2 Comments Initial cues for correct form; back flat on table IR stretch Supine Exercise Name AAROM > AROM Equipment Used towel roll Comments stab of GH joint Sitting Exercises pulleys Sitting Exercise Name flex, scap Reps/Minutes 15x Comments cues to inhibit UT, allow scapular rotation Therapeutic Activity Therapeutic Activity MMT, ROM testing Reps/Minutes 10 Manual Therapy Treatment Soft Tissue Mobilization right shoulder Body Location R biceps, deltoid, rhomboids, infrasp, suprasp Mobilization Type Cross-Friction,Myofascial Release,Strumming Intensity/Depth mod Comments hooklying and L sidelying MWM: humeral IR/ ER, small punching motion PROM- verbal review self and use ball wall and finds helpful. Joint Mobilizations GH Joint R Direction inf, posterior Grade II Body Position Hooklying Comments tactile support assist inf glide with cuing self create space in jt with ABD on side scapula Joint R Direction prot, retra, caud,ceph, UR/DR /c abd & HABD Grade II Body Position Sidelying Self-Care/Home Management Treatment Education Patient Education Body Mechanics,Home Exercise Program,Pain Management, Posture PT-OP-R Modalities Start: 06/09/23 08:57 Freq: Status: Active Protocol: Document 07/15/23 09:02 [facility] (Rec: 07/15/23 10:11 [facility] [id number]) Iontophoresis Treatment right RC insertion Medication Amount (mL) (ml) 1.0 Medication Dosage 4mg/ml Treatment Duration (minutes) 3 PT-OP-T Assessment and Plan Start: 06/09/23 08:57 Freq: Status: Active Protocol: Document 07/15/23 09:02 [facility] (Rec: 07/15/23 10:11 [facility] [id number]) Physical Therapy Assessment Goals Three Impairment postural impairment Impairment habitual activities and postures impacting right shoulder health Short Term Goal (STG) Patient to be instructed in postural correction activities and exercises 07/13/23: progressing with scapular corrections during ROM with occasional cuing slower pacing. STG Duration goal met Shipping Checker Goal (LTG) Patient will be able to self- identify activities and postioning which contribute to her shoulder dysfunction and demonstrate independent ability to self-correct and will be independent and compliant with HEP. 07/15/23: good goal progress LTG Duration 08/15/23 Two Impairment activity tolerance Impairment Quickdash UE disability index score 27% Short Term Goal (STG) Decrease score to no greater than 17% 11/30/23: dec to 23% STG Duration 07/30/23 Shipping Checker Goal (LTG) Decrease Quickdash score to no greater than 10% as measure of improved right shoulder activity tolerance LTG Duration 08/15/23 One Impairment R shoulder pain as high as 8/ 10 Impairment increases with reaching overhead and behind her back. Interrupts her sleep Short Term Goal (STG) Patient to report 50% reduction in pain with all activities 07/15/23: goal met STG Duration goal met Custodial Goal (LTG) Patient to sleep without being woken due to right shoulder pain and will be able to reach overhead and behind her back without pain LTG Duration 08/15/23 Progress Towards Goals Progress Towards Goals Progressing Toward Goals Assessment Summary Assessment Patient reports feeling improvement right shoulder, wants to continue PT. Will need to cancel appt on 08/[address] Excess UT activation with shoulder elevation, dec with cues, still some impingment symptoms with elevation overhead and to the side. Better tolerance for Y ex supine with theraband. Pain with resisted shoulder flex, abd, ER Physical Therapy Plan Frequency and Duration Frequency of Treatment 2x/Week Duration of treatment (weeks) 4 Plan of Care Start Date 07/15/23 Plan of Care End Date 08/15/23 Therapeutic Interventions Therapeutic Interventions Home Exercise Program,Joint Mobilizations,Manual Therapy, Patient/Caregiver Education, Self-Care/Home Management,Soft Tissue Mobilization,Taping, Therapeutic Activities, Therapeutic Exercises Modalities Cold Pack/Ice Massage,Electric Stimulation,Hot Packs, Infrared Therapy,Iontophoresis ,Ultrasound Next Visit Focus/Plan Next Note Type Progress Note Next Visit Plan Continue PT to help patient achieve full shoulder ROM without pain, return to full active use of her right UE. Emphasis on scapular mechanics
--- NOTE | 2023-07-15 10:11 | PT.OPPOC ---
Physical, Occupational & Speech Therapy At [facility] Current Diagnoses Pain in right shoulder (07/15/23) Impingement syndrome of right shoulder (07/15/23) Other enthesopathies, not elsewhere classified (07/15/23) Abnormal posture (07/15/23) Visit Care Team Role Provider Type Joce Wu MD Family Provider Physician Primary Care Provider Specialty: Internal Medicine Address: [address] [place] [address], [id number] Email: [email or web address] Sara Mendoza [email or web address]-C Attending Provider Advanced Manager Application Referring Provider Specialty: Medical Wound Care Address: [address] [place] [address], [id number] Email: [email or web address] Plan Of Care PT-OP-T Assessment and Plan Start: 06/09/23 08:57 Freq: Status: Active Protocol: Document 07/15/23 09:02 [facility] (Rec: 07/15/23 10:11 [facility] [id number]) Physical Therapy Assessment Goals Three Impairment postural impairment Impairment habitual activities and postures impacting right shoulder health Short Term Goal (STG) Patient to be instructed in postural correction activities and exercises 07/13/23: progressing with scapular corrections during ROM with occasional cuing slower pacing. STG Duration goal met Half-Way Goal (LTG) Patient will be able to self- identify activities and postioning which contribute to her shoulder dysfunction and demonstrate independent ability to self-correct and will be independent and compliant with HEP. 07/15/23: good goal progress LTG Duration 08/15/23 Two Impairment activity tolerance Impairment Quickdash UE disability index score 27% Short Term Goal (STG) Decrease score to no greater than 17% 07/15/23: dec to 23% STG Duration 07/30/23 Packing And Stamping Machine Operator Goal (LTG) Decrease Quickdash score to no greater than 10% as measure of improved right shoulder activity tolerance LTG Duration 08/15/23 One Impairment R shoulder pain as high as 8/ 10 Impairment increases with reaching overhead and behind her back. Interrupts her sleep Short Term Goal (STG) Patient to report 50% reduction in pain with all activities 07/15/23: goal met STG Duration goal met Packing And Stamping Machine Operator Goal (LTG) Patient to sleep without being woken due to right shoulder pain and will be able to reach overhead and behind her back without pain LTG Duration 08/15/23 Progress Towards Goals Progress Towards Goals Progressing Toward Goals Assessment Summary Assessment Patient reports feeling improvement right shoulder, wants to continue PT. Will need to cancel appt on 08/[address] Excess UT activation with shoulder elevation, dec with cues, still some impingment symptoms with elevation overhead and to the side. Better tolerance for Y ex supine with theraband. Pain with resisted shoulder flex, abd, ER Physical Therapy Plan Frequency and Duration Frequency of Treatment 2x/Week Duration of treatment (weeks) 4 Plan of Care Start Date 07/15/23 Plan of Care End Date 08/15/23 Therapeutic Interventions Therapeutic Interventions Home Exercise Program,Joint Mobilizations,Manual Therapy, Patient/Caregiver Education, Self-Care/Home Management,Soft Tissue Mobilization,Taping, Therapeutic Activities, Therapeutic Exercises Modalities Cold Pack/Ice Massage,Electric Stimulation,Hot Packs, Infrared Therapy,Iontophoresis ,Ultrasound Next Visit Focus/Plan Next Note Type Progress Note Next Visit Plan Continue PT to help patient achieve full shoulder ROM without pain, return to full active use of her right UE. Emphasis on scapular mechanics Plan of Care Dates Plan of Care Start Date 07/15/23 Plan of Care End Date 08/15/23 Electronically Signed by: Brisa Monsivais, PT 07/15/23 1011 If you are in agreement with this Plan of Care, please return a signed and dated copy. I have reviewed this Plan of Care and certify that the skilled therapy services above are required to meet the patient?s needs. Physician Signature Date Printed Name and Credentials Clinical Instructor Signature Printed Name and Credentials
--- NOTE | 2023-07-19 09:00 | PT.OTN ---
Current Diagnoses Pain in right shoulder (07/19/23) Impingement syndrome of right shoulder (07/19/23) Other enthesopathies, not elsewhere classified (07/19/23) Abnormal posture (07/19/23) Physical Therapy Treatment Note PT-OP-A Visit Information Start: 06/09/23 08:57 Freq: Status: Active Protocol: Document 07/19/23 08:15 SP (Rec: 07/19/23 09:05 SP [id number]) Out-Patient Physical Therapy Visit Information Visit Information Visit Type Treatment Note Visit Note 09/25 post re-eval. Visit Start Time 08:15 Visit Stop Time 09:00 Total Visit Minutes 45 Visit Number 10 Number of CATH LAB RADIOLOGICAL TECHNOLOGIST Visits 1 Evaluation Information Evaluation Date 06/09/23 PT-OP-B Current Condition Start: 06/09/23 08:57 Freq: Status: Active Protocol: Document 07/15/23 09:02 SAK (Rec: 07/15/23 10:11 SAK [id number]) Current Condition History of Current Condition Onset Date 3+ months Current Complaints right shoulder pain History of Current Condition Gradual onset right shoulder pain, no known reason. Bothers her with reaching out to side and overhead and behind her back. Difficulty sleeping due to pain. Occasional pins and needles. History torn rotator cuff 2020 left with injection, min pain at this time. Yesterday 30 min on elliptical plus rowing machine. Doing prior rotator cuff ex: bands, counter stretch. Right handed. Occasional use of ice or heat. Prior Treatments and Tests x-ray Apr 07: moderate AC arthritis, mild GH arthritis Future Testing and Treatments Planned CT or MRI if PT not helpful PT-OP-C Subjective Start: 06/09/23 08:57 Freq: Status: Active Protocol: Document 07/19/23 08:15 SP (Rec: 07/19/23 09:05 SP [id number]) OP-PT Subjective Patient Comments Patient Comments Pt demonstrates decrease CS ROM and trunk turn when looking at therapist on side. She states stiffness in her neck in the morning and tight reaching behind her back with SOLOMON FERRARO helping. PT-OP-F Manual Assessment Start: 06/09/23 08:57 Freq: Status: Active Protocol: Document 06/09/23 09:30 SAK (Rec: 06/09/23 10:52 SAK [id number]) Manual Assessments Joint Mobility Assessment Joint Mobility Assessment WNL except right shoulder distraction and right AC sup> inf PT-OP-H Neuro Start: 06/09/23 08:57 Freq: Status: Active Protocol: Document 06/09/23 09:30 [facility] (Rec: 06/09/23 10:52 [facility] [id number]) Sensation Evaluation Gross Sensation Gross Sensation Right UE Impaired Sensation Description [facility] [facility] [place] PT-OP-J Posture/Palpation/Skin Start: 06/09/23 08:57 Freq: Status: Active Protocol: Document 06/09/23 09:30 [facility] (Rec: 06/09/23 10:52 [facility] [id number]) Posture Evaluation Position Sitting Head/C-Spine Posture Forward Head Shoulder Posture (L) Rounded,(R) Rounded,(R) Forward Scapula Posture (R) Protracted Arm Posture (L) Internally Rotated,(R) Internally Rotated Palpation Assessment Location right RC Palpation Location insertion Palpation Findings Tenderness PT-OP-K Range of Motion Start: 06/09/23 08:57 Freq: Status: Active Protocol: Document 06/09/23 09:30 [facility] (Rec: 06/09/23 10:52 [facility] [id number]) Cervical Spine Range of Motion Cervical Spine Active Testing Position Sitting Rotation Left 25 Rotation Right 35 Lateral Flexion Left 30 Lateral Flexion Right 35 ROM Limitations Soft Tissue Tightness Shoulder Goniometric Range of Motion Shoulder Right Testing Position Sitting Flexion 155 Extension 15 Abduction 160 External Rotation at 45 degrees 80 Abduction Internal Rotation 65 Left Shoulder ROM WFL Yes Shoulder ROM Limitations Shoulder ROM Limitations Soft Tissue Tightness,Pain Elbow/Forearm Range of Motion Elbow/Forearm dylon Elbow/Forearm ROM WFL Yes PT-OP-L Special Tests Start: 06/09/23 08:57 Freq: Status: Active Protocol: Document 06/09/23 09:30 [facility] (Rec: 06/09/23 10:52 [facility] [id number]) Special Tests Shoulder Special Tests Watt Eugene Impingement Test Results positive Neer Impingement Test Results positive Drop Arm Rotator Cuff Test Results negative PT-OP-M Strength Start: 06/09/23 08:57 Freq: Status: Active Protocol: Document 06/09/23 09:30 [facility] (Rec: 06/09/23 10:52 [facility] [id number]) Shoulder Strength Shoulder Manual Muscle Testing Right Flexion 4+ Good+ Extension 5 Normal Abduction (C5) 4+ Good+ Adduction 4+ Good+ External Rotation 4 Good Internal Rotation 4+ Good+ Comments ER limited by pain Left Flexion 5 Normal Extension 5 Normal Abduction (C5) 5 Normal Adduction 5 Normal External Rotation 5 Normal Internal Rotation 5 Normal Horizontal Abduction 5 Normal Horizontal Adduction 5 Normal Elbow/Forearm Strength Elbow and Forearm Manual Muscle Testing dylon Flexion (C6) 5 Normal Extension (C7) 5 Normal PT-OP-Q Treatments Start: 06/09/23 08:57 Freq: Status: Active Protocol: Document 07/19/23 08:15 SP (Rec: 07/19/23 09:05 SP [id number]) Gym Equipment Therapeutic Ball I, Y, T Exercise Details I 1#>2#, Ys AROM, Ts AROM>1# DB Ball Size/Color 65 inch/red Body Position Prone Reps/Duration 15 reps Comments No pain with increase DB resistance Therapeutic Exercises Supine Exercises posterior capsule stretch Supine Exercise Name seated on tball Side bilateral Reps/Minutes 2x10 Comments good post shld stretch hor ab Supine Exercise Name seated on tball Resistance L1 TB> #4 TB blue latex free Reps/Minutes 15 reps each resistance Comments good fatiguing shoulder flex Supine Exercise Name Y Resistance L1 TB peach, 1# DB Equipment Used over 55 cm tball Reps/Minutes 10x each resistance Comments good response serratus punch Side bilateral Resistance 1# DB Equipment Used over 55 cm tball Reps/Minutes 10x2 Comments Initial cues for correct form; back neutral no arch Standing Exercises IR stretch Standing Exercise Name reviewed HEP Side right Equipment Used towel (across back before up back, gentle) Reps/Minutes 5 reps x10 SH breath Comments Improved across opp pelvis and approx L3 Manual Therapy Treatment Soft Tissue Mobilization neck Body Location B, SCM, [place], [place], SOR Mobilization Type Strumming,Sustained Pressure, Other Intensity/Depth Moderate Body Position Supine & L Sidelying Comments /c FM head nods/turns Joint Mobilizations scapula Joint R Direction prot, retra, caud,ceph, UR/DR /c abd & HABD Grade II Body Position Sidelying Comments /c FM STMs: ABD, HABD PT-OP-R Modalities Start: 06/09/23 08:57 Freq: Status: Active Protocol: Document 07/15/23 09:02 SAK (Rec: 07/15/23 10:11 SAK [id number]) Iontophoresis Treatment right RC insertion Medication Amount (mL) (ml) 1.0 Medication Dosage 4mg/ml Treatment Duration (minutes) 3 PT-OP-T Assessment and Plan Start: 06/09/23 08:57 Freq: Status: Active Protocol: Document 07/19/23 08:15 SP (Rec: 07/19/23 09:05 SP [id number]) Physical Therapy Assessment Goals Three Impairment postural impairment Impairment habitual activities and postures impacting right shoulder health Short Term Goal (STG) Patient to be instructed in postural correction activities and exercises 07/13/23: progressing with scapular corrections during ROM with occasional cuing slower pacing. STG Duration goal met Residential Goal (LTG) Patient will be able to self- identify activities and postioning which contribute to her shoulder dysfunction and demonstrate independent ability to self-correct and will be independent and compliant with HEP. 07/15/23: good goal progress LTG Duration 08/15/23 Two Impairment activity tolerance Impairment Quickdash UE disability index score 27% Short Term Goal (STG) Decrease score to no greater than 17% 07/15/23: dec to 23% STG Duration 07/30/23 Br[place] Sander Goal (LTG) Decrease Quickdash score to no greater than 10% as measure of improved right shoulder activity tolerance LTG Duration 08/15/23 One Impairment R shoulder pain as high as 8/ 10 Impairment increases with reaching overhead and behind her back. Interrupts her sleep Short Term Goal (STG) Patient to report 50% reduction in pain with all activities 07/15/23: goal met STG Duration goal met Brush Sander Goal (LTG) Patient to sleep without being woken due to right shoulder pain and will be able to reach overhead and behind her back without pain LTG Duration 08/15/23 Assessment Summary Assessment Pt good feedback response to manual with increase active cervical rotation and increase arm swing end tx. She tolerated increase resistance to prone and supine ther ex with cues for proper form. Physical Therapy Plan Frequency and Duration Frequency of Treatment 2x/Week Duration of treatment (weeks) 4 Plan of Care Start Date 07/15/23 Plan of Care End Date 08/15/23 Therapeutic Interventions Therapeutic Interventions Home Exercise Program,Joint Mobilizations,Manual Therapy, Patient/Caregiver Education, Self-Care/Home Management,Soft Tissue Mobilization,Taping, Therapeutic Activities, Therapeutic Exercises Modalities Cold Pack/Ice Massage,Electric Stimulation,Hot Packs, Infrared Therapy,Iontophoresis ,Ultrasound Next Visit Focus/Plan Next Note Type Treatment Note Next Visit Plan Next tx: ball walk out, throwing motion TB then trampoline, plank to side plank. POC: Continue PT to help patient achieve full shoulder ROM without pain, return to full active use of her right UE. Emphasis on scapular mechanics
--- NOTE | 2023-07-22 12:23 | PT.OTN ---
Current Diagnoses Pain in right shoulder (07/22/23) Impingement syndrome of right shoulder (07/22/23) Other enthesopathies, not elsewhere classified (07/22/23) Abnormal posture (07/22/23) Physical Therapy Treatment Note PT-OP-A Visit Information Start: 06/09/23 08:57 Freq: Status: Active Protocol: Document 07/22/23 11:08 (Rec: 07/22/23 12:23 [id number]) Out-Patient Physical Therapy Visit Information Visit Information Visit Type Treatment Note Visit Note 10/23 Visit Start Time 11:15 Visit Stop Time 12:00 Total Visit Minutes 45 Visit Number 11 Number of ALLIED HEALTH PROFESSIONAL Visits 2 PT-OP-B Current Condition Start: 06/09/23 08:57 Freq: Status: Active Protocol: Document 07/15/23 09:02 SAK (Rec: 07/15/23 10:11 SAK [id number]) Current Condition History of Current Condition Onset Date 3+ months Current Complaints right shoulder pain History of Current Condition Gradual onset right shoulder pain, no known reason. Bothers her with reaching out to side and overhead and behind her back. Difficulty sleeping due to pain. Occasional pins and needles. History torn rotator cuff 2020 left with injection, min pain at this time. Yesterday 30 min on elliptical plus rowing machine. Doing prior rotator cuff ex: bands, counter stretch. Right handed. Occasional use of ice or heat. Prior Treatments and Tests x-ray Apr 07: moderate AC arthritis, mild GH arthritis Future Testing and Treatments Planned CT or MRI if PT not helpful PT-OP-C Subjective Start: 06/09/23 08:57 Freq: Status: Active Protocol: Document 07/22/23 11:08 (Rec: 07/22/23 12:23 [id number]) OP-PT Subjective Patient Comments Patient Comments Pt reports it still hurts with certain motions, but ROM is improving. Pt reports wakes up with stiff neck, but improves throughout day with motion. PT-OP-F Manual Assessment Start: 06/09/23 08:57 Freq: Status: Active Protocol: Document 06/09/23 09:30 SAK (Rec: 06/09/23 10:52 SAK [id number]) Manual Assessments Joint Mobility Assessment Joint Mobility Assessment WNL except right shoulder distraction and right AC sup> inf PT-OP-H Neuro Start: 06/09/23 08:57 Freq: Status: Active Protocol: Document 06/09/23 09:30 [facility] (Rec: 06/09/23 10:52 [facility] [id number]) Sensation Evaluation Gross Sensation Gross Sensation Right UE Impaired Sensation Description [facility] [place] PT-OP-J Posture/Palpation/Skin Start: 06/09/23 08:57 Freq: Status: Active Protocol: Document 06/09/23 09:30 [facility] (Rec: 06/09/23 10:52 [facility] [id number]) Posture Evaluation Position Sitting Head/C-Spine Posture Forward Head Shoulder Posture (L) Rounded,(R) Rounded,(R) Forward Scapula Posture (R) Protracted Arm Posture (L) Internally Rotated,(R) Internally Rotated Palpation Assessment Location right RC Palpation Location insertion Palpation Findings Tenderness PT-OP-K Range of Motion Start: 06/09/23 08:57 Freq: Status: Active Protocol: Document 06/09/23 09:30 [facility] (Rec: 06/09/23 10:52 [facility] [id number]) Cervical Spine Range of Motion Cervical Spine Active Testing Position Sitting Rotation Left 25 Rotation Right 35 Lateral Flexion Left 30 Lateral Flexion Right 35 ROM Limitations Soft Tissue Tightness Shoulder Goniometric Range of Motion Shoulder Right Testing Position Sitting Flexion 155 Extension 15 Abduction 160 External Rotation at 45 degrees 80 Abduction Internal Rotation 65 Left Shoulder ROM WFL Yes Shoulder ROM Limitations Shoulder ROM Limitations Soft Tissue Tightness,Pain Elbow/Forearm Range of Motion Elbow/Forearm dylon Elbow/Forearm ROM WFL Yes PT-OP-L Special Tests Start: 06/09/23 08:57 Freq: Status: Active Protocol: Document 06/09/23 09:30 [facility] (Rec: 06/09/23 10:52 [facility] [id number]) Special Tests Shoulder Special Tests Watt Eugene Impingement Test Results positive Neer Impingement Test Results positive Drop Arm Rotator Cuff Test Results negative PT-OP-M Strength Start: 06/09/23 08:57 Freq: Status: Active Protocol: Document 06/09/23 09:30 [facility] (Rec: 06/09/23 10:52 [facility] [id number]) Shoulder Strength Shoulder Manual Muscle Testing Right Flexion 4+ Good+ Extension 5 Normal Abduction (C5) 4+ Good+ Adduction 4+ Good+ External Rotation 4 Good Internal Rotation 4+ Good+ Comments ER limited by pain Left Flexion 5 Normal Extension 5 Normal Abduction (C5) 5 Normal Adduction 5 Normal External Rotation 5 Normal Internal Rotation 5 Normal Horizontal Abduction 5 Normal Horizontal Adduction 5 Normal Elbow/Forearm Strength Elbow and Forearm Manual Muscle Testing dylon Flexion (C6) 5 Normal Extension (C7) 5 Normal PT-OP-Q Treatments Start: 06/09/23 08:57 Freq: Status: Active Protocol: Document 07/22/23 11:08 (Rec: 07/22/23 12:23 [id number]) Gym Equipment Shuttle Rebound Green Ball Exercise Details Throwing Motion Reps/Duration x 10 Comments verbal and tactile cues for form, cues to facilitate decreased scapular elevation and improve scapular retraction Therapeutic Ball I, Y, T Exercise Details I 1#>2#, Ys AROM, Ts AROM>1# DB Ball Size/Color 65 inch/red Body Position Prone Reps/Duration 15 reps Comments No pain with increase DB resistance, cues for breathwork and timing to decrease cervical tension Therapeutic Exercises Supine Exercises hor ab Supine Exercise Name seated on tball Resistance L1 TB> #4 TB blue latex free Reps/Minutes 15 reps each resistance Comments good fatiguing shoulder flex Supine Exercise Name Y Resistance L1 TB peach, 1# DB Equipment Used over 55 cm tball Reps/Minutes 10x each resistance Comments good response serratus punch Side bilateral Resistance 1# DB Equipment Used over 55 cm tball Reps/Minutes 10x2 Comments cues for core stabilization Other Exercises Plank Other Exercise Name Plank>Plank on elbows Reps/Minutes 3x20 hold Comments initial cues for correct alignment and core stabilization Manual Therapy Treatment Soft Tissue Mobilization neck Body Location B, SCM, [place], [place], SOR Mobilization Type Strumming,Sustained Pressure, Other Intensity/Depth Moderate Body Position Supine & L Sidelying Comments /c FM head nods/turns Joint Mobilizations scapula Joint R Direction prot, retra, caud,ceph, UR/DR /c abd & HABD Grade II Body Position Sidelying Comments /c FM STMs: ABD, HABD PT-OP-R Modalities Start: 06/09/23 08:57 Freq: Status: Active Protocol: Document 07/15/23 09:02 SAK (Rec: 07/15/23 10:11 SAK [id number]) Iontophoresis Treatment right RC insertion Medication Amount (mL) (ml) 1.0 Medication Dosage 4mg/ml Treatment Duration (minutes) 3 PT-OP-T Assessment and Plan Start: 06/09/23 08:57 Freq: Status: Active Protocol: Document 07/22/23 11:08 (Rec: 07/22/23 12:23 [id number]) Physical Therapy Assessment Goals Three Impairment postural impairment Impairment habitual activities and postures impacting right shoulder health Short Term Goal (STG) Patient to be instructed in postural correction activities and exercises 07/13/23: progressing with scapular corrections during ROM with occasional cuing slower pacing. STG Duration goal met [place] Goal (LTG) Patient will be able to self- identify activities and postioning which contribute to her shoulder dysfunction and demonstrate independent ability to self-correct and will be independent and compliant with HEP. 07/15/23: good goal progress LTG Duration 08/15/23 Two Impairment activity tolerance Impairment Quickdash UE disability index score 27% Short Term Goal (STG) Decrease score to no greater than 17% 07/15/23: dec to 23% STG Duration 07/30/23 Rfp Writer Goal (LTG) Decrease Quickdash score to no greater than 10% as measure of improved right shoulder activity tolerance LTG Duration 08/15/23 One Impairment R shoulder pain as high as 8/ 10 Impairment increases with reaching overhead and behind her back. Interrupts her sleep Short Term Goal (STG) Patient to report 50% reduction in pain with all activities 07/15/23: goal met STG Duration goal met Rfp Writer Goal (LTG) Patient to sleep without being woken due to right shoulder pain and will be able to reach overhead and behind her back without pain LTG Duration 08/15/23 Assessment Summary Assessment Progressed pt today with addition of plank, trialed full plank on fists for neutral wrist alignment d/t pt reported previous issues with wrists, regressed to plank on elbows to maintain control and form while still being appropriately challenged. Min cues required throughout session for postural alignment , mechanics to target correct muscles, and breathwork to decreased cervical tension and overactivation of cervical musculature. Pt tolerated addition of planks and throwing motion without reproduction of pain, plan to assess pt tolerance next session. Physical Therapy Plan Frequency and Duration Frequency of Treatment 2x/Week Duration of treatment (weeks) 4 Plan of Care Start Date 07/15/23 Plan of Care End Date 08/15/23 Therapeutic Interventions Therapeutic Interventions Home Exercise Program,Joint Mobilizations,Manual Therapy, Patient/Caregiver Education, Self-Care/Home Management,Soft Tissue Mobilization,Taping, Therapeutic Activities, Therapeutic Exercises Modalities Cold Pack/Ice Massage,Electric Stimulation,Hot Packs, Infrared Therapy,Iontophoresis ,Ultrasound Next Visit Focus/Plan Next Note Type Treatment Note Next Visit Plan Next tx: ball walk out, throwing motion TB then trampoline, plank to side plank. POC: Continue PT to help patient achieve full shoulder ROM without pain, return to full active use of her right UE. Emphasis on scapular mechanics
--- NOTE | 2023-07-26 10:30 | PT.OTN ---
Current Diagnoses Pain in right shoulder (07/26/23) Impingement syndrome of right shoulder (07/26/23) Other enthesopathies, not elsewhere classified (07/26/23) Abnormal posture (07/26/23) Physical Therapy Treatment Note PT-OP-A Visit Information Start: 06/09/23 08:57 Freq: Status: Active Protocol: Document 07/26/23 09:49 SP (Rec: 07/26/23 10:34 SP [id number]) Out-Patient Physical Therapy Visit Information Visit Information Visit Type Treatment Note Visit Note 11/23 Visit Start Time 09:49 Visit Stop Time 10:30 Total Visit Minutes 41 Visit Number 12 Number of CARAMEL CANDY MAKER Visits 3 Evaluation Information Evaluation Date 06/09/23 PT-OP-B Current Condition Start: 06/09/23 08:57 Freq: Status: Active Protocol: Document 07/15/23 09:02 SAK (Rec: 07/15/23 10:11 SAK [id number]) Current Condition History of Current Condition Onset Date 3+ months Current Complaints right shoulder pain History of Current Condition Gradual onset right shoulder pain, no known reason. Bothers her with reaching out to side and overhead and behind her back. Difficulty sleeping due to pain. Occasional pins and needles. History torn rotator cuff 2020 left with injection, min pain at this time. Yesterday 30 min on elliptical plus rowing machine. Doing prior rotator cuff ex: bands, counter stretch. Right handed. Occasional use of ice or heat. Prior Treatments and Tests x-ray Apr 07: moderate AC arthritis, mild GH arthritis Future Testing and Treatments Planned CT or MRI if PT not helpful PT-OP-C Subjective Start: 06/09/23 08:57 Freq: Status: Active Protocol: Document 07/26/23 09:49 SP (Rec: 07/26/23 10:34 SP [id number]) OP-PT Subjective Patient Comments Patient Comments Pt reports pleased with her progress making with ROM and added ther ex for HEP. She stated compliant with exercises given. Pt stated neck little stiff but improves with ther ex. PT-OP-F Manual Assessment Start: 06/09/23 08:57 Freq: Status: Active Protocol: Document 06/09/23 09:30 SAK (Rec: 06/09/23 10:52 SAK [id number]) Manual Assessments Joint Mobility Assessment Joint Mobility Assessment WNL except right shoulder distraction and right AC sup> inf PT-OP-H Neuro Start: 06/09/23 08:57 Freq: Status: Active Protocol: Document 06/09/23 09:30 [facility] (Rec: 06/09/23 10:52 [facility] [id number]) Sensation Evaluation Gross Sensation Gross Sensation Right UE Impaired Sensation Description [place] PT-OP-J Posture/Palpation/Skin Start: 06/09/23 08:57 Freq: Status: Active Protocol: Document 06/09/23 09:30 [facility] (Rec: 06/09/23 10:52 [facility] [id number]) Posture Evaluation Position Sitting Head/C-Spine Posture Forward Head Shoulder Posture (L) Rounded,(R) Rounded,(R) Forward Scapula Posture (R) Protracted Arm Posture (L) Internally Rotated,(R) Internally Rotated Palpation Assessment Location right RC Palpation Location insertion Palpation Findings Tenderness PT-OP-K Range of Motion Start: 06/09/23 08:57 Freq: Status: Active Protocol: Document 06/09/23 09:30 [facility] (Rec: 06/09/23 10:52 [facility] [id number]) Cervical Spine Range of Motion Cervical Spine Active Testing Position Sitting Rotation Left 25 Rotation Right 35 Lateral Flexion Left 30 Lateral Flexion Right 35 ROM Limitations Soft Tissue Tightness Shoulder Goniometric Range of Motion Shoulder Right Testing Position Sitting Flexion 155 Extension 15 Abduction 160 External Rotation at 45 degrees 80 Abduction Internal Rotation 65 Left Shoulder ROM WFL Yes Shoulder ROM Limitations Shoulder ROM Limitations Soft Tissue Tightness,Pain Elbow/Forearm Range of Motion Elbow/Forearm dylon Elbow/Forearm ROM WFL Yes PT-OP-L Special Tests Start: 06/09/23 08:57 Freq: Status: Active Protocol: Document 06/09/23 09:30 [facility] (Rec: 06/09/23 10:52 [facility] [id number]) Special Tests Shoulder Special Tests Watt [place] Impingement Test Results positive Neer Impingement Test Results positive Drop Arm Rotator Cuff Test Results negative PT-OP-M Strength Start: 06/09/23 08:57 Freq: Status: Active Protocol: Document 06/09/23 09:30 [facility] (Rec: 06/09/23 10:52 [facility] [id number]) Shoulder Strength Shoulder Manual Muscle Testing Right Flexion 4+ Good+ Extension 5 Normal Abduction (C5) 4+ Good+ Adduction 4+ Good+ External Rotation 4 Good Internal Rotation 4+ Good+ Comments ER limited by pain Left Flexion 5 Normal Extension 5 Normal Abduction (C5) 5 Normal Adduction 5 Normal External Rotation 5 Normal Internal Rotation 5 Normal Horizontal Abduction 5 Normal Horizontal Adduction 5 Normal Elbow/Forearm Strength Elbow and Forearm Manual Muscle Testing dylon Flexion (C6) 5 Normal Extension (C7) 5 Normal PT-OP-Q Treatments Start: 06/09/23 08:57 Freq: Status: Active Protocol: Document 07/26/23 09:49 SP (Rec: 07/26/23 10:34 SP [id number]) Therapeutic Exercises Sidelying Exercises shoulder ab Sidelying Exercise Name ABD OH on L side- added to HEP Side right Resistance 2#DB Reps/Minutes 12 reps each Comments cued knees bent and TA fac assist trunk stability shoulder ER Sidelying Exercise Name HEP reviewed Side right Resistance 2>3#DB Equipment Used towel roll under arm Reps/Minutes 2# x10, 3# DBx10 Comments Good form,little tension over distal deltoid better post manual- Range pnfr open book Sidelying Exercise Name HEP reviewed Resistance 3# DB Reps/Minutes x12 reps each resistance Comments verbal and tactile cues for rotation throughout c/s and t/ s with UE reacha Standing Exercises wall walking Standing Exercise Name added toHEP Resistance TB #1 Reps/Minutes 20 ft x1 lap Comments good post shld muscle tiring Ys off wall Standing Exercise Name added to HEP Side bilateral Resistance TB #1 Reps/Minutes x10 Comments cued posture, keep tension con /ecc FF, ABD, D2 Flexion Standing Exercise Name reviewe HEP Side right Resistance 2# DB Equipment Used front mirror self posturing Reps/Minutes x10 reps each Comments cued slower pacing ecc, less deltoid tension painfree range pec stretch Standing Exercise Name Discussed various angles not performed today Side bilateral Equipment Used corner Reps/Minutes 30 x2 Comments good understanding review UE/ head/neck alignment- good stretch response Other Exercises Plank Other Exercise Name Plank on elbows Reps/Minutes 35SH Comments good form Manual Therapy Treatment Soft Tissue Mobilization neck Body Location B, SCM, [place], [place], SOR Mobilization Type Strumming,Sustained Pressure, Other Intensity/Depth Moderate Body Position Supine & L Sidelying Comments /c FM head nods/turns Joint Mobilizations scapula Joint R Direction prot, retra, caud,ceph, UR/DR /c abd & HABD Grade II Body Position Sidelying Comments /c FM STMs: ABD, HABD PT-OP-R Modalities Start: 06/09/23 08:57 Freq: Status: Active Protocol: Document 07/15/23 09:02 SAK (Rec: 07/15/23 10:11 SAK [id number]) Iontophoresis Treatment right RC insertion Medication Amount (mL) (ml) 1.0 Medication Dosage 4mg/ml Treatment Duration (minutes) 3 PT-OP-T Assessment and Plan Start: 06/09/23 08:57 Freq: Status: Active Protocol: Document 07/26/23 09:49 SP (Rec: 07/26/23 10:34 SP [id number]) Physical Therapy Assessment Goals Three Impairment postural impairment Impairment habitual activities and postures impacting right shoulder health Short Term Goal (STG) Patient to be instructed in postural correction activities and exercises 07/13/23: progressing with scapular corrections during ROM with occasional cuing slower pacing. STG Duration goal met [facility] Goal (LTG) Patient will be able to self- identify activities and postioning which contribute to her shoulder dysfunction and demonstrate independent ability to self-correct and will be independent and compliant with HEP. 07/15/23: good goal progress LTG Duration 08/15/23 Two Impairment activity tolerance Impairment Quickdash UE disability index score 27% Short Term Goal (STG) Decrease score to no greater than 17% 07/15/23: dec to 23% STG Duration 07/30/23 [employer] Goal (LTG) Decrease Quickdash score to no greater than 10% as measure of improved right shoulder activity tolerance LTG Duration 08/15/23 One Impairment R shoulder pain as high as 8/ 10 Impairment increases with reaching overhead and behind her back. Interrupts her sleep Short Term Goal (STG) Patient to report 50% reduction in pain with all activities 07/15/23: goal met STG Duration goal met [facility] Goal (LTG) Patient to sleep without being woken due to right shoulder pain and will be able to reach overhead and behind her back without pain LTG Duration 08/15/23 Assessment Summary Assessment Pt reduction in crepitus with Ys off wall and humeral ABD/ER con/eccentric muscle tiring during wall walking end tx added to HEP for GH strengthening. Provided cues for scap and head/neck positioning with postural awareness cues improved muscle tiring performance with reduction instances of GH crepitus this tx. Pt improved GH and scapulothoracic resistance with dumbells cues for slower pacing improved inferior and UR/DR reduction in crepitis with more fluid movement. Physical Therapy Plan Frequency and Duration Frequency of Treatment 2x/Week Duration of treatment (weeks) 4 Plan of Care Start Date 07/15/23 Plan of Care End Date 08/15/23 Therapeutic Interventions Therapeutic Interventions Home Exercise Program,Joint Mobilizations,Manual Therapy, Patient/Caregiver Education, Self-Care/Home Management,Soft Tissue Mobilization,Taping, Therapeutic Activities, Therapeutic Exercises Modalities Cold Pack/Ice Massage,Electric Stimulation,Hot Packs, Infrared Therapy,Iontophoresis ,Ultrasound Next Visit Focus/Plan Next Note Type Treatment Note Next Visit Plan 2 more tx scheduled, assess progressing well enough DC or need more time. Next tx: concentric/eccentric throwing motion TB then trampoline, resistance lifting items over head. POC: Continue PT to help patient achieve full shoulder ROM without pain, return to full active use of her right UE. Emphasis on scapular mechanics
--- NOTE | 2023-08-04 10:30 | PT.OTN ---
Current Diagnoses Pain in right shoulder (08/04/23) Impingement syndrome of right shoulder (08/04/23) Other enthesopathies, not elsewhere classified (08/04/23) Abnormal posture (08/04/23) Physical Therapy Treatment Note PT-OP-A Visit Information Start: 06/09/23 08:57 Freq: Status: Active Protocol: Document 08/04/23 09:48 SAK (Rec: 08/04/23 10:29 [facility] [id number]) Out-Patient Physical Therapy Visit Information Visit Information Visit Type Treatment Note Visit Note 01/23 Visit Start Time 09:49 Visit Stop Time 10:40 Total Visit Minutes 51 Visit Number 14 Number of INVESTMENT TRADER Visits 0 PT-OP-B Current Condition Start: 06/09/23 08:57 Freq: Status: Active Protocol: Document 07/15/23 09:02 SAK (Rec: 07/15/23 10:11 SAK [id number]) Current Condition History of Current Condition Onset Date 3+ months Current Complaints right shoulder pain History of Current Condition Gradual onset right shoulder pain, no known reason. Bothers her with reaching out to side and overhead and behind her back. Difficulty sleeping due to pain. Occasional pins and needles. History torn rotator cuff 2020 left with injection, min pain at this time. Yesterday 30 min on elliptical plus rowing machine. Doing prior rotator cuff ex: bands, counter stretch. Right handed. Occasional use of ice or heat. Prior Treatments and Tests x-ray Apr 07: moderate AC arthritis, mild GH arthritis Future Testing and Treatments Planned CT or MRI if PT not helpful PT-OP-C Subjective Start: 06/09/23 08:57 Freq: Status: Active Protocol: Document 08/04/23 09:48 SAK (Rec: 08/04/23 10:29 [facility] [id number]) OP-PT Subjective Patient Comments Patient Comments Flew home last night. Took bands with her, able to do some exercises but not much. Can reach overhead and out to the side better. Had sister lift bag into overhead compartment on plane. Patient Reported Progress Improving PT-OP-F Manual Assessment Start: 06/09/23 08:57 Freq: Status: Active Protocol: Document 06/09/23 09:30 SAK (Rec: 06/09/23 10:52 [facility] [id number]) Manual Assessments Joint Mobility Assessment Joint Mobility Assessment WNL except right shoulder distraction and right AC sup> inf PT-OP-H Neuro Start: 06/09/23 08:57 Freq: Status: Active Protocol: Document 06/09/23 09:30 [facility] (Rec: 06/09/23 10:52 [facility] [id number]) Sensation Evaluation Gross Sensation Gross Sensation Right UE Impaired Sensation Description [place] PT-OP-J Posture/Palpation/Skin Start: 06/09/23 08:57 Freq: Status: Active Protocol: Document 06/09/23 09:30 [facility] (Rec: 06/09/23 10:52 [facility] [id number]) Posture Evaluation Position Sitting Head/C-Spine Posture Forward Head Shoulder Posture (L) Rounded,(R) Rounded,(R) Forward Scapula Posture (R) Protracted Arm Posture (L) Internally Rotated,(R) Internally Rotated Palpation Assessment Location right RC Palpation Location insertion Palpation Findings Tenderness PT-OP-K Range of Motion Start: 06/09/23 08:57 Freq: Status: Active Protocol: Document 06/09/23 09:30 [facility] (Rec: 06/09/23 10:52 [facility] [id number]) Cervical Spine Range of Motion Cervical Spine Active Testing Position Sitting Rotation Left 25 Rotation Right 35 Lateral Flexion Left 30 Lateral Flexion Right 35 ROM Limitations Soft Tissue Tightness Shoulder Goniometric Range of Motion Shoulder Right Testing Position Sitting Flexion 155 Extension 15 Abduction 160 External Rotation at 45 degrees 80 Abduction Internal Rotation 65 Left Shoulder ROM WFL Yes Shoulder ROM Limitations Shoulder ROM Limitations Soft Tissue Tightness,Pain Elbow/Forearm Range of Motion Elbow/Forearm dylon Elbow/Forearm ROM WFL Yes PT-OP-L Special Tests Start: 06/09/23 08:57 Freq: Status: Active Protocol: Document 06/09/23 09:30 [facility] (Rec: 06/09/23 10:52 [facility] [id number]) Special Tests Shoulder Special Tests Watt Eugene Impingement Test Results positive Neer Impingement Test Results positive Drop Arm Rotator Cuff Test Results negative PT-OP-M Strength Start: 06/09/23 08:57 Freq: Status: Active Protocol: Document 06/09/23 09:30 [facility] (Rec: 06/09/23 10:52 [facility] [id number]) Shoulder Strength Shoulder Manual Muscle Testing Right Flexion 4+ Good+ Extension 5 Normal Abduction (C5) 4+ Good+ Adduction 4+ Good+ External Rotation 4 Good Internal Rotation 4+ Good+ Comments ER limited by pain Left Flexion 5 Normal Extension 5 Normal Abduction (C5) 5 Normal Adduction 5 Normal External Rotation 5 Normal Internal Rotation 5 Normal Horizontal Abduction 5 Normal Horizontal Adduction 5 Normal Elbow/Forearm Strength Elbow and Forearm Manual Muscle Testing dylon Flexion (C6) 5 Normal Extension (C7) 5 Normal PT-OP-Q Treatments Start: 06/09/23 08:57 Freq: Status: Active Protocol: Document 08/04/23 09:48 [facility] (Rec: 08/04/23 10:29 [facility] [id number]) Cardio Equipment Upper Body Ergometer (UBE) Duration (Minutes) 6 RPM 120 Seat Position 8 Height 2.5 Other 3/3 min each direction Gym Equipment Therapeutic Ball I, Y, T Exercise Details I 2#, Ys AROM, Ts AROM>1# DB Ball Size/Color 65 inch/red Body Position Prone Reps/Duration 15 reps Therapeutic Exercises Supine Exercises supine fly Resistance 2# Equipment Used foam roller Reps/Minutes 10x2 posterior capsule stretch Side bilateral Reps/Minutes 2x10 Comments good post shld stretch shoulder ER/IR Supine Exercise Name IR stretch Equipment Used towel roll under upper arm, 1# , pillow under right hand Reps/Minutes 2 min Comments low load, long duration hor ab Supine Exercise Name supine Resistance L2 TB TB blue latex free Equipment Used foam roller Reps/Minutes 15 reps each resistance Comments good fatiguing shoulder flex Supine Exercise Name Y Resistance L2 TB Equipment Used foam roller Reps/Minutes 10x 2 Comments good response pec stretch Equipment Used foam roll Reps/Minutes 2x30 Comments no pillow support needed right UE serratus punch Side bilateral Resistance 2# DB Equipment Used foam roller Reps/Minutes 10x2 Comments cues for core stabilization Standing Exercises shoulder IR Standing Exercise Name 90/90 Comments next session with TB shoulder ER Standing Exercise Name 90/90 Comments next session with TB wall slide Standing Exercise Name dylon UE's into Y Reps/Minutes 10x Comments cues for shoulder shrug at 90 deg thru end range to to facil scap movement throwing Resistance 2# ball Equipment Used rebounder Reps/Minutes 10x2 throwing motion Equipment Used L2 TB Reps/Minutes 10x2 Comments slow, controlled, then inc speed Manual Therapy Treatment Soft Tissue Mobilization right shoulder Body Location R biceps, deltoid, rhomboids, infrasp, suprasp Mobilization Type Cross-Friction,Myofascial Release,Strumming Intensity/Depth mod Joint Mobilizations scapula Joint R Direction prot, retra, caud,ceph, UR/DR /c abd & HABD Grade II Body Position Sidelying Comments /c FM STMs: ABD, HABD PT-OP-R Modalities Start: 06/09/23 08:57 Freq: Status: Active Protocol: Document 07/28/23 09:02 SAK (Rec: 07/29/23 10:23 SAK [id number]) Hot Pack/Cold Pack Treatment Cold Pack Location right shoulder Patient Position Hooklying Treatment Duration (minutes) 10 Patient Tolerance Good PT-OP-T Assessment and Plan Start: 06/09/23 08:57 Freq: Status: Active Protocol: Document 08/04/23 09:48 SAK (Rec: 08/04/23 10:29 SAK [id number]) Physical Therapy Assessment Goals Three Impairment postural impairment Impairment habitual activities and postures impacting right shoulder health Short Term Goal (STG) Patient to be instructed in postural correction activities and exercises 07/13/23: progressing with scapular corrections during ROM with occasional cuing slower pacing. STG Duration goal met [facility] Goal (LTG) Patient will be able to self- identify activities and postioning which contribute to her shoulder dysfunction and demonstrate independent ability to self-correct and will be independent and compliant with HEP. 07/15/23: good goal progress 08/04/23: continues to improve with postural correction LTG Duration 09/15/23 Two Impairment activity tolerance Impairment Quickdash UE disability index score 27% Short Term Goal (STG) Decrease score to no greater than 17% 07/15/23: dec to 23% 08/04/23: goal met STG Duration goal met Business Support Associate Goal (LTG) Decrease Quickdash score to no greater than 10% as measure of improved right shoulder activity tolerance LTG Duration 09/15/23 One Impairment R shoulder pain as high as 8/ 10 Impairment increases with reaching overhead and behind her back. Interrupts her sleep Short Term Goal (STG) Patient to report 50% reduction in pain with all activities 07/15/23: goal met STG Duration goal met Business Support Associate Goal (LTG) Patient to sleep without being woken due to right shoulder pain and will be able to reach overhead and behind her back without pain 08/04/24 LTG Duration 08/15/23 Progress Towards Goals Progress Towards Goals Progressing Toward Goals Assessment Summary Assessment Good improvement in shoulder function, still some impingment end-range elevation . Dec pain with end-range elevation with wall slide shoulder shrug ex. Physical Therapy Plan Frequency and Duration Frequency of Treatment 2x/Week Duration of treatment (weeks) 4 Plan of Care Start Date 08/04/23 Plan of Care End Date 09/15/23 Therapeutic Interventions Therapeutic Interventions Home Exercise Program,Joint Mobilizations,Manual Therapy, Patient/Caregiver Education, Self-Care/Home Management,Soft Tissue Mobilization,Taping, Therapeutic Activities, Therapeutic Exercises Modalities Cold Pack/Ice Massage,Electric Stimulation,Hot Packs, Infrared Therapy,Iontophoresis ,Ultrasound Next Visit Focus/Plan Next Note Type Treatment Note Next Visit Plan Continue PT to help patient achieve full AROM and function right shoulder with minimal to no pain. Scapular mobilization. Further education regarding scapular musculature and rotation with movment
--- NOTE | 2023-08-18 12:25 | PT.OTN ---
Current Diagnoses Pain in right shoulder (08/18/23) Impingement syndrome of right shoulder (08/18/23) Other enthesopathies, not elsewhere classified (08/18/23) Abnormal posture (08/18/23) Physical Therapy Treatment Note PT-OP-A Visit Information Start: 06/09/23 08:57 Freq: Status: Active Protocol: Document 08/18/23 11:27 (Rec: 08/18/23 12:24 [id number]) Out-Patient Physical Therapy Visit Information Visit Information Visit Type Treatment Note Visit Note 02/22 Visit Start Time 11:17 Visit Stop Time 12:00 Total Visit Minutes 52 Visit Number 15 Number of VALET ATTENDANT Visits 1 PT-OP-B Current Condition Start: 06/09/23 08:57 Freq: Status: Active Protocol: Document 07/15/23 09:02 SAK (Rec: 07/15/23 10:11 SAK [id number]) Current Condition History of Current Condition Onset Date 3+ months Current Complaints right shoulder pain History of Current Condition Gradual onset right shoulder pain, no known reason. Bothers her with reaching out to side and overhead and behind her back. Difficulty sleeping due to pain. Occasional pins and needles. History torn rotator cuff 2020 left with injection, min pain at this time. Yesterday 30 min on elliptical plus rowing machine. Doing prior rotator cuff ex: bands, counter stretch. Right handed. Occasional use of ice or heat. Prior Treatments and Tests x-ray Apr 07: moderate AC arthritis, mild GH arthritis Future Testing and Treatments Planned CT or MRI if PT not helpful PT-OP-C Subjective Start: 06/09/23 08:57 Freq: Status: Active Protocol: Document 08/18/23 11:27 (Rec: 08/18/23 12:24 [id number]) OP-PT Subjective Patient Comments Patient Comments Pt reports doing 1301 pavers with her , pain level stayed same, no increase. Pt did a lot of cleaning. PT-OP-F Manual Assessment Start: 06/09/23 08:57 Freq: Status: Active Protocol: Document 06/09/23 09:30 SAK (Rec: 06/09/23 10:52 SAK [id number]) Manual Assessments Joint Mobility Assessment Joint Mobility Assessment WNL except right shoulder distraction and right AC sup> inf PT-OP-H Neuro Start: 06/09/23 08:57 Freq: Status: Active Protocol: Document 06/09/23 09:30 [facility] (Rec: 06/09/23 10:52 [facility] [id number]) Sensation Evaluation Gross Sensation Gross Sensation Right UE Impaired Sensation Description [place] PT-OP-J Posture/Palpation/Skin Start: 06/09/23 08:57 Freq: Status: Active Protocol: Document 06/09/23 09:30 [facility] (Rec: 06/09/23 10:52 [facility] [id number]) Posture Evaluation Position Sitting Head/C-Spine Posture Forward Head Shoulder Posture (L) Rounded,(R) Rounded,(R) Forward Scapula Posture (R) Protracted Arm Posture (L) Internally Rotated,(R) Internally Rotated Palpation Assessment Location right RC Palpation Location insertion Palpation Findings Tenderness PT-OP-K Range of Motion Start: 06/09/23 08:57 Freq: Status: Active Protocol: Document 06/09/23 09:30 [facility] (Rec: 06/09/23 10:52 [facility] [id number]) Cervical Spine Range of Motion Cervical Spine Active Testing Position Sitting Rotation Left 25 Rotation Right 35 Lateral Flexion Left 30 Lateral Flexion Right 35 ROM Limitations Soft Tissue Tightness Shoulder Goniometric Range of Motion Shoulder Right Testing Position Sitting Flexion 155 Extension 15 Abduction 160 External Rotation at 45 degrees 80 Abduction Internal Rotation 65 Left Shoulder ROM WFL Yes Shoulder ROM Limitations Shoulder ROM Limitations Soft Tissue Tightness,Pain Elbow/Forearm Range of Motion Elbow/Forearm dylon Elbow/Forearm ROM WFL Yes PT-OP-L Special Tests Start: 06/09/23 08:57 Freq: Status: Active Protocol: Document 06/09/23 09:30 [facility] (Rec: 06/09/23 10:52 [facility] [id number]) Special Tests Shoulder Special Tests Watt Eugene Impingement Test Results positive Neer Impingement Test Results positive Drop Arm Rotator Cuff Test Results negative PT-OP-M Strength Start: 06/09/23 08:57 Freq: Status: Active Protocol: Document 06/09/23 09:30 [facility] (Rec: 06/09/23 10:52 [facility] [id number]) Shoulder Strength Shoulder Manual Muscle Testing Right Flexion 4+ Good+ Extension 5 Normal Abduction (C5) 4+ Good+ Adduction 4+ Good+ External Rotation 4 Good Internal Rotation 4+ Good+ Comments ER limited by pain Left Flexion 5 Normal Extension 5 Normal Abduction (C5) 5 Normal Adduction 5 Normal External Rotation 5 Normal Internal Rotation 5 Normal Horizontal Abduction 5 Normal Horizontal Adduction 5 Normal Elbow/Forearm Strength Elbow and Forearm Manual Muscle Testing dylon Flexion (C6) 5 Normal Extension (C7) 5 Normal PT-OP-Q Treatments Start: 06/09/23 08:57 Freq: Status: Active Protocol: Document 08/18/23 11:27 SW (Rec: 08/18/23 12:24 SW [id number]) Cardio Equipment Upper Body Ergometer (UBE) Duration (Minutes) 6 RPM 120 Seat Position 8 Height 2.5 Other 3/3 min each direction Gym Equipment Therapeutic Ball I, Y, T Exercise Details I 2#, Ys AROM, Ts AROM>1# DB Ball Size/Color 65 inch/red Body Position Prone Reps/Duration 15 reps Comments Trialed Y with 1#, disct'd today d/t discomfort. Therapeutic Exercises Supine Exercises supine fly Resistance 2# Equipment Used foam roller Reps/Minutes 10x2 posterior capsule stretch Side bilateral Reps/Minutes 2x10 Comments good post shld stretch hor ab Supine Exercise Name supine Resistance L2 TB TB blue latex free Equipment Used foam roller Reps/Minutes 15 reps each resistance Comments good fatiguing shoulder flex Supine Exercise Name Y Resistance L2 TB Equipment Used foam roller Reps/Minutes 10x 2 Comments good response pec stretch Equipment Used foam roll Reps/Minutes 2x30 Comments no pillow support needed right UE serratus punch Side bilateral Resistance 2# DB Equipment Used foam roller Reps/Minutes 10x2 Comments cues for core stabilization Standing Exercises shoulder IR Standing Exercise Name 90/90 Side right Resistance Lv 2 TB shoulder ER Standing Exercise Name 90/90 Side right Resistance Lv 1 TB Comments ROM>iso hold walkout throwing motion Equipment Used L2 TB Reps/Minutes 10x2 Comments slow, controlled, then inc speed Manual Therapy Treatment Soft Tissue Mobilization right shoulder Body Location R biceps, deltoid, rhomboids, infrasp, suprasp Mobilization Type Cross-Friction,Myofascial Release,Strumming Intensity/Depth mod Joint Mobilizations scapula Joint R Direction prot, retra, caud,ceph, UR/DR /c abd & HABD Grade II Body Position Sidelying Comments /c FM STMs: ABD, HABD PT-OP-R Modalities Start: 06/09/23 08:57 Freq: Status: Active Protocol: Document 08/18/23 11:27 SW (Rec: 08/18/23 12:25 [id number]) Hot Pack/Cold Pack Treatment Cold Pack Location right shoulder Patient Position Hooklying Treatment Duration (minutes) 10 Patient Tolerance Good PT-OP-T Assessment and Plan Start: 06/09/23 08:57 Freq: Status: Active Protocol: Document 08/18/23 11:27 (Rec: 08/18/23 12:24 [id number]) Physical Therapy Assessment Goals Three Impairment postural impairment Impairment habitual activities and postures impacting right shoulder health Short Term Goal (STG) Patient to be instructed in postural correction activities and exercises 07/13/23: progressing with scapular corrections during ROM with occasional cuing slower pacing. STG Duration goal met Mcc Goal (LTG) Patient will be able to self- identify activities and postioning which contribute to her shoulder dysfunction and demonstrate independent ability to self-correct and will be independent and compliant with HEP. 07/15/23: good goal progress 08/04/23: continues to improve with postural correction LTG Duration 09/15/23 Two Impairment activity tolerance Impairment Quickdash UE disability index score 27% Short Term Goal (STG) Decrease score to no greater than 17% 07/15/23: dec to 23% 08/04/23: goal met STG Duration goal met Tool Adjuster Goal (LTG) Decrease Quickdash score to no greater than 10% as measure of improved right shoulder activity tolerance LTG Duration 09/15/23 One Impairment R shoulder pain as high as 8/ 10 Impairment increases with reaching overhead and behind her back. Interrupts her sleep Short Term Goal (STG) Patient to report 50% reduction in pain with all activities 07/15/23: goal met STG Duration goal met Mcc Goal (LTG) Patient to sleep without being woken due to right shoulder pain and will be able to reach overhead and behind her back without pain 08/04/24 LTG Duration 08/15/23 Assessment Summary Assessment Pt able to tolerate increased workload at home without increased pain past a 5/10. Progressed patient with IR/ER shoulder strengthening this session. Pt tolerated IR well with no inceased pn, discomfort with ER through resisted ROM, decreased resistance with ER, then went to walkout hold, good pt response, min cue for setting shldr prior to initiating exercise. Pt reported minor reaction to medication patch post last session, reported forgetting about it and leaving it on past recommended time, assessed skin today, minimal residual scabbing present today. Physical Therapy Plan Frequency and Duration Frequency of Treatment 2x/Week Duration of treatment (weeks) 4 Plan of Care Start Date 08/04/23 Plan of Care End Date 09/15/23 Therapeutic Interventions Therapeutic Interventions Home Exercise Program,Joint Mobilizations,Manual Therapy, Patient/Caregiver Education, Self-Care/Home Management,Soft Tissue Mobilization,Taping, Therapeutic Activities, Therapeutic Exercises Modalities Cold Pack/Ice Massage,Electric Stimulation,Hot Packs, Infrared Therapy,Iontophoresis ,Ultrasound Next Visit Focus/Plan Next Note Type Treatment Note Next Visit Plan Continue PT to help patient achieve full AROM and function right shoulder with minimal to no pain. Scapular mobilization. Further education regarding scapular musculature and rotation with movment
--- NOTE | 2023-08-25 12:31 | PT.OTN ---
Current Diagnoses Pain in right shoulder (08/25/23) Impingement syndrome of right shoulder (08/25/23) Other enthesopathies, not elsewhere classified (08/25/23) Abnormal posture (08/25/23) Physical Therapy Treatment Note PT-OP-A Visit Information Start: 06/09/23 08:57 Freq: Status: Active Protocol: Document 08/25/23 11:12 (Rec: 08/25/23 12:30 [id number]) Out-Patient Physical Therapy Visit Information Visit Information Visit Type Treatment Note Visit Note 03/25 Visit Start Time 11:15 Visit Stop Time 12:00 Total Visit Minutes 45 Visit Number 16 Number of PUTTY GLAZER Visits 2 PT-OP-B Current Condition Start: 06/09/23 08:57 Freq: Status: Active Protocol: Document 07/15/23 09:02 SAK (Rec: 07/15/23 10:11 SAK [id number]) Current Condition History of Current Condition Onset Date 3+ months Current Complaints right shoulder pain History of Current Condition Gradual onset right shoulder pain, no known reason. Bothers her with reaching out to side and overhead and behind her back. Difficulty sleeping due to pain. Occasional pins and needles. History torn rotator cuff 2020 left with injection, min pain at this time. Yesterday 30 min on elliptical plus rowing machine. Doing prior rotator cuff ex: bands, counter stretch. Right handed. Occasional use of ice or heat. Prior Treatments and Tests x-ray Apr 07: moderate AC arthritis, mild GH arthritis Future Testing and Treatments Planned CT or MRI if PT not helpful PT-OP-C Subjective Start: 06/09/23 08:57 Freq: Status: Active Protocol: Document 08/25/23 11:12 (Rec: 08/25/23 12:30 [id number]) OP-PT Subjective Patient Comments Patient Comments Pt reports doing ok, sleeping at night moving around more with pain around a 5-6/10 max. 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 PT-OP-F Manual Assessment Start: 06/09/23 08:57 Freq: Status: Active Protocol: Document 06/09/23 09:30 SAK (Rec: 06/09/23 10:52 SAK [id number]) Manual Assessments Joint Mobility Assessment Joint Mobility Assessment WNL except right shoulder distraction and right AC sup> inf PT-OP-H Neuro Start: 06/09/23 08:57 Freq: Status: Active Protocol: Document 06/09/23 09:30 [facility] (Rec: 06/09/23 10:52 [facility] [id number]) Sensation Evaluation Gross Sensation Gross Sensation Right UE Impaired Sensation Description [place] PT-OP-J Posture/Palpation/Skin Start: 06/09/23 08:57 Freq: Status: Active Protocol: Document 06/09/23 09:30 [facility] (Rec: 06/09/23 10:52 [facility] [id number]) Posture Evaluation Position Sitting Head/C-Spine Posture Forward Head Shoulder Posture (L) Rounded,(R) Rounded,(R) Forward Scapula Posture (R) Protracted Arm Posture (L) Internally Rotated,(R) Internally Rotated Palpation Assessment Location right RC Palpation Location insertion Palpation Findings Tenderness PT-OP-K Range of Motion Start: 06/09/23 08:57 Freq: Status: Active Protocol: Document 06/09/23 09:30 [facility] (Rec: 06/09/23 10:52 [facility] [id number]) Cervical Spine Range of Motion Cervical Spine Active Testing Position Sitting Rotation Left 25 Rotation Right 35 Lateral Flexion Left 30 Lateral Flexion Right 35 ROM Limitations Soft Tissue Tightness Shoulder Goniometric Range of Motion Shoulder Right Testing Position Sitting Flexion 155 Extension 15 Abduction 160 External Rotation at 45 degrees 80 Abduction Internal Rotation 65 Left Shoulder ROM WFL Yes Shoulder ROM Limitations Shoulder ROM Limitations Soft Tissue Tightness,Pain Elbow/Forearm Range of Motion Elbow/Forearm dylon Elbow/Forearm ROM WFL Yes PT-OP-L Special Tests Start: 06/09/23 08:57 Freq: Status: Active Protocol: Document 06/09/23 09:30 [facility] (Rec: 06/09/23 10:52 [facility] [id number]) Special Tests Shoulder Special Tests Watt Eugene Impingement Test Results positive Neer Impingement Test Results positive Drop Arm Rotator Cuff Test Results negative PT-OP-M Strength Start: 06/09/23 08:57 Freq: Status: Active Protocol: Document 06/09/23 09:30 [facility] (Rec: 06/09/23 10:52 [facility] [id number]) Shoulder Strength Shoulder Manual Muscle Testing Right Flexion 4+ Good+ Extension 5 Normal Abduction (C5) 4+ Good+ Adduction 4+ Good+ External Rotation 4 Good Internal Rotation 4+ Good+ Comments ER limited by pain Left Flexion 5 Normal Extension 5 Normal Abduction (C5) 5 Normal Adduction 5 Normal External Rotation 5 Normal Internal Rotation 5 Normal Horizontal Abduction 5 Normal Horizontal Adduction 5 Normal Elbow/Forearm Strength Elbow and Forearm Manual Muscle Testing dylon Flexion (C6) 5 Normal Extension (C7) 5 Normal PT-OP-Q Treatments Start: 06/09/23 08:57 Freq: Status: Active Protocol: Document 08/25/23 11:12 SW (Rec: 08/25/23 12:30 SW [id number]) Cardio Equipment Upper Body Ergometer (UBE) Duration (Minutes) 6 RPM 120 Seat Position 8 Height 2.5 Other 3/3 min each direction Gym Equipment Therapeutic Ball I, Y, T Exercise Details I 3#, Ys AROM, Ts 2# DB Ball Size/Color 65 inch/red Body Position Prone Therapeutic Exercises Supine Exercises Rhythmic stabilization Supine Exercise Name R shoulder rhythmic stabilization Side right Resistance 5# Equipment Used therapist assist>3#>5# weight Reps/Minutes x10 Comments cues for correct execution, pt education on muscles supine fly Resistance 2# Equipment Used foam roller Reps/Minutes 10x2 Standing Exercises shoulder IR Standing Exercise Name 90/90 Side right Resistance Level 1 Comments painful shoulder ER Standing Exercise Name 90/90 Side right Resistance Lv 1 TB Comments no pain reported, mm fatigue wall slide Standing Exercise Name dylon UE's into Y (trial lift off) Comments cues for shoulder shrug at 90 deg thru end range to to facil scap movement throwing motion Equipment Used L2 TB Reps/Minutes 15x2 Comments slow, controlled, then inc speed Manual Therapy Treatment Soft Tissue Mobilization right shoulder Body Location R biceps, deltoid, rhomboids, infrasp, suprasp Mobilization Type Cross-Friction,Myofascial Release,Strumming Intensity/Depth mod PT-OP-R Modalities Start: 06/09/23 08:57 Freq: Status: Active Protocol: Document 08/18/23 11:27 SW (Rec: 08/18/23 12:25 [id number]) Hot Pack/Cold Pack Treatment Cold Pack Location right shoulder Patient Position Hooklying Treatment Duration (minutes) 10 Patient Tolerance Good PT-OP-T Assessment and Plan Start: 06/09/23 08:57 Freq: Status: Active Protocol: Document 08/25/23 11:12 SW (Rec: 08/25/23 12:30 SW [id number]) Physical Therapy Assessment Goals Three Impairment postural impairment Impairment habitual activities and postures impacting right shoulder health Short Term Goal (STG) Patient to be instructed in postural correction activities and exercises 07/13/23: progressing with scapular corrections during ROM with occasional cuing slower pacing. STG Duration goal met [employer] Developer Goal (LTG) Patient will be able to self- identify activities and postioning which contribute to her shoulder dysfunction and demonstrate independent ability to self-correct and will be independent and compliant with HEP. 07/15/23: good goal progress 08/04/23: continues to improve with postural correction LTG Duration 09/15/23 Two Impairment activity tolerance Impairment Quickdash UE disability index score 27% Short Term Goal (STG) Decrease score to no greater than 17% 07/15/23: dec to 23% 08/04/23: goal met STG Duration goal met Care Home Goal (LTG) Decrease Quickdash score to no greater than 10% as measure of improved right shoulder activity tolerance LTG Duration 09/15/23 One Impairment R shoulder pain as high as 8/ 10 Impairment increases with reaching overhead and behind her back. Interrupts her sleep Short Term Goal (STG) Patient to report 50% reduction in pain with all activities 07/15/23: goal met STG Duration goal met Care Home Goal (LTG) Patient to sleep without being woken due to right shoulder pain and will be able to reach overhead and behind her back without pain 08/04/24 LTG Duration 08/15/23 Assessment Summary Assessment Initiated supine weighted rhythmic stabilization for shoulder strength, pt tolerated well with no discomfort. Progressed pt resistance with I's and T's this session, continued Y's with AROM d/t pt discomfort and clicking with trial of 1# resistance. Physical Therapy Plan Frequency and Duration Frequency of Treatment 2x/Week Duration of treatment (weeks) 4 Plan of Care Start Date 08/04/23 Plan of Care End Date 09/15/23 Therapeutic Interventions Therapeutic Interventions Home Exercise Program,Joint Mobilizations,Manual Therapy, Patient/Caregiver Education, Self-Care/Home Management,Soft Tissue Mobilization,Taping, Therapeutic Activities, Therapeutic Exercises Modalities Cold Pack/Ice Massage,Electric Stimulation,Hot Packs, Infrared Therapy,Iontophoresis ,Ultrasound Next Visit Focus/Plan Next Note Type Treatment Note Next Visit Plan Continue PT to help patient achieve full AROM and function right shoulder with minimal to no pain. Scapular mobilization. Further education regarding scapular musculature and rotation with movment
--- NOTE | 2023-08-26 16:51 | PT.OTN ---
Current Diagnoses Pain in right shoulder (08/26/23) Impingement syndrome of right shoulder (08/26/23) Other enthesopathies, not elsewhere classified (08/26/23) Abnormal posture (08/26/23) Physical Therapy Treatment Note PT-OP-A Visit Information Start: 06/09/23 08:57 Freq: Status: Active Protocol: Document 08/26/23 16:31 [facility] (Rec: 08/26/23 16:49 [facility] [id number]) Out-Patient Physical Therapy Visit Information Visit Information Visit Type Aquatic Treatment Note Visit Note 04/25 Visit Start Time 13:45 Visit Stop Time 14:36 Total Visit Minutes 51 Visit Number 17 Evaluation Information Evaluation Date 06/09/23 PT-OP-B Current Condition Start: 06/09/23 08:57 Freq: Status: Active Protocol: Document 07/15/23 09:02 [facility] (Rec: 07/15/23 10:11 [facility] [id number]) Current Condition History of Current Condition Onset Date 3+ months Current Complaints right shoulder pain History of Current Condition Gradual onset right shoulder pain, no known reason. Bothers her with reaching out to side and overhead and behind her back. Difficulty sleeping due to pain. Occasional pins and needles. History torn rotator cuff 2020 left with injection, min pain at this time. Yesterday 30 min on elliptical plus rowing machine. Doing prior rotator cuff ex: bands, counter stretch. Right handed. Occasional use of ice or heat. Prior Treatments and Tests x-ray Apr 07: moderate AC arthritis, mild GH arthritis Future Testing and Treatments Planned CT or MRI if PT not helpful PT-OP-C Subjective Start: 06/09/23 08:57 Freq: Status: Active Protocol: Document 08/26/23 16:31 [facility] (Rec: 08/26/23 16:49 [facility] [id number]) OP-PT Subjective Patient Comments Patient Comments Patient reports muscle fatigue and some soreness after PT yesterday. Not sure she can tolerate PT 2 days in a row. Patient reports has difficulty with trying to teach herself to sleep on her back insteqd of on side with her shoulders rounded. 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 PT-OP-F Manual Assessment Start: 06/09/23 08:57 Freq: Status: Active Protocol: Document 06/09/23 09:30 [facility] (Rec: 06/09/23 10:52 [facility] [id number]) Manual Assessments Joint Mobility Assessment Joint Mobility Assessment WNL except right shoulder distraction and right AC sup> inf PT-OP-H Neuro Start: 06/09/23 08:57 Freq: Status: Active Protocol: Document 06/09/23 09:30 [facility] (Rec: 06/09/23 10:52 [facility] [id number]) Sensation Evaluation Gross Sensation Gross Sensation Right UE Impaired Sensation Description [employer] PT-OP-J Posture/Palpation/Skin Start: 06/09/23 08:57 Freq: Status: Active Protocol: Document 06/09/23 09:30 [facility] (Rec: 06/09/23 10:52 [facility] [id number]) Posture Evaluation Position Sitting Head/C-Spine Posture Forward Head Shoulder Posture (L) Rounded,(R) Rounded,(R) Forward Scapula Posture (R) Protracted Arm Posture (L) Internally Rotated,(R) Internally Rotated Palpation Assessment Location right RC Palpation Location insertion Palpation Findings Tenderness PT-OP-K Range of Motion Start: 06/09/23 08:57 Freq: Status: Active Protocol: Document 06/09/23 09:30 [facility] (Rec: 06/09/23 10:52 [facility] [id number]) Cervical Spine Range of Motion Cervical Spine Active Testing Position Sitting Rotation Left 25 Rotation Right 35 Lateral Flexion Left 30 Lateral Flexion Right 35 ROM Limitations Soft Tissue Tightness Shoulder Goniometric Range of Motion Shoulder Right Testing Position Sitting Flexion 155 Extension 15 Abduction 160 External Rotation at 45 degrees 80 Abduction Internal Rotation 65 Left Shoulder ROM WFL Yes Shoulder ROM Limitations Shoulder ROM Limitations Soft Tissue Tightness,Pain Elbow/Forearm Range of Motion Elbow/Forearm dylon Elbow/Forearm ROM WFL Yes PT-OP-L Special Tests Start: 06/09/23 08:57 Freq: Status: Active Protocol: Document 06/09/23 09:30 [facility] (Rec: 06/09/23 10:52 [facility] [id number]) Special Tests Shoulder Special Tests Watt [place] Impingement Test Results positive Neer Impingement Test Results positive Drop Arm Rotator Cuff Test Results negative PT-OP-M Strength Start: 06/09/23 08:57 Freq: Status: Active Protocol: Document 06/09/23 09:30 [facility] (Rec: 06/09/23 10:52 [facility] [id number]) Shoulder Strength Shoulder Manual Muscle Testing Right Flexion 4+ Good+ Extension 5 Normal Abduction (C5) 4+ Good+ Adduction 4+ Good+ External Rotation 4 Good Internal Rotation 4+ Good+ Comments ER limited by pain Left Flexion 5 Normal Extension 5 Normal Abduction (C5) 5 Normal Adduction 5 Normal External Rotation 5 Normal Internal Rotation 5 Normal Horizontal Abduction 5 Normal Horizontal Adduction 5 Normal Elbow/Forearm Strength Elbow and Forearm Manual Muscle Testing dylon Flexion (C6) 5 Normal Extension (C7) 5 Normal PT-OP-Q Treatments Start: 06/09/23 08:57 Freq: Status: Active Protocol: Document 08/26/23 16:31 [facility] (Rec: 08/26/23 16:49 [facility] [id number]) Therapeutic Exercises Supine Exercises shoulder ER/IR Supine Exercise Name IR Reps/Minutes 10x Comments with short axis distraction, man cues to prevent rolling forward of shoulde Sitting Exercises should abd Sitting Exercise Name passive > AAROM Reps/Minutes 10x Comments with manual inf glide GH shoulder flex Sitting Exercise Name PROM > AAROM Reps/Minutes 10x Comments with manual inf glid GH seated cat/cow Reps/Minutes 5x Comments cues for reeling movement of scapulas UT and LS stretches Reps/Minutes 2 min Manual Therapy Treatment Joint Mobilizations GH Joint R Direction inf, posterior Grade II Body Position Hooklying scapula Joint R Direction prot, retra, caud,ceph, UR/DR /c abd & HABD Grade II Body Position Sidelying Comments /c FM STMs: ABD, HABD Self-Care/Home Management Treatment Education Other Education 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 PT-OP-R Modalities Start: 06/09/23 08:57 Freq: Status: Active Protocol: Document 08/26/23 16:31 [facility] (Rec: 08/26/23 16:49 [facility] [id number]) Hot Pack/Cold Pack Treatment Cold Pack Location right shoulder Patient Position Hooklying Treatment Duration (minutes) 10 Patient Tolerance Good Infrared Treatment Treatment GH Duration (Minutes) 6 Body Position Sitting Continuous/Pulsed cont Program or Protocal chronic soft tissue stiffness and pain Iontophoresis Treatment right RC insertion Medication Amount (mL) (ml) 1.0 Medication Dosage 4mg/ml Treatment Polarity neg Treatment Duration (minutes) 3 PT-OP-T Assessment and Plan Start: 06/09/23 08:57 Freq: Status: Active Protocol: Document 08/26/23 16:31 [facility] (Rec: 08/26/23 16:49 [facility] [id number]) Physical Therapy Assessment Goals Three Impairment postural impairment Impairment habitual activities and postures impacting right shoulder health Short Term Goal (STG) Patient to be instructed in postural correction activities and exercises 07/13/23: progressing with scapular corrections during ROM with occasional cuing slower pacing. STG Duration goal met [employer] Goal (LTG) Patient will be able to self- identify activities and postioning which contribute to her shoulder dysfunction and demonstrate independent ability to self-correct and will be independent and compliant with HEP. 07/15/23: good goal progress 08/04/23: continues to improve with postural correction LTG Duration 09/15/23 Two Impairment activity tolerance Impairment Quickdash UE disability index score 27% Short Term Goal (STG) Decrease score to no greater than 17% 07/15/23: dec to 23% 08/04/23: goal met STG Duration goal met [facility] Goal (LTG) Decrease Quickdash score to no greater than 10% as measure of improved right shoulder activity tolerance LTG Duration 09/15/23 One Impairment R shoulder pain as high as 8/ 10 Impairment increases with reaching overhead and behind her back. Interrupts her sleep Short Term Goal (STG) Patient to report 50% reduction in pain with all activities 07/15/23: goal met STG Duration goal met [facility] Goal (LTG) Patient to sleep without being woken due to right shoulder pain and will be able to reach overhead and behind her back without pain 08/04/24 LTG Duration 08/15/23 Physical Therapy Plan Frequency and Duration Frequency of Treatment 2x/Week Duration of treatment (weeks) 4 Plan of Care Start Date 08/04/23 Plan of Care End Date 09/15/23 Therapeutic Interventions Therapeutic Interventions Home Exercise Program,Joint Mobilizations,Manual Therapy, Patient/Caregiver Education, Self-Care/Home Management,Soft Tissue Mobilization,Taping, Therapeutic Activities, Therapeutic Exercises Modalities Cold Pack/Ice Massage,Electric Stimulation,Hot Packs, Infrared Therapy,Iontophoresis ,Ultrasound Next Visit Focus/Plan Next Note Type Treatment Note Next Visit Plan Assess response to today's treatment with inc manual and modalities to dec pain and inflmation. Further discuss patient's repetive stress activity of painting andproblem solve posture, alignment, need for frequent change in positions.
--- NOTE | 2023-08-31 16:15 | PT.OTN ---
Current Diagnoses Pain in right shoulder (08/31/23) Impingement syndrome of right shoulder (08/31/23) Other enthesopathies, not elsewhere classified (08/31/23) Abnormal posture (08/31/23) Physical Therapy Treatment Note PT-OP-A Visit Information Start: 06/09/23 08:57 Freq: Status: Active Protocol: Document 08/31/23 14:33 [facility] (Rec: 08/31/23 15:18 [facility] [id number]) Out-Patient Physical Therapy Visit Information Visit Information Visit Type Treatment Note Visit Note 05/25 Visit Start Time 14:33 Visit Stop Time 15:26 Total Visit Minutes 53 Visit Number 18 Evaluation Information Evaluation Date 06/09/23 PT-OP-B Current Condition Start: 06/09/23 08:57 Freq: Status: Active Protocol: Document 07/15/23 09:02 [facility] (Rec: 07/15/23 10:11 [facility] [id number]) Current Condition History of Current Condition Onset Date 3+ months Current Complaints right shoulder pain History of Current Condition Gradual onset right shoulder pain, no known reason. Bothers her with reaching out to side and overhead and behind her back. Difficulty sleeping due to pain. Occasional pins and needles. History torn rotator cuff 2020 left with injection, min pain at this time. Yesterday 30 min on elliptical plus rowing machine. Doing prior rotator cuff ex: bands, counter stretch. Right handed. Occasional use of ice or heat. Prior Treatments and Tests x-ray Apr 07: moderate AC arthritis, mild GH arthritis Future Testing and Treatments Planned CT or MRI if PT not helpful PT-OP-C Subjective Start: 06/09/23 08:57 Freq: Status: Active Protocol: Document 08/31/23 14:33 [facility] (Rec: 08/31/23 15:18 [facility] [id number]) OP-PT Subjective Patient Comments Patient Comments Has ordered an easel for improved posture with painting . Paying more attention to alignment. Reports felt pretty good after last session ,. Doing HEP. [place] manual techniques last session helpful. Able to reach to side better, min pain. Sleep can still be challenging PT-OP-F Manual Assessment Start: 06/09/23 08:57 Freq: Status: Active Protocol: Document 06/09/23 09:30 [facility] (Rec: 06/09/23 10:52 [facility] [id number]) Manual Assessments Joint Mobility Assessment Joint Mobility Assessment WNL except right shoulder distraction and right AC sup> inf PT-OP-H Neuro Start: 06/09/23 08:57 Freq: Status: Active Protocol: Document 06/09/23 09:30 [facility] (Rec: 06/09/23 10:52 [facility] [id number]) Sensation Evaluation Gross Sensation Gross Sensation Right UE Impaired Sensation Description [employer] [place] PT-OP-J Posture/Palpation/Skin Start: 06/09/23 08:57 Freq: Status: Active Protocol: Document 06/09/23 09:30 [facility] (Rec: 06/09/23 10:52 [facility] [id number]) Posture Evaluation Position Sitting Head/C-Spine Posture Forward Head Shoulder Posture (L) Rounded,(R) Rounded,(R) Forward Scapula Posture (R) Protracted Arm Posture (L) Internally Rotated,(R) Internally Rotated Palpation Assessment Location right RC Palpation Location insertion Palpation Findings Tenderness PT-OP-K Range of Motion Start: 06/09/23 08:57 Freq: Status: Active Protocol: Document 06/09/23 09:30 [facility] (Rec: 06/09/23 10:52 [facility] [id number]) Cervical Spine Range of Motion Cervical Spine Active Testing Position Sitting Rotation Left 25 Rotation Right 35 Lateral Flexion Left 30 Lateral Flexion Right 35 ROM Limitations Soft Tissue Tightness Shoulder Goniometric Range of Motion Shoulder Right Testing Position Sitting Flexion 155 Extension 15 Abduction 160 External Rotation at 45 degrees 80 Abduction Internal Rotation 65 Left Shoulder ROM WFL Yes Shoulder ROM Limitations Shoulder ROM Limitations Soft Tissue Tightness,Pain Elbow/Forearm Range of Motion Elbow/Forearm dylon Elbow/Forearm ROM WFL Yes PT-OP-L Special Tests Start: 06/09/23 08:57 Freq: Status: Active Protocol: Document 06/09/23 09:30 [facility] (Rec: 06/09/23 10:52 [facility] [id number]) Special Tests Shoulder Special Tests Watt [place] Impingement Test Results positive Neer Impingement Test Results positive Drop Arm Rotator Cuff Test Results negative PT-OP-M Strength Start: 06/09/23 08:57 Freq: Status: Active Protocol: Document 06/09/23 09:30 [facility] (Rec: 06/09/23 10:52 [facility] [id number]) Shoulder Strength Shoulder Manual Muscle Testing Right Flexion 4+ Good+ Extension 5 Normal Abduction (C5) 4+ Good+ Adduction 4+ Good+ External Rotation 4 Good Internal Rotation 4+ Good+ Comments ER limited by pain Left Flexion 5 Normal Extension 5 Normal Abduction (C5) 5 Normal Adduction 5 Normal External Rotation 5 Normal Internal Rotation 5 Normal Horizontal Abduction 5 Normal Horizontal Adduction 5 Normal Elbow/Forearm Strength Elbow and Forearm Manual Muscle Testing dylon Flexion (C6) 5 Normal Extension (C7) 5 Normal PT-OP-Q Treatments Start: 06/09/23 08:57 Freq: Status: Active Protocol: Document 08/31/23 14:33 [facility] (Rec: 08/31/23 15:18 [facility] [id number]) Therapeutic Exercises Supine Exercises shoulder ER/IR Supine Exercise Name IR Reps/Minutes 10x2 Comments with short axis distraction, man cues to prevent rolling forward of shoulde Sitting Exercises should abd Sitting Exercise Name passive > AAROM Reps/Minutes 10x Comments with manual inf glide GH shoulder flex Sitting Exercise Name PROM > AAROM Reps/Minutes 10x Comments with manual inf glid GH seated cat/cow Reps/Minutes 5x Comments cues for reeling movement of scapulas Manual Therapy Treatment Soft Tissue Mobilization pin and stretch Body Location Subscap Mobilization Type Sustained Pressure Intensity/Depth mod Body Position Supine Comments with GH flex right shoulder Body Location R biceps, deltoid, rhomboids, infrasp, suprasp Mobilization Type Cross-Friction,Myofascial Release,Strumming Intensity/Depth mod Joint Mobilizations GH Joint R Direction inf, posterior Grade III Body Position Hooklying scapula Joint R Direction prot, retra, caud,ceph, UR/DR /c abd & HABD Grade II Body Position Sidelying Comments /c FM STMs: ABD, HABD Other Other Manual Treatments MMT and ROM testing PT-OP-R Modalities Start: 06/09/23 08:57 Freq: Status: Active Protocol: Document 08/31/23 14:33 [facility] (Rec: 08/31/23 15:18 [facility] [id number]) Electric Stimulation Electric Stimulation Interferential Current (IFC) Body Location right shoulder Duration (Minutes) 15 Intensity 10 Target/Sweep Sweep Patient Position Hooklying Combined With Heat/Cold Hot Pack Iontophoresis Treatment right RC insertion Medication Amount (mL) (ml) 1.0 Medication Dosage 4mg/ml Treatment Polarity neg Treatment Duration (minutes) 3 PT-OP-T Assessment and Plan Start: 06/09/23 08:57 Freq: Status: Active Protocol: Document 08/31/23 14:33 [facility] (Rec: 08/31/23 15:18 [facility] [id number]) Physical Therapy Assessment Goals Three Impairment postural impairment Impairment habitual activities and postures impacting right shoulder health Short Term Goal (STG) Patient to be instructed in postural correction activities and exercises 07/13/23: progressing with scapular corrections during ROM with occasional cuing slower pacing. STG Duration goal met [facility] Goal (LTG) Patient will be able to self- identify activities and postioning which contribute to her shoulder dysfunction and demonstrate independent ability to self-correct and will be independent and compliant with HEP. 07/15/23: good goal progress 08/04/23: continues to improve with postural correction : cont to work on ways to improve posture with activities, has ordered an easel for painting. LTG Duration 09/15/23 Two Impairment activity tolerance Impairment Quickdash UE disability index score 27% Short Term Goal (STG) Decrease score to no greater than 17% 07/15/23: dec to 23% 08/04/23: goal met STG Duration goal met [employer] Goal (LTG) Decrease Quickdash score to no greater than 10% as measure of improved right shoulder activity tolerance 08/31/23: LTG Duration 09/15/23 One Impairment R shoulder pain as high as 8/ 10 Impairment increases with reaching overhead and behind her back. Interrupts her sleep Short Term Goal (STG) Patient to report 50% reduction in pain with all activities 07/15/23: goal met STG Duration goal met [facility] Goal (LTG) Patient to sleep without being woken due to right shoulder pain and will be able to reach overhead and behind her back without pain 08/04/24: still waking due to shoulder pain 08/31/23: not as frequent waking, still occasional, improved ability to reach behind her back but some pain, variable. Pain today 08/25. Good progress LTG Duration 09/15/23 Progress Towards Goals Progress Towards Goals Progressing Toward Goals Assessment Summary Assessment Patient ROM improves with manual techniques, inc emphasis on manual in PT last couple sessions after scapular mobility exercises. Good compliance to HEP except prone ex. Good progress toward goals. Physical Therapy Plan Frequency and Duration Frequency of Treatment 2x/Week Duration of treatment (weeks) 4 Plan of Care Start Date 08/04/23 Plan of Care End Date 09/15/23 Therapeutic Interventions Therapeutic Interventions Home Exercise Program,Joint Mobilizations,Manual Therapy, Patient/Caregiver Education, Self-Care/Home Management,Soft Tissue Mobilization,Taping, Therapeutic Activities, Therapeutic Exercises Modalities Cold Pack/Ice Massage,Electric Stimulation,Hot Packs, Infrared Therapy,Iontophoresis ,Ultrasound Next Visit Focus/Plan Next Note Type Treatment Note Next Visit Plan REview prone ball exercises, wall slide, try wall walking with theraband. PRogress ther ex as able, pain-free ROM and intensity.
--- NOTE | 2023-09-02 14:37 | PT.OTN ---
Current Diagnoses Pain in right shoulder (09/02/23) Impingement syndrome of right shoulder (09/02/23) Other enthesopathies, not elsewhere classified (09/02/23) Abnormal posture (09/02/23) Physical Therapy Treatment Note PT-OP-A Visit Information Start: 06/09/23 08:57 Freq: Status: Active Protocol: Document 09/02/23 13:42 SAK (Rec: 09/02/23 14:37 [facility] [id number]) Out-Patient Physical Therapy Visit Information Visit Information Visit Type Treatment Note Visit Start Time 13:47 Visit Stop Time 14:40 Total Visit Minutes 53 Visit Number 19 PT-OP-B Current Condition Start: 06/09/23 08:57 Freq: Status: Active Protocol: Document 07/15/23 09:02 SAK (Rec: 07/15/23 10:11 SAK [id number]) Current Condition History of Current Condition Onset Date 3+ months Current Complaints right shoulder pain History of Current Condition Gradual onset right shoulder pain, no known reason. Bothers her with reaching out to side and overhead and behind her back. Difficulty sleeping due to pain. Occasional pins and needles. History torn rotator cuff 2020 left with injection, min pain at this time. Yesterday 30 min on elliptical plus rowing machine. Doing prior rotator cuff ex: bands, counter stretch. Right handed. Occasional use of ice or heat. Prior Treatments and Tests x-ray Apr 07: moderate AC arthritis, mild GH arthritis Future Testing and Treatments Planned CT or MRI if PT not helpful PT-OP-C Subjective Start: 06/09/23 08:57 Freq: Status: Active Protocol: Document 09/02/23 13:42 SAK (Rec: 09/02/23 14:37 [facility] [id number]) OP-PT Subjective Patient Comments Patient Comments Soreness, achiness but not sharp pains in right shoulder. PT-OP-F Manual Assessment Start: 06/09/23 08:57 Freq: Status: Active Protocol: Document 06/09/23 09:30 SAK (Rec: 06/09/23 10:52 [facility] [id number]) Manual Assessments Joint Mobility Assessment Joint Mobility Assessment WNL except right shoulder distraction and right AC sup> inf PT-OP-H Neuro Start: 06/09/23 08:57 Freq: Status: Active Protocol: Document 06/09/23 09:30 SAK (Rec: 06/09/23 10:52 [facility] [id number]) Sensation Evaluation Gross Sensation Gross Sensation Right UE Impaired Sensation Description [place] PT-OP-J Posture/Palpation/Skin Start: 06/09/23 08:57 Freq: Status: Active Protocol: Document 06/09/23 09:30 [facility] (Rec: 06/09/23 10:52 [facility] [id number]) Posture Evaluation Position Sitting Head/C-Spine Posture Forward Head Shoulder Posture (L) Rounded,(R) Rounded,(R) Forward Scapula Posture (R) Protracted Arm Posture (L) Internally Rotated,(R) Internally Rotated Palpation Assessment Location right RC Palpation Location insertion Palpation Findings Tenderness PT-OP-K Range of Motion Start: 06/09/23 08:57 Freq: Status: Active Protocol: Document 06/09/23 09:30 [facility] (Rec: 06/09/23 10:52 [facility] [id number]) Cervical Spine Range of Motion Cervical Spine Active Testing Position Sitting Rotation Left 25 Rotation Right 35 Lateral Flexion Left 30 Lateral Flexion Right 35 ROM Limitations Soft Tissue Tightness Shoulder Goniometric Range of Motion Shoulder Right Testing Position Sitting Flexion 155 Extension 15 Abduction 160 External Rotation at 45 degrees 80 Abduction Internal Rotation 65 Left Shoulder ROM WFL Yes Shoulder ROM Limitations Shoulder ROM Limitations Soft Tissue Tightness,Pain Elbow/Forearm Range of Motion Elbow/Forearm dylon Elbow/Forearm ROM WFL Yes PT-OP-L Special Tests Start: 06/09/23 08:57 Freq: Status: Active Protocol: Document 06/09/23 09:30 [facility] (Rec: 06/09/23 10:52 [facility] [id number]) Special Tests Shoulder Special Tests Watt [place] Impingement Test Results positive Neer Impingement Test Results positive Drop Arm Rotator Cuff Test Results negative PT-OP-M Strength Start: 06/09/23 08:57 Freq: Status: Active Protocol: Document 06/09/23 09:30 [facility] (Rec: 06/09/23 10:52 [facility] [id number]) Shoulder Strength Shoulder Manual Muscle Testing Right Flexion 4+ Good+ Extension 5 Normal Abduction (C5) 4+ Good+ Adduction 4+ Good+ External Rotation 4 Good Internal Rotation 4+ Good+ Comments ER limited by pain Left Flexion 5 Normal Extension 5 Normal Abduction (C5) 5 Normal Adduction 5 Normal External Rotation 5 Normal Internal Rotation 5 Normal Horizontal Abduction 5 Normal Horizontal Adduction 5 Normal Elbow/Forearm Strength Elbow and Forearm Manual Muscle Testing dylon Flexion (C6) 5 Normal Extension (C7) 5 Normal PT-OP-Q Treatments Start: 06/09/23 08:57 Freq: Status: Active Protocol: Document 09/02/23 13:42 [facility] (Rec: 09/02/23 14:37 [facility] [id number]) Gym Equipment Cable Column (Body Solid) Lat Pulldown Details Lat Pulldown, scap shrug Resistance 20 Reps/Time 10x2 ea Therapeutic Exercises Sidelying Exercises shoulder ER Sidelying Exercise Name HEP reviewed Side right Resistance 2>3#DB Equipment Used towel roll under arm Reps/Minutes 2# x10, 3# DBx10 Comments Good form,little tension over distal deltoid better post manual- Range pnfr Standing Exercises wall push-up Reps/Minutes 10x Comments verbal and tactile cues to prevent ovreactivation right UT shoulder IR Standing Exercise Name 90/90 Side right Resistance Level 1 shoulder ER Standing Exercise Name 90/90 Side right Resistance Lv 1 TB Comments no pain reported, mm fatigue wall slide Standing Exercise Name dylon UE's into Y (trial lift off) Comments cues for shoulder shrug at 90 deg thru end range to to facil scap movement Ys off wall Standing Exercise Name added to HEP Side bilateral Resistance TB #1 Reps/Minutes x10 Comments cued posture, keep tension con /ecc Manual Therapy Treatment Joint Mobilizations GH Joint R Direction inf, posterior Grade III Body Position Hooklying PT-OP-R Modalities Start: 06/09/23 08:57 Freq: Status: Active Protocol: Document 09/02/23 13:42 [facility] (Rec: 09/02/23 14:37 [facility] [id number]) Electric Stimulation Electric Stimulation Interferential Current (IFC) Body Location right shoulder Duration (Minutes) 15 Intensity 10 Target/Sweep Sweep Patient Position Hooklying Combined With Heat/Cold Hot Pack Infrared Treatment Treatment GH Duration (Minutes) 6 Body Position Sitting Continuous/Pulsed cont Program or Protocal chronic soft tissue stiffness and pain Iontophoresis Treatment right RC insertion Medication Amount (mL) (ml) 1.0 Medication Dosage 4mg/ml Treatment Polarity neg Treatment Duration (minutes) 3 PT-OP-T Assessment and Plan Start: 06/09/23 08:57 Freq: Status: Active Protocol: Document 09/02/23 13:42 [facility] (Rec: 09/02/23 14:37 [facility] [id number]) Physical Therapy Assessment Goals Three Impairment postural impairment Impairment habitual activities and postures impacting right shoulder health Short Term Goal (STG) Patient to be instructed in postural correction activities and exercises 07/13/23: progressing with scapular corrections during ROM with occasional cuing slower pacing. STG Duration goal met Usp Goal (LTG) Patient will be able to self- identify activities and postioning which contribute to her shoulder dysfunction and demonstrate independent ability to self-correct and will be independent and compliant with HEP. 07/15/23: good goal progress 08/04/23: continues to improve with postural correction : cont to work on ways to improve posture with activities, has ordered an easel for painting. LTG Duration 09/15/23 Two Impairment activity tolerance Impairment Quickdash UE disability index score 27% Short Term Goal (STG) Decrease score to no greater than 17% 07/15/23: dec to 23% 08/04/23: goal met STG Duration goal met Drawbridge Operator Goal (LTG) Decrease Quickdash score to no greater than 10% as measure of improved right shoulder activity tolerance 08/31/23: decreased to 13%, good goal progress LTG Duration 09/15/23 One Impairment R shoulder pain as high as 8/ 10 Impairment increases with reaching overhead and behind her back. Interrupts her sleep Short Term Goal (STG) Patient to report 50% reduction in pain with all activities 07/15/23: goal met STG Duration goal met Usp Goal (LTG) Patient to sleep without being woken due to right shoulder pain and will be able to reach overhead and behind her back without pain 08/04/24: still waking due to shoulder pain 08/31/23: not as frequent waking, still occasional, improved ability to reach behind her back but some pain, variable. Pain today 08/25. Good progress LTG Duration 09/15/23 Assessment Summary Assessment Improving functional strength, dec pain. Added lat pull and scap shrug, plus chest press (patient has total gym) to HEP Physical Therapy Plan Frequency and Duration Frequency of Treatment 2x/Week Duration of treatment (weeks) 4 Plan of Care Start Date 08/04/23 Plan of Care End Date 09/15/23 Therapeutic Interventions Therapeutic Interventions Home Exercise Program,Joint Mobilizations,Manual Therapy, Patient/Caregiver Education, Self-Care/Home Management,Soft Tissue Mobilization,Taping, Therapeutic Activities, Therapeutic Exercises Modalities Cold Pack/Ice Massage,Electric Stimulation,Hot Packs, Infrared Therapy,Iontophoresis ,Ultrasound Next Visit Focus/Plan Next Note Type Treatment Note Next Visit Plan REview lat pull and scapular shrug
--- NOTE | 2023-09-08 12:13 | PT.OTN ---
Current Diagnoses Pain in right shoulder (09/08/23) Impingement syndrome of right shoulder (09/08/23) Other enthesopathies, not elsewhere classified (09/08/23) Abnormal posture (09/08/23) Physical Therapy Treatment Note PT-OP-A Visit Information Start: 06/09/23 08:57 Freq: Status: Active Protocol: Document 09/08/23 11:20 SW (Rec: 09/08/23 12:13 [id number]) Out-Patient Physical Therapy Visit Information Visit Information Visit Type Treatment Note Visit Start Time 11:19 Visit Stop Time 12:10 Visit Number 20 Number of DINING ROOM CAPTAIN Visits 1 PT-OP-B Current Condition Start: 06/09/23 08:57 Freq: Status: Active Protocol: Document 07/15/23 09:02 SAK (Rec: 07/15/23 10:11 SAK [id number]) Current Condition History of Current Condition Onset Date 3+ months Current Complaints right shoulder pain History of Current Condition Gradual onset right shoulder pain, no known reason. Bothers her with reaching out to side and overhead and behind her back. Difficulty sleeping due to pain. Occasional pins and needles. History torn rotator cuff 2020 left with injection, min pain at this time. Yesterday 30 min on elliptical plus rowing machine. Doing prior rotator cuff ex: bands, counter stretch. Right handed. Occasional use of ice or heat. Prior Treatments and Tests x-ray Apr 07: moderate AC arthritis, mild GH arthritis Future Testing and Treatments Planned CT or MRI if PT not helpful PT-OP-C Subjective Start: 06/09/23 08:57 Freq: Status: Active Protocol: Document 09/08/23 11:20 (Rec: 09/08/23 12:13 [id number]) OP-PT Subjective Patient Comments Patient Comments Pt reports hip bothering pt more than the shoulder. Pt reports doing total gym exercises at home, tolerated well. Pt used new art easle for first time for better postural alignment during painting. PT-OP-F Manual Assessment Start: 06/09/23 08:57 Freq: Status: Active Protocol: Document 06/09/23 09:30 SAK (Rec: 06/09/23 10:52 SAK [id number]) Manual Assessments Joint Mobility Assessment Joint Mobility Assessment WNL except right shoulder distraction and right AC sup> inf PT-OP-H Neuro Start: 06/09/23 08:57 Freq: Status: Active Protocol: Document 06/09/23 09:30 [facility] (Rec: 06/09/23 10:52 [facility] [id number]) Sensation Evaluation Gross Sensation Gross Sensation Right UE Impaired Sensation Description [place] PT-OP-J Posture/Palpation/Skin Start: 06/09/23 08:57 Freq: Status: Active Protocol: Document 06/09/23 09:30 [facility] (Rec: 06/09/23 10:52 [facility] [id number]) Posture Evaluation Position Sitting Head/C-Spine Posture Forward Head Shoulder Posture (L) Rounded,(R) Rounded,(R) Forward Scapula Posture (R) Protracted Arm Posture (L) Internally Rotated,(R) Internally Rotated Palpation Assessment Location right RC Palpation Location insertion Palpation Findings Tenderness PT-OP-K Range of Motion Start: 06/09/23 08:57 Freq: Status: Active Protocol: Document 06/09/23 09:30 [facility] (Rec: 06/09/23 10:52 [facility] [id number]) Cervical Spine Range of Motion Cervical Spine Active Testing Position Sitting Rotation Left 25 Rotation Right 35 Lateral Flexion Left 30 Lateral Flexion Right 35 ROM Limitations Soft Tissue Tightness Shoulder Goniometric Range of Motion Shoulder Right Testing Position Sitting Flexion 155 Extension 15 Abduction 160 External Rotation at 45 degrees 80 Abduction Internal Rotation 65 Left Shoulder ROM WFL Yes Shoulder ROM Limitations Shoulder ROM Limitations Soft Tissue Tightness,Pain Elbow/Forearm Range of Motion Elbow/Forearm dylon Elbow/Forearm ROM WFL Yes PT-OP-L Special Tests Start: 06/09/23 08:57 Freq: Status: Active Protocol: Document 06/09/23 09:30 [facility] (Rec: 06/09/23 10:52 [facility] [id number]) Special Tests Shoulder Special Tests Watt [place] Impingement Test Results positive Neer Impingement Test Results positive Drop Arm Rotator Cuff Test Results negative PT-OP-M Strength Start: 06/09/23 08:57 Freq: Status: Active Protocol: Document 06/09/23 09:30 [facility] (Rec: 06/09/23 10:52 [facility] [id number]) Shoulder Strength Shoulder Manual Muscle Testing Right Flexion 4+ Good+ Extension 5 Normal Abduction (C5) 4+ Good+ Adduction 4+ Good+ External Rotation 4 Good Internal Rotation 4+ Good+ Comments ER limited by pain Left Flexion 5 Normal Extension 5 Normal Abduction (C5) 5 Normal Adduction 5 Normal External Rotation 5 Normal Internal Rotation 5 Normal Horizontal Abduction 5 Normal Horizontal Adduction 5 Normal Elbow/Forearm Strength Elbow and Forearm Manual Muscle Testing dylon Flexion (C6) 5 Normal Extension (C7) 5 Normal PT-OP-Q Treatments Start: 06/09/23 08:57 Freq: Status: Active Protocol: Document 09/08/23 11:20 SW (Rec: 09/08/23 12:13 SW [id number]) Gym Equipment Cable Column (Body Solid) Lat Pulldown Details Lat Pulldown, scap shrug Resistance 20 Reps/Time 10x2 ea Therapeutic Exercises Sidelying Exercises shoulder ER Sidelying Exercise Name HEP reviewed Side right Resistance 2#DB Equipment Used towel roll under arm Reps/Minutes x10 Comments Good form, pt fatigued at EOS, decreased weight to avoid compensation Standing Exercises wall push-up Standing Exercise Name wall pushup, wide hand placement, narrow hand placement Reps/Minutes 10x Comments verbal and tactile cues to prevent ovreactivation right UT shoulder IR Standing Exercise Name 90/90 Side right Resistance Level 1 shoulder ER Standing Exercise Name 90/90 Side right Resistance Lv 1 TB wall slide Standing Exercise Name dylon UE's into Y with lift off Comments cues for shoulder shrug at 90 deg thru end range to to facil scap movement Manual Therapy Treatment Soft Tissue Mobilization right shoulder Body Location R biceps, deltoid, rhomboids, infrasp, suprasp Mobilization Type Cross-Friction,Myofascial Release,Strumming Intensity/Depth mod PT-OP-R Modalities Start: 06/09/23 08:57 Freq: Status: Active Protocol: Document 09/08/23 11:20 SW (Rec: 09/08/23 12:13 [id number]) Hot Pack/Cold Pack Treatment Cold Pack Location right shoulder Patient Position Hooklying Patient Tolerance Good PT-OP-T Assessment and Plan Start: 06/09/23 08:57 Freq: Status: Active Protocol: Document 09/08/23 11:20 SW (Rec: 09/08/23 12:13 SW [id number]) Physical Therapy Assessment Goals Three Impairment postural impairment Impairment habitual activities and postures impacting right shoulder health Short Term Goal (STG) Patient to be instructed in postural correction activities and exercises 07/13/23: progressing with scapular corrections during ROM with occasional cuing slower pacing. STG Duration goal met Front Line Supervisor Goal (LTG) Patient will be able to self- identify activities and postioning which contribute to her shoulder dysfunction and demonstrate independent ability to self-correct and will be independent and compliant with HEP. 07/15/23: good goal progress 08/04/23: continues to improve with postural correction : cont to work on ways to improve posture with activities, has ordered an easel for painting. LTG Duration 09/15/23 Two Impairment activity tolerance Impairment Quickdash UE disability index score 27% Short Term Goal (STG) Decrease score to no greater than 17% 07/15/23: dec to 23% 08/04/23: goal met STG Duration goal met Long-Term Goal (LTG) Decrease Quickdash score to no greater than 10% as measure of improved right shoulder activity tolerance 08/31/23: decreased to 13%, good goal progress LTG Duration 09/15/23 One Impairment R shoulder pain as high as 8/ 10 Impairment increases with reaching overhead and behind her back. Interrupts her sleep Short Term Goal (STG) Patient to report 50% reduction in pain with all activities 07/15/23: goal met STG Duration goal met Long-Term Goal (LTG) Patient to sleep without being woken due to right shoulder pain and will be able to reach overhead and behind her back without pain 08/04/24: still waking due to shoulder pain 08/31/23: not as frequent waking, still occasional, improved ability to reach behind her back but some pain, variable. Pain today 08/25. Good progress LTG Duration 09/15/23 Assessment Summary Assessment Palpable clicking in R shoulder during elevated exercises, cues to set shoulders prior to intitiating exercise, improved but still present. Progressed pt with addition of lift off during Y wall slides to increase scapular stabilization/ strengthening, verbal/visual/ tactile cues for execution, pt tolerated well without presence of clicking, plan to review for carryover prior to issueing HEP. Reviewed new exercises issued last session, good carryover, pt initiated HEP with total gym, tolerated well. Physical Therapy Plan Frequency and Duration Frequency of Treatment 2x/Week Duration of treatment (weeks) 4 Plan of Care Start Date 08/04/23 Plan of Care End Date 09/15/23 Therapeutic Interventions Therapeutic Interventions Home Exercise Program,Joint Mobilizations,Manual Therapy, Patient/Caregiver Education, Self-Care/Home Management,Soft Tissue Mobilization,Taping, Therapeutic Activities, Therapeutic Exercises Modalities Cold Pack/Ice Massage,Electric Stimulation,Hot Packs, Infrared Therapy,Iontophoresis ,Ultrasound Next Visit Focus/Plan Next Note Type Treatment Note Next Visit Plan REview lat pull and scapular shrug
--- NOTE | 2023-09-13 12:12 | PT.OTN ---
Current Diagnoses Pain in right shoulder (09/13/23) Impingement syndrome of right shoulder (09/13/23) Other enthesopathies, not elsewhere classified (09/13/23) Abnormal posture (09/13/23) Physical Therapy Treatment Note PT-OP-A Visit Information Start: 06/09/23 08:57 Freq: Status: Active Protocol: Document 09/13/23 09:45 SAK (Rec: 09/13/23 10:34 [facility] [id number]) Out-Patient Physical Therapy Visit Information Visit Information Visit Type Treatment Note Visit Start Time 09:45 Visit Stop Time 10:41 Visit Number 21 Number of DEHORNER Visits 0 PT-OP-B Current Condition Start: 06/09/23 08:57 Freq: Status: Active Protocol: Document 07/15/23 09:02 SAK (Rec: 07/15/23 10:11 SAK [id number]) Current Condition History of Current Condition Onset Date 3+ months Current Complaints right shoulder pain History of Current Condition Gradual onset right shoulder pain, no known reason. Bothers her with reaching out to side and overhead and behind her back. Difficulty sleeping due to pain. Occasional pins and needles. History torn rotator cuff 2020 left with injection, min pain at this time. Yesterday 30 min on elliptical plus rowing machine. Doing prior rotator cuff ex: bands, counter stretch. Right handed. Occasional use of ice or heat. Prior Treatments and Tests x-ray Apr 07: moderate AC arthritis, mild GH arthritis Future Testing and Treatments Planned CT or MRI if PT not helpful PT-OP-C Subjective Start: 06/09/23 08:57 Freq: Status: Active Protocol: Document 09/13/23 09:45 SAK (Rec: 09/13/23 10:34 [facility] [id number]) OP-PT Subjective Patient Comments Patient Comments Able to use [employer] at home. Hasn't been able to do ball exercises; needs new ball. Chavo thinks better for her posture and arm PT-OP-F Manual Assessment Start: 06/09/23 08:57 Freq: Status: Active Protocol: Document 06/09/23 09:30 SAK (Rec: 06/09/23 10:52 SAK [id number]) Manual Assessments Joint Mobility Assessment Joint Mobility Assessment WNL except right shoulder distraction and right AC sup> inf PT-OP-H Neuro Start: 06/09/23 08:57 Freq: Status: Active Protocol: Document 06/09/23 09:30 [facility] (Rec: 06/09/23 10:52 [facility] [id number]) Sensation Evaluation Gross Sensation Gross Sensation Right UE Impaired Sensation Description [place] PT-OP-J Posture/Palpation/Skin Start: 06/09/23 08:57 Freq: Status: Active Protocol: Document 06/09/23 09:30 [facility] (Rec: 06/09/23 10:52 [facility] [id number]) Posture Evaluation Position Sitting Head/C-Spine Posture Forward Head Shoulder Posture (L) Rounded,(R) Rounded,(R) Forward Scapula Posture (R) Protracted Arm Posture (L) Internally Rotated,(R) Internally Rotated Palpation Assessment Location right RC Palpation Location insertion Palpation Findings Tenderness PT-OP-K Range of Motion Start: 06/09/23 08:57 Freq: Status: Active Protocol: Document 06/09/23 09:30 [facility] (Rec: 06/09/23 10:52 [facility] [id number]) Cervical Spine Range of Motion Cervical Spine Active Testing Position Sitting Rotation Left 25 Rotation Right 35 Lateral Flexion Left 30 Lateral Flexion Right 35 ROM Limitations Soft Tissue Tightness Shoulder Goniometric Range of Motion Shoulder Right Testing Position Sitting Flexion 155 Extension 15 Abduction 160 External Rotation at 45 degrees 80 Abduction Internal Rotation 65 Left Shoulder ROM WFL Yes Shoulder ROM Limitations Shoulder ROM Limitations Soft Tissue Tightness,Pain Elbow/Forearm Range of Motion Elbow/Forearm dylon Elbow/Forearm ROM WFL Yes PT-OP-L Special Tests Start: 06/09/23 08:57 Freq: Status: Active Protocol: Document 06/09/23 09:30 [facility] (Rec: 06/09/23 10:52 [facility] [id number]) Special Tests Shoulder Special Tests Watt Eugene Impingement Test Results positive Neer Impingement Test Results positive Drop Arm Rotator Cuff Test Results negative PT-OP-M Strength Start: 06/09/23 08:57 Freq: Status: Active Protocol: Document 06/09/23 09:30 [facility] (Rec: 06/09/23 10:52 [facility] [id number]) Shoulder Strength Shoulder Manual Muscle Testing Right Flexion 4+ Good+ Extension 5 Normal Abduction (C5) 4+ Good+ Adduction 4+ Good+ External Rotation 4 Good Internal Rotation 4+ Good+ Comments ER limited by pain Left Flexion 5 Normal Extension 5 Normal Abduction (C5) 5 Normal Adduction 5 Normal External Rotation 5 Normal Internal Rotation 5 Normal Horizontal Abduction 5 Normal Horizontal Adduction 5 Normal Elbow/Forearm Strength Elbow and Forearm Manual Muscle Testing dylon Flexion (C6) 5 Normal Extension (C7) 5 Normal PT-OP-Q Treatments Start: 06/09/23 08:57 Freq: Status: Active Protocol: Document 09/13/23 09:45 [facility] (Rec: 09/13/23 10:34 [facility] [id number]) Cardio Equipment Upper Body Ergometer (UBE) Duration (Minutes) 6 RPM 60 Seat Position 9 Height 2.5 Other 3/3 min each direction Gym Equipment Cable Column (Body Solid) Lat Pulldown Details Lat Pulldown, scap shrug Resistance 30 Reps/Time 10x2 ea Therapeutic Ball I, Y, T Exercise Details I 3#, Ys AROM, Ts 2# DB Ball Size/Color 65 inch/red Body Position Prone Therapeutic Exercises Supine Exercises posterior capsule stretch Side bilateral Reps/Minutes 2x10 Comments good post shld stretch shoulder ER/IR Supine Exercise Name IR Reps/Minutes 10x2 Comments with short axis distraction, man cues to prevent rolling forward of shoulde IR stretch Supine Exercise Name AAROM > AROM Equipment Used towel roll Comments stab of GH joint Sidelying Exercises shoulder ER Sidelying Exercise Name HEP reviewed Side right Resistance 2#DB Equipment Used towel roll under arm Reps/Minutes x10 Comments Good form, pt fatigued at EOS, decreased weight to avoid compensation Sitting Exercises shoulder rolls Sitting Exercise Name dylon and unil Reps/Minutes 10x Standing Exercises shoulder IR Standing Exercise Name 90/90 Side right Resistance Level 2 shoulder ER Standing Exercise Name 90/90 Side right Resistance Lv 2 TB wall slide Standing Exercise Name dylon UE's into Y with lift off Comments cues for shoulder shrug at 90 deg thru end range to to facil scap movement throwing Resistance L2 TB Equipment Used rebounder Reps/Minutes 10x2 throwing motion Equipment Used L2 TB Reps/Minutes 15x2 Comments slow, controlled, then inc speed wall walking Standing Exercise Name added toHEP Resistance TB #2 Reps/Minutes 20 ft x1 lap Comments good post shld muscle tiring Ys off wall Standing Exercise Name added to HEP Side bilateral Resistance TB #1 Reps/Minutes x10 Comments cued posture, keep tension con /ecc Manual Therapy Treatment Soft Tissue Mobilization right shoulder Body Location R biceps, deltoid, rhomboids, infrasp, suprasp Mobilization Type Cross-Friction,Myofascial Release,Strumming Intensity/Depth mod Joint Mobilizations GH Joint R Direction inf, posterior Grade III Body Position Hooklying PT-OP-R Modalities Start: 06/09/23 08:57 Freq: Status: Active Protocol: Document 09/13/23 09:45 SAK (Rec: 09/13/23 10:34 [facility] [id number]) Electric Stimulation Electric Stimulation Interferential Current (IFC) Body Location right shoulder Intensity 10 Target/Sweep Sweep Patient Position Hooklying Combined With Heat/Cold Hot Pack PT-OP-T Assessment and Plan Start: 06/09/23 08:57 Freq: Status: Active Protocol: Document 09/13/23 09:45 [facility] (Rec: 09/13/23 10:34 [facility] [id number]) Physical Therapy Assessment Goals Three Impairment postural impairment Impairment habitual activities and postures impacting right shoulder health Short Term Goal (STG) Patient to be instructed in postural correction activities and exercises 07/13/23: progressing with scapular corrections during ROM with occasional cuing slower pacing. STG Duration goal met Ship'S Pilot Goal (LTG) Patient will be able to self- identify activities and postioning which contribute to her shoulder dysfunction and demonstrate independent ability to self-correct and will be independent and compliant with HEP. 07/15/23: good goal progress 08/04/23: continues to improve with postural correction : cont to work on ways to improve posture with activities, has ordered an easel for painting. LTG Duration 09/15/23 Two Impairment activity tolerance Impairment Quickdash UE disability index score 27% Short Term Goal (STG) Decrease score to no greater than 17% 07/15/23: dec to 23% 08/04/23: goal met STG Duration goal met Ship'S Pilot Goal (LTG) Decrease Quickdash score to no greater than 10% as measure of improved right shoulder activity tolerance 08/31/23: decreased to 13%, good goal progress LTG Duration 09/15/23 One Impairment R shoulder pain as high as 8/ 10 Impairment increases with reaching overhead and behind her back. Interrupts her sleep Short Term Goal (STG) Patient to report 50% reduction in pain with all activities 07/15/23: goal met STG Duration goal met Ship'S Pilot Goal (LTG) Patient to sleep without being woken due to right shoulder pain and will be able to reach overhead and behind her back without pain 08/04/24: still waking due to shoulder pain 08/31/23: not as frequent waking, still occasional, improved ability to reach behind her back but some pain, variable. Pain today 08/25. Good progress LTG Duration 09/15/23 Assessment Summary Assessment Improved performance of I,T,Y with cues for dec resistance, better attention to form, not overactivate UT. Good compliance to HEP. SHould be ready for dischage to OP PT after next session. Physical Therapy Plan Frequency and Duration Frequency of Treatment 2x/Week Duration of treatment (weeks) 4 Plan of Care Start Date 08/04/23 Plan of Care End Date 09/15/23 Therapeutic Interventions Therapeutic Interventions Home Exercise Program,Joint Mobilizations,Manual Therapy, Patient/Caregiver Education, Self-Care/Home Management,Soft Tissue Mobilization,Taping, Therapeutic Activities, Therapeutic Exercises Modalities Cold Pack/Ice Massage,Electric Stimulation,Hot Packs, Infrared Therapy,Iontophoresis ,Ultrasound Next Visit Focus/Plan Next Note Type Treatment Note Next Visit Plan Patient to bring written HEP for review and modification as needed. Plan discharge PT after next PT visit.
--- NOTE | 2023-09-15 12:14 | PT.OTN ---
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 Bothers her with reaching out to side and overhead and behind her back. Difficulty sleeping due to pain. Occasional pins and needles. History torn rotator cuff 2020 left with injection, min pain at this time. Yesterday 30 min on elliptical plus rowing machine. Doing prior rotator cuff ex: bands, counter stretch. Right handed. Occasional use of ice or heat. Prior Treatments and Tests x-ray Apr 07: moderate AC arthritis, mild GH arthritis Future Testing and Treatments Planned CT or MRI if PT not helpful PT-OP-C Subjective Start: 06/09/23 08:57 Freq: Status: Active Protocol: Document 09/15/23 11:18 (Rec: 09/15/23 12:12 [id number]) OP-PT Subjective Patient Comments Patient Comments Pt reports no new c/o. Painting with easle is going good. Feels improvement in shoulder ROM, pain, and activity toerance. Pt reports able to self identify and correct postitions of discomfort. Pt reports not waking up in the night d/t shoulder pain. PT-OP-F Manual Assessment Start: 06/09/23 08:57 Freq: Status: Active Protocol: Document 06/09/23 09:30 SAK (Rec: 06/09/23 10:52 SAK [id number]) Manual Assessments Joint Mobility Assessment Joint Mobility Assessment WNL except right shoulder distraction and right AC sup> inf PT-OP-H Neuro Start: 06/09/23 08:57 Freq: Status: Active Protocol: Document 06/09/23 09:30 [facility] (Rec: 06/09/23 10:52 [facility] [id number]) Sensation Evaluation Gross Sensation Gross Sensation Right UE Impaired Sensation Description [place] PT-OP-J Posture/Palpation/Skin Start: 06/09/23 08:57 Freq: Status: Active Protocol: Document 06/09/23 09:30 [facility] (Rec: 06/09/23 10:52 [facility] [id number]) Posture Evaluation Position Sitting Head/C-Spine Posture Forward Head Shoulder Posture (L) Rounded,(R) Rounded,(R) Forward Scapula Posture (R) Protracted Arm Posture (L) Internally Rotated,(R) Internally Rotated Palpation Assessment Location right RC Palpation Location insertion Palpation Findings Tenderness PT-OP-K Range of Motion Start: 06/09/23 08:57 Freq: Status: Active Protocol: Document 06/09/23 09:30 [facility] (Rec: 06/09/23 10:52 [facility] [id number]) Cervical Spine Range of Motion Cervical Spine Active Testing Position Sitting Rotation Left 25 Rotation Right 35 Lateral Flexion Left 30 Lateral Flexion Right 35 ROM Limitations Soft Tissue Tightness Shoulder Goniometric Range of Motion Shoulder Right Testing Position Sitting Flexion 155 Extension 15 Abduction 160 External Rotation at 45 degrees 80 Abduction Internal Rotation 65 Left Shoulder ROM WFL Yes Shoulder ROM Limitations Shoulder ROM Limitations Soft Tissue Tightness,Pain Elbow/Forearm Range of Motion Elbow/Forearm dylon Elbow/Forearm ROM WFL Yes PT-OP-L Special Tests Start: 06/09/23 08:57 Freq: Status: Active Protocol: Document 06/09/23 09:30 [facility] (Rec: 06/09/23 10:52 [facility] [id number]) Special Tests Shoulder Special Tests Watt Eugene Impingement Test Results positive Neer Impingement Test Results positive Drop Arm Rotator Cuff Test Results negative PT-OP-M Strength Start: 06/09/23 08:57 Freq: Status: Active Protocol: Document 06/09/23 09:30 [facility] (Rec: 06/09/23 10:52 [facility] [id number]) Shoulder Strength Shoulder Manual Muscle Testing Right Flexion 4+ Good+ Extension 5 Normal Abduction (C5) 4+ Good+ Adduction 4+ Good+ External Rotation 4 Good Internal Rotation 4+ Good+ Comments ER limited by pain Left Flexion 5 Normal Extension 5 Normal Abduction (C5) 5 Normal Adduction 5 Normal External Rotation 5 Normal Internal Rotation 5 Normal Horizontal Abduction 5 Normal Horizontal Adduction 5 Normal Elbow/Forearm Strength Elbow and Forearm Manual Muscle Testing dylon Flexion (C6) 5 Normal Extension (C7) 5 Normal PT-OP-Q Treatments Start: 06/09/23 08:57 Freq: Status: Active Protocol: Document 09/15/23 11:18 [facility] (Rec: 09/15/23 12:12 [id number]) Gym Equipment Cable Column (Body Solid) Lat Pulldown Details Lat Pulldown, scap shrug Resistance 30 Reps/Time 10x2 ea Therapeutic Ball I, Y, T Exercise Details I 3#, Ys AROM, Ts 2# DB Ball Size/Color 65 inch/red Body Position Prone Therapeutic Exercises Standing Exercises shoulder IR Standing Exercise Name 90/90 Side right Resistance Level 2 shoulder ER Standing Exercise Name 90/90 Side right Resistance Lv 2 TB throwing motion Equipment Used L2 TB Reps/Minutes 15x2 Comments slow, controlled, then inc speed wall walking Standing Exercise Name added toHEP Resistance TB #2 Reps/Minutes 20 ft x1 lap Comments good post shld muscle tiring Ys off wall Standing Exercise Name progressed to lift off Side bilateral Resistance TB #1 Reps/Minutes x10 Comments cued posture, keep tension con /ecc Self-Care/Home Management Treatment Education Patient Education Body Mechanics,Home Exercise Program,Pain Management, Posture Other Education Pt education on HEP carryover, mechanics, self corrections, and modalities for pain/mm soreness. PT-OP-R Modalities Start: 06/09/23 08:57 Freq: Status: Active Protocol: Document 09/15/23 11:18 (Rec: 09/15/23 12:12 [id number]) Hot Pack/Cold Pack Treatment Cold Pack Location right shoulder Patient Position Hooklying Patient Tolerance Good Comments 10 min PT-OP-T Assessment and Plan Start: 06/09/23 08:57 Freq: Status: Active Protocol: Document 09/15/23 11:18 [facility] (Rec: 09/15/23 12:12 [id number]) Physical Therapy Assessment Goals Three Impairment postural impairment Impairment habitual activities and postures impacting right shoulder health Short Term Goal (STG) Patient to be instructed in postural correction activities and exercises 07/13/23: progressing with scapular corrections during ROM with occasional cuing slower pacing. STG Duration goal met Newspaper Clipper Goal (LTG) Patient will be able to self- identify activities and postioning which contribute to her shoulder dysfunction and demonstrate independent ability to self-correct and will be independent and compliant with HEP. 07/15/23: good goal progress 08/04/23: continues to improve with postural correction : cont to work on ways to improve posture with activities, has ordered an easel for painting. LTG Duration 09/15/23 Two Impairment activity tolerance Impairment Quickdash UE disability index score 27% Short Term Goal (STG) Decrease score to no greater than 17% 07/15/23: dec to 23% 08/04/23: goal met STG Duration goal met Newspaper Clipper Goal (LTG) Decrease Quickdash score to no greater than 10% as measure of improved right shoulder activity tolerance 08/31/23: decreased to 13%, good goal progress LTG Duration 09/15/23 One Impairment R shoulder pain as high as 8/ 10 Impairment increases with reaching overhead and behind her back. Interrupts her sleep Short Term Goal (STG) Patient to report 50% reduction in pain with all activities 07/15/23: goal met STG Duration goal met Custodial Goal (LTG) Patient to sleep without being woken due to right shoulder pain and will be able to reach overhead and behind her back without pain 08/04/24: still waking due to shoulder pain 08/31/23: not as frequent waking, still occasional, improved ability to reach behind her back but some pain, variable. Pain today 08/25. Good progress LTG Duration 09/15/23 Assessment Summary Assessment Pt reports last day, per discussion with PT. Reviewed and progressed/modified pt HEP for carryover to home program . Pt correctly demonstrated HEP, with good self correction carryover. Physical Therapy Plan Frequency and Duration Frequency of Treatment 2x/Week Duration of treatment (weeks) 4 Plan of Care Start Date 08/04/23 Plan of Care End Date 09/15/23 Therapeutic Interventions Therapeutic Interventions Home Exercise Program,Joint Mobilizations,Manual Therapy, Patient/Caregiver Education, Self-Care/Home Management,Soft Tissue Mobilization,Taping, Therapeutic Activities, Therapeutic Exercises Modalities Cold Pack/Ice Massage,Electric Stimulation,Hot Packs, Infrared Therapy,Iontophoresis ,Ultrasound Next Visit Focus/Plan Next Note Type Treatment Note Next Visit Plan Patient to bring written HEP for review and modification as needed. Plan discharge PT after next PT visit.
--- NOTE | 2023-11-18 09:47 | PT.OPDS ---
Current Diagnoses Pain in right shoulder (09/15/23) Impingement syndrome of right shoulder (09/15/23) Other enthesopathies, not elsewhere classified (09/15/23) Abnormal posture (09/15/23) Visit Care Team Role Provider Type Joce Wu MD Family Provider Physician Primary Care Provider Specialty: Internal Medicine Address: [address] [place] [address] Email: [email or web address] Sara Mendoza PA-C Attending Provider Advanced Exhibition Specialist Referring Provider Specialty: Medical Wound Care Address: [address] [place] [address], [facility] Email: [email or web address] Visit Number Visit Number [id number] Discharge Summary PT-OP-B Current Condition Start: 06/09/23 08:57 Freq: Status: Active Protocol: Document 07/15/23 09:02 SAK (Rec: 07/15/23 10:11 SAK [id number]) Current Condition History of Current Condition Onset Date 3+ months Current Complaints right shoulder pain History of Current Condition Gradual onset right shoulder pain, no known reason. Bothers her with reaching out to side and overhead and behind her back. Difficulty sleeping due to pain. Occasional pins and needles. History torn rotator cuff 2020 left with injection, min pain at this time. Yesterday 30 min on elliptical plus rowing machine. Doing prior rotator cuff ex: bands, counter stretch. Right handed. Occasional use of ice or heat. Prior Treatments and Tests x-ray Apr 07: moderate AC arthritis, mild GH arthritis Future Testing and Treatments Planned CT or MRI if PT not helpful PT-OP-C Subjective Start: 06/09/23 08:57 Freq: Status: Active Protocol: Document 09/15/23 11:18 SW (Rec: 09/15/23 12:12 SW [id number]) OP-PT Subjective Patient Comments Patient Comments Pt reports no new c/o. Painting with easle is going good. Feels improvement in shoulder ROM, pain, and activity toerance. Pt reports able to self identify and correct postitions of discomfort. Pt reports not waking up in the night d/t shoulder pain. PT-OP-F Manual Assessment Start: 06/09/23 08:57 Freq: Status: Active Protocol: Document 06/09/23 09:30 SAK (Rec: 06/09/23 10:52 [facility] [id number]) Manual Assessments Joint Mobility Assessment Joint Mobility Assessment WNL except right shoulder distraction and right AC sup> inf PT-OP-H Neuro Start: 06/09/23 08:57 Freq: Status: Active Protocol: Document 06/09/23 09:30 SAK (Rec: 06/09/23 10:52 [facility] [id number]) Sensation Evaluation Gross Sensation Gross Sensation Right UE Impaired Sensation Description [place] PT-OP-J Posture/Palpation/Skin Start: 06/09/23 08:57 Freq: Status: Active Protocol: Document 06/09/23 09:30 [facility] (Rec: 06/09/23 10:52 [facility] [id number]) Posture Evaluation Position Sitting Head/C-Spine Posture Forward Head Shoulder Posture (L) Rounded,(R) Rounded,(R) Forward Scapula Posture (R) Protracted Arm Posture (L) Internally Rotated,(R) Internally Rotated Palpation Assessment Location right RC Palpation Location insertion Palpation Findings Tenderness PT-OP-K Range of Motion Start: 06/09/23 08:57 Freq: Status: Active Protocol: Document 06/09/23 09:30 [facility] (Rec: 06/09/23 10:52 [facility] [id number]) Cervical Spine Range of Motion Cervical Spine Active Testing Position Sitting Rotation Left 25 Rotation Right 35 Lateral Flexion Left 30 Lateral Flexion Right 35 ROM Limitations Soft Tissue Tightness Shoulder Goniometric Range of Motion Shoulder Right Testing Position Sitting Flexion 155 Extension 15 Abduction 160 External Rotation at 45 degrees 80 Abduction Internal Rotation 65 Left Shoulder ROM WFL Yes Shoulder ROM Limitations Shoulder ROM Limitations Soft Tissue Tightness,Pain Elbow/Forearm Range of Motion Elbow/Forearm dylon Elbow/Forearm ROM WFL Yes PT-OP-L Special Tests Start: 06/09/23 08:57 Freq: Status: Active Protocol: Document 06/09/23 09:30 [facility] (Rec: 06/09/23 10:52 [facility] [id number]) Special Tests Shoulder Special Tests Watt [place] Impingement Test Results positive Neer Impingement Test Results positive Drop Arm Rotator Cuff Test Results negative PT-OP-M Strength Start: 06/09/23 08:57 Freq: Status: Active Protocol: Document 06/09/23 09:30 [facility] (Rec: 06/09/23 10:52 [facility] [id number]) Shoulder Strength Shoulder Manual Muscle Testing Right Flexion 4+ Good+ Extension 5 Normal Abduction (C5) 4+ Good+ Adduction 4+ Good+ External Rotation 4 Good Internal Rotation 4+ Good+ Comments ER limited by pain Left Flexion 5 Normal Extension 5 Normal Abduction (C5) 5 Normal Adduction 5 Normal External Rotation 5 Normal Internal Rotation 5 Normal Horizontal Abduction 5 Normal Horizontal Adduction 5 Normal Elbow/Forearm Strength Elbow and Forearm Manual Muscle Testing dylon Flexion (C6) 5 Normal Extension (C7) 5 Normal PT-OP-T Assessment and Plan Start: 06/09/23 08:57 Freq: Status: Active Protocol: Document 11/18/23 09:47 [facility] (Rec: 11/18/23 09:47 [facility] [id number]) Physical Therapy Plan Discharge Physical Therapy Discharge Reasons No Longer Attending PT
== END 2023-11-19 10:31 | disposition home or self-care (01) ==
LOC: PHYS 11:15
PROVIDERS: Family Provider Internal Medicine; PCP Internal Medicine; Referring Provider Physician Assistant; Visit Provider Physician Assistant
DX: M77.8 Other enthesopathies, not elsewhere classified (principal); M25.511 Pain in right shoulder; R29.3 Abnormal posture; M75.41 Impingement syndrome of right shoulder
CPT/HCPCS: 97010; 97014; 97110; 97140; 97161; 97530; 97535; G0283

== ENCOUNTER → 2024-09-06 12:38 | Outpatient (CLI) | payer MEDICARE, OTHER, SELFPAY ==
[2020-12-05 08:31] VITALS: BMI 26.4
--- NOTE | 2024-09-06 12:40 | DI.MG.S_ITS ---
BILATERAL DIGITAL SCREENING MAMMOGRAM 3D/2D WITH CAD: 09/06/2024 CLINICAL: Routine screening. Comparison is made to exams dated: 08/18/2023 mammogram, 06/18/2022 mammogram, and 04/27/2020 mammogram - [facility]. There are scattered areas of fibroglandular density (category b / 25%-50% glandular tissue). Current study was also evaluated with a Computer Aided Detection (CAD) system. There is a benign focal asymmetry in the right breast. No significant masses, calcifications, or other findings are seen in either breast. There has been no significant interval change. IMPRESSION: BENIGN There is no mammographic evidence of malignancy. A 1 year screening mammogram is recommended. Based on the Tyrer Cuzick model (a risk assessment model) the patient's lifetime risk is 4.8% and her 10 year risk is 3.0%. According to the ACR, ACS, and NCCN guidelines, an annual breast MRI exam along with mammogram is recommended if the patient's lifetime risk is 20% or greater. This exam was interpreted at Station ID: [id number]. NOTE: For mammograms, a report in lay terms will be sent to the patient. Approximately 15% of breast malignancies will not be visualized mammographically. In the management of a palpable breast mass, a negative mammogram must not discourage biopsy of a clinically suspicious lesion. Electronically Signed By: Rivas alanis/harmeet:09/06/2024 18:46:51 letter sent: Normal Exam ACR BI-RADS Category 2: Benign
== END ==
PROVIDERS: Family Provider Internal Medicine; PCP Internal Medicine; Referring Provider Internal Medicine; Visit Provider Internal Medicine
DX: Z12.31 Encounter for screening mammogram for malignant neoplasm of breast (principal)
CPT/HCPCS: 77063; 77067

== ENCOUNTER → 2024-10-03 08:36 | Outpatient (CLI) | payer MEDICARE, OTHER, SELFPAY ==
[2020-12-05 08:31] VITALS: BMI 26.4
[2024-10-03 09:21] LABS: Aspartate Aminotransferase 26 IU/L (14-36); BUN Creatinine Ratio 22.7 (6-22); Blood Urea Nitrogen 15 mg/dL (7-17); Calcium 9.6 mg/dL (8.4-10.2); Carbon Dioxide 28 mmol/L (22-32); Chloride 104 mmol/L (98-107); Cholesterol 199 mg/dL (140-199); Estimated Glomerular Filt Rate > 60 mL/min (>60); Glucose 95 mg/dL (80-110); HDL Cholesterol 104 mg/dL (40-60); HEMOLYSIS < 15 (0-50); LDL Cholesterol Calculated 82 mg/dL (<100); Potassium 4.6 mmol/L (3.4-5.1); Sodium 138 mmol/L (137-145); Triglycerides 66 mg/dL (35-150)
== END ==
LOC: LAB 08:37
PROVIDERS: Family Provider Internal Medicine; PCP Internal Medicine; Referring Provider Internal Medicine; Visit Provider Internal Medicine
DX: E78.2 Mixed hyperlipidemia (principal); M81.0 Age-related osteoporosis without current pathological fracture
CPT/HCPCS: 36415; 80048; 80061; 84450

== ENCOUNTER → 2024-10-25 13:58 | Outpatient (CLI) | payer MEDICARE, OTHER, SELFPAY ==
[2020-12-05 08:31] VITALS: BMI 26.4
--- NOTE | 2024-10-25 14:00 | DI.RAD.S_ITS ---
PROCEDURE: XR DEXA AXIAL SKELETON INDICATIONS: osteoporosis COMPARISON: [facility], CR, XR DEXA AXIAL SKELETON, 06/17/2022, 14:26. FINDINGS: Lumbar Spine: Bone mineral density 0.784 (previously 0.768) g/cm2, T score -2.4 (previously-2.5). Left Femoral Neck: Bone mineral density 0.571 (previously 0.587) g/cm2, T score -2.5 (previously-2.4). Left Hip: Bone mineral density 0.764 (previously 0.752) g/cm2, T score -1.5 (previously-1.6). Fracture Risk Calculation (when applicable): 10-year fracture risk of a major osteoporotic fracture 23 percent and of a hip fracture 7.9 percent. (T score greater or equal to -1.0 to: NORMAL) (T score from -1.1 to -2.4: OSTEOPENIA) (T score less than or equal to -2.5: OSTEOPOROSIS) IMPRESSION: Osteoporosis---recommend repeat DEXA in 2 years or less for reassessment of response to treatment. Follow-up guidelines as follows: Osteoporosis: Consider a repeat DEXA and Vertebral Fracture Assessment (VFA) exam in 2 years or sooner if medically necessary, to reassess this patient's status. Osteopenia: Consider a repeat DEXA in 2-3 years to reassess this patient's status, or if there is a new clinical indication. Normal: Consider a repeat DEXA in 5 years or sooner, or if there is a new clinical indication. All treatment decisions require clinical judgment and consideration of individual patient factors, including patient preferences, comorbidities, previous drug use, risk factors not captured in the FRAX model (e.g., frailty, falls, vitamin D deficiency, increased bone turnover, interval significant decline in bone density ) and possible under- or over-estimation of fracture risk by FRAX. In addition, the NOF Guide recommends that FDA-approved medical therapies be considered in postmenopausal women and men age >= 50 years with a: * Hip or vertebral (clinical or morphometric) fracture * T-score of <=-2.5 at the spine or hip * Ten-year fracture probability by FRAX of >= 3% for hip fracture or >=20% for major osteoporotic fracture. Dictated by: Vijay Handley M.D. on 10/25/2024 at 18:17 Approved by: Vijay Handley M.D. on 10/25/2024 at 18:18
== END ==
PROVIDERS: Family Provider Internal Medicine; PCP Internal Medicine; Referring Provider Internal Medicine; Visit Provider Internal Medicine
DX: M81.0 Age-related osteoporosis without current pathological fracture (principal)
CPT/HCPCS: 77080